=== PATIENT | female | born 1990 | race American Indian/Alaskan Native ===

== ENCOUNTER 2017-09-30 20:03 | Inpatient (IN) | payer MEDICAID ==
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
[2017-09-30] MEDS ORDERED: Vancomycin 1.5 GM in Sodium Chloride 0.9% 500 ML IV ONE (20:29)
[2017-09-30] MEDS ORDERED: metroNIDAZOLE/Normal Saline 500 MG in Premix Bag 100 BAG IV ONE (20:29)
[2017-09-30] MEDS ORDERED: Sodium Chloride 0.9% 1,000 ML IV SCH (20:30)
[2017-09-30] MEDS ORDERED: HYDROmorphone 1 MG/ML Syringe IVPUSH ONE ×2 (20:33→21:52)
[2017-09-30 21:11] LABS: CHLORIDE,CL 91 mmol/L (101-111); SODIUM,NA 127 mmol/L (135-145)
[2017-09-30] MEDS ORDERED: Insulin Regular, Human 100 Units/ML 3 ML Vial IV ONE (21:12)
[2017-09-30] MEDS: Sodium Chloride 0.9% 1,000 ML IV SCH ×3 (22:45→22:47)
[2017-10-01] MEDS: fentaNYL 100 MCG/2 ML SDV IVPUSH PRN ×3 (01:02→08:40)
[2017-10-01] MEDS: Acetaminophen/HYDROcodone 325-10 MG Tab PO PRN ×3 (01:20→11:14)
[2017-10-01] MEDS ORDERED: Zolpidem 5 MG Tab PO PRN (01:20)
[2017-10-01] MEDS ORDERED: Magnesium Hydroxide 400 MG/5 ML Susp 30 ML Cup PO PRN (01:20)
[2017-10-01] MEDS ORDERED: Ondansetron 4 MG/2 ML SDV IVPUSH PRN (01:20)
[2017-10-01] MEDS ORDERED: Acetaminophen 500 MG Tab PO PRN (01:24)
[2017-10-01] MEDS ORDERED: INSULIN GLARGINE HUM REC ANLOG 30 UNIT SQ SCH (01:25)
[2017-10-01] MEDS ORDERED: Insulin Aspart 100 Units/ML 3 ML Pen SUBCUT PRN ×2 (01:26)
[2017-10-01] MEDS ORDERED: Levofloxacin/Dextrose 5%-Water 500 MG in Premix Bag 1 BAG IV SCH (01:30)
[2017-10-01] MEDS ORDERED: Insulin Detemir 100 Units/ML 3 ML Pen SUBCUT SCH (01:33)
[2017-10-01] MEDS: Sodium Chloride 0.9% 1,000 ML IV SCH (04:09)
[2017-10-01 07:10] LABS: CHLORIDE,CL 103 mmol/L (101-111); SODIUM,NA 135 mmol/L (135-145)
[2017-10-01] MEDS: Insulin Aspart 100 Units/ML 3 ML Pen SUBCUT SCH ×2 (08:44→12:06)
[2017-10-01] MEDS ORDERED: Gabapentin 300 MG Cap PO SCH (09:00)
[2017-10-01] MEDS ORDERED: Enoxaparin 40 MG/0.4 ML Syringe SUBCUT SCH (09:00)
[2017-10-01] MEDS ORDERED: Ferrous Sulfate 325 MG Tab PO SCH (09:00)
[2017-10-01 11:09] VITALS: BP 110/67
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
--- NOTE | 2017-10-02 08:18 | DISCH ---
ADMITTING DIAGNOSES: 1. Cellulitis and abscess involving the left hand. 2. Systemic inflammatory response syndrome with possible sepsis with underlying cellulitis and abscess with normal lactic acid. DISCHARGE DIAGNOSES: 1. Cellulitis and abscess involving the left hand with possible underlying osteomyelitis, needing higher level of care for possible Orthopedic evaluation for possible bone biopsy, and ID consultation for recommendation on IV antibiotics for a long-term course. 2. Systemic inflammatory response syndrome with possible sepsis with underlying cellulitis and abscess with normal lactic acid. HISTORY OF PRESENTING ILLNESS: Mrs. Osman Crowley is a 26-year-old female with medical history significant for diabetes mellitus, insulin dependent; chronic hepatitis C; history of substance abuse in the past; and pyelonephritis in the past, admitted to the hospital with complaints of increased swelling and tender to the left hand. The patient was noted to have cellulitis and abscesses. The patient also noted to have possible bone exposure suggesting possible acute osteomyelitis. 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 The patient wound is not healing well and continues to have pain and swelling and requests possible wound debridement by Orthopedic surgery. The patient is transferred to higher level of care for possibly obtaining a bone biopsy along with the wound debridement and ID consultation for long-term IV antibiotic course. The patient remained hemodynamically stable on this admission. She was noted to have uncontrolled diabetes at the time of admission, requiring insulin dose adjustment. The patient is continued on subcutaneous insulin on this admission. She is discharged to [facility] for further evaluation and treatment by Orthopedic team, and ID team consultation. She is discharged to [facility] in stable condition. DISCHARGE MEDICATIONS: Include; 1. Tylenol Extra Strength as needed for pain. 2. Lovenox 40 mg subcutaneous daily. 3. Ferrous sulfate 325 mg daily. 4. Neurontin 600 mg 3 times a day. 5. Insulin Lantus 30 units at bedtime. 6. NovoLog insulin 5 units three times a day with each meals. 7. Levaquin 500 mg IV daily. 8. Metoprolol 50 mg twice a day. 9. Vancomycin, pharmacy to dose. PHYSICAL EXAMINATION: Vital Signs: On the day of discharge vitals; temperature of 99.6, pulse of 105, respiratory rate of 20, blood pressure of 110/67, saturating 92% on room air. General Appearance: The patient is well oriented to time, place, and person. Follows commands spontaneously. Cardiovascular System: S1, S2 heard with normal intensity. No gallops. Respiratory System: Clear to auscultation bilaterally. No wheeze. No crepitations. Abdomen: Soft. Bowel sounds positive. Nontender. No rigidity. Extremities: No edema bilateral lower extremities. Nonhealing wound noted on the left hand. She has 3 puncture wounds, circular wounds with necrotic tissue at the base, and possible bone exposure at the base, and active secretions with possible abscess noted deep to the wounds. LABORATORY DATA: Labs done on this admission. CT scan of the hand shows skin ulceration and cellulitis seen on the dorsal radial aspect of the left hand surrounding the remnant of the first digit. There is bony remodeling seen within the proximal phalangeal remnant of the first digit, although sclerotic margins are seen on the distal extent suggesting this may represent a sequela of prior osteomyelitis, further evaluation with postcontrast MRI may be helpful in excluding active osteomyelitis. CONDITION ON ADMISSION: Poor. CONDITION ON DISCHARGE: Stable. DISPOSITION: Discharged to [facility] for getting Orthopedic and ID consultation. DIET: Consistent carbohydrate diet. ACTIVITY: As tolerated. Spent over 35 minutes of time in evaluating and treating this patient and coordination of cares in the discharge process. [facility] /[id number]
== END 2017-10-01 12:35 | DRG 602 ==
LOC: DL.ED 20:03 → DL.MS 22:31 → UNDOADMIN 22:31 → EEVIPCON 10-01 01:20 → DL.MS 10-01 01:20
PROVIDERS: ADMIT Internal Medicine; ATTEND Internal Medicine
DX: L03.114 Cellulitis of left upper limb (principal); D64.9 Anemia, unspecified; E10.9 Type 1 diabetes mellitus without complications; A41.9 Sepsis, unspecified organism; E78.00 Pure hypercholesterolemia, unspecified; Q90.9 Down syndrome, unspecified; Z79.899 Other long term (current) drug therapy; Z88.0 Allergy status to penicillin; Z88.1 Allergy status to other antibiotic agents; Z88.8 Allergy status to other drugs, medicaments and biological substances; E10.65 Type 1 diabetes mellitus with hyperglycemia; Z79.4 Long term (current) use of insulin; B19.20 Unspecified viral hepatitis C without hepatic coma; Z89.012 Acquired absence of left thumb; F17.210 Nicotine dependence, cigarettes, uncomplicated; E78.5 Hyperlipidemia, unspecified; G89.4 Chronic pain syndrome
CPT/HCPCS: 36415; 73200; 80053; 80305; 81001; 81025; 82962; 83605; 83935; 85025; 85651; 87040 ×2; 87070; 87086; 87205; 96365; 96366; 96375; 96376; 99285; A9270; J1170 ×2; J1815; J1956; J3010; J3370; J7030; J7040; 83036; 85027; 87077; 87088; 87186; J1650; J7050

== ENCOUNTER 2018-03-21 22:48 | Emergency (ER) | payer MEDICAID, SELFPAY ==
[2018-03-21] MEDS ORDERED: Ibuprofen 600 MG Tab PO ONE (22:49)
[2018-03-21] MEDS: Morphine 4 MG/ML Syringe IVPUSH ONE (23:20)
[2018-03-21] MEDS: Ondansetron 4 MG/2 ML SDV IV ONE (23:20)
[2018-03-21 23:38] LABS: CHLORIDE,CL 97 mmol/L (101-111); SODIUM,NA 131 mmol/L (135-145)
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
[2018-03-22] MEDS: Morphine 2 MG/ML Syringe IVPUSH ONE (00:42)
[2018-03-22] MEDS: Iopamidol 612 MG/ML 100 ML Bottle IVPUSH ONE (00:43)
[2018-03-22] MEDS ORDERED: Ibuprofen 600 MG Tab ONE (02:14)
== END 2018-03-22 02:50 | disposition home or self-care (01) ==
LOC: DL.ED 22:48
DX: S40.011A Contusion of right shoulder, initial encounter (principal); M54.9 Dorsalgia, unspecified; F15.10 Other stimulant abuse, uncomplicated; F17.210 Nicotine dependence, cigarettes, uncomplicated; E10.9 Type 1 diabetes mellitus without complications; V88.2XXA Person injured in collision between car and pick-up truck or van, nontraffic, initial encounter; Z88.0 Allergy status to penicillin; Z88.8 Allergy status to other drugs, medicaments and biological substances; Z88.1 Allergy status to other antibiotic agents
CPT/HCPCS: 36415; 70450; 70486; 71260; 72125; 72128; 72131; 73060; 73090; 74177; 80053; 80305; 81001; 82150; 84703; 85025; 85610; 96374; 96375; 99285; A9270; G0480; J2270; J2405; Q9967

== ENCOUNTER 2018-03-24 11:07 | Emergency (ER) | payer MEDICAID ==
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
[2018-03-24] MEDS ORDERED: traMADol 50 MG Tab PO ONE (12:47)
[2018-03-24 12:55] VITALS: BP 129/90
== END 2018-03-24 13:11 | disposition home or self-care (01) ==
LOC: DL.ED 11:07
DX: S40.021A Contusion of right upper arm, initial encounter (principal); E78.00 Pure hypercholesterolemia, unspecified; E10.9 Type 1 diabetes mellitus without complications; F17.210 Nicotine dependence, cigarettes, uncomplicated; Z88.8 Allergy status to other drugs, medicaments and biological substances; Z88.1 Allergy status to other antibiotic agents; Z88.0 Allergy status to penicillin; Z79.899 Other long term (current) drug therapy; V09.9XXA Pedestrian injured in unspecified transport accident, initial encounter
CPT/HCPCS: 80305; 81001; 99283; A9270

== ENCOUNTER 2019-03-16 19:20 | Emergency (ER) | payer MEDICAID ==
[2019-03-16] MEDS ORDERED: Acetaminophen/HYDROcodone 325-10 MG Tab PO ONE ×2 (19:21→19:40)
[2019-03-16] MEDS ORDERED: Cephalexin 500 MG Cap PO ONE (19:21)
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
[2019-03-16] MEDS ORDERED: Ondansetron 4 MG/2 ML SDV IV ONE (19:48)
[2019-03-16] MEDS ORDERED: Morphine 2 MG/ML Syringe IVPUSH ONE (19:48)
[2019-03-16 20:25] LABS: CHLORIDE,CL 99 mmol/L (101-111); SODIUM,NA 129 mmol/L (135-145)
[2019-03-16] MEDS ORDERED: Sodium Chloride 0.9% 1,000 ML IV ONE (21:06)
[2019-03-16] MEDS ORDERED: cefTRIAXone 1 GM in Sodium Chloride 0.9% 50 ML IV ONE (21:07)
[2019-03-16 21:47] VITALS: BP 118/75
[2019-03-16] MEDS ORDERED: Cephalexin 500 MG Cap ONE (21:52)
[2019-03-16] MEDS ORDERED: Acetaminophen/HYDROcodone 325-10 MG Tab ONE (21:52)
== END 2019-03-16 22:30 | disposition home or self-care (01) ==
LOC: DL.ED 19:20
DX: T87.43 Infection of amputation stump, right lower extremity (principal); T87.89 Other complications of amputation stump; E78.00 Pure hypercholesterolemia, unspecified; E10.9 Type 1 diabetes mellitus without complications; F17.210 Nicotine dependence, cigarettes, uncomplicated; Z88.8 Allergy status to other drugs, medicaments and biological substances; Z88.1 Allergy status to other antibiotic agents; Z79.4 Long term (current) use of insulin; Z79.899 Other long term (current) drug therapy; Z89.511 Acquired absence of right leg below knee; Z89.019 Acquired absence of unspecified thumb; W18.30XA Fall on same level, unspecified, initial encounter
CPT/HCPCS: 36415; 73560; 80053; 83605; 85025; 87040; 96365; 96375; 99284; A9270; J0696; J2270; J2405; J7030; J7050

== ENCOUNTER 2019-04-16 13:11 | Emergency (ER) | payer MEDICAID ==
[2019-04-16 13:23] VITALS: BP 136/95
[2019-04-16] MEDS ORDERED: Sodium Chloride 0.9% 10 ML Syringe FLUSH PRN (13:27)
[2019-04-16] MEDS ORDERED: Insulin Regular, Human 100 Units/ML 3 ML Vial IV ONE (13:53)
[2019-04-16] MEDS ORDERED: HYDROmorphone 1 MG/ML Syringe IVPUSH ONE (13:53)
[2019-04-16] MEDS ORDERED: Sodium Chloride 0.9% 1,000 ML IV ONE (13:53)
[2019-04-16 13:55] LABS: ANION GAP 13.7; CHLORIDE,CL 94 mmol/L (101-111); SODIUM,NA 126 mmol/L (135-145)
[2019-04-16] MEDS ORDERED: Ondansetron 4 MG/2 ML SDV IV ONE (14:08)
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
== END 2019-04-16 15:08 ==
LOC: DL.ED 13:11
DX: M86.8X4 Other osteomyelitis, hand (principal); E10.9 Type 1 diabetes mellitus without complications; F17.210 Nicotine dependence, cigarettes, uncomplicated; E78.00 Pure hypercholesterolemia, unspecified; Z79.899 Other long term (current) drug therapy; Z88.1 Allergy status to other antibiotic agents; Z88.8 Allergy status to other drugs, medicaments and biological substances
CPT/HCPCS: 36415; 80053; 81001; 81025; 82962; 83605; 85025; 87040; 96361; 96374; 96375; 99283; J1170; J1815; J2405; J7030

== ENCOUNTER 2019-04-20 12:55 | Emergency (ER) | payer MEDICAID ==
[2019-04-20 13:33] VITALS: BP 157/96; PULSE 106
[2019-04-20] MEDS ORDERED: traMADol 50 MG Tab PO ONE (15:19)
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
== END 2019-04-20 15:42 | disposition home or self-care (01) ==
LOC: DL.ED 12:55
DX: T87.89 Other complications of amputation stump (principal); I10 Essential (primary) hypertension; E13.8 Other specified diabetes mellitus with unspecified complications; F17.210 Nicotine dependence, cigarettes, uncomplicated; Z88.1 Allergy status to other antibiotic agents; Z88.8 Allergy status to other drugs, medicaments and biological substances; Z79.899 Other long term (current) drug therapy; Z91.19 Patient's noncompliance with other medical treatment and regimen; Z89.112 Acquired absence of left hand; Z89.511 Acquired absence of right leg below knee; Z79.4 Long term (current) use of insulin
CPT/HCPCS: 99283; A9270

== ENCOUNTER 2019-04-21 06:31 | Emergency (ER) | payer MEDICAID ==
[2019-04-21] MEDS ORDERED: fentaNYL 100 MCG/2 ML SDV IVPUSH ONE ×2 (06:37→07:25)
[2019-04-21] MEDS ORDERED: Ondansetron 4 MG/2 ML SDV IV ONE (06:37)
[2019-04-21] MEDS ORDERED: DAPTOmycin 500 MG in Sodium Chloride 0.9% 50 ML IV ONE (06:39)
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
[2019-04-21 06:42] VITALS: BP 158/96
[2019-04-21 07:08] LABS: ANION GAP 12.6; CHLORIDE,CL 101 mmol/L (101-111); SODIUM,NA 132 mmol/L (135-145)
[2019-04-21] MEDS ORDERED: Sodium Chloride 0.9% 500 ML IV SCH (08:00)
== END 2019-04-21 08:17 | disposition other institution (70) ==
LOC: DL.ED 06:31
DX: A41.9 Sepsis, unspecified organism (principal); I10 Essential (primary) hypertension; E10.9 Type 1 diabetes mellitus without complications; Z98.51 Tubal ligation status; Z89.511 Acquired absence of right leg below knee; Z79.4 Long term (current) use of insulin; Z79.899 Other long term (current) drug therapy; Z88.1 Allergy status to other antibiotic agents; Z88.8 Allergy status to other drugs, medicaments and biological substances
CPT/HCPCS: 36415; 80053; 83605; 85025; 87040; 96365; 96375; 96376; 99284; J0878; J2405; J3010; J7040; J7050

== ENCOUNTER 2019-05-18 09:21 | Emergency (ER) | payer MEDICAID ==
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
[2019-05-18 09:47] VITALS: BP 129/100
[2019-05-18] MEDS ORDERED: Sodium Chloride 0.9% 10 ML Syringe FLUSH PRN (09:47)
[2019-05-18] MEDS ORDERED: HYDROmorphone 1 MG/ML Syringe IVPUSH ONE ×2 (09:49→12:05)
[2019-05-18 10:44] LABS: ANION GAP 12.4; CHLORIDE,CL 100 mmol/L (101-111); SODIUM,NA 128 mmol/L (135-145)
[2019-05-18] MEDS ORDERED: Insulin Regular, Human 100 Units/ML 3 ML Vial IV ONE (10:48)
[2019-05-18] MEDS ORDERED: Sodium Chloride 0.9% 1,000 ML IV ONE (10:51)
== END 2019-05-18 12:55 | disposition home or self-care (01) ==
LOC: DL.ED 09:21
DX: T87.89 Other complications of amputation stump (principal); E10.65 Type 1 diabetes mellitus with hyperglycemia; I10 Essential (primary) hypertension; Z88.8 Allergy status to other drugs, medicaments and biological substances; Z89.511 Acquired absence of right leg below knee; Z79.4 Long term (current) use of insulin; Z79.899 Other long term (current) drug therapy
CPT/HCPCS: 36415; 80053; 82009; 82962; 83605; 85025; 87040; 96361; 96374; 96375; 96376; 99284; J1170; J1815; J7030

== ENCOUNTER 2019-09-16 13:02 | Emergency (ER) | payer MEDICAID ==
[2019-09-16] MEDS ORDERED: Sodium Chloride 0.9% 1,000 ML IV ONE (13:12)
[2019-09-16 13:16] VITALS: BP 141/83; PULSE 108
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
[2019-09-16 13:48] LABS: CHLORIDE,CL 97 mmol/L (101-111); SODIUM,NA 129 mmol/L (135-145)
[2019-09-16] MEDS ORDERED: Ketorolac 30 MG/ML SDV IVPUSH ONE (13:57)
[2019-09-16] MEDS ORDERED: Cyclobenzaprine 10 MG Tab PO ONE (13:57)
== END 2019-09-16 14:58 | disposition home or self-care (01) ==
LOC: DL.ED 13:02
DX: S39.012A Strain of muscle, fascia and tendon of lower back, initial encounter (principal); S46.912A Strain of unspecified muscle, fascia and tendon at shoulder and upper arm level, left arm, initial encounter; S61.402A Unspecified open wound of left hand, initial encounter; L03.114 Cellulitis of left upper limb; E10.65 Type 1 diabetes mellitus with hyperglycemia; I10 Essential (primary) hypertension; Z89.511 Acquired absence of right leg below knee; Z89.019 Acquired absence of unspecified thumb; Z88.1 Allergy status to other antibiotic agents; Z88.8 Allergy status to other drugs, medicaments and biological substances; Z79.899 Other long term (current) drug therapy; X58.XXXA Exposure to other specified factors, initial encounter
CPT/HCPCS: 36415; 80053; 80305; 81001; 82009; 82962; 83605; 85025; 87040; 96365; 96375; 99284; A9270; J1885; J7030

== ENCOUNTER 2019-12-04 23:53 | Emergency (ER) | payer MEDICAID ==
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
[2019-12-05 00:32] LABS: ANION GAP 12.6; CHLORIDE,CL 98 mmol/L (101-111); SODIUM,NA 129 mmol/L (135-145)
[2019-12-05] MEDS ORDERED: Morphine 2 MG/ML Syringe IVPUSH ONE ×2 (00:55→02:23)
[2019-12-05] MEDS ORDERED: Sulfamethoxazole/Trimethoprim 800-160 MG Tab PO ONE (02:23)
[2019-12-05] MEDS ORDERED: Sulfamethoxazole/Trimethoprim 800-160 MG Tab ONE (02:34)
[2019-12-05] MEDS ORDERED: Morphine 2 MG/ML Syringe ONE (02:34)
[2019-12-05 02:57] VITALS: BP 131/97; PULSE 111
== END 2019-12-05 02:45 | disposition home or self-care (01) ==
LOC: DL.ED 23:53
DX: L03.114 Cellulitis of left upper limb (principal); F17.210 Nicotine dependence, cigarettes, uncomplicated; E10.9 Type 1 diabetes mellitus without complications; I10 Essential (primary) hypertension; Z79.899 Other long term (current) drug therapy; Z88.1 Allergy status to other antibiotic agents; Z88.8 Allergy status to other drugs, medicaments and biological substances
CPT/HCPCS: 36415; 80053; 80305; 80320; 81001; 82009; 82962; 83605; 85025; 85379; 87040; 87086; 87088; 87186; 93971; 99284; A9270; J2270; G0480

== ENCOUNTER 2019-12-09 08:40 | Emergency (ER) | payer MEDICAID ==
[2019-12-09 08:59] VITALS: BP 130/83; PULSE 100
[2019-12-09] MEDS ORDERED: Acetaminophen/HYDROcodone 325-10 MG Tab PO ONE (09:24)
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
== END 2019-12-09 09:45 | disposition home or self-care (01) ==
LOC: DL.ED 08:40
DX: L03.116 Cellulitis of left lower limb (principal); F17.210 Nicotine dependence, cigarettes, uncomplicated; E10.9 Type 1 diabetes mellitus without complications; I10 Essential (primary) hypertension; Z79.899 Other long term (current) drug therapy; Z88.8 Allergy status to other drugs, medicaments and biological substances
CPT/HCPCS: 99283; A9270

== ENCOUNTER 2019-12-22 23:37 | Emergency (ER) | payer MEDICAID ==
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
[2019-12-23] MEDS ORDERED: Acetaminophen/HYDROcodone 325-5 MG Tab PO ONE (00:07)
[2019-12-23] MEDS ORDERED: Sodium Chloride 0.9% 10 ML Syringe FLUSH PRN (00:20)
[2019-12-23] MEDS ORDERED: Bacitracin Oint 1 GM U/D Packet TOP ONE (00:24)
[2019-12-23 01:04] LABS: ANION GAP 10.8; CHLORIDE,CL 107 mmol/L (101-111); SODIUM,NA 133 mmol/L (135-145)
[2019-12-23 01:33] VITALS: BP 138/90; PULSE 91
[2019-12-23] MEDS ORDERED: HYDROmorphone 0.5 MG/0.5 ML Syringe IM ONE (01:39)
== END 2019-12-23 02:06 | disposition home or self-care (01) ==
LOC: DL.ED 23:37
DX: T87.89 Other complications of amputation stump (principal); J45.909 Unspecified asthma, uncomplicated; F17.210 Nicotine dependence, cigarettes, uncomplicated; E10.65 Type 1 diabetes mellitus with hyperglycemia; Z79.4 Long term (current) use of insulin; Z88.1 Allergy status to other antibiotic agents; Z88.8 Allergy status to other drugs, medicaments and biological substances; Z89.511 Acquired absence of right leg below knee; Z91.19 Patient's noncompliance with other medical treatment and regimen; W01.0XXA Fall on same level from slipping, tripping and stumbling without subsequent striking against object, initial encounter; Y92.810 Car as the place of occurrence of the external cause
CPT/HCPCS: 36415; 73552; 80053; 80305; 81001; 81025; 83605; 85025; 87040; 96372; 99284; A9270; J1170

== ENCOUNTER 2020-01-04 09:29 | Inpatient (IN) | payer MEDICAID ==
[2020-01-04] MEDS ORDERED: Lidocaine 5% Oint 35.44 GM Tube TOP ONE (10:08)
[2020-01-04] MEDS ORDERED: Sodium Chloride 0.9% 1,000 ML IV ONE (10:08)
[2020-01-04] MEDS ORDERED: diphenhydrAMINE 50 MG/ML SDV IVPUSH ONE (10:09)
[2020-01-04] MEDS ORDERED: HYDROmorphone 1 MG/ML Syringe IVPUSH ONE ×2 (10:10→12:48)
[2020-01-04] MEDS: Sodium Chloride 0.9% 10 ML Syringe FLUSH PRN (10:35)
[2020-01-04 10:49] LABS: CHLORIDE,CL 102 mmol/L (101-111); SODIUM,NA 131 mmol/L (135-145)
[2020-01-04] MEDS ORDERED: Lidocaine 1% 30 ML SDV INJECT ONE (11:00)
[2020-01-04] MEDS ORDERED: Insulin Regular, Human 100 Units/ML 3 ML Vial SUBCUT ONE (11:00)
[2020-01-04] MEDS ORDERED: Lidocaine 1% 30 ML SDV ONE (11:02)
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
[2020-01-04] MEDS: oxyCODONE 5 MG Tab PO PRN ×3 (15:04→23:22)
[2020-01-04] MEDS: Piperacillin/Tazobactam 3.375 GM in Sodium Chloride 0.9% 100 ML IV SCH ×2 (15:05→19:59)
[2020-01-04] MEDS: Heparin Sodium 5,000 Units/ML Vial SUBCUT SCH ×2 (15:05→21:36)
[2020-01-04] MEDS: Lisinopril 5 MG Tab PO SCH (15:37)
[2020-01-04] MEDS: Sertraline 50 MG Tab PO SCH (15:37)
[2020-01-04] MEDS: Pregabalin 50 MG Cap PO SCH ×2 (15:37→21:38)
[2020-01-04] MEDS: Insulin Lispro 100 Units/ML 3 ML Vial SUBCUT SCH ×2 (17:11→21:34)
[2020-01-04] MEDS: Acetaminophen 325 MG Tab PO PRN (19:58)
[2020-01-04] MEDS ORDERED: Insulin Glarg,Human.Rec.Analog 100 Unit/ML SUBCUT SCH (21:00)
[2020-01-05] MEDS: Piperacillin/Tazobactam 3.375 GM in Sodium Chloride 0.9% 100 ML IV SCH ×2 (02:07→08:22)
[2020-01-05] MEDS: Sodium Chloride 0.9% 10 ML Syringe FLUSH PRN ×4 (02:08→09:55)
[2020-01-05] MEDS: oxyCODONE 5 MG Tab PO PRN ×2 (03:50→08:50)
[2020-01-05] MEDS: Heparin Sodium 5,000 Units/ML Vial SUBCUT SCH (05:01)
[2020-01-05 06:58] LABS: ANION GAP 10.3
[2020-01-05] MEDS: Insulin Lispro 100 Units/ML 3 ML Vial SUBCUT SCH ×2 (08:46→13:24)
[2020-01-05] MEDS: Lisinopril 5 MG Tab PO SCH (08:49)
[2020-01-05] MEDS: Pregabalin 50 MG Cap PO SCH (08:49)
[2020-01-05] MEDS: Sertraline 50 MG Tab PO SCH (08:50)
[2020-01-05] MEDS: Acetaminophen 325 MG Tab PO PRN (08:52)
[2020-01-05 08:54] VITALS: BP 120/92
[2020-01-05 08:58] VITALS: PULSE 96
--- NOTE | 2020-01-05 09:52 | PCM.DCSUM1 ---
Discharge Summary - Hospital Course Free Text/Narrative:: Ms. Brewer is a 29 year old female with past medical history significant for type 1 diabetes mellitus, hypertension, hepatitis C infection, recent right above-knee amputation, recent hospital admission in June 2019 for right sided gluteal boil with associated cellulitis who presented to the hospital with left thigh boil with associated cellulitis. Patient said that her symptoms started approximately 3 to 4 days ago, and were associated with fevers and chills. Patient was status post I&D in the emergency room with packing of her thigh wound. Prelim cultures of wound showed findings concerning for staph aureus infection, patient had 2 out of 2 blood cultures positive for gram-positive cocci in chains also concerning for staph aureus bacteremia. Arrangement was made to transfer patient to [facility] for higher level of care, echo as well as ID evaluation. Patient was discharged in stable condition. She was graciously accepted by Dr. Hermosillo. - Discharge Data Discharge Date: 01/05/20 Discharge Disposition: DC/Tfer to Acute Hospital 02 Condition: Stable - Referral to Home Health Primary Care Physician: PCP Unobtainable - Patient Summary/Data Consults: Consultations 01/04/20 13:07 PT Evaluation and Treatment [CONS] Routine - Discharge Plan *PRESCRIPTION DRUG MONITORING PROGRAM REVIEWED*: No *COPY OF PRESCRIPTION DRUG MONITORING REPORT IN PATIENT JUSTIN: No Home Medications: Home Meds Insulin Glargine,Hum.Rec.Anlog [Lantus Solostar] 32 units SQ BEDTIME 03/17/15 [ History] Acetaminophen [Tylenol Extra Strength] 1,000 mg PO Q6H PRN 12/01/15 [History] Insulin Aspart [NovoLOG] See Protocol SUBCUT TIDAC 10/10/17 [History] Lisinopril 5 mg PO DAILY 02/26/19 [History] Sertraline [Zoloft] 50 mg PO DAILY 06/24/19 [History] Ibuprofen 800 mg PO Q6H PRN 01/04/20 [History] Pregabalin [Lyrica] 50 mg PO TID 01/04/20 [History] Referrals: PCP,Unobtain [Primary Care Provider] - - Discharge Summary/Plan Comment DC Time >30 min.: Yes - General Info Date of Service: 01/05/20 Admission Dx/Problem (Free Text: Admission Diagnosis/Problem Admission Diagnosis/Problem Abscess,sepsis, bacteremia Subjective Update: Patient feels better today. Discussed with patient transfer to [facility], and she is in agreement. - Patient Data Vitals - Most Recent: Last Vital Signs Temp 35.9 C 01/05/20 08:00 Pulse 96 01/05/20 08:00 Resp 18 01/05/20 08:00 BP 120/92 H 01/05/20 08:49 Pulse Ox 100 01/05/20 08:00 Weight - Most Recent: 70.307 kg I&O - Last 24 hours: Intake & Output 01/04/20 01/05/20 01/05/20 22:59 06:59 14:59 Intake Total 990 394 811 Balance 990 394 811 Lab Results - Last 24 hrs: Laboratory Results - last 24 hr 01/04/20 01/04/20 01/04/20 Range/Units 10:18 10:18 10:18 WBC 13.4 H (5.0-10.0) 10^3/uL RBC 3.61 L (4.2-5.4) 10^6/uL Hgb 9.4 L (12.0-16.0) g/dL Hct 28.7 L (37.0-47.0) % MCV 79.5 L (80-100) fL MCH 26.0 L (27.0-34.0) pg MCHC 32.8 L (33.0-35.0) g/dL Plt Count 419 (150-450) 10^3/uL Neut % (Auto) 75.8 H (42.2-75.2) % Lymph % (Auto) 17.7 L (20.5-50.1) % [place] % (Auto) 5.4 (2-8) % Eos % (Auto) 0.8 L (1.0-3.0) % Baso % (Auto) 0.3 (0.0-1.0) % Sodium 131 L (135-145) mmol/L Potassium 4.0 (3.6-5.0) mmol/L Chloride 102 (101-111) mmol/L Carbon Dioxide 21.0 (21.0-31.0) mmol/L Anion Gap 12.0 BUN 12 (7-18) mg/dL Creatinine 0.9 (0.6-1.3) mg/dL Est Cr Clr Drug Dosing 88.07 mL/min Estimated GFR (MDRD) > 60 BUN/Creatinine Ratio 13.33 Glucose 451 H* (74-105) mg/dL POC Glucose (70-105) mg/dl Lactic Acid 1.2 (0.5-2.0) mmol/L Calcium 8.1 L (8.4-10.2) mg/dl Phosphorus (2.5-4.6) mg/dL Magnesium (1.8-2.5) mg/dL Total Bilirubin 0.4 (0.2-1.0) mg/dL AST 17 (10-42) IU/L ALT 25 (10-60) IU/L Alkaline Phosphatase 112 (42-121) IU/L C-Reactive Protein (0.0-1.3) mg/dL Total Protein 7.1 (6.7-8.2) g/dl Albumin 2.2 L (3.2-5.5) g/dl Globulin 4.9 Albumin/Globulin Ratio 0.45 Urine Color (YELLOW) Urine Appearance (CLEAR) Urine pH (5.0-9.0) Ur Specific [place] (1.005-1.030) Urine Protein (NEGATIVE) Urine Glucose (UA) (NEGATIVE) Urine Ketones (NEGATIVE) Urine Occult Blood (NEGATIVE) Urine Nitrite (NEGATIVE) Urine Bilirubin (NEGATIVE) Urine Urobilinogen (0.2-1.0) mg/dL Ur Leukocyte Esterase (NEGATIVE) Urine RBC /HPF Urine WBC (0-5/HPF) /HPF Ur Epithelial Cells (NOT SEEN) /HPF Urine Bacteria (0-FEW/HPF) /HPF Urine Mucus (NOT SEEN) /LPF Ketones 01/04/20 01/04/20 01/04/20 Range/Units 10:18 10:18 12:28 WBC (5.0-10.0) 10^3/uL RBC (4.2-5.4) 10^6/uL Hgb (12.0-16.0) g/dL Hct (37.0-47.0) % MCV (80-100) fL MCH (27.0-34.0) pg MCHC (33.0-35.0) g/dL Plt Count (150-450) 10^3/uL Neut % (Auto) (42.2-75.2) % Lymph % (Auto) (20.5-50.1) % [place] % (Auto) (2-8) % Eos % (Auto) (1.0-3.0) % Baso % (Auto) (0.0-1.0) % Sodium (135-145) mmol/L Potassium (3.6-5.0) mmol/L Chloride (101-111) mmol/L Carbon Dioxide (21.0-31.0) mmol/L Anion Gap BUN (7-18) mg/dL Creatinine (0.6-1.3) mg/dL Est Cr Clr Drug Dosing mL/min Estimated GFR (MDRD) BUN/Creatinine Ratio Glucose (74-105) mg/dL POC Glucose (70-105) mg/dl Lactic Acid (0.5-2.0) mmol/L Calcium (8.4-10.2) mg/dl Phosphorus (2.5-4.6) mg/dL Magnesium (1.8-2.5) mg/dL Total Bilirubin (0.2-1.0) mg/dL AST (10-42) IU/L ALT (10-60) IU/L Alkaline Phosphatase (42-121) IU/L C-Reactive Protein 3.9 H (0.0-1.3) mg/dL Total Protein (6.7-8.2) g/dl Albumin (3.2-5.5) g/dl Globulin Albumin/Globulin Ratio Urine Color Yellow (YELLOW) Urine Appearance Slightly cloudy (CLEAR) Urine pH 6.5 (5.0-9.0) Ur Specific [place] 1.015 (1.005-1.030) Urine Protein >=300 H (NEGATIVE) Urine Glucose (UA) 500 H (NEGATIVE) Urine Ketones Negative (NEGATIVE) Urine Occult Blood Trace-intact H (NEGATIVE) Urine Nitrite Negative (NEGATIVE) Urine Bilirubin Negative (NEGATIVE) Urine Urobilinogen 0.2 (0.2-1.0) mg/dL Ur Leukocyte Esterase Negative (NEGATIVE) Urine RBC 0-5 /HPF Urine WBC Not seen (0-5/HPF) /HPF Ur Epithelial Cells Moderate H (NOT SEEN) /HPF Urine Bacteria Rare (0-FEW/HPF) /HPF Urine Mucus Not seen (NOT SEEN) /LPF Ketones Negative 01/04/20 01/04/20 01/04/20 Range/Units 12:35 16:38 20:41 WBC (5.0-10.0) 10^3/uL RBC (4.2-5.4) 10^6/uL Hgb (12.0-16.0) g/dL Hct (37.0-47.0) % MCV (80-100) fL MCH (27.0-34.0) pg MCHC (33.0-35.0) g/dL Plt Count (150-450) 10^3/uL Neut % (Auto) (42.2-75.2) % Lymph % (Auto) (20.5-50.1) % [place] % (Auto) (2-8) % Eos % (Auto) (1.0-3.0) % Baso % (Auto) (0.0-1.0) % Sodium (135-145) mmol/L Potassium (3.6-5.0) mmol/L Chloride (101-111) mmol/L Carbon Dioxide (21.0-31.0) mmol/L Anion Gap BUN (7-18) mg/dL Creatinine (0.6-1.3) mg/dL Est Cr Clr Drug Dosing mL/min Estimated GFR (MDRD) BUN/Creatinine Ratio Glucose (74-105) mg/dL POC Glucose 322 H 311 H 180 H (70-105) mg/dl Lactic Acid (0.5-2.0) mmol/L Calcium (8.4-10.2) mg/dl Phosphorus (2.5-4.6) mg/dL Magnesium (1.8-2.5) mg/dL Total Bilirubin (0.2-1.0) mg/dL AST (10-42) IU/L ALT (10-60) IU/L Alkaline Phosphatase (42-121) IU/L C-Reactive Protein (0.0-1.3) mg/dL Total Protein (6.7-8.2) g/dl Albumin (3.2-5.5) g/dl Globulin Albumin/Globulin Ratio Urine Color (YELLOW) Urine Appearance (CLEAR) Urine pH (5.0-9.0) Ur Specific [place] (1.005-1.030) Urine Protein (NEGATIVE) Urine Glucose (UA) (NEGATIVE) Urine Ketones (NEGATIVE) Urine Occult Blood (NEGATIVE) Urine Nitrite (NEGATIVE) Urine Bilirubin (NEGATIVE) Urine Urobilinogen (0.2-1.0) mg/dL Ur Leukocyte Esterase (NEGATIVE) Urine RBC /HPF Urine WBC (0-5/HPF) /HPF Ur Epithelial Cells (NOT SEEN) /HPF Urine Bacteria (0-FEW/HPF) /HPF Urine Mucus (NOT SEEN) /LPF Ketones 01/05/20 01/05/20 01/05/20 Range/Units 06:00 06:00 07:20 WBC 12.4 H (5.0-10.0) 10^3/uL RBC 3.30 L (4.2-5.4) 10^6/uL Hgb 8.5 L (12.0-16.0) g/dL Hct 27.1 L (37.0-47.0) % MCV 82.1 (80-100) fL MCH 25.8 L (27.0-34.0) pg MCHC 31.4 L (33.0-35.0) g/dL Plt Count 377 (150-450) 10^3/uL Neut % (Auto) 72.2 (42.2-75.2) % Lymph % (Auto) 16.6 L (20.5-50.1) % [place] % (Auto) 8.8 H (2-8) % Eos % (Auto) 2.1 (1.0-3.0) % Baso % (Auto) 0.3 (0.0-1.0) % Sodium 131 L (135-145) mmol/L Potassium 4.3 (3.6-5.0) mmol/L Chloride 104 (101-111) mmol/L Carbon Dioxide 21.0 (21.0-31.0) mmol/L Anion Gap 10.3 BUN 20 H (7-18) mg/dL Creatinine 1.2 (0.6-1.3) mg/dL Est Cr Clr Drug Dosing 63.59 mL/min Estimated GFR (MDRD) 52 BUN/Creatinine Ratio Glucose 334 H (74-105) mg/dL POC Glucose 299 H (70-105) mg/dl Lactic Acid (0.5-2.0) mmol/L Calcium 7.8 L (8.4-10.2) mg/dl Phosphorus 3.2 (2.5-4.6) mg/dL Magnesium 1.8 (1.8-2.5) mg/dL Total Bilirubin (0.2-1.0) mg/dL AST (10-42) IU/L ALT (10-60) IU/L Alkaline Phosphatase (42-121) IU/L C-Reactive Protein (0.0-1.3) mg/dL Total Protein (6.7-8.2) g/dl Albumin (3.2-5.5) g/dl Globulin Albumin/Globulin Ratio Urine Color (YELLOW) Urine Appearance (CLEAR) Urine pH (5.0-9.0) Ur Specific [place] (1.005-1.030) Urine Protein (NEGATIVE) Urine Glucose (UA) (NEGATIVE) Urine Ketones (NEGATIVE) Urine Occult Blood (NEGATIVE) Urine Nitrite (NEGATIVE) Urine Bilirubin (NEGATIVE) Urine Urobilinogen (0.2-1.0) mg/dL Ur Leukocyte Esterase (NEGATIVE) Urine RBC /HPF Urine WBC (0-5/HPF) /HPF Ur Epithelial Cells (NOT SEEN) /HPF Urine Bacteria (0-FEW/HPF) /HPF Urine Mucus (NOT SEEN) /LPF Ketones MAYUR Results - Last 24 hrs: Microbiology 01/04/20 11:19 Wound Culture - Preliminary Thigh, Left 01/04/20 10:18 Anaerobic Blood Culture - Preliminary Blood - Venous 01/04/20 10:24 Aerobic Blood Culture - Preliminary Blood - Venous - Lab Draw Med Orders - Current: Current Medications Acetaminophen (Tylenol) 650 mg PO Q4H PRN PRN Reason: Pain (Mild 1-3)/fever Last Admin: 01/05/20 08:52 Dose: 650 mg Heparin Sodium (Porcine) (Heparin Sodium) 5,000 units SUBCUT Q8HR [facility] Last Admin: 01/05/20 05:01 Dose: Not Given Piperacillin Sod/Tazobactam (Sod 3.375 gm/ Sodium Chloride) 100 mls @ 200 mls/ hr IV Q6H [facility] Last Infusion: 01/05/20 09:02 Dose: Infused Vancomycin HCl 1 gm/ Premix 200 mls @ 133.333 mls/hr IV Q12H [facility] Last Admin: 01/04/20 21:42 Dose: 133.333 mls/hr Insulin Glargine (Lantus) 32 unit SUBCUT BEDTIME [facility] Last Admin: 01/04/20 21:33 Dose: 32 units Insulin Human Lispro (Humalog) 0 unit SUBCUT WITHMEALSANDBED [facility]; Protocol Last Admin: 01/05/20 08:46 Dose: 6 units Lisinopril (Prinivil) 5 mg PO DAILY [facility] Last Admin: 01/05/20 08:49 Dose: 5 mg Oxycodone HCl (Oxycodone) 5 mg PO Q4H PRN PRN Reason: Pain (moderate 4-6) Last Admin: 01/05/20 08:50 Dose: 5 mg Pregabalin (Lyrica) 50 mg PO TID [facility] Last Admin: 01/05/20 08:49 Dose: 50 mg Sertraline HCl (Zoloft) 50 mg PO DAILY [facility] Last Admin: 01/05/20 08:50 Dose: 50 mg Sodium Chloride (Saline Flush) 10 ml FLUSH ASDIRECTED PRN PRN Reason: Keep Vein Open Last Admin: 01/05/20 09:02 Dose: 10 ml Vancomycin HCl (Pharmacy To Dose - Vancomycin) 1 dose .XX ASDIRECTED [facility] Discontinued Medications Diphenhydramine HCl (Benadryl) 25 mg IVPUSH ONETIME ONE Stop: 01/04/20 10:10 Last Admin: 01/04/20 10:42 Dose: 25 mg Hydromorphone HCl (Dilaudid) 1 mg IVPUSH ONETIME ONE Stop: 01/04/20 10:11 Last Admin: 01/04/20 10:45 Dose: 1 mg Hydromorphone HCl (Dilaudid) 1 mg IVPUSH ONETIME ONE Stop: 01/04/20 12:49 Last Admin: 01/04/20 12:56 Dose: 1 mg Sodium Chloride (Normal Saline) 1,000 mls @ 999 mls/hr IV .BOLUS ONE Stop: 01/04/20 11:08 Last Admin: 01/04/20 10:40 Dose: 999 mls/hr Vancomycin HCl 1 gm/ Sodium (Chloride) 250 mls @ 167 mls/hr IV ONETIME ONE Stop: 01/04/20 11:38 Last Admin: 01/04/20 11:12 Dose: 167 mls/hr Insulin Human Regular (Humulin R) 12 unit SUBCUT ONETIME ONE Stop: 01/04/20 11:01 Last Admin: 01/04/20 11:25 Dose: 12 unit Lidocaine HCl (Lidocaine 5%) 15 gm TOP ONETIME ONE Stop: 01/04/20 10:09 Last Admin: 01/04/20 10:15 Dose: 15 gram Lidocaine HCl (Xylocaine-Mpf 1%) 30 ml INJECT ONETIME ONE Stop: 01/04/20 11:01 Last Admin: 01/04/20 11:07 Dose: 30 ml Lidocaine HCl (Xylocaine-Mpf 1%) Confirm Administered Dose 30 ml .ROUTE .STK- MED ONE Stop: 01/04/20 11:03 Last Admin: 01/04/20 11:04 Dose: Not Given - Exam General: Reports: Alert, Oriented Lungs: Reports: Clear to Auscultation, Normal Respiratory Effort Cardiovascular: Reports: Regular Rhythm, Tachycardia GI/Abdominal Exam: Normal Bowel Sounds, Soft, Non-Tender Extremities: Other (Right AKA, 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
== END 2020-01-05 10:45 | DRG 872 ==
LOC: DL.ED 09:29 → DL.MS 12:40 → UNDOADMIN 12:40
PROVIDERS: ADMIT Internal Medicine; ATTEND Internal Medicine
DX: L03.116 Cellulitis of left lower limb (principal); A41.01 Sepsis due to Methicillin susceptible Staphylococcus aureus; E10.65 Type 1 diabetes mellitus with hyperglycemia; F84.0 Autistic disorder; L02.416 Cutaneous abscess of left lower limb; E10.9 Type 1 diabetes mellitus without complications; F32.9 Major depressive disorder, single episode, unspecified; J45.909 Unspecified asthma, uncomplicated; D64.9 Anemia, unspecified; F17.210 Nicotine dependence, cigarettes, uncomplicated; H54.7 Unspecified visual loss; I10 Essential (primary) hypertension; Z96.0 Presence of urogenital implants; Q90.9 Down syndrome, unspecified; Z87.442 Personal history of urinary calculi; Z79.899 Other long term (current) drug therapy; Z89.019 Acquired absence of unspecified thumb; Z89.511 Acquired absence of right leg below knee; Z91.14 Patient's other noncompliance with medication regimen; Z79.4 Long term (current) use of insulin; Z88.8 Allergy status to other drugs, medicaments and biological substances
CPT/HCPCS: 36415; 80053; 81001; 82009; 82962; 83605; 85025; 86140; 87040 ×2; 87070; A9270; J1170; J1200; J1815; J2001; J3370; J7030; J7050; 10060; 80048; 83735; 84100; 87077; 87186; 96361; 96365; 96375; 99284-25; J1644; J2543

== ENCOUNTER 2020-01-13 14:03 | Emergency (ER) | payer MEDICAID ==
[2020-01-13 14:23] VITALS: BP 143/90; PULSE 94
[2020-01-13] MEDS ORDERED: Acetaminophen 500 MG Tab PO ONE (14:45)
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
== END 2020-01-13 14:53 | disposition home or self-care (01) ==
LOC: DL.ED 14:03
DX: L02.416 Cutaneous abscess of left lower limb (principal); L03.116 Cellulitis of left lower limb; I10 Essential (primary) hypertension; E10.9 Type 1 diabetes mellitus without complications; F17.210 Nicotine dependence, cigarettes, uncomplicated; Z88.8 Allergy status to other drugs, medicaments and biological substances; Z79.899 Other long term (current) drug therapy
CPT/HCPCS: 99283; A9270

== ENCOUNTER 2020-02-14 01:30 | Observation (INO) | payer MEDICAID ==
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
[2020-02-14 01:56] LABS: ANION GAP 12.3 mEq/L (7-13); CHLORIDE,CL 95 mmol/L (98-107); SODIUM,NA 130 mmol/L (136-145)
[2020-02-14] MEDS ORDERED: Clindamycin Phosphate 900 MG in Sodium Chloride 0.9% 100 ML IV ONE (02:09)
[2020-02-14] MEDS ORDERED: HYDROmorphone 0.5 MG/0.5 ML Syringe IVPUSH ONE (02:09)
[2020-02-14] MEDS ORDERED: Sodium Chloride 0.9% 1,000 ML IV SCH (02:15)
[2020-02-14] MEDS: Insulin Regular, Human 100 Units/ML 3 ML Vial IV ONE ×2 (02:20→08:05)
[2020-02-14] MEDS ORDERED: Acetaminophen 500 MG Tab PO PRN (03:24)
[2020-02-14] MEDS ORDERED: Ondansetron 4 MG Tab.DIS PO PRN (03:31)
[2020-02-14] MEDS ORDERED: Docusate Sodium 100 MG Cap PO PRN (03:31)
[2020-02-14] MEDS ORDERED: Zolpidem 5 MG Tab PO PRN (03:31)
[2020-02-14] MEDS ORDERED: Morphine 2 MG/ML SYRINGE IVPUSH PRN (03:31)
[2020-02-14] MEDS ORDERED: Potassium Chloride 10 MEQ Tab.ER PO ONE (04:24)
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
[2020-02-14] MEDS: oxyCODONE 5 MG Tab PO PRN ×3 (04:56→12:19)
[2020-02-14] MEDS: Heparin Sodium 5,000 Units/ML Vial SUBCUT SCH ×2 (04:57→05:06)
[2020-02-14 07:23] LABS: ANION GAP 9.8 mEq/L (7-13); CHLORIDE,CL 102 mmol/L (98-107); SODIUM,NA 134 mmol/L (136-145)
[2020-02-14] MEDS: Insulin Lispro 100 Units/ML 3 ML Vial SUBCUT SCH ×4 (08:18→12:18)
[2020-02-14] MEDS ORDERED: Pregabalin 50 MG Cap PO SCH (09:00)
[2020-02-14] MEDS ORDERED: Lisinopril 5 MG Tab PO SCH (09:00)
[2020-02-14] MEDS ORDERED: Sertraline 50 MG Tab PO SCH (09:00)
--- NOTE | 2020-02-14 10:19 | PCM.DCSUM1 ---
Discharge Summary - Hospital Course Free Text/Narrative:: 29-year-old with a history of diabetes, hepatitis C, dyslipidemia, hypertension , ongoing smoking. Has had multiple amputations including right lower extremity above-knee left upper extremity multiple fingers. Has been recently treated for MRSA bacteremia likely related to left hip and knee abscess. She elected not to continue with IV antibiotics just after a few doses of treatment in the middle of November The patient says her blood sugars usually run in the 3-400 range. She has been soaking the left upper extremity wound but has no other wound care. She has been noncompliant with antibiotic suggestions, health living coach were not able to reach her She says it's very difficult for her to control her diet. She cannot stop smoking. She ran out of oxycodone and came to the emergency room complaining of pain in the left upper extremity wound area. There is no drainage, redness around the wound. No fever or chills. Left upper extremity finger amputation, chronic wound Doesn't appear to have cellulitis in the area continue Wound care with Xeroform and Kerlix dressing History of MRSA bacteremia, left hip abscess Blood culture obtained Will need follow-up if she has continued bacteremia Diabetes with peripheral neuropathy Poorly controlled Discussed importance of control Will continue Levemir We'll give mealtime Humalog and supplemental insulin Discussed diet Will need outpatient follow-up to adjust regimen depending on home blood sugar measurements Pseudohyponatremia Secondary to elevated blood sugars improved with Controlling blood sugars, hydration Hypertension Continue RADHA inhibitor Diagnosis: Stroke: No - Discharge Data Discharge Date: 02/14/20 Discharge Disposition: Home, Self-Care 01 Condition: Stable - Referral to Home Health Date of Face to Face Encounter: 02/14/20 Primary Care Physician: PCP None - Discharge Diagnosis/Problem(s) (1) Chronic pain SNOMED Code(s): 07840898 ICD Code: G89.29 - OTHER CHRONIC PAIN Status: Acute Current Visit: Yes Qualifiers: Chronic pain type: chronic pain syndrome Qualified Code(s): G89.4 - Chronic pain syndrome (2) Hypokalemia SNOMED Code(s): 24739602 ICD Code: E87.6 - HYPOKALEMIA Status: Acute Current Visit: Yes (3) Hyponatremia SNOMED Code(s): 49312957 ICD Code: E87.1 - HYPO-OSMOLALITY AND HYPONATREMIA Status: Acute Current Visit: Yes (4) DM (diabetes mellitus), type 1, uncontrolled SNOMED Code(s): 96087028, 024656409 ICD Code: E10.65 - TYPE 1 DIABETES MELLITUS WITH HYPERGLYCEMIA Status: Acute Current Visit: No Qualifiers: Glycemic state: with hyperglycemia Qualified Code(s): E10.65 - Type 1 diabetes mellitus with hyperglycemia - Patient Instructions Diet: Diabetic Diet Activity: As Tolerated - Discharge Plan *PRESCRIPTION DRUG MONITORING PROGRAM REVIEWED*: Not Applicable *COPY OF PRESCRIPTION DRUG MONITORING REPORT IN PATIENT JUSTIN: Not Applicable Home Medications: Home Meds Acetaminophen [Tylenol Extra Strength] 1,000 mg PO Q6H PRN 12/01/15 [History] Insulin Aspart [NovoLOG] See Protocol SUBCUT TIDAC 10/10/17 [History] Lisinopril 5 mg PO DAILY 02/26/19 [History] Sertraline [Zoloft] 50 mg PO DAILY 06/24/19 [History] Ibuprofen 800 mg PO Q6H PRN 01/04/20 [History] Pregabalin [Lyrica] 50 mg PO TID 01/04/20 [History] Insulin Glarg,Human.Rec.Analog [Lantus] 37 unit SUBCUT BEDTIME ml 02/14/20 [Rx] Oxygen Therapy Mode: Room Air Referrals: PCP,None [Primary Care Provider] - (in 3-4 days) - Discharge Summary/Plan Comment DC Time >30 min.: No - General Info Date of Service: 02/14/20 - Review of Systems General: Denies: Fever, Weakness Pulmonary: Denies: Shortness of Breath Cardiovascular: Denies: Chest Pain Gastrointestinal: Denies: Abdominal Pain Musculoskeletal: Denies: Neck Pain Neurological: Denies: Confusion - Patient Data Vitals - Most Recent: Last Vital Signs Temp 98.2 F 02/14/20 08:00 Pulse 95 02/14/20 08:00 Resp 20 02/14/20 08:00 BP 126/74 02/14/20 08:22 Pulse Ox 98 02/14/20 08:00 Weight - Most Recent: 137 lb 4 oz I&O - Last 24 hours: Intake & Output 02/13/20 02/14/20 02/14/20 22:59 06:59 14:59 Intake Total 100 Balance 100 Lab Results - Last 24 hrs: Laboratory Results - last 24 hr 02/14/20 02/14/20 02/14/20 Range/Units 01:30 01:30 01:30 WBC 10.2 H (5.0-10.0) 10^3/uL RBC 4.16 L (4.2-5.4) 10^6/uL Hgb 10.5 L D (12.0-16.0) g/dL Hct 31.3 L (37.0-47.0) % MCV 75.2 L D (80-100) fL MCH 25.2 L (27.0-34.0) pg MCHC 33.5 (33.0-35.0) g/dL Plt Count 537 H D (150-450) 10^3/uL Neut % (Auto) 65.5 (42.2-75.2) % Lymph % (Auto) 27.5 (20.5-50.1) % [place] % (Auto) 5.9 (2-8) % Eos % (Auto) 0.8 L (1.0-3.0) % Baso % (Auto) 0.3 (0.0-1.0) % Sodium 130 L (136-145) mmol/L Potassium 3.3 L (3.5-5.1) mmol/L Chloride 95 L (98-107) mmol/L Carbon Dioxide 26 (21-32) mmol/L Anion Gap 12.3 (7-13) mEq/L BUN 14 (7-18) mg/dL Creatinine 1.02 (0.55-1.02) mg/dL Est Cr Clr Drug Dosing 74.81 mL/min Estimated GFR (MDRD) > 60 BUN/Creatinine Ratio 13.7 (No establ ref range) Glucose 385 H (74-99) mg/dL POC Glucose (70-105) mg/dl Lactic Acid 0.8 (0.4-2.0) mmol/L Calcium 8.7 (8.5-10.1) mg/dL Total Bilirubin 0.2 (0.2-1.0) mg/dL AST 19 (15-37) U/L ALT 32 (14-59) U/L Alkaline Phosphatase 178 H (46-116) U/L Total Protein 8.9 H (6.4-8.2) g/dL Albumin 2.3 L (3.4-5.0) g/dL Globulin 6.6 Albumin/Globulin Ratio 0.35 02/14/20 02/14/20 Range/Units 06:10 07:52 WBC (5.0-10.0) 10^3/uL RBC (4.2-5.4) 10^6/uL Hgb (12.0-16.0) g/dL Hct (37.0-47.0) % MCV (80-100) fL MCH (27.0-34.0) pg MCHC (33.0-35.0) g/dL Plt Count (150-450) 10^3/uL Neut % (Auto) (42.2-75.2) % Lymph % (Auto) (20.5-50.1) % [place] % (Auto) (2-8) % Eos % (Auto) (1.0-3.0) % Baso % (Auto) (0.0-1.0) % Sodium 134 L (136-145) mmol/L Potassium 3.8 (3.5-5.1) mmol/L Chloride 102 (98-107) mmol/L Carbon Dioxide 26 (21-32) mmol/L Anion Gap 9.8 (7-13) mEq/L BUN 13 (7-18) mg/dL Creatinine 0.87 (0.55-1.02) mg/dL Est Cr Clr Drug Dosing 84.31 mL/min Estimated GFR (MDRD) > 60 BUN/Creatinine Ratio (No establ ref range) Glucose 239 H (74-99) mg/dL POC Glucose 229 H (70-105) mg/dl Lactic Acid (0.4-2.0) mmol/L Calcium 8.0 L (8.5-10.1) mg/dL Total Bilirubin (0.2-1.0) mg/dL AST (15-37) U/L ALT (14-59) U/L Alkaline Phosphatase (46-116) U/L Total Protein (6.4-8.2) g/dL Albumin (3.4-5.0) g/dL Globulin Albumin/Globulin Ratio Med Orders - Current: Current Medications Acetaminophen (Tylenol Extra Strength) 1,000 mg PO Q6H PRN PRN Reason: Pain (mild 1-3) Docusate Sodium (Colace) 100 mg PO BID PRN PRN Reason: Constipation Last Admin: 02/14/20 08:21 Dose: 100 mg Heparin Sodium (Porcine) (Heparin Sodium) 5,000 units SUBCUT Q8HR [facility] Last Admin: 02/14/20 05:06 Dose: Not Given Sodium Chloride (Normal Saline) 1,000 mls @ 75 mls/hr IV ASDIRECTED [facility] Last Admin: 02/14/20 02:23 Dose: 500 mls/hr Insulin Glargine (Lantus) 37 unit SUBCUT BEDTIME [facility] Insulin Human Lispro (Humalog) 5 unit SUBCUT TID@0800,1200,1700 [facility] Last Admin: 02/14/20 08:18 Dose: 5 units Insulin Human Lispro (Humalog) 0 unit SUBCUT ACBED [facility]; Protocol Last Admin: 02/14/20 08:19 Dose: 2 units Lisinopril (Prinivil) 5 mg PO DAILY [facility] Last Admin: 02/14/20 08:22 Dose: 5 mg Morphine Sulfate (Morphine) 1 mg IVPUSH Q2H PRN PRN Reason: Pain (severe 7-10) Ondansetron HCl (Zofran Odt) 4 mg PO Q6H PRN PRN Reason: nausea, able to take PO Oxycodone HCl (Oxycodone) 5 mg PO Q4H PRN PRN Reason: Pain (moderate 4-6) Last Admin: 02/14/20 08:21 Dose: 5 mg Pregabalin (Lyrica) 50 mg PO TID [facility] Last Admin: 02/14/20 08:20 Dose: 50 mg Sertraline HCl (Zoloft) 50 mg PO DAILY [facility] Last Admin: 02/14/20 08:20 Dose: 50 mg Zolpidem Tartrate (Ambien) 5 mg PO BEDTIME PRN PRN Reason: Sleep Discontinued Medications Hydromorphone HCl (Dilaudid) 0.5 mg IVPUSH ONETIME ONE Stop: 02/14/20 02:10 Last Admin: 02/14/20 02:19 Dose: 0.5 mg Clindamycin Phosphate 900 mg/ (Sodium Chloride) 106 mls @ 200 mls/hr IV ONETIME ONE Stop: 02/14/20 02:40 Last Admin: 02/14/20 02:21 Dose: 200 mls/hr Insulin Human Regular (Humulin R) 5 unit IV ONETIME ONE Stop: 02/14/20 02:10 Last Admin: 02/14/20 08:05 Dose: 5 units Potassium Chloride (Klor-Con 10) 40 meq PO ONETIME ONE Stop: 02/14/20 04:25 Last Admin: 02/14/20 04:53 Dose: 40 meq - Exam General: Reports: Alert, Oriented Neck: Reports: Supple Lungs: Reports: Clear to Auscultation, Normal Respiratory Effort Cardiovascular: Reports: Regular Rate, Regular Rhythm Extremities: No Pedal Edema Skin: Reports: Other (left hand wound without erythema, no drainage) Neurological: Reports: No New Focal Deficit
[2020-02-14 12:54] VITALS: BP 148/98; PULSE 103
[2020-02-14] MEDS ORDERED: Insulin Glarg,Human.Rec.Analog 100 Unit/ML SUBCUT SCH (21:00)
== END 2020-02-14 12:30 | disposition home or self-care (01) ==
LOC: DL.ED 01:30 → DL.MS 02:15
PROVIDERS: ADMIT Internal Medicine; ATTEND Internal Medicine
DX: G89.29 Other chronic pain (principal); E87.6 Hypokalemia; E87.1 Hypo-osmolality and hyponatremia; E78.5 Hyperlipidemia, unspecified; I10 Essential (primary) hypertension; E10.65 Type 1 diabetes mellitus with hyperglycemia; E10.42 Type 1 diabetes mellitus with diabetic polyneuropathy; F17.210 Nicotine dependence, cigarettes, uncomplicated; Z88.8 Allergy status to other drugs, medicaments and biological substances; Z79.4 Long term (current) use of insulin; Z79.899 Other long term (current) drug therapy; Z89.511 Acquired absence of right leg below knee; Z89.012 Acquired absence of left thumb
CPT/HCPCS: 36415; 80048; 80053; 82962; 83605; 85025; 87040; 96361; 96372; 96374; 96375; 99284; A9270; G0378; J1170; J1644; J1815; J3490; J7030; J7050

== ENCOUNTER 2020-03-08 22:22 | Observation (INO) | payer MEDICAID ==
[2020-03-08 22:25] VITALS: BP 154/79; PULSE 116
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
[2020-03-08] MEDS ORDERED: HYDROmorphone 0.5 MG/0.5 ML Syringe IVPUSH ONE (22:36)
[2020-03-08] MEDS ORDERED: Clindamycin Phosphate 900 MG in Sodium Chloride 0.9% 100 ML IV ONE (23:18)
[2020-03-08 23:23] LABS: ANION GAP 11.6 mEq/L (7-13); CHLORIDE,CL 97 mmol/L (98-107); SODIUM,NA 129 mmol/L (136-145)
[2020-03-08] MEDS ORDERED: Sodium Chloride 0.9% 1,000 ML IV ONE (23:37)
[2020-03-08] MEDS ORDERED: Insulin Regular, Human 100 Units/ML 3 ML Vial IV ONE (23:37)
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
[2020-03-09] MEDS ORDERED: oxyCODONE 5 MG Tab PO PRN (00:24)
[2020-03-09] MEDS ORDERED: Ondansetron 4 MG/2 ML SDV IVPUSH PRN (00:24)
[2020-03-09] MEDS ORDERED: Insulin Glarg,Human.Rec.Analog 100 Unit/ML SUBCUT SCH (00:28)
[2020-03-09] MEDS ORDERED: Acetaminophen 500 MG Tab PO PRN (00:28)
[2020-03-09] MEDS ORDERED: Piperacillin/Tazobactam 3.375 GM in Sodium Chloride 0.9% 100 ML IV SCH (00:30)
[2020-03-09] MEDS ORDERED: Sodium Chloride 0.9% 1,000 ML IV SCH ×2 (00:30→01:00)
[2020-03-09] MEDS ORDERED: Insulin Glarg,Human.Rec.Analog 100 Unit/ML SUBCUT ONE ×2 (00:39→00:45)
[2020-03-09] MEDS ORDERED: Piperacillin/Tazobactam 3.375 GM in Sodium Chloride 0.9% 100 ML IV ONE (00:45)
[2020-03-09] MEDS ORDERED: Heparin Sodium 5,000 Units/ML Vial SUBCUT SCH (06:00)
[2020-03-09] MEDS ORDERED: Sertraline 50 MG Tab PO SCH (09:00)
[2020-03-09] MEDS ORDERED: Pregabalin 50 MG Cap PO SCH (09:00)
== END 2020-03-09 01:40 ==
LOC: DL.ED 22:22 → UNDOADMOB 23:56 → DL.MS 23:56
PROVIDERS: ADMIT Internal Medicine; ATTEND Internal Medicine
DX: L03.116 Cellulitis of left lower limb (principal); E11.65 Type 2 diabetes mellitus with hyperglycemia; I10 Essential (primary) hypertension; F17.210 Nicotine dependence, cigarettes, uncomplicated; Z88.8 Allergy status to other drugs, medicaments and biological substances; Z79.899 Other long term (current) drug therapy
CPT/HCPCS: 36415; 71045; 73700; 80053; 82009; 82962; 83605; 85025; 87040; 96361; 96365; 96367; 96375; 99285; J1170; J1815; J2543; J3490; J7030; J7050

== ENCOUNTER 2020-03-29 03:36 | Emergency (ER) | payer MEDICAID ==
[2020-03-29 03:41] VITALS: BP 126/68; PULSE 121
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
[2020-03-29 04:29] LABS: ANION GAP 8.7 mEq/L (7-13)
[2020-03-29] MEDS ORDERED: Piperacillin/Tazobactam 3.375 GM in Sodium Chloride 0.9% 100 ML IV ONE (04:36)
[2020-03-29] MEDS ORDERED: Sodium Chloride 0.9% 1,000 ML IV ONE (04:36)
[2020-03-29] MEDS ORDERED: Insulin Regular, Human 100 Units/ML 3 ML Vial IV ONE (04:37)
== END 2020-03-29 06:26 ==
LOC: DL.ED 03:36
DX: S91.302A Unspecified open wound, left foot, initial encounter (principal); E10.628 Type 1 diabetes mellitus with other skin complications; E10.65 Type 1 diabetes mellitus with hyperglycemia; E87.1 Hypo-osmolality and hyponatremia; E87.8 Other disorders of electrolyte and fluid balance, not elsewhere classified; D72.829 Elevated white blood cell count, unspecified; I10 Essential (primary) hypertension; F17.210 Nicotine dependence, cigarettes, uncomplicated; Z88.8 Allergy status to other drugs, medicaments and biological substances; Z79.899 Other long term (current) drug therapy; Z91.14 Patient's other noncompliance with medication regimen; Z89.611 Acquired absence of right leg above knee; X58.XXXA Exposure to other specified factors, initial encounter
CPT/HCPCS: 36415; 80053; 82962; 83605; 85025; 87040; 96365; 96367; 99284; J1815; J2543; J3370; J7030; J7050

== ENCOUNTER 2020-05-11 20:31 | Emergency (ER) | payer MEDICAID ==
[2020-05-11 20:33] VITALS: BP 128/84; PULSE 100
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
[2020-05-11 21:24] LABS: ANION GAP 12.3 mEq/L (7-13); CHLORIDE,CL 95 mmol/L (98-107); SODIUM,NA 127 mmol/L (136-145)
== END 2020-05-11 22:01 | disposition home or self-care (01) ==
LOC: DL.ED 20:31
DX: M25.562 Pain in left knee (principal); G89.29 Other chronic pain; I10 Essential (primary) hypertension; E10.9 Type 1 diabetes mellitus without complications; Z88.8 Allergy status to other drugs, medicaments and biological substances; Z89.511 Acquired absence of right leg below knee
CPT/HCPCS: 36415; 80053; 80305-QW; 81001; 83605; 85025; 87040; 87070; 87077; 87186; 99283

== ENCOUNTER 2020-05-13 22:20 | Emergency (ER) | payer MEDICAID ==
[2020-05-14 01:01] LABS: ANION GAP 11.2 mEq/L (7-13); CHLORIDE,CL 99 mmol/L (98-107); SODIUM,NA 132 mmol/L (136-145)
[2020-05-14] MEDS ORDERED: Acetaminophen 500 MG Tab PO ONE (01:06)
[2020-05-14] MEDS ORDERED: Iopamidol 612 MG/ML 100 ML Bottle IVPUSH ONE (01:09)
[2020-05-14] MEDS ORDERED: fentaNYL 100 MCG/2 ML SDV IVPUSH ONE (02:38)
--- NOTE | 2020-05-14 02:42 | CT ---
PROCEDURE INFORMATION: Exam: CT Left Lower Extremity With Contrast; Thigh Exam date and time: 05/14/2020 2:01 AM Age: 29 years old Clinical indication: Thigh; Prior surgery; Surgery date: 1-6 months; Surgery type: Amputation of left leg distal femur down; Patient HX: Patient fell and landed on end of left lower extremity MondayMay 11. Swelling and pain to the left lower extemity; Additional info: Ascess at end of stump, creptius to lower leg approximately 4cm from end of stump TECHNIQUE: Imaging protocol: CT of the Left lower extremity with intravenous contrast was performed. Exam focused on the thigh. Radiation optimization: All CT scans at this facility use at least one of these dose optimization techniques: automated exposure control; mA and/or kV adjustment per patient size (includes targeted exams where dose is matched to clinical indication); or iterative reconstruction. Contrast material: ISOVUE 300; Contrast volume: 100 ml; Contrast route: INTRAVENOUS (IV); COMPARISON: No relevant prior studies available. FINDINGS: Bones/joints: Status post above the knee amputation with extensive callus formation surrounding the distal aspect of the stomach. No acute fracture or dislocation. Soft tissues: Diffuse soft tissue edema surrounding the distal stump on the left. In addition there is a small subcutaneous fluid collection involving the posterior aspect of the stump measuring approximately a 12 mm which may represent a small abscess or hematoma. Lymph nodes: Reactive lymphadenopathy noted in the left groin IMPRESSION: 1. Status post above the knee amputation with extensive callus formation surrounding the distal aspect of the stomach. 2. No acute fracture or dislocation. 3. Diffuse soft tissue edema surrounding the distal stump on the left. In addition there is a small subcutaneous fluid collection involving the posterior aspect of the stump within the subcutaneous soft tissues measuring approximately 12 mm which may represent a small abscess or hematoma. 4. Reactive lymphadenopathy noted in the left groin
[2020-05-14 02:51] VITALS: BP 133/91; PULSE 85
[2020-05-14] MEDS ORDERED: Piperacillin/Tazobactam 3.375 GM in Sodium Chloride 0.9% 100 ML IV ONE (02:55)
[2020-05-14] MEDS ORDERED: Sodium Chloride 0.9% 1,000 ML IV ONE (02:56)
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
== END 2020-05-14 03:39 ==
LOC: DL.ED 22:20
DX: L02.416 Cutaneous abscess of left lower limb (principal); E10.65 Type 1 diabetes mellitus with hyperglycemia; D64.9 Anemia, unspecified; F84.0 Autistic disorder; Q90.9 Down syndrome, unspecified; F17.210 Nicotine dependence, cigarettes, uncomplicated; Z79.4 Long term (current) use of insulin; Z79.899 Other long term (current) drug therapy; Z88.8 Allergy status to other drugs, medicaments and biological substances
CPT/HCPCS: 10060; 36415; 73701; 80053; 80305-QW; 81001; 82962; 83605; 85025; 87040; 87070; 87077; 87186; 96365; 96375; 99285-25; A9270-GY; J2543; J3010; J7030; J7050; Q9967

== ENCOUNTER 2020-06-08 13:48 | Emergency (ER) | payer MEDICAID ==
[2020-06-08 14:09] VITALS: BP 163/93; PULSE 100
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
--- NOTE | 2020-06-08 14:32 | CR ---
EXAMINATION: Hand Comp Min 3V Lt SEX: Female AGE: 29 years CLINICAL HISTORY: 29-year-old female with history of multiple infections and amputation who presents now with erythema (inflammation) of the first digit. 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 Interpretation: 1. Focal soft tissue swelling over the head of the second and deformed first metacarpal left hand. 2. No subcutaneous air, foreign body or inflammatory periostitis. 3. No acute fracture or dislocation left hand or wrist this patient who is had amputation of the thumb, second and third finger. 4. Generally good bone mineralization for age and gender. CONCLUSION: STS. No current evidence of osteomyelitis.
[2020-06-08 14:58] LABS: ANION GAP 13.6 mEq/L (7-13)
[2020-06-08] MEDS ORDERED: Ketorolac 30 MG/ML SDV IVPUSH ONE (15:48)
== END 2020-06-08 16:34 | disposition home or self-care (01) ==
LOC: DL.ED 13:48
DX: E10.65 Type 1 diabetes mellitus with hyperglycemia (principal); L03.114 Cellulitis of left upper limb; I10 Essential (primary) hypertension; F17.210 Nicotine dependence, cigarettes, uncomplicated; Z88.8 Allergy status to other drugs, medicaments and biological substances; Z79.899 Other long term (current) drug therapy
CPT/HCPCS: 36415; 73130-LT; 80053; 83605; 85025; 87040; 96365; 96375; 99283-25; 99284; J1885; J3370; J7050

== ENCOUNTER 2020-07-13 09:35 | Emergency (ER) | payer MEDICAID ==
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
[2020-07-13 09:39] VITALS: BP 148/78; PULSE 98
== END 2020-07-13 10:00 | disposition home or self-care (01) ==
LOC: DL.ED 09:35
DX: H65.91 Unspecified nonsuppurative otitis media, right ear (principal); I10 Essential (primary) hypertension; Q90.9 Down syndrome, unspecified; E10.9 Type 1 diabetes mellitus without complications; F84.0 Autistic disorder; Z88.8 Allergy status to other drugs, medicaments and biological substances; Z79.899 Other long term (current) drug therapy
CPT/HCPCS: 99283

== ENCOUNTER 2020-08-21 16:30 | Emergency (ER) | payer MEDICAID ==
[2020-08-21 17:05] VITALS: PULSE 121
[2020-08-21 17:06] LABS: ANION GAP 12.2 mEq/L (7-13); CHLORIDE,CL 93 mmol/L (98-107); SODIUM,NA 124 mmol/L (136-145)
[2020-08-21] MEDS ORDERED: fentaNYL 100 MCG/2 ML SDV IVPUSH ONE (17:15)
[2020-08-21] MEDS ORDERED: Ondansetron 4 MG in Sodium Chloride 0.9% 50 ML IV ONE (17:15)
[2020-08-21] MEDS ORDERED: Sodium Chloride 0.9% 1,000 ML IV ONE (17:21)
[2020-08-21] MEDS ORDERED: HYDROmorphone 1 MG/ML Syringe IVPUSH ONE (18:50)
[2020-08-21] MEDS ORDERED: Clindamycin Phosphate 900 MG in Sodium Chloride 0.9% 100 ML IV ONE (18:55)
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
[2020-08-21 19:51] VITALS: BP 102/65
== END 2020-08-21 19:40 | disposition home or self-care (01) ==
LOC: DL.ED 16:30
DX: M79.2 Neuralgia and neuritis, unspecified (principal); T87.43 Infection of amputation stump, right lower extremity
CPT/HCPCS: 36415; 80053; 82009; 83605; 85025; 85610; 86140; 87040; 96361; 96365; 96367; 96375; 99283; J1170; J2405; J3010; J3490; J7030; J7050

== ENCOUNTER 2020-08-23 19:58 | Emergency (ER) | payer MEDICAID ==
[2020-08-23] MEDS ORDERED: HYDROmorphone 1 MG/ML Syringe IVPUSH ONE ×2 (20:17→21:59)
[2020-08-23] MEDS ORDERED: Clindamycin Phosphate 900 MG in Sodium Chloride 0.9% 100 ML IV ONE (20:17)
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
[2020-08-23 20:24] VITALS: BP 117/58; PULSE 116
[2020-08-23 20:43] LABS: ANION GAP 12.4 mEq/L (7-13)
--- NOTE | 2020-08-23 21:16 | CT ---
PROCEDURE INFORMATION: Exam: CT Left Lower Extremity Without Contrast; Thigh Exam date and time: 08/23/2020 8:31 PM Age: 29 years old Clinical indication: Other: Pain/swelling--fell 4 days ago; Prior surgery; Additional info: Stump infection. R/O osteomyelitis TECHNIQUE: Imaging protocol: CT of the Left lower extremity without contrast was performed. Exam focused on the thigh. Radiation optimization: All CT scans at this facility use at least one of these dose optimization techniques: automated exposure control; mA and/or kV adjustment per patient size (includes targeted exams where dose is matched to clinical indication); or iterative reconstruction. COMPARISON: CT Lower Extremity w Cont Lt 05/14/2020 2:01 AM FINDINGS: Bones/joints: Bilateral above the knee amputations are demonstrated. There is mild narrowing of the hip joint spaces. Soft tissues: There is a large left thigh fluid collection within the quadriceps musculature measuring about 9.6 x 4.6 x 18.4 cm. This fluid collection extends down over the end of the femoral stump. There is a small amount of gas within the fluid collection. Myositis ossificans is noted around the end of the stump. There is mild subcutaneous edema about the left stump. Reproductive: The visualized portions of the bladder and uterus are unremarkable. IMPRESSION: Large fluid collection around the distal end of the left femoral stump extending anterolaterally up towards the left hip. Gas within the fluid collections suggest possible infection.
[2020-08-23] MEDS ORDERED: Piperacillin/Tazobactam 3.375 GM in Sodium Chloride 0.9% 100 ML IV ONE (21:44)
[2020-08-23] MEDS ORDERED: Sodium Chloride 0.9% 1,000 ML IV ONE (21:45)
== END 2020-08-23 22:35 ==
LOC: DL.ED 19:58
DX: T87.42 Infection of amputation stump, left upper extremity (principal); I10 Essential (primary) hypertension; E10.9 Type 1 diabetes mellitus without complications; Z79.899 Other long term (current) drug therapy
CPT/HCPCS: 36415; 73700; 80053; 80305; 82009; 83605; 85025; 87040; 96365; 96367; 96375; 96376; 99285; J1170; J2543; J3490; J7030; J7050; 99284

== ENCOUNTER 2020-09-25 08:11 | Inpatient (IN) | payer MEDICAID ==
[2020-09-25] MEDS ORDERED: 50% Dextrose in Water 50 ML Syringe IV PRN (13:02)
[2020-09-25] MEDS ORDERED: Glucagon,Human Recombinant 1 MG Vial IM PRN (13:02)
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
[2020-09-25] MEDS ORDERED: Ibuprofen 400 MG Tab PO PRN (14:13)
[2020-09-25] MEDS: oxyCODONE 5 MG Tab PO PRN ×2 (14:37→19:20)
[2020-09-25] MEDS: Gabapentin 300 MG Cap PO SCH ×2 (14:43→21:02)
[2020-09-25] MEDS: Insulin Lispro 100 Units/ML 3 ML Vial SUBCUT SCH (17:41)
[2020-09-25] MEDS: Rosuvastatin 10 MG Tab PO SCH (21:02)
[2020-09-25] MEDS: Insulin Glarg,Human.Rec.Analog 100 Unit/ML SUBCUT SCH (21:03)
[2020-09-26] MEDS: oxyCODONE 5 MG Tab PO PRN ×5 (03:30→20:32)
[2020-09-26 07:07] LABS: ANION GAP 11.5 mEq/L (7-13)
[2020-09-26] MEDS: Insulin Lispro 100 Units/ML 3 ML Vial SUBCUT SCH ×3 (09:35→18:36)
[2020-09-26] MEDS: Sertraline 50 MG Tab PO SCH (09:37)
[2020-09-26] MEDS: Gabapentin 300 MG Cap PO SCH ×3 (09:38→20:32)
[2020-09-26] MEDS: Prenatal Multivitamin with Calcium/Folic Acid/Iron Tab PO SCH (09:38)
[2020-09-26] MEDS: amLODIPine 5 MG Tab PO SCH (09:39)
[2020-09-26] MEDS: Rosuvastatin 10 MG Tab PO SCH (20:32)
[2020-09-26] MEDS: Insulin Glarg,Human.Rec.Analog 100 Unit/ML SUBCUT SCH (20:57)
[2020-09-26] MEDS: Acetaminophen 500 MG Tab PO PRN (23:25)
[2020-09-27] MEDS: oxyCODONE 5 MG Tab PO PRN ×6 (00:35→20:32)
[2020-09-27] MEDS: Sertraline 50 MG Tab PO SCH (08:04)
[2020-09-27] MEDS: Gabapentin 300 MG Cap PO SCH ×3 (08:05→21:21)
[2020-09-27] MEDS: Prenatal Multivitamin with Calcium/Folic Acid/Iron Tab PO SCH (08:05)
[2020-09-27] MEDS: amLODIPine 5 MG Tab PO SCH (08:05)
[2020-09-27] MEDS: Insulin Lispro 100 Units/ML 3 ML Vial SUBCUT SCH ×3 (08:10→17:41)
[2020-09-27] MEDS: Rosuvastatin 10 MG Tab PO SCH (21:21)
[2020-09-27] MEDS: Sodium Chloride 0.9% 10 ML Syringe FLUSH PRN (21:22)
[2020-09-27] MEDS: Insulin Glarg,Human.Rec.Analog 100 Unit/ML SUBCUT SCH (21:29)
[2020-09-28] MEDS: oxyCODONE 5 MG Tab PO PRN ×8 (00:46→23:58)
[2020-09-28 08:04] LABS: ANION GAP 11.6 mEq/L (7-13)
[2020-09-28] MEDS: Insulin Lispro 100 Units/ML 3 ML Vial SUBCUT SCH ×3 (08:31→17:17)
[2020-09-28] MEDS: amLODIPine 5 MG Tab PO SCH (08:34)
[2020-09-28] MEDS: Sertraline 50 MG Tab PO SCH (08:39)
[2020-09-28] MEDS: Prenatal Multivitamin with Calcium/Folic Acid/Iron Tab PO SCH (08:40)
[2020-09-28] MEDS: Gabapentin 300 MG Cap PO SCH ×3 (08:40→21:24)
--- NOTE | 2020-09-28 11:41 | PCM.PN ---
- General Info Date of Service: 09/28/20 Admission Dx/Problem (Free Text): Admission Diagnosis/Problem Admission Diagnosis/Problem Osteomyelitis Subjective Update: Patient seen and examined today. Complains of pain at her wound. Getting pain meds. Afebrile overnight. Functional Status: Reports: Pain Controlled - Review of Systems General: Reports: No Symptoms HEENT: Reports: No Symptoms Pulmonary: Reports: No Symptoms Cardiovascular: Reports: No Symptoms Gastrointestinal: Reports: No Symptoms Genitourinary: Reports: No Symptoms Musculoskeletal: Reports: No Symptoms, Joint Pain Skin: Reports: No Symptoms - Patient Data Vitals - Most Recent: Last Vital Signs Temp 98.5 F 09/28/20 08:34 Pulse 88 09/28/20 08:34 Resp 18 09/28/20 08:34 BP 120/78 09/28/20 08:34 Pulse Ox 99 09/28/20 08:34 Weight - Most Recent: 142 lb 3.2 oz I&O - Last 24 Hours: Intake & Output 09/27/20 09/28/20 09/28/20 22:59 06:59 14:59 Intake Total 740 500 Balance 740 500 Lab Results Last 24 Hours: Laboratory Results - last 24 hr 09/27/20 09/27/20 09/27/20 Range/Units 11:37 15:35 20:48 WBC (5.0-10.0) 10^3/uL RBC (4.2-5.4) 10^6/uL Hgb (12.0-16.0) g/dL Hct (37.0-47.0) % MCV (80-100) fL MCH (27.0-34.0) pg MCHC (33.0-35.0) g/dL Plt Count (150-450) 10^3/uL Sodium (136-145) mmol/L Potassium (3.5-5.1) mmol/L Chloride (98-107) mmol/L Carbon Dioxide (21-32) mmol/L Anion Gap (7-13) mEq/L BUN (7-18) mg/dL Creatinine (0.55-1.02) mg/dL Est Cr Clr Drug Dosing mL/min Estimated GFR (MDRD) Glucose (74-99) mg/dL POC Glucose 89 169 H 85 (70-105) mg/dl Calcium (8.5-10.1) mg/dL 11/02/20 11/02/20 11/02/20 Range/Units 07:40 07:40 07:47 WBC 9.3 (5.0-10.0) 10^3/uL RBC 3.53 L (4.2-5.4) 10^6/uL Hgb 9.5 L (12.0-16.0) g/dL Hct 30.9 L (37.0-47.0) % MCV 87.5 (80-100) fL MCH 26.9 L (27.0-34.0) pg MCHC 30.7 L (33.0-35.0) g/dL Plt Count 594 H (150-450) 10^3/uL Sodium 136 (136-145) mmol/L Potassium 5.6 H (3.5-5.1) mmol/L Chloride 105 (98-107) mmol/L Carbon Dioxide 25 (21-32) mmol/L Anion Gap 11.6 (7-13) mEq/L BUN 18 (7-18) mg/dL Creatinine 1.32 H (0.55-1.02) mg/dL Est Cr Clr Drug Dosing 57.81 mL/min Estimated GFR (MDRD) 47 Glucose 116 H (74-99) mg/dL POC Glucose 116 H (70-105) mg/dl Calcium 8.6 (8.5-10.1) mg/dL 09/28/20 09/28/20 Range/Units 10:13 10:41 WBC (5.0-10.0) 10^3/uL RBC (4.2-5.4) 10^6/uL Hgb (12.0-16.0) g/dL Hct (37.0-47.0) % MCV (80-100) fL MCH (27.0-34.0) pg MCHC (33.0-35.0) g/dL Plt Count (150-450) 10^3/uL Sodium (136-145) mmol/L Potassium (3.5-5.1) mmol/L Chloride (98-107) mmol/L Carbon Dioxide (21-32) mmol/L Anion Gap (7-13) mEq/L BUN (7-18) mg/dL Creatinine (0.55-1.02) mg/dL Est Cr Clr Drug Dosing mL/min Estimated GFR (MDRD) Glucose (74-99) mg/dL POC Glucose 59 L 94 (70-105) mg/dl Calcium (8.5-10.1) mg/dL Med Orders - Current: Current Medications Acetaminophen (Tylenol Extra Strength) 1,000 mg PO Q8HR PRN PRN Reason: Pain (mild 1-3) Last Admin: 09/26/20 23:25 Dose: 1,000 mg Documented by: Amlodipine Besylate (Norvasc) 10 mg PO DAILY [facility] Last Admin: 09/28/20 08:34 Dose: 10 mg Documented by: Dextrose/Water (Dextrose 50% In Water) 50 ml IV ASDIRECTED PRN PRN Reason: Hypoglycemia Diphenhydramine HCl (Benadryl) 25 mg PO Q6H PRN PRN Reason: Itching Gabapentin (Neurontin) 600 mg PO TID [facility] Last Admin: 09/28/20 08:40 Dose: 600 mg Documented by: Glucagon (Glucagen) 1 mg IM ASDIRECTED PRN PRN Reason: Hypoglycemia Ceftaroline Fosamil 400 mg/ (Sodium Chloride) 250 mls @ 250 mls/hr IV Q12HR [facility] Last Admin: 09/28/20 08:42 Dose: 250 mls/hr Documented by: Ibuprofen (Motrin) 400 mg PO Q6HR PRN PRN Reason: Pain (mild 1-3) Insulin Glargine (Lantus) 37 unit SUBCUT BEDTIME [facility] Last Admin: 09/27/20 21:29 Dose: Not Given Documented by: Insulin Human Lispro (Humalog) 10 unit SUBCUT TIDMEALS [facility] Last Admin: 09/28/20 10:41 Dose: Not Given Documented by: Oxycodone HCl (Oxycodone) 5 mg PO Q4HR PRN PRN Reason: Pain (moderate 4-6) Oxycodone HCl (Oxycodone) 10 mg PO Q4HR PRN PRN Reason: Pain (severe 7-10) Last Admin: 09/28/20 10:32 Dose: 10 mg Documented by: Prenat Multivit/[place]/Iron/Folic Ac ( Plus Iron) 1 each PO DAILY [facility] Last Admin: 09/28/20 08:40 Dose: 1 each Documented by: Rosuvastatin Calcium (Crestor) 10 mg PO BEDTIME [facility] Last Admin: 09/27/20 21:21 Dose: 10 mg Documented by: Sertraline HCl (Zoloft) 25 mg PO DAILY [facility] Last Admin: 09/28/20 08:39 Dose: 25 mg Documented by: Sodium Chloride (Saline Flush) 10 ml FLUSH ASDIRECTED PRN PRN Reason: IV Use Last Admin: 09/27/20 21:22 Dose: 10 ml Documented by: - Exam General: Alert, Oriented HEENT: Pupils Equal, Pupils Reactive, EOMI, Mucous Membr. Moist/[place] Neck: Supple Lungs: Clear to Auscultation, Normal Respiratory Effort Cardiovascular: Regular Rate, Regular Rhythm GI/Abdominal Exam: Normal Bowel Sounds, Soft, Non-Tender, No Organomegaly, No Distention, No Abnormal Bruit, No Mass, Pelvis Stable Back Exam: Normal Inspection, Full Range of Motion Extremities: Other (Bilateral AKA. Wound vac on left AKA. Dressing clean and dry. Missing digits on left hand.) Skin: Warm, Dry, Intact Wound/Incisions: Healing Well Neurological: No New Focal Deficit Psy/Mental Status: Alert, Normal Affect, Normal Mood Sepsis Event Note - Evaluation Sepsis Screening Result: No Definite Risk - Focused Exam Vital Signs: Vital Signs Temp Pulse Resp BP BP Pulse Ox 09/28/20 08:34 98.5 F 88 18 120/78 120/78 99 - Problem List Review Problem List Initiated/Reviewed/Updated: Yes - My Orders Last 24 Hours: My Active Orders 09/27/20 16:10 diphenhydrAMINE [Benadryl] 25 mg PO Q6H PRN 09/28/20 Lunch Regular Diet [DIET] - Plan Plan:: Abscess and osteomyelitis of left AKA stump - Continue routine wound cares - Continue Ceftaroline for 6 weeks course of antibiotics Type I DM - Resume home insulin regimen Hypertension - Resume home antihypertensives Chronic anemia - Stable - Monitor Hyperkalemia Potassium of 5.6. - Patient to get insulin already - Recheck tomorrow CKD Creatinine stable
[2020-09-28] MEDS: Sodium Chloride 0.9% 10 ML Syringe FLUSH PRN (21:18)
[2020-09-28] MEDS: Insulin Glarg,Human.Rec.Analog 100 Unit/ML SUBCUT SCH (21:24)
[2020-09-28] MEDS: Rosuvastatin 10 MG Tab PO SCH (21:24)
[2020-09-29] MEDS: oxyCODONE 5 MG Tab PO PRN ×4 (04:22→17:04)
[2020-09-29] MEDS: Insulin Lispro 100 Units/ML 3 ML Vial SUBCUT SCH ×3 (08:37→17:10)
[2020-09-29] MEDS: Sertraline 50 MG Tab PO SCH (08:40)
[2020-09-29] MEDS: Prenatal Multivitamin with Calcium/Folic Acid/Iron Tab PO SCH (08:40)
[2020-09-29] MEDS: Gabapentin 300 MG Cap PO SCH ×3 (08:40→22:00)
[2020-09-29] MEDS: amLODIPine 5 MG Tab PO SCH (08:41)
[2020-09-29] MEDS: Sodium Chloride 0.9% 10 ML Syringe FLUSH PRN ×2 (08:49→21:56)
[2020-09-29] MEDS: Rosuvastatin 10 MG Tab PO SCH (22:00)
[2020-09-29] MEDS: Insulin Glarg,Human.Rec.Analog 100 Unit/ML SUBCUT SCH (22:02)
[2020-09-30] MEDS: oxyCODONE 5 MG Tab PO PRN ×5 (06:32→22:42)
[2020-09-30 06:53] LABS: ANION GAP 15.7 mEq/L (7-13)
[2020-09-30] MEDS: Gabapentin 300 MG Cap PO SCH ×3 (08:57→21:12)
[2020-09-30] MEDS: Prenatal Multivitamin with Calcium/Folic Acid/Iron Tab PO SCH (08:57)
[2020-09-30] MEDS: amLODIPine 5 MG Tab PO SCH (08:58)
[2020-09-30] MEDS: Insulin Lispro 100 Units/ML 3 ML Vial SUBCUT SCH ×3 (08:58→17:17)
[2020-09-30] MEDS: Sertraline 50 MG Tab PO SCH (08:58)
[2020-09-30] MEDS: Nicotine 21 MG/24 Hr Patch TRDERM SCH (10:38)
[2020-09-30] MEDS: Rosuvastatin 10 MG Tab PO SCH (21:12)
[2020-09-30] MEDS: Insulin Glarg,Human.Rec.Analog 100 Unit/ML SUBCUT SCH (21:14)
[2020-09-30] MEDS: diphenhydrAMINE 25 MG Tab PO PRN (21:20)
[2020-09-30] MEDS: Acetaminophen 500 MG Tab PO PRN (22:42)
[2020-10-01] MEDS: oxyCODONE 5 MG Tab PO PRN ×5 (02:40→21:09)
[2020-10-01] MEDS: Insulin Lispro 100 Units/ML 3 ML Vial SUBCUT SCH ×3 (09:49→17:34)
[2020-10-01] MEDS: Sertraline 50 MG Tab PO SCH (09:52)
[2020-10-01] MEDS: amLODIPine 5 MG Tab PO SCH (09:53)
[2020-10-01] MEDS: Prenatal Multivitamin with Calcium/Folic Acid/Iron Tab PO SCH (09:56)
[2020-10-01] MEDS: Gabapentin 300 MG Cap PO SCH ×3 (09:56→21:07)
[2020-10-01] MEDS: Nicotine 21 MG/24 Hr Patch TRDERM SCH (09:57)
[2020-10-01] MEDS: Sodium Chloride 0.9% 10 ML Syringe FLUSH PRN (12:15)
[2020-10-01] MEDS: LORazepam 1 MG Tab PO PRN ×2 (12:42→21:07)
[2020-10-01] MEDS ORDERED: Nystatin Topical Powder 30 GM Bottle TOP PRN (14:29)
[2020-10-01] MEDS: diphenhydrAMINE 25 MG Tab PO PRN (21:07)
[2020-10-01] MEDS: Rosuvastatin 10 MG Tab PO SCH (21:07)
[2020-10-01] MEDS: Acetaminophen 500 MG Tab PO PRN (21:08)
[2020-10-01] MEDS: Insulin Glarg,Human.Rec.Analog 100 Unit/ML SUBCUT SCH (21:29)
[2020-10-02] MEDS: Acetaminophen 500 MG Tab PO PRN ×2 (05:31→13:49)
[2020-10-02] MEDS: oxyCODONE 5 MG Tab PO PRN ×4 (05:32→21:49)
[2020-10-02] MEDS: Insulin Lispro 100 Units/ML 3 ML Vial SUBCUT SCH ×3 (08:58→17:39)
[2020-10-02] MEDS: Nicotine 21 MG/24 Hr Patch TRDERM SCH (08:58)
[2020-10-02] MEDS: Sertraline 50 MG Tab PO SCH (09:02)
[2020-10-02] MEDS: Gabapentin 300 MG Cap PO SCH ×3 (09:02→20:31)
[2020-10-02] MEDS: Prenatal Multivitamin with Calcium/Folic Acid/Iron Tab PO SCH (09:02)
[2020-10-02] MEDS: amLODIPine 5 MG Tab PO SCH (09:02)
--- NOTE | 2020-10-02 10:21 | PCM.DCSUM1 ---
Discharge Summary - Hospital Course Free Text/Narrative:: admitted to swing bed for weakness, did well with pt and ot continued use of wheelchair was suggested for weakness, unsteadyness Abscess and osteomyelitis of left AKA stump - Continue routine wound cares - Continue Ceftaroline for 6 weeks course of antibiotics Type I DM - Resume home insulin regimen Hypertension - Resume home antihypertensives Chronic anemia - Stable - Monitor Hyperkalemia Potassium of 5.6. - Patient to get insulin already - Recheck tomorrow CKD Creatinine stable Diagnosis: Stroke: No - Discharge Data Discharge Date: 10/02/20 Discharge Disposition: Home, Self-Care 01 Condition: Good - Referral to Home Health Primary Care Physician: Miguel Earl MD - Patient Instructions Diet: Heart Healthy Diet Activity: As Tolerated - Discharge Plan *PRESCRIPTION DRUG MONITORING PROGRAM REVIEWED*: Not Applicable *COPY OF PRESCRIPTION DRUG MONITORING REPORT IN PATIENT JUSTIN: Not Applicable Home Medications: Home Meds Acetaminophen 1,000 mg PO Q8HR PRN 09/25/20 [History] Gabapentin [Neurontin] 600 mg PO TID 09/25/20 [History] Ibuprofen 400 mg PO Q6HR PRN 09/25/20 [History] Insulin Aspart [NovoLOG] 10 units SUBCUT TIDMEALS 09/25/20 [History] Insulin Glarg,Human.Rec.Analog [Lantus] 37 units SUBCUT BEDTIME 09/25/20 [History] Vit with Ca/FA/Iron [ Plus Iron] 1 tab PO DAILY 09/25/20 [History] Rosuvastatin [Crestor] 10 mg PO BEDTIME 09/25/20 [History] Sertraline [Zoloft] 25 mg PO DAILY 09/25/20 [History] amLODIPine Besylate [Norvasc] 10 mg PO DAILY 09/25/20 [History] oxyCODONE 5 mg PO Q4HR PRN 09/25/20 [History] Ceftaroline Fosamil [Teflaro] 400 mg IV Q12HR vial 10/02/20 [Rx] Oxygen Therapy Mode: Room Air Referrals: Miguel Earl MD [Primary Care Provider] - - Discharge Summary/Plan Comment DC Time >30 min.: No - General Info Date of Service: 10/02/20 - Review of Systems General: Reports: Weakness. Denies: Fever Pulmonary: Denies: Shortness of Breath Cardiovascular: Reports: Edema. Denies: Chest Pain Gastrointestinal: Denies: Abdominal Pain - Patient Data Vitals - Most Recent: Last Vital Signs Temp 97.9 F 10/01/20 20:00 Pulse 90 10/01/20 20:00 Resp 18 10/01/20 20:00 BP 89/53 L 10/02/20 09:02 Pulse Ox 100 10/01/20 20:00 Weight - Most Recent: 140 lb 6.4 oz I&O - Last 24 hours: Intake & Output 10/01/20 10/02/20 10/02/20 22:59 06:59 14:59 Intake Total 530 Balance 530 Lab Results - Last 24 hrs: Laboratory Results - last 24 hr 10/01/20 10/01/20 10/01/20 Range/Units 11:47 16:53 21:03 POC Glucose 62 L 174 H 108 H (70-105) mg/dl 10/02/20 Range/Units 07:31 POC Glucose 91 (70-105) mg/dl Med Orders - Current: Current Medications Acetaminophen (Tylenol Extra Strength) 1,000 mg PO Q8HR PRN PRN Reason: Pain (mild 1-3) Last Admin: 10/02/20 05:31 Dose: 1,000 mg Documented by: Amlodipine Besylate (Norvasc) 10 mg PO DAILY [facility] Last Admin: 10/02/20 09:02 Dose: 10 mg Documented by: Dextrose/Water (Dextrose 50% In Water) 50 ml IV ASDIRECTED PRN PRN Reason: Hypoglycemia Diphenhydramine HCl (Benadryl) 25 mg PO Q6H PRN PRN Reason: Itching Last Admin: 10/01/20 21:07 Dose: 25 mg Documented by: Gabapentin (Neurontin) 600 mg PO TID [facility] Last Admin: 10/02/20 09:02 Dose: 600 mg Documented by: Glucagon (Glucagen) 1 mg IM ASDIRECTED PRN PRN Reason: Hypoglycemia Ceftaroline Fosamil 400 mg/ (Sodium Chloride) 250 mls @ 250 mls/hr IV Q12HR [facility] Last Admin: 10/02/20 09:56 Dose: 250 mls/hr Documented by: Insulin Glargine (Lantus) 37 unit SUBCUT BEDTIME [facility] Last Admin: 10/01/20 21:29 Dose: 37 units Documented by: Insulin Human Lispro (Humalog) 10 unit SUBCUT TIDMEALS [facility] Last Admin: 10/02/20 08:58 Dose: Not Given Documented by: Lorazepam (Ativan) 1 mg PO Q4H PRN PRN Reason: Anxiety Last Admin: 10/01/20 21:07 Dose: 1 mg Documented by: Miscellaneous Information (Check Patch) 1 ea TRDERM BEDTIME [facility] Last Admin: 10/01/20 21:25 Dose: 1 ea Documented by: Nicotine (Habitrol) 21 mg TRDERM DAILY [facility] Last Admin: 10/02/20 08:58 Dose: 21 mg Documented by: Nystatin (Nystop) 1 gm TOP DAILY PRN PRN Reason: with dressing changes Oxycodone HCl (Oxycodone) 5 mg PO Q4HR PRN PRN Reason: Pain (moderate 4-6) Oxycodone HCl (Oxycodone) 10 mg PO Q4HR PRN PRN Reason: Pain (severe 7-10) Last Admin: 10/02/20 05:32 Dose: 10 mg Documented by: Prenat Multivit/[place]/Iron/Folic Ac ( Plus Iron) 1 each PO DAILY [facility] Last Admin: 10/02/20 09:02 Dose: 1 each Documented by: Rosuvastatin Calcium (Crestor) 10 mg PO BEDTIME [facility] Last Admin: 10/01/20 21:07 Dose: 10 mg Documented by: Sertraline HCl (Zoloft) 25 mg PO DAILY [facility] Last Admin: 10/02/20 09:02 Dose: 25 mg Documented by: Sodium Chloride (Saline Flush) 10 ml FLUSH ASDIRECTED PRN PRN Reason: IV Use Last Admin: 10/01/20 12:15 Dose: 10 ml Documented by: Discontinued Medications Ibuprofen (Motrin) 400 mg PO Q6HR PRN PRN Reason: Pain (mild 1-3) - Exam General: Reports: Alert Neck: Reports: Supple Lungs: Reports: Clear to Auscultation, Normal Respiratory Effort Cardiovascular: Reports: Regular Rate, Murmurs (systolic) GI/Abdominal Exam: Normal Bowel Sounds, Soft, Non-Tender Extremities: Pedal Edema (1+ b/l)
[2020-10-02] MEDS: Sodium Chloride 0.9% 10 ML Syringe FLUSH PRN (20:26)
[2020-10-02] MEDS: Rosuvastatin 10 MG Tab PO SCH (20:31)
[2020-10-02] MEDS: Insulin Glarg,Human.Rec.Analog 100 Unit/ML SUBCUT SCH (20:57)
[2020-10-02] MEDS: LORazepam 1 MG Tab PO PRN (21:50)
[2020-10-03] MEDS: oxyCODONE 5 MG Tab PO PRN ×5 (03:28→21:06)
[2020-10-03] MEDS: Prenatal Multivitamin with Calcium/Folic Acid/Iron Tab PO SCH (09:20)
[2020-10-03] MEDS: Sertraline 50 MG Tab PO SCH (09:21)
[2020-10-03] MEDS: amLODIPine 5 MG Tab PO SCH (09:21)
[2020-10-03] MEDS: Gabapentin 300 MG Cap PO SCH ×3 (09:21→20:53)
[2020-10-03] MEDS: Nicotine 21 MG/24 Hr Patch TRDERM SCH (09:23)
[2020-10-03] MEDS: Insulin Lispro 100 Units/ML 3 ML Vial SUBCUT SCH ×3 (09:28→16:59)
[2020-10-03] MEDS: Rosuvastatin 10 MG Tab PO SCH (20:54)
[2020-10-03] MEDS: Insulin Glarg,Human.Rec.Analog 100 Unit/ML SUBCUT SCH (20:55)
[2020-10-03] MEDS: Sodium Chloride 0.9% 10 ML Syringe FLUSH PRN (20:58)
[2020-10-04] MEDS: oxyCODONE 5 MG Tab PO PRN ×5 (01:55→22:39)
[2020-10-04] MEDS: Sertraline 50 MG Tab PO SCH (09:09)
[2020-10-04] MEDS: Prenatal Multivitamin with Calcium/Folic Acid/Iron Tab PO SCH (09:09)
[2020-10-04] MEDS: amLODIPine 5 MG Tab PO SCH (09:09)
[2020-10-04] MEDS: Nicotine 21 MG/24 Hr Patch TRDERM SCH (09:09)
[2020-10-04] MEDS: Gabapentin 300 MG Cap PO SCH ×3 (09:09→22:39)
[2020-10-04] MEDS: Insulin Lispro 100 Units/ML 3 ML Vial SUBCUT SCH ×3 (09:15→17:28)
[2020-10-04] MEDS: Sodium Chloride 0.9% 10 ML Syringe FLUSH PRN (22:31)
[2020-10-04] MEDS: Insulin Glarg,Human.Rec.Analog 100 Unit/ML SUBCUT SCH (22:39)
[2020-10-04] MEDS: Rosuvastatin 10 MG Tab PO SCH (22:39)
[2020-10-05] MEDS: oxyCODONE 5 MG Tab PO PRN ×5 (05:02→21:33)
[2020-10-05 07:23] LABS: ANION GAP 12.2 mEq/L (7-13)
[2020-10-05] MEDS: Insulin Lispro 100 Units/ML 3 ML Vial SUBCUT SCH ×3 (09:01→17:38)
[2020-10-05] MEDS: Sertraline 50 MG Tab PO SCH (09:02)
[2020-10-05] MEDS: Nicotine 21 MG/24 Hr Patch TRDERM SCH (09:02)
[2020-10-05] MEDS: Gabapentin 300 MG Cap PO SCH ×3 (09:02→21:33)
[2020-10-05] MEDS: amLODIPine 5 MG Tab PO SCH (09:03)
[2020-10-05] MEDS: Prenatal Multivitamin with Calcium/Folic Acid/Iron Tab PO SCH (09:04)
--- NOTE | 2020-10-05 17:44 | PCM.PN ---
- General Info Date of Service: 10/05/20 Admission Dx/Problem (Free Text): Admission Diagnosis/Problem Admission Diagnosis/Problem Osteomyelitis Subjective Update: continues to have moderate to severe pain at the left lower extremity wound. Worse with dressing changes. Better with oxycodone. Less anxiety. More cooperative with nurses. - Review of Systems General: Denies: Fever Pulmonary: Denies: Shortness of Breath Cardiovascular: Denies: Chest Pain Gastrointestinal: Denies: Abdominal Pain Genitourinary: Denies: Dysuria - Patient Data Vitals - Most Recent: Last Vital Signs Temp 97.1 F 10/05/20 08:37 Pulse 83 10/05/20 08:37 Resp 20 10/05/20 08:37 BP 100/76 10/05/20 09:03 Pulse Ox 99 10/05/20 12:00 Weight - Most Recent: 133 lb 6.4 oz I&O - Last 24 Hours: Intake & Output 10/05/20 10/05/20 10/05/20 06:59 14:59 22:59 Intake Total 550 992 Balance 550 992 Lab Results Last 24 Hours: Laboratory Results - last 24 hr 10/04/20 10/05/20 10/05/20 Range/Units 21:16 06:29 06:29 WBC 6.9 (5.0-10.0) 10^3/uL RBC 3.60 L (4.2-5.4) 10^6/uL Hgb 9.7 L (12.0-16.0) g/dL Hct 31.0 L (37.0-47.0) % MCV 86.1 (80-100) fL MCH 26.9 L (27.0-34.0) pg MCHC 31.3 L (33.0-35.0) g/dL Plt Count 563 H (150-450) 10^3/uL Neut % (Auto) 61.0 (42.2-75.2) % Lymph % (Auto) 25.8 (20.5-50.1) % [place] % (Auto) 8.0 (2-8) % Eos % (Auto) 4.5 H (1.0-3.0) % Baso % (Auto) 0.7 (0.0-1.0) % ESR 93 H (0-20) mm/hr Sodium 137 (136-145) mmol/L Potassium 4.2 D (3.5-5.1) mmol/L Chloride 105 (98-107) mmol/L Carbon Dioxide 24 (21-32) mmol/L Anion Gap 12.2 (7-13) mEq/L BUN 12 (7-18) mg/dL Creatinine 1.36 H (0.55-1.02) mg/dL Est Cr Clr Drug Dosing 56.11 mL/min Estimated GFR (MDRD) 45 BUN/Creatinine Ratio 8.8 (No establ ref range) Glucose 113 H (74-99) mg/dL POC Glucose 151 H (70-105) mg/dl Calcium 8.7 (8.5-10.1) mg/dL Total Bilirubin 0.1 L (0.2-1.0) mg/dL AST 37 (15-37) U/L ALT 29 (14-59) U/L Alkaline Phosphatase 181 H (46-116) U/L C-Reactive Protein 0.2 (0.0-0.9) mg/dL Total Protein 8.2 (6.4-8.2) g/dL Albumin 1.5 L (3.4-5.0) g/dL Globulin 6.7 Albumin/Globulin Ratio 0.22 10/05/20 10/05/20 10/05/20 Range/Units 07:57 11:22 17:03 WBC (5.0-10.0) 10^3/uL RBC (4.2-5.4) 10^6/uL Hgb (12.0-16.0) g/dL Hct (37.0-47.0) % MCV (80-100) fL MCH (27.0-34.0) pg MCHC (33.0-35.0) g/dL Plt Count (150-450) 10^3/uL Neut % (Auto) (42.2-75.2) % Lymph % (Auto) (20.5-50.1) % [place] % (Auto) (2-8) % Eos % (Auto) (1.0-3.0) % Baso % (Auto) (0.0-1.0) % ESR (0-20) mm/hr Sodium (136-145) mmol/L Potassium (3.5-5.1) mmol/L Chloride (98-107) mmol/L Carbon Dioxide (21-32) mmol/L Anion Gap (7-13) mEq/L BUN (7-18) mg/dL Creatinine (0.55-1.02) mg/dL Est Cr Clr Drug Dosing mL/min Estimated GFR (MDRD) BUN/Creatinine Ratio (No establ ref range) Glucose (74-99) mg/dL POC Glucose 153 H 149 H 218 H (70-105) mg/dl Calcium (8.5-10.1) mg/dL Total Bilirubin (0.2-1.0) mg/dL AST (15-37) U/L ALT (14-59) U/L Alkaline Phosphatase (46-116) U/L C-Reactive Protein (0.0-0.9) mg/dL Total Protein (6.4-8.2) g/dL Albumin (3.4-5.0) g/dL Globulin Albumin/Globulin Ratio Med Orders - Current: Current Medications Acetaminophen (Tylenol Extra Strength) 1,000 mg PO Q8HR PRN PRN Reason: Pain (mild 1-3) Last Admin: 10/02/20 13:49 Dose: 1,000 mg Documented by: Amlodipine Besylate (Norvasc) 10 mg PO DAILY [facility] Last Admin: 10/05/20 09:03 Dose: 10 mg Documented by: Dextrose/Water (Dextrose 50% In Water) 50 ml IV ASDIRECTED PRN PRN Reason: Hypoglycemia Diphenhydramine HCl (Benadryl) 25 mg PO Q6H PRN PRN Reason: Itching Last Admin: 10/01/20 21:07 Dose: 25 mg Documented by: Gabapentin (Neurontin) 600 mg PO TID [facility] Last Admin: 10/05/20 13:42 Dose: 600 mg Documented by: Glucagon (Glucagen) 1 mg IM ASDIRECTED PRN PRN Reason: Hypoglycemia Ceftaroline Fosamil 400 mg/ (Sodium Chloride) 250 mls @ 250 mls/hr IV Q12HR [facility] Last Admin: 10/05/20 09:25 Dose: 250 mls/hr Documented by: Insulin Glargine (Lantus) 37 unit SUBCUT BEDTIME [facility] Last Admin: 10/04/20 22:39 Dose: Not Given Documented by: Insulin Human Lispro (Humalog) 10 unit SUBCUT TIDMEALS [facility] Last Admin: 10/05/20 17:38 Dose: 4 units Documented by: Lorazepam (Ativan) 1 mg PO Q4H PRN PRN Reason: Anxiety Last Admin: 10/02/20 21:50 Dose: 0.5 mg Documented by: Miscellaneous Information (Check Patch) 1 ea TRDERM BEDTIME [facility] Last Admin: 10/04/20 22:38 Dose: Not Given Documented by: Nicotine (Habitrol) 21 mg TRDERM DAILY [facility] Last Admin: 10/05/20 09:02 Dose: 21 mg Documented by: Nystatin (Nystop) 1 gm TOP DAILY PRN PRN Reason: with dressing changes Oxycodone HCl (Oxycodone) 5 mg PO Q4HR PRN PRN Reason: Pain (Moderate or severe) Last Admin: 10/05/20 17:38 Dose: 5 mg Documented by: Prenat Multivit/[place]/Iron/Folic Ac ( Plus Iron) 1 each PO DAILY [facility] Last Admin: 10/05/20 09:04 Dose: 1 each Documented by: Rosuvastatin Calcium (Crestor) 10 mg PO BEDTIME [facility] Last Admin: 10/04/20 22:39 Dose: 10 mg Documented by: Sertraline HCl (Zoloft) 25 mg PO DAILY [facility] Last Admin: 10/05/20 09:02 Dose: 25 mg Documented by: Sodium Chloride (Saline Flush) 10 ml FLUSH ASDIRECTED PRN PRN Reason: IV Use Last Admin: 10/04/20 22:31 Dose: 10 ml Documented by: Discontinued Medications Ibuprofen (Motrin) 400 mg PO Q6HR PRN PRN Reason: Pain (mild 1-3) Oxycodone HCl (Oxycodone) 10 mg PO Q4HR PRN PRN Reason: Pain (severe 7-10) Last Admin: 10/02/20 05:32 Dose: 10 mg Documented by: - Exam General: Alert, Oriented Neck: Supple Lungs: Clear to Auscultation, Normal Respiratory Effort GI/Abdominal Exam: Normal Bowel Sounds, Soft, Non-Tender (Female) Exam: Normal External Exam Extremities: No Pedal Edema Sepsis Event Note - Evaluation Sepsis Screening Result: No Definite Risk - Focused Exam Vital Signs: Vital Signs Temp Pulse Resp BP BP Pulse Ox Pulse Ox 10/05/20 12:00 99 10/05/20 09:03 100/76 10/05/20 08:37 97.1 F 83 20 100/76 99 - Problem List & Annotations (1) Abscess of leg without foot, left SNOMED Code(s): 257638693 Code(s): L02.416 - CUTANEOUS ABSCESS OF LEFT LOWER LIMB Status: Acute Current Visit: No (2) Amputation stump infection SNOMED Code(s): 615352670 Code(s): T87.40 - INFECTION OF AMPUTATION STUMP, UNSPECIFIED EXTREMITY Status: Acute Current Visit: No - Problem List Review Problem List Initiated/Reviewed/Updated: Yes - Plan Plan:: Abscess and osteomyelitis of left AKA stump - Continue routine wound cares - Continue Ceftaroline for 6 weeks course of antibiotics Type I DM - continue insulin long-acting and short-acting regimen Hypertension - treat with Norvasc Chronic anemia - Stable - Monitor Hyperkalemia resolved Renal function is better CKD Creatinine stable we'll monitor periodically
[2020-10-05] MEDS: Insulin Glarg,Human.Rec.Analog 100 Unit/ML SUBCUT SCH (21:33)
[2020-10-05] MEDS: Rosuvastatin 10 MG Tab PO SCH (21:33)
[2020-10-06] MEDS: oxyCODONE 5 MG Tab PO PRN ×5 (02:18→20:45)
[2020-10-06] MEDS: Acetaminophen 500 MG Tab PO PRN (02:18)
[2020-10-06] MEDS: Gabapentin 300 MG Cap PO SCH ×3 (09:06→20:46)
[2020-10-06] MEDS: Prenatal Multivitamin with Calcium/Folic Acid/Iron Tab PO SCH (09:07)
[2020-10-06] MEDS: Sertraline 50 MG Tab PO SCH (09:07)
[2020-10-06] MEDS: amLODIPine 5 MG Tab PO SCH (09:08)
[2020-10-06] MEDS: Nicotine 21 MG/24 Hr Patch TRDERM SCH (09:09)
[2020-10-06] MEDS: Insulin Lispro 100 Units/ML 3 ML Vial SUBCUT SCH ×3 (09:14→17:51)
[2020-10-06] MEDS: Rosuvastatin 10 MG Tab PO SCH (20:45)
[2020-10-06] MEDS: Insulin Glarg,Human.Rec.Analog 100 Unit/ML SUBCUT SCH (21:58)
[2020-10-07] MEDS: oxyCODONE 5 MG Tab PO PRN ×5 (03:40→20:48)
[2020-10-07] MEDS: Insulin Lispro 100 Units/ML 3 ML Vial SUBCUT SCH ×3 (08:11→16:39)
[2020-10-07] MEDS: Sertraline 50 MG Tab PO SCH (10:35)
[2020-10-07] MEDS: amLODIPine 5 MG Tab PO SCH (10:36)
[2020-10-07] MEDS: Gabapentin 300 MG Cap PO SCH ×3 (10:37→20:48)
[2020-10-07] MEDS: Prenatal Multivitamin with Calcium/Folic Acid/Iron Tab PO SCH (10:38)
[2020-10-07] MEDS: Nicotine 21 MG/24 Hr Patch TRDERM SCH (10:38)
[2020-10-07] MEDS: Rosuvastatin 10 MG Tab PO SCH (20:48)
[2020-10-07] MEDS: Sodium Chloride 0.9% 10 ML Syringe FLUSH PRN (21:22)
[2020-10-07] MEDS: Check Patch **NICOTINE TRDERM SCH (21:55)
[2020-10-07] MEDS: Insulin Glarg,Human.Rec.Analog 100 Unit/ML SUBCUT SCH (21:56)
[2020-10-08] MEDS: oxyCODONE 5 MG Tab PO PRN ×6 (01:38→22:59)
[2020-10-08] MEDS: Insulin Lispro 100 Units/ML 3 ML Vial SUBCUT SCH ×3 (08:08→17:29)
[2020-10-08] MEDS: Gabapentin 300 MG Cap PO SCH ×3 (09:27→21:54)
[2020-10-08] MEDS: Sertraline 50 MG Tab PO SCH (09:27)
[2020-10-08] MEDS: amLODIPine 5 MG Tab PO SCH (09:27)
[2020-10-08] MEDS: Prenatal Multivitamin with Calcium/Folic Acid/Iron Tab PO SCH (09:27)
[2020-10-08] MEDS: Nicotine 14 MG/24 Hr Patch TRDERM SCH (09:28)
[2020-10-08] MEDS: Acetaminophen 500 MG Tab PO PRN (14:41)
[2020-10-08] MEDS: Check Patch **NICOTINE TRDERM SCH (21:54)
[2020-10-08] MEDS: Insulin Glarg,Human.Rec.Analog 100 Unit/ML SUBCUT SCH (21:55)
[2020-10-08] MEDS: Melatonin 3 MG Tab PO PRN (21:55)
[2020-10-08] MEDS: Rosuvastatin 10 MG Tab PO SCH (21:57)
[2020-10-09] MEDS: oxyCODONE 5 MG Tab PO PRN ×5 (03:02→20:00)
[2020-10-09] MEDS: Acetaminophen 500 MG Tab PO PRN ×2 (07:33→15:45)
[2020-10-09] MEDS: Nicotine 14 MG/24 Hr Patch TRDERM SCH (09:55)
[2020-10-09] MEDS: Gabapentin 300 MG Cap PO SCH ×3 (09:55→21:22)
[2020-10-09] MEDS: amLODIPine 5 MG Tab PO SCH (09:56)
[2020-10-09] MEDS: Sertraline 50 MG Tab PO SCH (09:56)
[2020-10-09] MEDS: Prenatal Multivitamin with Calcium/Folic Acid/Iron Tab PO SCH (09:57)
[2020-10-09] MEDS: Insulin Lispro 100 Units/ML 3 ML Vial SUBCUT SCH ×3 (09:57→17:05)
[2020-10-09] MEDS: Melatonin 3 MG Tab PO PRN (21:22)
[2020-10-09] MEDS: Rosuvastatin 10 MG Tab PO SCH (21:22)
[2020-10-09] MEDS: Sodium Chloride 0.9% 10 ML Syringe FLUSH PRN ×2 (21:23→22:34)
[2020-10-09] MEDS: Check Patch **NICOTINE TRDERM SCH (21:26)
[2020-10-09] MEDS: LORazepam 1 MG Tab PO PRN (21:29)
[2020-10-09] MEDS: Insulin Glarg,Human.Rec.Analog 100 Unit/ML SUBCUT SCH (23:16)
[2020-10-10] MEDS: oxyCODONE 5 MG Tab PO PRN ×5 (03:18→21:24)
[2020-10-10] MEDS: Sertraline 50 MG Tab PO SCH (08:51)
[2020-10-10] MEDS: Nicotine 14 MG/24 Hr Patch TRDERM SCH (08:52)
[2020-10-10] MEDS: amLODIPine 5 MG Tab PO SCH (08:52)
[2020-10-10] MEDS: Gabapentin 300 MG Cap PO SCH ×3 (08:52→21:24)
[2020-10-10] MEDS: Prenatal Multivitamin with Calcium/Folic Acid/Iron Tab PO SCH (08:52)
[2020-10-10] MEDS: Insulin Lispro 100 Units/ML 3 ML Vial SUBCUT SCH ×3 (08:53→17:33)
[2020-10-10] MEDS: Acetaminophen 500 MG Tab PO PRN (08:54)
[2020-10-10] MEDS: Insulin Glarg,Human.Rec.Analog 100 Unit/ML SUBCUT SCH (21:19)
[2020-10-10] MEDS: Melatonin 3 MG Tab PO PRN (21:24)
[2020-10-10] MEDS: LORazepam 1 MG Tab PO PRN (21:24)
[2020-10-10] MEDS: Rosuvastatin 10 MG Tab PO SCH (21:24)
[2020-10-10] MEDS: Sodium Chloride 0.9% 10 ML Syringe FLUSH PRN (21:26)
[2020-10-10] MEDS: Check Patch **NICOTINE TRDERM SCH (22:16)
[2020-10-11] MEDS: oxyCODONE 5 MG Tab PO PRN ×5 (06:25→22:57)
[2020-10-11] MEDS: Acetaminophen 500 MG Tab PO PRN (06:28)
[2020-10-11] MEDS: Insulin Lispro 100 Units/ML 3 ML Vial SUBCUT SCH ×3 (08:37→17:20)
[2020-10-11] MEDS: amLODIPine 5 MG Tab PO SCH (09:35)
[2020-10-11] MEDS: Gabapentin 300 MG Cap PO SCH ×3 (09:35→21:53)
[2020-10-11] MEDS: Prenatal Multivitamin with Calcium/Folic Acid/Iron Tab PO SCH (09:36)
[2020-10-11] MEDS: Sertraline 50 MG Tab PO SCH (09:37)
[2020-10-11] MEDS: Nicotine 14 MG/24 Hr Patch TRDERM SCH (09:37)
[2020-10-11] MEDS: Rosuvastatin 10 MG Tab PO SCH (21:54)
[2020-10-11] MEDS: Check Patch **NICOTINE TRDERM SCH (21:56)
[2020-10-11] MEDS: Insulin Glarg,Human.Rec.Analog 100 Unit/ML SUBCUT SCH (22:09)
[2020-10-11] MEDS: Melatonin 3 MG Tab PO PRN (22:57)
[2020-10-11] MEDS: LORazepam 1 MG Tab PO PRN (22:57)
[2020-10-12] MEDS: Acetaminophen 500 MG Tab PO PRN (05:23)
[2020-10-12] MEDS: oxyCODONE 5 MG Tab PO PRN ×5 (05:23→21:36)
[2020-10-12] MEDS: Insulin Lispro 100 Units/ML 3 ML Vial SUBCUT SCH ×3 (07:39→16:41)
[2020-10-12] MEDS: Gabapentin 300 MG Cap PO SCH ×3 (09:46→21:37)
[2020-10-12] MEDS: amLODIPine 5 MG Tab PO SCH (09:47)
[2020-10-12] MEDS: Sertraline 50 MG Tab PO SCH (09:50)
[2020-10-12] MEDS: Prenatal Multivitamin with Calcium/Folic Acid/Iron Tab PO SCH (09:50)
[2020-10-12] MEDS: Nicotine 14 MG/24 Hr Patch TRDERM SCH (09:51)
--- NOTE | 2020-10-12 11:34 | PCM.PN ---
- General Info Date of Service: 10/12/20 Admission Dx/Problem (Free Text): Admission Diagnosis/Problem Admission Diagnosis/Problem Osteomyelitis Subjective Update: Patient seen and examined today. No new complaints. Doing well.. Functional Status: Reports: Pain Controlled - Review of Systems General: Reports: No Symptoms HEENT: Reports: No Symptoms Pulmonary: Reports: No Symptoms Cardiovascular: Reports: No Symptoms Gastrointestinal: Reports: No Symptoms Genitourinary: Reports: No Symptoms Musculoskeletal: Reports: No Symptoms Skin: Reports: No Symptoms Neurological: Reports: No Symptoms Psychiatric: Reports: No Symptoms - Patient Data Vitals - Most Recent: Last Vital Signs Temp 97.7 F 10/12/20 09:49 Pulse 73 10/12/20 09:49 Resp 18 10/12/20 09:49 BP 115/71 10/12/20 09:49 Pulse Ox 100 10/12/20 09:49 Weight - Most Recent: 131 lb 3.2 oz I&O - Last 24 Hours: Intake & Output 10/11/20 10/12/20 10/12/20 22:59 06:59 14:59 Intake Total 240 245 Balance 240 245 Lab Results Last 24 Hours: Laboratory Results - last 24 hr 10/11/20 10/11/20 10/11/20 Range/Units 11:55 17:02 21:39 POC Glucose 97 121 H 207 H (70-105) mg/dl 10/12/20 Range/Units 07:39 POC Glucose 103 (70-105) mg/dl Med Orders - Current: Current Medications Acetaminophen (Tylenol Extra Strength) 1,000 mg PO Q8HR PRN PRN Reason: Pain (mild 1-3) Last Admin: 10/12/20 05:23 Dose: 1,000 mg Documented by: Amlodipine Besylate (Norvasc) 10 mg PO DAILY [facility] Last Admin: 10/12/20 09:47 Dose: 10 mg Documented by: Dextrose/Water (Dextrose 50% In Water) 50 ml IV ASDIRECTED PRN PRN Reason: Hypoglycemia Diphenhydramine HCl (Benadryl) 25 mg PO Q6H PRN PRN Reason: Itching Last Admin: 10/01/20 21:07 Dose: 25 mg Documented by: Gabapentin (Neurontin) 600 mg PO TID [facility] Last Admin: 10/12/20 09:46 Dose: 600 mg Documented by: Glucagon (Glucagen) 1 mg IM ASDIRECTED PRN PRN Reason: Hypoglycemia Ceftaroline Fosamil 400 mg/ (Sodium Chloride) 250 mls @ 250 mls/hr IV Q12HR [facility] Last Admin: 10/12/20 09:51 Dose: 250 mls/hr Documented by: Insulin Glargine (Lantus) 37 unit SUBCUT BEDTIME [facility] Last Admin: 10/11/20 22:09 Dose: 37 units Documented by: Insulin Human Lispro (Humalog) 10 unit SUBCUT TIDMEALS [facility] Last Admin: 10/12/20 07:39 Dose: Not Given Documented by: Lorazepam (Ativan) 1 mg PO Q4H PRN PRN Reason: Anxiety Last Admin: 10/11/20 22:57 Dose: 1 mg Documented by: Melatonin (Melatonin) 3 mg PO BEDTIME PRN PRN Reason: Insomnia Last Admin: 10/11/20 22:57 Dose: 3 mg Documented by: Miscellaneous Information (Check Patch) 1 ea TRDERM BEDTIME [facility] Last Admin: 10/11/20 21:56 Dose: Not Given Documented by: Nicotine (Habitrol) 14 mg TRDERM DAILY [facility] Last Admin: 10/12/20 09:51 Dose: 14 mg Documented by: Nystatin (Nystop) 1 gm TOP DAILY PRN PRN Reason: with dressing changes Oxycodone HCl (Oxycodone) 5 mg PO Q4HR PRN PRN Reason: Pain (Moderate or severe) Last Admin: 10/12/20 09:49 Dose: 5 mg Documented by: Prenat Multivit/[place]/Iron/Folic Ac ( Plus Iron) 1 each PO DAILY [facility] Last Admin: 10/12/20 09:50 Dose: 1 each Documented by: Rosuvastatin Calcium (Crestor) 10 mg PO BEDTIME [facility] Last Admin: 10/11/20 21:54 Dose: 10 mg Documented by: Sertraline HCl (Zoloft) 25 mg PO DAILY [facility] Last Admin: 10/12/20 09:50 Dose: 25 mg Documented by: Sodium Chloride (Saline Flush) 10 ml FLUSH ASDIRECTED PRN PRN Reason: IV Use Last Admin: 10/10/20 21:26 Dose: 10 ml Documented by: Discontinued Medications Ceftaroline Fosamil 400 mg/ (Sodium Chloride) 250 mls @ 250 mls/hr IV Q12HR [facility] Last Admin: 10/07/20 09:51 Dose: 250 mls/hr Documented by: Ceftaroline Fosamil 400 mg/ (Sodium Chloride) 250 mls @ 250 mls/hr IV Q12HR [facility] Last Admin: 10/09/20 09:55 Dose: 250 mls/hr Documented by: Ceftaroline Fosamil 400 mg/ (Sodium Chloride) 250 mls @ 250 mls/hr IV Q12HR [facility] Ibuprofen (Motrin) 400 mg PO Q6HR PRN PRN Reason: Pain (mild 1-3) Miscellaneous Information (Check Patch) 1 ea TRDERM BEDTIME [facility] Last Admin: 10/06/20 20:44 Dose: Not Given Documented by: Nicotine (Habitrol) 21 mg TRDERM DAILY [facility] Last Admin: 10/07/20 10:38 Dose: Not Given Documented by: Oxycodone HCl (Oxycodone) 10 mg PO Q4HR PRN PRN Reason: Pain (severe 7-10) Last Admin: 10/02/20 05:32 Dose: 10 mg Documented by: - Exam General: Alert, Oriented HEENT: Pupils Equal, Pupils Reactive, EOMI, Mucous Membr. Moist/[place]vin Neck: Supple Lungs: Clear to Auscultation, Normal Respiratory Effort Cardiovascular: Regular Rate, Regular Rhythm GI/Abdominal Exam: Normal Bowel Sounds, Soft, Non-Tender, No Organomegaly, No Distention, No Abnormal Bruit, No Mass, Pelvis Stable Back Exam: Normal Inspection, Full Range of Motion Extremities: Other (Bilateral AKA. Wound vac on left AKA. Dressing clean and dry. Missing digits on left hand) Skin: Warm, Dry, Intact Wound/Incisions: Healing Well Neurological: No New Focal Deficit Psy/Mental Status: Alert, Normal Affect, Normal Mood Sepsis Event Note - Evaluation Sepsis Screening Result: No Definite Risk - Focused Exam Vital Signs: Vital Signs Temp Pulse Resp BP BP Pulse Ox 10/12/20 09:49 97.7 F 73 18 115/71 100 10/12/20 09:47 115/71 - Problem List Review Problem List Initiated/Reviewed/Updated: Yes - Plan Plan:: Abscess and osteomyelitis of left AKA stump - Continue routine wound cares - Continue Ceftaroline for 6 weeks course of antibiotics Follow-up with infectious disease as scheduled Type I DM - continue insulin long-acting and short-acting regimen Hypertension -Continue Norvasc Chronic anemia - Stable - Monitor Hyperkalemia resolved Renal function is better CKD Creatinine stable we'll monitor periodically
[2020-10-12] MEDS: Check Patch **NICOTINE TRDERM SCH (21:32)
[2020-10-12] MEDS: Sodium Chloride 0.9% 10 ML Syringe FLUSH PRN (21:33)
[2020-10-12] MEDS: Rosuvastatin 10 MG Tab PO SCH (21:36)
[2020-10-12] MEDS: Melatonin 3 MG Tab PO PRN (21:36)
[2020-10-12] MEDS: Insulin Glarg,Human.Rec.Analog 100 Unit/ML SUBCUT SCH (21:40)
[2020-10-12] MEDS: LORazepam 1 MG Tab PO PRN (21:42)
[2020-10-13] MEDS: oxyCODONE 5 MG Tab PO PRN ×5 (05:10→21:46)
[2020-10-13] MEDS: Sertraline 50 MG Tab PO SCH (09:16)
[2020-10-13] MEDS: Nicotine 14 MG/24 Hr Patch TRDERM SCH (09:17)
[2020-10-13] MEDS: Gabapentin 300 MG Cap PO SCH ×3 (09:17→21:07)
[2020-10-13] MEDS: Prenatal Multivitamin with Calcium/Folic Acid/Iron Tab PO SCH (09:17)
[2020-10-13] MEDS: amLODIPine 5 MG Tab PO SCH (09:18)
[2020-10-13] MEDS: Insulin Lispro 100 Units/ML 3 ML Vial SUBCUT SCH ×3 (09:18→17:46)
[2020-10-13] MEDS: Insulin Glarg,Human.Rec.Analog 100 Unit/ML SUBCUT SCH (21:05)
[2020-10-13] MEDS: Rosuvastatin 10 MG Tab PO SCH (21:08)
[2020-10-13] MEDS: Check Patch **NICOTINE TRDERM SCH (21:09)
[2020-10-13] MEDS: LORazepam 1 MG Tab PO PRN (21:47)
[2020-10-13] MEDS: Melatonin 3 MG Tab PO PRN (21:47)
[2020-10-14] MEDS: oxyCODONE 5 MG Tab PO PRN ×5 (02:55→20:32)
[2020-10-14 07:33] LABS: ANION GAP 13.5 mEq/L (7-13); CHLORIDE,CL 109 mmol/L (98-107); SODIUM,NA 139 mmol/L (136-145)
[2020-10-14] MEDS: Insulin Lispro 100 Units/ML 3 ML Vial SUBCUT SCH ×3 (07:42→16:26)
[2020-10-14] MEDS: Nicotine 14 MG/24 Hr Patch TRDERM SCH ×2 (07:48→08:45)
[2020-10-14] MEDS: amLODIPine 5 MG Tab PO SCH ×2 (07:48→08:45)
[2020-10-14] MEDS: Gabapentin 300 MG Cap PO SCH ×4 (07:48→20:30)
[2020-10-14] MEDS: Sertraline 50 MG Tab PO SCH ×2 (07:48→08:46)
[2020-10-14] MEDS: Prenatal Multivitamin with Calcium/Folic Acid/Iron Tab PO SCH ×2 (07:48→08:46)
[2020-10-14] MEDS: Rosuvastatin 10 MG Tab PO SCH (20:31)
[2020-10-14] MEDS: Check Patch **NICOTINE TRDERM SCH (20:31)
[2020-10-14] MEDS: Sodium Chloride 0.9% 10 ML Syringe FLUSH PRN (21:56)
[2020-10-14] MEDS: Insulin Glarg,Human.Rec.Analog 100 Unit/ML SUBCUT SCH (22:55)
[2020-10-14] MEDS: LORazepam 1 MG Tab PO PRN (22:56)
[2020-10-14] MEDS: Melatonin 3 MG Tab PO PRN (22:56)
[2020-10-15] MEDS: oxyCODONE 5 MG Tab PO PRN ×5 (03:55→21:26)
[2020-10-15] MEDS: Nicotine 14 MG/24 Hr Patch TRDERM SCH (08:27)
[2020-10-15] MEDS: Insulin Lispro 100 Units/ML 3 ML Vial SUBCUT SCH ×3 (08:29→17:24)
[2020-10-15] MEDS: Gabapentin 300 MG Cap PO SCH ×3 (08:29→21:16)
[2020-10-15] MEDS: amLODIPine 5 MG Tab PO SCH (08:30)
[2020-10-15] MEDS: Sertraline 50 MG Tab PO SCH (08:30)
[2020-10-15] MEDS: Prenatal Multivitamin with Calcium/Folic Acid/Iron Tab PO SCH (08:31)
[2020-10-15] MEDS: Rosuvastatin 10 MG Tab PO SCH (21:16)
[2020-10-15] MEDS: LORazepam 1 MG Tab PO PRN (21:16)
[2020-10-15] MEDS: Melatonin 3 MG Tab PO PRN (21:17)
[2020-10-15] MEDS: Insulin Glarg,Human.Rec.Analog 100 Unit/ML SUBCUT SCH (21:25)
[2020-10-15] MEDS: Check Patch **NICOTINE TRDERM SCH (21:27)
[2020-10-16] MEDS: oxyCODONE 5 MG Tab PO PRN ×5 (04:46→21:28)
[2020-10-16] MEDS: Insulin Lispro 100 Units/ML 3 ML Vial SUBCUT SCH ×3 (07:25→16:34)
[2020-10-16] MEDS: Sodium Chloride 0.9% 10 ML Syringe FLUSH PRN (08:53)
[2020-10-16] MEDS: amLODIPine 5 MG Tab PO SCH (09:00)
[2020-10-16] MEDS: Gabapentin 300 MG Cap PO SCH ×3 (09:01→21:28)
[2020-10-16] MEDS: Prenatal Multivitamin with Calcium/Folic Acid/Iron Tab PO SCH (09:02)
[2020-10-16] MEDS: Nicotine 14 MG/24 Hr Patch TRDERM SCH (09:03)
[2020-10-16] MEDS: Sertraline 50 MG Tab PO SCH (09:04)
[2020-10-16] MEDS: Insulin Glarg,Human.Rec.Analog 100 Unit/ML SUBCUT SCH (21:26)
[2020-10-16] MEDS: Check Patch **NICOTINE TRDERM SCH (21:27)
[2020-10-16] MEDS: LORazepam 1 MG Tab PO PRN (21:28)
[2020-10-16] MEDS: Melatonin 3 MG Tab PO PRN (21:28)
[2020-10-16] MEDS: Rosuvastatin 10 MG Tab PO SCH (21:28)
[2020-10-17] MEDS: oxyCODONE 5 MG Tab PO PRN ×5 (03:20→20:17)
[2020-10-17] MEDS: Gabapentin 300 MG Cap PO SCH ×3 (09:50→20:13)
[2020-10-17] MEDS: Sertraline 50 MG Tab PO SCH (09:50)
[2020-10-17] MEDS: Insulin Lispro 100 Units/ML 3 ML Vial SUBCUT SCH ×3 (10:20→17:19)
[2020-10-17] MEDS: Nicotine 14 MG/24 Hr Patch TRDERM SCH (10:21)
[2020-10-17] MEDS: Prenatal Multivitamin with Calcium/Folic Acid/Iron Tab PO SCH (10:39)
[2020-10-17] MEDS: amLODIPine 5 MG Tab PO SCH (10:40)
[2020-10-17] MEDS: Nicotine 7 MG/24 Hr Patch TRDERM SCH (11:56)
[2020-10-17] MEDS: LORazepam 1 MG Tab PO PRN (20:13)
[2020-10-17] MEDS: Rosuvastatin 10 MG Tab PO SCH (20:13)
[2020-10-17] MEDS: Melatonin 3 MG Tab PO PRN (20:13)
[2020-10-17] MEDS: Check Patch **NICOTINE TRDERM SCH (21:36)
[2020-10-17] MEDS: Insulin Glarg,Human.Rec.Analog 100 Unit/ML SUBCUT SCH (21:36)
[2020-10-18] MEDS: oxyCODONE 5 MG Tab PO PRN ×5 (05:04→21:27)
[2020-10-18] MEDS: Insulin Lispro 100 Units/ML 3 ML Vial SUBCUT SCH ×3 (07:12→17:33)
[2020-10-18] MEDS: Gabapentin 300 MG Cap PO SCH ×3 (09:26→21:27)
[2020-10-18] MEDS: amLODIPine 5 MG Tab PO SCH (09:28)
[2020-10-18] MEDS: Sertraline 50 MG Tab PO SCH (09:29)
[2020-10-18] MEDS: Prenatal Multivitamin with Calcium/Folic Acid/Iron Tab PO SCH (09:29)
[2020-10-18] MEDS: Nicotine 7 MG/24 Hr Patch TRDERM SCH (09:30)
[2020-10-18] MEDS: Sodium Chloride 0.9% 10 ML Syringe FLUSH PRN (21:26)
[2020-10-18] MEDS: Rosuvastatin 10 MG Tab PO SCH (21:26)
[2020-10-18] MEDS: LORazepam 1 MG Tab PO PRN (21:26)
[2020-10-18] MEDS: diphenhydrAMINE 25 MG Tab PO PRN (21:27)
[2020-10-18] MEDS: Melatonin 3 MG Tab PO PRN (21:27)
[2020-10-18] MEDS: Insulin Glarg,Human.Rec.Analog 100 Unit/ML SUBCUT SCH (21:28)
[2020-10-18] MEDS: Check Patch **NICOTINE TRDERM SCH (21:30)
[2020-10-19] MEDS: oxyCODONE 5 MG Tab PO PRN ×5 (05:53→22:12)
[2020-10-19 07:05] LABS: ANION GAP 14.5 mEq/L (7-13)
[2020-10-19] MEDS: amLODIPine 5 MG Tab PO SCH (09:07)
[2020-10-19] MEDS: Nicotine 7 MG/24 Hr Patch TRDERM SCH (09:07)
[2020-10-19] MEDS: Insulin Lispro 100 Units/ML 3 ML Vial SUBCUT SCH ×3 (09:07→16:10)
[2020-10-19] MEDS: Gabapentin 300 MG Cap PO SCH ×3 (09:07→21:00)
[2020-10-19] MEDS: Sertraline 50 MG Tab PO SCH (09:09)
[2020-10-19] MEDS: Prenatal Multivitamin with Calcium/Folic Acid/Iron Tab PO SCH (09:10)
--- NOTE | 2020-10-19 11:15 | PCM.PN ---
- General Info Date of Service: 10/19/20 Admission Dx/Problem (Free Text): Admission Diagnosis/Problem Admission Diagnosis/Problem Osteomyelitis Subjective Update: Patient seen and examined today. Patient doing okay. No new complaints. Functional Status: Reports: Pain Controlled - Review of Systems General: Reports: No Symptoms HEENT: Reports: No Symptoms Pulmonary: Reports: No Symptoms Cardiovascular: Reports: No Symptoms Gastrointestinal: Reports: No Symptoms Genitourinary: Reports: No Symptoms Musculoskeletal: Reports: No Symptoms Skin: Reports: No Symptoms Neurological: Reports: No Symptoms Psychiatric: Reports: No Symptoms - Patient Data Vitals - Most Recent: Last Vital Signs Temp 97.6 F 10/19/20 09:09 Pulse 80 10/19/20 09:09 Resp 16 10/19/20 09:09 BP 124/81 10/19/20 09:09 Pulse Ox 99 10/19/20 09:09 Weight - Most Recent: 124 lb 12.8 oz I&O - Last 24 Hours: Intake & Output 10/18/20 10/19/20 10/19/20 22:59 06:59 14:59 Intake Total 440 Balance 440 Lab Results Last 24 Hours: Laboratory Results - last 24 hr 10/17/20 10/18/20 10/18/20 Range/Units 20:34 05:10 07:12 Sodium (136-145) mmol/L Potassium (3.5-5.1) mmol/L Chloride (98-107) mmol/L Carbon Dioxide (21-32) mmol/L Anion Gap (7-13) mEq/L BUN (7-18) mg/dL Creatinine (0.55-1.02) mg/dL Est Cr Clr Drug Dosing mL/min Estimated GFR (MDRD) BUN/Creatinine Ratio (No establ ref range) Glucose (74-99) mg/dL POC Glucose 176 H 92 98 (70-105) mg/dl Calcium (8.5-10.1) mg/dL Total Bilirubin (0.2-1.0) mg/dL AST (15-37) U/L ALT (14-59) U/L Alkaline Phosphatase (46-116) U/L Total Protein (6.4-8.2) g/dL Albumin (3.4-5.0) g/dL Globulin Albumin/Globulin Ratio 10/18/20 10/18/20 10/18/20 Range/Units 11:34 16:48 21:09 Sodium (136-145) mmol/L Potassium (3.5-5.1) mmol/L Chloride (98-107) mmol/L Carbon Dioxide (21-32) mmol/L Anion Gap (7-13) mEq/L BUN (7-18) mg/dL Creatinine (0.55-1.02) mg/dL Est Cr Clr Drug Dosing mL/min Estimated GFR (MDRD) BUN/Creatinine Ratio (No establ ref range) Glucose (74-99) mg/dL POC Glucose 118 H 179 H 229 H (70-105) mg/dl Calcium (8.5-10.1) mg/dL Total Bilirubin (0.2-1.0) mg/dL AST (15-37) U/L ALT (14-59) U/L Alkaline Phosphatase (46-116) U/L Total Protein (6.4-8.2) g/dL Albumin (3.4-5.0) g/dL Globulin Albumin/Globulin Ratio 10/19/20 10/19/20 10/19/20 Range/Units 06:07 06:30 07:56 Sodium 138 (136-145) mmol/L Potassium 4.5 (3.5-5.1) mmol/L Chloride 107 (98-107) mmol/L Carbon Dioxide 21 (21-32) mmol/L Anion Gap 14.5 H (7-13) mEq/L BUN 21 H (7-18) mg/dL Creatinine 1.59 H (0.55-1.02) mg/dL Est Cr Clr Drug Dosing 45.81 mL/min Estimated GFR (MDRD) 38 BUN/Creatinine Ratio 13.2 (No establ ref range) Glucose 128 H (74-99) mg/dL POC Glucose 128 H 116 H (70-105) mg/dl Calcium 8.7 (8.5-10.1) mg/dL Total Bilirubin 0.1 L (0.2-1.0) mg/dL AST 122 H (15-37) U/L ALT 136 H (14-59) U/L Alkaline Phosphatase 396 H (46-116) U/L Total Protein 7.9 (6.4-8.2) g/dL Albumin 2.0 L (3.4-5.0) g/dL Globulin 5.9 Albumin/Globulin Ratio 0.34 Med Orders - Current: Current Medications Amlodipine Besylate (Norvasc) 10 mg PO DAILY FOR[facility]LY [facility], [facility] Last Admin: 10/19/20 09:07 Dose: 10 mg Documented by: Dextrose/Water (Dextrose 50% In Water) 50 ml IV ASDIRECTED PRN PRN Reason: Hypoglycemia Diphenhydramine HCl (Benadryl) 25 mg PO Q6H PRN PRN Reason: Itching Last Admin: 10/18/20 21:27 Dose: 25 mg Documented by: Gabapentin (Neurontin) 600 mg PO TID [facility], [facility]1983 Last Admin: 10/19/20 09:07 Dose: 600 mg Documented by: Glucagon (Glucagen) 1 mg IM ASDIRECTED PRN PRN Reason: Hypoglycemia Ceftaroline Fosamil 400 mg/ (Sodium Chloride) 250 mls @ 250 mls/hr IV Q12HR [facility], [facility] Last Admin: 10/19/20 09:06 Dose: 250 mls/hr Documented by: Insulin Glargine (Lantus) 37 unit SUBCUT BEDTIME [facility], [facility] Last Admin: 10/18/20 21:28 Dose: 97 units Documented by: Insulin Human Lispro (Humalog) 10 unit SUBCUT TIDMEALS [facility], [facility] Last Admin: 10/19/20 09:07 Dose: Not Given Documented by: Lorazepam (Ativan) 1 mg PO Q4H PRN PRN Reason: Anxiety Last Admin: 10/18/20 21:26 Dose: 1 mg Documented by: Melatonin (Melatonin) 3 mg PO BEDTIME PRN PRN Reason: Insomnia Last Admin: 10/18/20 21:27 Dose: 3 mg Documented by: Miscellaneous Information (Check Patch) 1 ea TRDERM BEDTIME [facility], [facility] Last Admin: 10/18/20 21:30 Dose: Not Given Documented by: Nicotine (Habitrol) 7 mg TRDERM DAILY [facility] Last Admin: 10/19/20 09:07 Dose: 7 mg Documented by: Nystatin (Nystop) 1 gm TOP DAILY PRN PRN Reason: with dressing changes Oxycodone HCl (Oxycodone) 5 mg PO Q4HR PRN PRN Reason: Pain (Moderate or severe) Last Admin: 10/19/20 10:03 Dose: 5 mg Documented by: Prenat Multivit/[place]/Iron/Folic Ac ( Plus Iron) 1 each PO DAILY [facility], [facility] Last Admin: 10/19/20 09:10 Dose: 1 each Documented by: Rosuvastatin Calcium (Crestor) 10 mg PO BEDTIME [facility] Last Admin: 10/18/20 21:26 Dose: 10 mg Documented by: Sertraline HCl (Zoloft) 25 mg PO DAILY [facility] Last Admin: 10/19/20 09:09 Dose: 25 mg Documented by: Sodium Chloride (Saline Flush) 10 ml FLUSH ASDIRECTED PRN PRN Reason: IV Use Last Admin: 10/18/20 21:26 Dose: 10 ml Documented by: Discontinued Medications Acetaminophen (Tylenol Extra Strength) 1,000 mg PO Q8HR PRN PRN Reason: Pain (mild 1-3) Last Admin: 10/12/20 05:23 Dose: 1,000 mg Documented by: Ceftaroline Fosamil 400 mg/ (Sodium Chloride) 250 mls @ 250 mls/hr IV Q12HR [facility] Last Admin: 10/07/20 09:51 Dose: 250 mls/hr Documented by: Ceftaroline Fosamil 400 mg/ (Sodium Chloride) 250 mls @ 250 mls/hr IV Q12HR [facility] Last Admin: 10/09/20 09:55 Dose: 250 mls/hr Documented by: Ceftaroline Fosamil 400 mg/ (Sodium Chloride) 250 mls @ 250 mls/hr IV Q12HR DYLON Ceftaroline Fosamil 400 mg/ (Sodium Chloride) 250 mls @ 250 mls/hr IV Q12HR [facility] Last Infusion: 10/12/20 11:03 Dose: Infused Documented by: Ibuprofen (Motrin) 400 mg PO Q6HR PRN PRN Reason: Pain (mild 1-3) Miscellaneous Information (Check Patch) 1 ea TRDERM BEDTIME [facility] Last Admin: 10/06/20 20:44 Dose: Not Given Documented by: Nicotine (Habitrol) 21 mg TRDERM DAILY [facility] Last Admin: 10/07/20 10:38 Dose: Not Given Documented by: Nicotine (Habitrol) 14 mg TRDERM DAILY [facility] Last Admin: 10/17/20 10:21 Dose: Not Given Documented by: Oxycodone HCl (Oxycodone) 10 mg PO Q4HR PRN PRN Reason: Pain (severe 7-10) Last Admin: 10/02/20 05:32 Dose: 10 mg Documented by: - Exam Quality Assessment: DVT Prophylaxis General: Alert, Oriented HEENT: Pupils Equal, Pupils Reactive, EOMI, Mucous Membr. Moist/Trent Neck: Supple Lungs: Clear to Auscultation, Normal Respiratory Effort Cardiovascular: Regular Rate, Regular Rhythm GI/Abdominal Exam: Normal Bowel Sounds, Soft, Non-Tender, No Organomegaly, No Distention, No Abnormal Bruit, No Mass, Pelvis Stable (Female) Exam: Normal External Exam, Normal Speculum Exam, Normal Bimanual Ex am Back Exam: Normal Inspection, Full Range of Motion Extremities: Normal Inspection, Normal Range of Motion, Non-Tender, No Pedal Edema, Normal Capillary Refill Skin: Warm, Dry, Intact Wound/Incisions: Healing Well Neurological: No New Focal Deficit Psy/Mental Status: Alert, Normal Affect, Normal Mood Sepsis Event Note - Evaluation Sepsis Screening Result: No Definite Risk - Focused Exam Vital Signs: Vital Signs Temp Pulse Resp BP BP Pulse Ox 10/19/20 09:09 97.6 F 80 16 124/81 99 10/19/20 09:07 124/81 - Problem List & Annotations (1) Abnormal liver function SNOMED Code(s): 57479383 Code(s): R94.5 - ABNORMAL RESULTS OF LIVER FUNCTION STUDIES Status: Acute Current Visit: Yes - Problem List Review Problem List Initiated/Reviewed/Updated: Yes - Plan Plan:: Abscess and osteomyelitis of left AKA stump - Continue routine wound cares - Continue Ceftaroline for 6 weeks course of antibiotics Follow-up with infectious disease as scheduled Abnormal liver function -Continue to monitor LFTs Type I DM - continue insulin long-acting and short-acting regimen Hypertension -Continue Norvasc Chronic anemia - Stable - Monitor Hyperkalemia Resolved CKD Creatinine stable we'll monitor periodically
[2020-10-19] MEDS: Check Patch **NICOTINE TRDERM SCH (21:00)
[2020-10-19] MEDS: Rosuvastatin 10 MG Tab PO SCH (21:00)
[2020-10-19] MEDS: Insulin Glarg,Human.Rec.Analog 100 Unit/ML SUBCUT SCH (21:08)
[2020-10-19] MEDS: Melatonin 3 MG Tab PO PRN (22:12)
[2020-10-19] MEDS: LORazepam 1 MG Tab PO PRN (22:12)
[2020-10-20] MEDS: diphenhydrAMINE 25 MG Tab PO PRN ×2 (01:00→16:47)
[2020-10-20] MEDS: oxyCODONE 5 MG Tab PO PRN ×5 (03:36→22:38)
[2020-10-20] MEDS ORDERED: diphenhydrAMINE 25 MG Tab PO ONE (04:18)
[2020-10-20] MEDS: Sodium Chloride 0.9% 10 ML Syringe FLUSH PRN ×2 (06:50→18:40)
[2020-10-20] MEDS ORDERED: Isopropyl Myristate/Mineral Oil/Water Lotion 240 ML Bottle TOP PRN (09:18)
[2020-10-20] MEDS: Gabapentin 300 MG Cap PO SCH ×3 (09:47→21:08)
[2020-10-20] MEDS: Sertraline 50 MG Tab PO SCH (09:47)
[2020-10-20] MEDS: Prenatal Multivitamin with Calcium/Folic Acid/Iron Tab PO SCH (09:47)
[2020-10-20] MEDS: amLODIPine 5 MG Tab PO SCH (09:48)
[2020-10-20] MEDS: Insulin Lispro 100 Units/ML 3 ML Vial SUBCUT SCH ×3 (11:12→17:17)
[2020-10-20] MEDS: Nicotine 7 MG/24 Hr Patch TRDERM SCH (11:23)
[2020-10-20] MEDS ORDERED: Loperamide 2 MG Cap PO PRN (15:22)
[2020-10-20] MEDS: Rosuvastatin 10 MG Tab PO SCH (21:07)
[2020-10-20] MEDS: Insulin Glarg,Human.Rec.Analog 100 Unit/ML SUBCUT SCH (21:07)
[2020-10-20] MEDS: Melatonin 3 MG Tab PO PRN (22:39)
[2020-10-20] MEDS: LORazepam 1 MG Tab PO PRN (22:40)
[2020-10-21] MEDS: Check Patch **NICOTINE TRDERM SCH ×2 (01:32→20:54)
[2020-10-21] MEDS: oxyCODONE 5 MG Tab PO PRN ×5 (04:11→21:02)
[2020-10-21] MEDS: diphenhydrAMINE 25 MG Tab PO PRN (05:24)
[2020-10-21] MEDS: Sertraline 50 MG Tab PO SCH (08:36)
[2020-10-21] MEDS: Gabapentin 300 MG Cap PO SCH ×3 (08:36→21:01)
[2020-10-21] MEDS: Prenatal Multivitamin with Calcium/Folic Acid/Iron Tab PO SCH (08:37)
[2020-10-21] MEDS: Nicotine 7 MG/24 Hr Patch TRDERM SCH (08:37)
[2020-10-21] MEDS: amLODIPine 5 MG Tab PO SCH (08:37)
[2020-10-21] MEDS: Insulin Lispro 100 Units/ML 3 ML Vial SUBCUT SCH ×3 (08:38→16:46)
[2020-10-21] MEDS: Rosuvastatin 10 MG Tab PO SCH (21:02)
[2020-10-21] MEDS: Sodium Chloride 0.9% 10 ML Syringe FLUSH PRN (21:18)
[2020-10-21] MEDS: Insulin Glarg,Human.Rec.Analog 100 Unit/ML SUBCUT SCH (21:19)
[2020-10-21] MEDS: LORazepam 1 MG Tab PO PRN (21:21)
[2020-10-21] MEDS: Melatonin 3 MG Tab PO PRN (21:22)
[2020-10-22] MEDS: oxyCODONE 5 MG Tab PO PRN ×5 (02:58→19:33)
[2020-10-22 04:52] LABS: ANION GAP 15.4 mEq/L (7-13); CHLORIDE,CL 107 mmol/L (98-107); SODIUM,NA 138 mmol/L (136-145)
[2020-10-22] MEDS: Gabapentin 300 MG Cap PO SCH ×3 (08:35→21:29)
[2020-10-22] MEDS: amLODIPine 5 MG Tab PO SCH (08:35)
[2020-10-22] MEDS: Prenatal Multivitamin with Calcium/Folic Acid/Iron Tab PO SCH (08:35)
[2020-10-22] MEDS: Nicotine 7 MG/24 Hr Patch TRDERM SCH (08:35)
[2020-10-22] MEDS: Sertraline 50 MG Tab PO SCH (08:35)
[2020-10-22] MEDS: Insulin Lispro 100 Units/ML 3 ML Vial SUBCUT SCH ×3 (08:36→17:08)
[2020-10-22] MEDS: Rosuvastatin 10 MG Tab PO SCH (21:29)
[2020-10-22] MEDS: Insulin Glarg,Human.Rec.Analog 100 Unit/ML SUBCUT SCH (21:29)
[2020-10-22] MEDS: Check Patch **NICOTINE TRDERM SCH (21:30)
[2020-10-22] MEDS: Melatonin 3 MG Tab PO PRN (21:40)
[2020-10-22] MEDS: LORazepam 1 MG Tab PO PRN (21:40)
[2020-10-23] MEDS: oxyCODONE 5 MG Tab PO PRN ×3 (01:31→10:11)
[2020-10-23 08:23] VITALS: BP 131/89; PULSE 84
[2020-10-23] MEDS: Sertraline 50 MG Tab PO SCH (09:00)
[2020-10-23] MEDS: Gabapentin 300 MG Cap PO SCH ×2 (09:00→13:40)
[2020-10-23] MEDS: Prenatal Multivitamin with Calcium/Folic Acid/Iron Tab PO SCH (09:01)
[2020-10-23] MEDS: Insulin Lispro 100 Units/ML 3 ML Vial SUBCUT SCH ×2 (09:01→12:30)
[2020-10-23] MEDS: amLODIPine 5 MG Tab PO SCH (09:02)
[2020-10-23] MEDS: Nicotine 7 MG/24 Hr Patch TRDERM SCH ×2 (09:02→09:03)
--- NOTE | 2020-10-23 10:59 | DISCH ---
FINAL DIAGNOSES: 1. Abscess and osteomyelitis of the left AKA stump. 2. Type 1 diabetes mellitus. 3. Hypertension. 4. Chronic anemia. BRIEF HISTORY OF PRESENT ILLNESS AND HOSPITAL COURSE: The patient is a 29-year- old female with medical history of type 1 diabetes mellitus with poor compliance, hypertension, hepatitis C, chronic kidney disease, and recurrent osteomyelitis, is status post bilateral AKA who was hospitalized for abscess and osteomyelitis of the left stump and she had an I and D and wound VAC placement on the left stump. She was in swing bed for continued IV antibiotics for 6 weeks. The patient was also being followed by Infectious Disease. The patient did well in swing bed. Hospital course was uncomplicated except for some slight elevation of liver function tests prior to discharge and this is going to be followed up as an outpatient. The rest of the hospital course was uncomplicated and she was subsequently discharged and she is going to be followed by Home Health Care. Follow up with Neo Reaves in 7 to 10 days. We will continue with her amlodipine 10 mg daily, gabapentin 600 mg t.i.d. She will be on Lantus 37 units at bedtime and Humalog 10 units t.i.d., oxycodone p.r.n., Crestor 10 mg daily, and Zoloft 25 mg daily. [facility] /[id number]
--- NOTE | 2020-10-26 06:53 | PN ---
DATE: 10/23/2020 SUBJECTIVE: The patient a 29-year-old female with medical history of type 2 diabetes mellitus with poor compliance, hypertension, hepatitis C, chronic kidney disease, recurrent osteomyelitis, status post bilateral above knee amputation, who was hospitalized for abscess and osteomyelitis of the left stump and she had an I and D and wound VAC placement and was in Swing bed to complete 6-week course of antibiotics and patient is done with IV antibiotics, and the patient has been doing well, and patient denies any fever, chills, chest pain, shortness of breath, nor any other complaints. LABORATORY DATA: Lab workup on 10/22/2020, WBC 7, hemoglobin is 9.9, hematocrit is 30.7, platelet is 277. Comp panel, carbon dioxide is 20, anion gap of 15.4, BUN is 24, creatinine is 1.59. AST is 289, ALT is 280, alkaline phosphatase is 574. The rest of the panel unremarkable. OBJECTIVE: Vital Signs: Blood pressure is 131/89, pulse of 84, respiration of 18, temperature of 98, and saturation is 100% on room air. Heart: Regular rate and rhythm. Normal S1 and S2. No gallops. No rubs. Lungs: Equal bilaterally. No crackles. No wheezing. Abdomen: Soft. Nontender. Bowel sounds are positive. Extremities: Remarkable for bilateral knee amputation and wound VAC on the left leg stump. MEDICATIONS: Reviewed. PLAN: We will discharge the patient home today. We will have home healthcare follow the patient, and she will also be seen by Neo Reaves to follow her up with home healthcare. We will also repeat the liver function test in 3 to 4 days as an outpatient. [facility] /[id number]
--- NOTE | 2020-10-26 08:05 | DISCH ---
ADDENDUM: The patient is going to be followed by Home Health Care for wound VAC dressing changes. [facility] /[id number]
== END 2020-10-23 14:00 | disposition home or self-care (01) | DRG 565 ==
LOC: DL.MS 12:35 → UNDOADMIN 12:35 → DL.MS 12:59
PROVIDERS: ADMIT Internal Medicine; ATTEND Internal Medicine
DX: T87.44 Infection of amputation stump, left lower extremity (principal); M86.9 Osteomyelitis, unspecified; E10.69 Type 1 diabetes mellitus with other specified complication; H54.7 Unspecified visual loss; I12.9 Hypertensive chronic kidney disease with stage 1 through stage 4 chronic kidney disease, or unspecified chronic kidney disease; N18.9 Chronic kidney disease, unspecified; E10.22 Type 1 diabetes mellitus with diabetic chronic kidney disease; D63.1 Anemia in chronic kidney disease; E87.5 Hyperkalemia; R79.89 Other specified abnormal findings of blood chemistry
CPT/HCPCS: 36415; 80048; 80053; 80202; 82565; 82962; 85025; 85027; 85651; 86140; 87493; 97165-GO; A9270-GY; J0712; J1815-GY; J3370; J7050

== ENCOUNTER 2020-12-15 19:51 | Emergency (ER) | payer MEDICAID ==
[2020-12-15 19:20] VITALS: BP 160/104; PULSE 94
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
[~2020-12-15 19:51] MED LIST: Acetaminophen 325 MG Tab PO ONE; Hydrocortisone/Neomycin/Polymyxin B Otic Susp 10 ML Bottle ONE; cefTRIAXone 1 GM, Lidocaine 1% 2.1 ML IM ONE
[2020-12-15] MEDS ORDERED: Ibuprofen 600 MG Tab PO ONE (19:55)
== END 2020-12-15 20:25 | disposition home or self-care (01) ==
LOC: DL.ED 19:51
DX: H60.501 Unspecified acute noninfective otitis externa, right ear (principal); H66.001 Acute suppurative otitis media without spontaneous rupture of ear drum, right ear; I10 Essential (primary) hypertension; E10.9 Type 1 diabetes mellitus without complications; Q90.9 Down syndrome, unspecified; Z88.8 Allergy status to other drugs, medicaments and biological substances; Z79.899 Other long term (current) drug therapy; F84.0 Autistic disorder
CPT/HCPCS: 87081; 87430; 96372; 99284; A9270; J0696; J2001; 99283

== ENCOUNTER 2021-03-28 21:23 | Emergency (ER) | payer MEDICAID ==
[2021-03-28 21:52] VITALS: BP 130/94; PULSE 105
[2021-03-28] MEDS ORDERED: Bacitracin Oint 1 GM U/D Packet TOP ONE (22:23)
--- NOTE | 2021-03-28 22:25 | CR ---
PROCEDURE INFORMATION: Exam: XR Left Hand Exam date and time: 03/28/2021 9:53 PM Age: 30 years old Clinical indication: Other: S/s for 6 months, recently had blood cultures; Prior surgery; Additional info: Pain, swelling, bleeding. TECHNIQUE: Imaging protocol: XR Left hand. Views: 1 or 2 views. COMPARISON: CR Hand 2V Lt 01/07/2021 11:42 AM FINDINGS: Bones/joints: There is a stable loss of the 1st through 3rd digits the left hand. There has been amputation of the 3rd digital ray near the midshaft of the 3rd metacarpal. There is amputation of the 2nd digit at the metacarpophalangeal joint. There is amputation of the 1st digit at the metacarpophalangeal joint. There is some irregular bone spurring seen along the ulnar border of the 1st metacarpal distally, findings that may represent some bony remodeling. As previously noted, osteomyelitis cannot be excluded. Outpatient follow-up evaluation with MRI the left hand before and after the administration of gadolinium intravenous contrast is suggested. Soft tissues: Normal. IMPRESSION: 1. Essentially stable appearance of the left hand compared with 01/07/2021. 2. Mild osseous deformity at the distal extent of the 1st metacarpal may represent the sequela of osteomyelitis although active osteomyelitis cannot be entirely excluded. Palpation follow-up with pre and post-contrast MRI imaging of the left hand is suggested.
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
[2021-03-28 23:02] LABS: ANION GAP 15.5 mEq/L (7-13); CHLORIDE,CL 102 mmol/L (98-107); SODIUM,NA 134 mmol/L (136-145)
[2021-03-28] MEDS ORDERED: Clindamycin HCl 150 MG Cap PO ONE (23:25)
== END 2021-03-29 00:18 | disposition home or self-care (01) ==
LOC: DL.ED 21:23
DX: L03.012 Cellulitis of left finger (principal); E10.9 Type 1 diabetes mellitus without complications; I10 Essential (primary) hypertension; Z72.0 Tobacco use; Z88.8 Allergy status to other drugs, medicaments and biological substances; Z79.4 Long term (current) use of insulin; Z79.899 Other long term (current) drug therapy
CPT/HCPCS: 36415; 73120-LT; 80053; 83605; 85025; 87040; 87081; 87430; 99283; A9270-GY

== ENCOUNTER 2021-04-05 15:28 | Emergency (ER) | payer MEDICAID ==
[2021-04-05] MEDS ORDERED: Sodium Chloride 0.9% 10 ML Syringe FLUSH PRN (16:19)
[2021-04-05 17:12] LABS: ANION GAP 13.6 mEq/L (7-13); CHLORIDE,CL 101 mmol/L (98-107); SODIUM,NA 129 mmol/L (136-145)
[2021-04-05] MEDS ORDERED: Insulin Regular, Human 100 Units/ML 3 ML Vial IV ONE (17:35)
[2021-04-05] MEDS ORDERED: Sodium Chloride 0.9% 1,000 ML IV ONE (17:35)
[2021-04-05] MEDS ORDERED: diphenhydrAMINE 50 MG/ML SDV IVPUSH ONE (17:36)
[2021-04-05] MEDS ORDERED: Acetaminophen/HYDROcodone 325-10 MG Tab PO ONE (18:31)
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
[2021-04-05 19:21] VITALS: BP 143/55; PULSE 88
== END 2021-04-05 19:54 | disposition home or self-care (01) ==
LOC: DL.ED 15:28
DX: M00.9 Pyogenic arthritis, unspecified (principal); E11.628 Type 2 diabetes mellitus with other skin complications; L03.012 Cellulitis of left finger; E11.65 Type 2 diabetes mellitus with hyperglycemia; I10 Essential (primary) hypertension; E87.1 Hypo-osmolality and hyponatremia; Z91.19 Patient's noncompliance with other medical treatment and regimen; Z88.8 Allergy status to other drugs, medicaments and biological substances; Z79.899 Other long term (current) drug therapy; Z79.4 Long term (current) use of insulin
CPT/HCPCS: 36415; 80053; 80305-QW; 80307; 81001; 81025; 82009; 82947; 83605; 83690; 85025; 86140; 87040; 96365; 96366; 96375; 99283-25; 99284; A9270-GY; J1200; J1815-GY; J3370; J7030; J7050

== ENCOUNTER 2021-04-16 01:57 | Emergency (ER) | payer MEDICAID ==
[2021-04-16] MEDS ORDERED: Lactated Ringers 1,000 ML IV ONE (02:09)
[2021-04-16] MEDS ORDERED: Ketorolac 30 MG/ML SDV IVPUSH ONE (02:09)
[2021-04-16] MEDS ORDERED: Sodium Chloride 0.9% 10 ML Syringe FLUSH PRN (02:09)
[2021-04-16] MEDS ORDERED: diphenhydrAMINE 50 MG/ML SDV IVPUSH ONE (02:09)
[2021-04-16 02:44] LABS: ANION GAP 18.7 mEq/L (7-13); CHLORIDE,CL 103 mmol/L (98-107); SODIUM,NA 134 mmol/L (136-145)
[2021-04-16] MEDS ORDERED: cefTRIAXone 2 GM in Sodium Chloride 0.9% 100 ML IV ONE (03:34)
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
[2021-04-16] MEDS ORDERED: Glucagon,Human Recombinant 1 MG Vial IM PRN (03:52)
[2021-04-16] MEDS ORDERED: Insulin Regular, Human 100 Units/ML 3 ML Vial SUBCUT ONE (03:52)
[2021-04-16] MEDS ORDERED: 50% Dextrose in Water 50 ML Syringe IV PRN (03:52)
[2021-04-16] MEDS ORDERED: Morphine 4 MG/ML Syringe IVPUSH ONE (04:35)
--- NOTE | 2021-04-16 05:23 | CT ---
PROCEDURE INFORMATION: Exam: CT Left Upper Extremity Without Contrast, Hand Exam date and time: 04/16/2021 4:28 AM Age: 30 years old Clinical indication: Other: Pyogenic arthritis 3rd finger ? osteo. TECHNIQUE: Imaging protocol: CT of the Left upper extremity without contrast was performed. Exam focused on the hand. Radiation optimization: All CT scans at this facility use at least one of these dose optimization techniques: automated exposure control; mA and/or kV adjustment per patient size (includes targeted exams where dose is matched to clinical indication); or iterative reconstruction. COMPARISON: CT Hand wo Cont Lt 09/30/2017 8:59 PM FINDINGS: Bones/joints: No acute fracture or dislocation. No bone destruction or periosteal elevation. Soft tissues: Normal. Other findings: Partial amputations at the 1st 2nd and 3rd digits. IMPRESSION: 1. No acute fracture or dislocation. 2. Partial amputations at the 1st 2nd and 3rd digits. 3. No evidence of osteomyelitis.
[2021-04-16 07:58] VITALS: BP 130/84; PULSE 105
== END 2021-04-16 08:29 ==
LOC: DL.ED 01:57
DX: L03.012 Cellulitis of left finger (principal); E11.9 Type 2 diabetes mellitus without complications; I10 Essential (primary) hypertension; D72.829 Elevated white blood cell count, unspecified; Z91.19 Patient's noncompliance with other medical treatment and regimen; Z79.4 Long term (current) use of insulin; Z79.899 Other long term (current) drug therapy; Z88.8 Allergy status to other drugs, medicaments and biological substances
CPT/HCPCS: 36415; 73200; 80053; 80307; 82947; 83605; 85025; 85651; 86140; 87040; 96365; 96366; 96368; 96375; 99284; 99285-25; J0696; J1200; J1815-GY; J1885; J2270; J3370; J7050; J7120

== ENCOUNTER 2021-08-02 11:33 | Inpatient (IN) | payer MEDICAID ==
[2021-08-02] MEDS ORDERED: Sodium Chloride 0.9% 10 ML Syringe FLUSH PRN ×2 (13:09→15:36)
[2021-08-02] MEDS ORDERED: Acetaminophen/HYDROcodone 325-10 MG Tab PO ONE (13:11)
[2021-08-02] MEDS ORDERED: diphenhydrAMINE 50 MG/ML SDV IVPUSH ONE (13:12)
[2021-08-02] MEDS ORDERED: Insulin Regular, Human 100 Units/ML 3 ML Vial SUBCUT ONE (13:14)
[2021-08-02] MEDS ORDERED: Glucagon,Human Recombinant 1 MG Vial IM PRN (13:14)
[2021-08-02] MEDS ORDERED: 50% Dextrose in Water 50 ML Syringe IVPUSH PRN ×2 (13:14→16:58)
[2021-08-02] MEDS ORDERED: Ciprofloxacin 0.3% Ophth Soln 5 ML Bottle EARRT ONE (13:22)
[2021-08-02 14:01] LABS: ANION GAP 16.9 mEq/L (7-13); CHLORIDE,CL 102 mmol/L (98-107); SODIUM,NA 131 mmol/L (136-145)
[2021-08-02] MEDS ORDERED: Potassium Chloride 10 MEQ Tab.ER PO ONE ×2 (14:06→19:31)
[2021-08-02 14:28] LABS: O2 DELIVERY DEVICE ROOM AIR
[2021-08-02 14:29] LABS: ALLEN TEST POSITIVE; BASE EXCESS ARTERIAL -13 mmol/L ((-2)-(+3)); BICARBONATE,ARTERIAL 11.9 mmol/L (22-26); O2 SATURATION ARTERIAL 97 % (95-100); PCO2 ARTERIAL 25 mmHg (35-45); PO2 ARTERIAL 73 mmHg (70-100)
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
[2021-08-02] MEDS ORDERED: Sodium Chloride 0.9% 1,000 ML IV SCH (15:45)
[2021-08-02] MEDS ORDERED: Potassium Chloride 20 MEQ in Premix Bag 1 BAG IV ONE ×2 (15:47→18:30)
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
[2021-08-02] MEDS: fentaNYL 100 MCG/2 ML SDV IVPUSH PRN ×4 (16:47→22:18)
[2021-08-02] MEDS: Ciprofloxacin 0.3% Ophth Soln 5 ML Bottle EARRT SCH ×2 (16:50→20:59)
[2021-08-02] MEDS ORDERED: Dextrose 5%-0.45% NaCl 1,000 ML IV SCH (17:00)
[2021-08-02] MEDS ORDERED: Dextrose 5%-0.9% NaCl with KCl 1,000 ML IV SCH (17:15)
[2021-08-02 17:24] LABS: ANION GAP 16.9 mEq/L (7-13)
--- NOTE | 2021-08-02 18:30 | CT ---
PROCEDURE INFORMATION: Exam: CT Temporal Bones Without Contrast. Exam date and time: 08/02/2021 5:29 PM Age: 30 years old Clinical indication: Other: Dka patient purulent discharge from right ear TECHNIQUE: Imaging protocol: Computed tomography images of the temporal bones without contrast. Radiation optimization: All CT scans at this facility use at least one of these dose optimization techniques: automated exposure control; mA and/or kV adjustment per patient size (includes targeted exams where dose is matched to clinical indication); or iterative reconstruction. COMPARISON: CT Max Facial Sinus wo Cont 03/21/2018 11:13 PM FINDINGS: Motion limits exam through the middle and inner ears. Right inner ear: Normal. Right ossicles and middle ear: Normal. The middle ear ossicles are intact. Right external auditory canal: Extensive soft tissue swelling is seen in the external auditory canal as well as in the soft tissues of the external ear. No definite drainable fluid collection, the lack of contrast limits exam. There are some scattered mildly enlarged lymph nodes in this area. The stranding abuts the right parotid gland. Right facial nerve canal: Normal. Right jugular foramen: Capacious. No jugular dehiscence. Right carotid canal: No aberrant carotid canal. Right mastoid air cells: An air-fluid level is seen in the right mastoid air cells. See image 17 of series 2. Left inner ear: Normal. Left ossicles and middle ear: Normal. The middle ear ossicles are intact. Left external auditory canal: Normal. Left facial nerve canal: Normal. Left jugular foramen: No jugular dehiscence. Left carotid canal: No aberrant carotid canal. Left mastoid air cells: Normal. No mastoid effusions. Soft tissues: See "Right external auditory canal" finding. IMPRESSION: Motion limits exam. Findings compatible with moderate to severe right otitis externa. Contrast would be required to exclude a drainable fluid collection. Small amount of fluid in the right mastoid air cells as well.
--- NOTE | 2021-08-02 19:56 | PCM.SN.2 ---
- Free Text/Narrative Note: Patient CT scan returned with severe otitis externa with soft tissue extension. No drainable abscess noted however exam is limited due to the inability to give contrast dye. No evidence of osteolisted on the CT read. Given these findings we will add pseudomonal coverage with cefepime. Again cultures from purulent right ear are in process.
[2021-08-02] MEDS: Dextrose 5%-0.9% NaCl 1,000 ML IV SCH ×2 (20:04→23:47)
[2021-08-02] MEDS: Acetaminophen/HYDROcodone 325-5 MG Tab PO PRN (20:21)
[2021-08-02] MEDS ORDERED: Cefepime 2 GM in Sodium Chloride 0.9% 50 ML IV ONE (21:00)
[2021-08-02] MEDS ORDERED: Cefepime 2 GM in Sodium Chloride 0.9% 50 ML IV SCH (21:00)
[2021-08-02 21:14] LABS: ANION GAP 16.8 mEq/L (7-13)
[2021-08-02] MEDS: Heparin Sodium 5,000 Units/ML Vial SUBCUT SCH (21:52)
[2021-08-03] MEDS: fentaNYL 100 MCG/2 ML SDV IVPUSH PRN ×5 (00:14→10:53)
[2021-08-03 00:51] LABS: ANION GAP 18.6 mEq/L (7-13)
[2021-08-03] MEDS: Acetaminophen/HYDROcodone 325-5 MG Tab PO PRN ×3 (02:45→16:58)
[2021-08-03 04:27] LABS: ANION GAP 15.3 mEq/L (7-13)
[2021-08-03] MEDS ORDERED: Potassium Chloride 20 MEQ in Premix Bag 1 BAG IV ONE (05:24)
[2021-08-03] MEDS: Heparin Sodium 5,000 Units/ML Vial SUBCUT SCH ×3 (05:52→21:31)
--- NOTE | 2021-08-03 05:59 | PCM.PN ---
- General Info Date of Service: 08/03/21 Admission Dx/Problem (Free Text): Admission Diagnosis/Problem Admission Diagnosis/Problem Otitis media Subjective Update: Patient states that her ear pain is still significant but is slightly improved from the previous day. She also states that her right neck pain is slightly improved. She states that she had some nausea last night but denies any nausea this a.m. She denies any fevers or chills. Patient denies any shortness of breath, abdominal pain. Patient several questions about her infection which were answered. Functional Status: Reports: Pain Controlled - Review of Systems General: Reports: No Symptoms HEENT: Reports: Sinus Congestion, Other (right ear pain) Pulmonary: Reports: No Symptoms Cardiovascular: Reports: No Symptoms Gastrointestinal: Reports: No Symptoms Skin: Reports: No Symptoms Neurological: Reports: No Symptoms Psychiatric: Reports: No Symptoms - Patient Data Vitals - Most Recent: Last Vital Signs Temp 98.1 F 08/03/21 04:00 Pulse 100 08/03/21 04:00 Resp 20 08/03/21 04:00 BP 90/52 L 08/03/21 04:00 Pulse Ox 98 08/03/21 00:00 Weight - Most Recent: 129 lb I&O - Last 24 Hours: Intake & Output 08/02/21 08/02/21 08/03/21 14:59 22:59 06:59 Intake Total 50 Balance 50 Lab Results Last 24 Hours: Laboratory Results - last 24 hr 08/02/21 08/02/21 08/02/21 Range/Units 12:45 13:21 13:21 WBC 14.7 H (5.0-10.0) 10^3/uL RBC 3.60 L (4.2-5.4) 10^6/uL Hgb 9.3 L (12.0-16.0) g/dL Hct 28.2 L (37.0-47.0) % MCV 78.3 L D (80-100) fL MCH 25.8 L (27.0-34.0) pg MCHC 33.0 (33.0-35.0) g/dL Plt Count 509 H D (150-450) 10^3/uL Neut % (Auto) 77.2 H (42.2-75.2) % Lymph % (Auto) 14.6 L (20.5-50.1) % Estill % (Auto) 5.6 (2-8) % Eos % (Auto) 2.3 (1.0-3.0) % Baso % (Auto) 0.3 (0.0-1.0) % ABG pH (7.35-7.45) ABG pCO2 (35-45) mmHg ABG pO2 (70-100) mmHg ABG HCO3 (22-26) mmol/L ABG O2 Saturation (95-100) % ABG Base Excess ((-2)-(+3)) mmol/L Michael Test O2 Delivery Device Sodium 131 L (136-145) mmol/L Potassium 2.9 L (3.5-5.1) mmol/L Chloride 102 (98-107) mmol/L Carbon Dioxide 15 L (21-32) mmol/L Anion Gap 16.9 H (7-13) mEq/L BUN 20 H (7-18) mg/dL Creatinine 2.05 H (0.55-1.02) mg/dL Est Cr Clr Drug Dosing TNP Estimated GFR (MDRD) 28 BUN/Creatinine Ratio 9.8 (No establ ref range) Glucose 439 H* (70-99) mg/dL POC Glucose 422 H* (70-99) mg/dL Lactic Acid (0.4-2.0) mmol/L Calcium 7.8 L (8.5-10.1) mg/dL Total Bilirubin 0.1 L (0.2-1.0) mg/dL AST 12 L (15-37) U/L ALT 19 (14-59) U/L Alkaline Phosphatase 170 H (46-116) U/L C-Reactive Protein 6.0 H (0.0-0.9) mg/dL Total Protein 6.9 (6.4-8.2) g/dL Albumin 1.4 L (3.4-5.0) g/dL Globulin 5.5 Albumin/Globulin Ratio 0.25 Ketones Small-20 mg/dl SARS CoV-2 RNA Rapid JOSE M (NEGATIVE) 08/02/21 08/02/21 08/02/21 Range/Units 13:21 14:12 14:27 WBC (5.0-10.0) 10^3/uL RBC (4.2-5.4) 10^6/uL Hgb (12.0-16.0) g/dL Hct (37.0-47.0) % MCV (80-100) fL MCH (27.0-34.0) pg MCHC (33.0-35.0) g/dL Plt Count (150-450) 10^3/uL Neut % (Auto) (42.2-75.2) % Lymph % (Auto) (20.5-50.1) % Estill % (Auto) (2-8) % Eos % (Auto) (1.0-3.0) % Baso % (Auto) (0.0-1.0) % ABG pH 7.30 L (7.35-7.45) ABG pCO2 25 L (35-45) mmHg ABG pO2 73 (70-100) mmHg ABG HCO3 11.9 L (22-26) mmol/L ABG O2 Saturation 97 (95-100) % ABG Base Excess -13 L ((-2)-(+3)) mmol/L Michael Test Positive O2 Delivery Device Room air Sodium (136-145) mmol/L Potassium (3.5-5.1) mmol/L Chloride (98-107) mmol/L Carbon Dioxide (21-32) mmol/L Anion Gap (7-13) mEq/L BUN (7-18) mg/dL Creatinine (0.55-1.02) mg/dL Est Cr Clr Drug Dosing Estimated GFR (MDRD) BUN/Creatinine Ratio (No establ ref range) Glucose (70-99) mg/dL POC Glucose 390 H (70-99) mg/dL Lactic Acid 1.0 (0.4-2.0) mmol/L Calcium (8.5-10.1) mg/dL Total Bilirubin (0.2-1.0) mg/dL AST (15-37) U/L ALT (14-59) U/L Alkaline Phosphatase (46-116) U/L C-Reactive Protein (0.0-0.9) mg/dL Total Protein (6.4-8.2) g/dL Albumin (3.4-5.0) g/dL Globulin Albumin/Globulin Ratio Ketones SARS CoV-2 RNA Rapid JOSE M (NEGATIVE) 08/02/21 08/02/21 08/02/21 Range/Units 14:55 15:52 16:55 WBC (5.0-10.0) 10^3/uL RBC (4.2-5.4) 10^6/uL Hgb (12.0-16.0) g/dL Hct (37.0-47.0) % MCV (80-100) fL MCH (27.0-34.0) pg MCHC (33.0-35.0) g/dL Plt Count (150-450) 10^3/uL Neut % (Auto) (42.2-75.2) % Lymph % (Auto) (20.5-50.1) % Estill % (Auto) (2-8) % Eos % (Auto) (1.0-3.0) % Baso % (Auto) (0.0-1.0) % ABG pH (7.35-7.45) ABG pCO2 (35-45) mmHg ABG pO2 (70-100) mmHg ABG HCO3 (22-26) mmol/L ABG O2 Saturation (95-100) % ABG Base Excess ((-2)-(+3)) mmol/L Michael Test O2 Delivery Device Sodium (136-145) mmol/L Potassium (3.5-5.1) mmol/L Chloride (98-107) mmol/L Carbon Dioxide (21-32) mmol/L Anion Gap (7-13) mEq/L BUN (7-18) mg/dL Creatinine (0.55-1.02) mg/dL Est Cr Clr Drug Dosing Estimated GFR (MDRD) BUN/Creatinine Ratio (No establ ref range) Glucose (70-99) mg/dL POC Glucose 303 H 124 H (70-99) mg/dL Lactic Acid (0.4-2.0) mmol/L Calcium (8.5-10.1) mg/dL Total Bilirubin (0.2-1.0) mg/dL AST (15-37) U/L ALT (14-59) U/L Alkaline Phosphatase (46-116) U/L C-Reactive Protein (0.0-0.9) mg/dL Total Protein (6.4-8.2) g/dL Albumin (3.4-5.0) g/dL Globulin Albumin/Globulin Ratio Ketones SARS CoV-2 RNA Rapid JOSE M Negative (NEGATIVE) 08/02/21 08/02/21 08/02/21 Range/Units 16:59 17:08 17:22 WBC (5.0-10.0) 10^3/uL RBC (4.2-5.4) 10^6/uL Hgb (12.0-16.0) g/dL Hct (37.0-47.0) % MCV (80-100) fL MCH (27.0-34.0) pg MCHC (33.0-35.0) g/dL Plt Count (150-450) 10^3/uL Neut % (Auto) (42.2-75.2) % Lymph % (Auto) (20.5-50.1) % Estill % (Auto) (2-8) % Eos % (Auto) (1.0-3.0) % Baso % (Auto) (0.0-1.0) % ABG pH (7.35-7.45) ABG pCO2 (35-45) mmHg ABG pO2 (70-100) mmHg ABG HCO3 (22-26) mmol/L ABG O2 Saturation (95-100) % ABG Base Excess ((-2)-(+3)) mmol/L Michael Test O2 Delivery Device Sodium 138 (136-145) mmol/L Potassium 2.9 L (3.5-5.1) mmol/L Chloride 108 H (98-107) mmol/L Carbon Dioxide 16 L (21-32) mmol/L Anion Gap 16.9 H (7-13) mEq/L BUN (7-18) mg/dL Creatinine (0.55-1.02) mg/dL Est Cr Clr Drug Dosing Estimated GFR (MDRD) BUN/Creatinine Ratio (No establ ref range) Glucose (70-99) mg/dL POC Glucose 107 H 242 H (70-99) mg/dL Lactic Acid (0.4-2.0) mmol/L Calcium (8.5-10.1) mg/dL Total Bilirubin (0.2-1.0) mg/dL AST (15-37) U/L ALT (14-59) U/L Alkaline Phosphatase (46-116) U/L C-Reactive Protein (0.0-0.9) mg/dL Total Protein (6.4-8.2) g/dL Albumin (3.4-5.0) g/dL Globulin Albumin/Globulin Ratio Ketones SARS CoV-2 RNA Rapid JOSE M (NEGATIVE) 08/02/21 08/02/21 08/02/21 Range/Units 17:51 19:36 20:33 WBC (5.0-10.0) 10^3/uL RBC (4.2-5.4) 10^6/uL Hgb (12.0-16.0) g/dL Hct (37.0-47.0) % MCV (80-100) fL MCH (27.0-34.0) pg MCHC (33.0-35.0) g/dL Plt Count (150-450) 10^3/uL Neut % (Auto) (42.2-75.2) % Lymph % (Auto) (20.5-50.1) % Estill % (Auto) (2-8) % Eos % (Auto) (1.0-3.0) % Baso % (Auto) (0.0-1.0) % ABG pH (7.35-7.45) ABG pCO2 (35-45) mmHg ABG pO2 (70-100) mmHg ABG HCO3 (22-26) mmol/L ABG O2 Saturation (95-100) % ABG Base Excess ((-2)-(+3)) mmol/L Michael Test O2 Delivery Device Sodium (136-145) mmol/L Potassium (3.5-5.1) mmol/L Chloride (98-107) mmol/L Carbon Dioxide (21-32) mmol/L Anion Gap (7-13) mEq/L BUN (7-18) mg/dL Creatinine (0.55-1.02) mg/dL Est Cr Clr Drug Dosing Estimated GFR (MDRD) BUN/Creatinine Ratio (No establ ref range) Glucose (70-99) mg/dL POC Glucose 187 H 167 H 169 H (70-99) mg/dL Lactic Acid (0.4-2.0) mmol/L Calcium (8.5-10.1) mg/dL Total Bilirubin (0.2-1.0) mg/dL AST (15-37) U/L ALT (14-59) U/L Alkaline Phosphatase (46-116) U/L C-Reactive Protein (0.0-0.9) mg/dL Total Protein (6.4-8.2) g/dL Albumin (3.4-5.0) g/dL Globulin Albumin/Globulin Ratio Ketones SARS CoV-2 RNA Rapid JOSE M (NEGATIVE) 08/02/21 08/02/21 08/02/21 Range/Units 20:45 21:43 22:42 WBC (5.0-10.0) 10^3/uL RBC (4.2-5.4) 10^6/uL Hgb (12.0-16.0) g/dL Hct (37.0-47.0) % MCV (80-100) fL MCH (27.0-34.0) pg MCHC (33.0-35.0) g/dL Plt Count (150-450) 10^3/uL Neut % (Auto) (42.2-75.2) % Lymph % (Auto) (20.5-50.1) % Estill % (Auto) (2-8) % Eos % (Auto) (1.0-3.0) % Baso % (Auto) (0.0-1.0) % ABG pH (7.35-7.45) ABG pCO2 (35-45) mmHg ABG pO2 (70-100) mmHg ABG HCO3 (22-26) mmol/L ABG O2 Saturation (95-100) % ABG Base Excess ((-2)-(+3)) mmol/L Michael Test O2 Delivery Device Sodium 139 (136-145) mmol/L Potassium 4.8 D (3.5-5.1) mmol/L Chloride 113 H (98-107) mmol/L Carbon Dioxide 14 L (21-32) mmol/L Anion Gap 16.8 H (7-13) mEq/L BUN (7-18) mg/dL Creatinine (0.55-1.02) mg/dL Est Cr Clr Drug Dosing Estimated GFR (MDRD) BUN/Creatinine Ratio (No establ ref range) Glucose (70-99) mg/dL POC Glucose 204 H 204 H (70-99) mg/dL Lactic Acid (0.4-2.0) mmol/L Calcium (8.5-10.1) mg/dL Total Bilirubin (0.2-1.0) mg/dL AST (15-37) U/L ALT (14-59) U/L Alkaline Phosphatase (46-116) U/L C-Reactive Protein (0.0-0.9) mg/dL Total Protein (6.4-8.2) g/dL Albumin (3.4-5.0) g/dL Globulin Albumin/Globulin Ratio Ketones SARS CoV-2 RNA Rapid JOSE M (NEGATIVE) 08/02/21 08/03/21 08/03/21 Range/Units 23:53 00:30 01:00 WBC (5.0-10.0) 10^3/uL RBC (4.2-5.4) 10^6/uL Hgb (12.0-16.0) g/dL Hct (37.0-47.0) % MCV (80-100) fL MCH (27.0-34.0) pg MCHC (33.0-35.0) g/dL Plt Count (150-450) 10^3/uL Neut % (Auto) (42.2-75.2) % Lymph % (Auto) (20.5-50.1) % Estill % (Auto) (2-8) % Eos % (Auto) (1.0-3.0) % Baso % (Auto) (0.0-1.0) % ABG pH (7.35-7.45) ABG pCO2 (35-45) mmHg ABG pO2 (70-100) mmHg ABG HCO3 (22-26) mmol/L ABG O2 Saturation (95-100) % ABG Base Excess ((-2)-(+3)) mmol/L Michael Test O2 Delivery Device Sodium 139 (136-145) mmol/L Potassium 4.6 (3.5-5.1) mmol/L Chloride 113 H (98-107) mmol/L Carbon Dioxide 12 L (21-32) mmol/L Anion Gap 18.6 H (7-13) mEq/L BUN (7-18) mg/dL Creatinine (0.55-1.02) mg/dL Est Cr Clr Drug Dosing Estimated GFR (MDRD) BUN/Creatinine Ratio (No establ ref range) Glucose (70-99) mg/dL POC Glucose 182 H 166 H (70-99) mg/dL Lactic Acid (0.4-2.0) mmol/L Calcium (8.5-10.1) mg/dL Total Bilirubin (0.2-1.0) mg/dL AST (15-37) U/L ALT (14-59) U/L Alkaline Phosphatase (46-116) U/L C-Reactive Protein (0.0-0.9) mg/dL Total Protein (6.4-8.2) g/dL Albumin (3.4-5.0) g/dL Globulin Albumin/Globulin Ratio Ketones SARS CoV-2 RNA Rapid JOSE M (NEGATIVE) 08/03/21 08/03/21 08/03/21 Range/Units 02:05 03:03 03:31 WBC (5.0-10.0) 10^3/uL RBC (4.2-5.4) 10^6/uL Hgb (12.0-16.0) g/dL Hct (37.0-47.0) % MCV (80-100) fL MCH (27.0-34.0) pg MCHC (33.0-35.0) g/dL Plt Count (150-450) 10^3/uL Neut % (Auto) (42.2-75.2) % Lymph % (Auto) (20.5-50.1) % Estill % (Auto) (2-8) % Eos % (Auto) (1.0-3.0) % Baso % (Auto) (0.0-1.0) % ABG pH (7.35-7.45) ABG pCO2 (35-45) mmHg ABG pO2 (70-100) mmHg ABG HCO3 (22-26) mmol/L ABG O2 Saturation (95-100) % ABG Base Excess ((-2)-(+3)) mmol/L Michael Test O2 Delivery Device Sodium (136-145) mmol/L Potassium (3.5-5.1) mmol/L Chloride (98-107) mmol/L Carbon Dioxide (21-32) mmol/L Anion Gap (7-13) mEq/L BUN (7-18) mg/dL Creatinine (0.55-1.02) mg/dL Est Cr Clr Drug Dosing Estimated GFR (MDRD) BUN/Creatinine Ratio (No establ ref range) Glucose (70-99) mg/dL POC Glucose 152 H 117 H 111 H (70-99) mg/dL Lactic Acid (0.4-2.0) mmol/L Calcium (8.5-10.1) mg/dL Total Bilirubin (0.2-1.0) mg/dL AST (15-37) U/L ALT (14-59) U/L Alkaline Phosphatase (46-116) U/L C-Reactive Protein (0.0-0.9) mg/dL Total Protein (6.4-8.2) g/dL Albumin (3.4-5.0) g/dL Globulin Albumin/Globulin Ratio Ketones SARS CoV-2 RNA Rapid JOSE M (NEGATIVE) 08/03/21 08/03/21 08/03/21 Range/Units 04:03 04:10 05:12 WBC (5.0-10.0) 10^3/uL RBC (4.2-5.4) 10^6/uL Hgb (12.0-16.0) g/dL Hct (37.0-47.0) % MCV (80-100) fL MCH (27.0-34.0) pg MCHC (33.0-35.0) g/dL Plt Count (150-450) 10^3/uL Neut % (Auto) (42.2-75.2) % Lymph % (Auto) (20.5-50.1) % Estill % (Auto) (2-8) % Eos % (Auto) (1.0-3.0) % Baso % (Auto) (0.0-1.0) % ABG pH (7.35-7.45) ABG pCO2 (35-45) mmHg ABG pO2 (70-100) mmHg ABG HCO3 (22-26) mmol/L ABG O2 Saturation (95-100) % ABG Base Excess ((-2)-(+3)) mmol/L Michael Test O2 Delivery Device Sodium 139 (136-145) mmol/L Potassium 4.3 (3.5-5.1) mmol/L Chloride 115 H (98-107) mmol/L Carbon Dioxide 13 L (21-32) mmol/L Anion Gap 15.3 H (7-13) mEq/L BUN (7-18) mg/dL Creatinine (0.55-1.02) mg/dL Est Cr Clr Drug Dosing Estimated GFR (MDRD) BUN/Creatinine Ratio (No establ ref range) Glucose (70-99) mg/dL POC Glucose 111 H 139 H (70-99) mg/dL Lactic Acid (0.4-2.0) mmol/L Calcium (8.5-10.1) mg/dL Total Bilirubin (0.2-1.0) mg/dL AST (15-37) U/L ALT (14-59) U/L Alkaline Phosphatase (46-116) U/L C-Reactive Protein (0.0-0.9) mg/dL Total Protein (6.4-8.2) g/dL Albumin (3.4-5.0) g/dL Globulin Albumin/Globulin Ratio Ketones SARS CoV-2 RNA Rapid JOSE M (NEGATIVE) Med Orders - Current: Current Medications Hydrocodone Bitart/Acetaminophen (Acetaminophen/Hydrocodone 325-5 Mg Tab) 1 tab PO Q6H PRN PRN Reason: Pain Last Admin: 08/03/21 02:45 Dose: 1 tab Documented by: Ciprofloxacin (Ciprofloxacin 0.3% Ophth Soln 5 Ml Bottle) 0.25 ml EARRT BID [facility] Last Admin: 08/02/21 20:59 Dose: 0.25 ml Documented by: Dextrose/Water (50% Dextrose In Water 50 Ml Syringe) 50 ml IVPUSH ONETIME PRN PRN Reason: Hypoglycemia Last Admin: 08/02/21 17:12 Dose: 50 ml Documented by: Fentanyl (Fentanyl 100 Mcg/2 Ml Sdv) 25 mcg IVPUSH Q2HR PRN PRN Reason: Pain Last Admin: 08/03/21 05:47 Dose: 25 mcg Documented by: Heparin Sodium (Porcine) (Heparin Sodium 5,000 Units/Ml Vial) 5,000 units SUBCUT Q8HR [facility] Last Admin: 08/03/21 05:52 Dose: 5,000 units Documented by: Vancomycin HCl 1 gm/ Sodium (Chloride) 250 mls @ 167 mls/hr IV Q24H [facility] Dextrose/Sodium Chloride (Dextrose 5%-Normal Saline) 1,000 mls @ 150 mls/hr IV .Q6H40M [facility] Last Admin: 08/02/21 23:47 Dose: 150 mls/hr Documented by: Cefepime HCl 1 gm/ Sodium (Chloride) 50 mls @ 100 mls/hr IV DAILY@2100 [facility] Insulin Regular in 0.9 % NACL (Myxredlin In Ns 100 Unit/100 Ml) 100 unit in 100 mls @ 2.926 mls/hr IV TITRATE [facility]; Protocol Last Titration: 08/03/21 03:12 Dose: 0 units/kg/hr, 0 mls/hr Documented by: Potassium Chloride 20 meq/ (Premix) 100 mls @ 50 mls/hr IV ONETIME ONE Stop: 08/03/21 07:23 Last Admin: 08/03/21 05:50 Dose: 50 mls/hr Documented by: Sodium Chloride (Sodium Chloride 0.9% 10 Ml Syringe) 10 ml FLUSH ASDIRECTED PRN PRN Reason: Keep Vein Open Last Admin: 08/02/21 13:48 Dose: 10 ml Documented by: Sodium Chloride (Sodium Chloride 0.9% 10 Ml Syringe) 10 ml FLUSH ASDIRECTED PRN PRN Reason: Keep Vein Open Vancomycin HCl (Pharmacy To Dose - Vancomycin) 1 dose .XX ASDIRECTED [facility] Discontinued Medications Hydrocodone Bitart/Acetaminophen (Acetaminophen/Hydrocodone 325-10 Mg Tab) 1 tab PO ONETIME ONE Stop: 08/02/21 13:12 Last Admin: 08/02/21 13:48 Dose: 1 tab Documented by: Ciprofloxacin (Ciprofloxacin 0.3% Ophth Soln 5 Ml Bottle) 5 ml EARRT ONETIME ONE Stop: 08/02/21 13:23 Last Admin: 08/02/21 13:47 Dose: 1 drop Documented by: Dextrose/Water (50% Dextrose In Water 50 Ml Syringe) 50 ml IVPUSH Q15M PRN PRN Reason: Hypoglycemia Diphenhydramine HCl (Diphenhydramine 50 Mg/Ml Sdv) 25 mg IVPUSH ONETIME ONE Stop: 08/02/21 13:13 Last Admin: 08/02/21 13:47 Dose: 25 mg Documented by: Glucagon (Glucagon,Human Recombinant 1 Mg Vial) 1 mg IM Q15M PRN PRN Reason: Hypoglycemia Vancomycin HCl 1 gm/ Sodium (Chloride) 250 mls @ 167 mls/hr IV ONETIME ONE Stop: 08/02/21 14:40 Last Admin: 08/02/21 13:46 Dose: 167 mls/hr Documented by: Insulin Regular in 0.9 % NACL (Myxredlin In Ns 100 Unit/100 Ml) 100 unit in 100 mls @ 7.974 mls/hr IV TITRATE [facility]; Protocol Last Admin: 08/02/21 15:13 Dose: 0.1 units/kg/hr, 7.974 mls/hr Documented by: Sodium Chloride (Normal Saline) 1,000 mls @ 150 mls/hr IV ASDIRECTED [facility] Last Admin: 08/02/21 16:11 Dose: 150 mls/hr Documented by: Insulin Regular in 0.9 % NACL (Myxredlin In Ns 100 Unit/100 Ml) 100 unit in 100 mls @ 7.974 mls/hr IV TITRATE [facility]ON; Protocol Potassium Chloride 20 meq/ (Premix) 100 mls @ 50 mls/hr IV ONETIME ONE Stop: 08/02/21 17:46 Last Admin: 08/02/21 16:32 Dose: 50 mls/hr Documented by: Insulin Regular in 0.9 % NACL (Myxredlin In Ns 100 Unit/100 Ml) 100 unit in 100 mls @ 5.851 mls/hr IV TITRATE [facility]ON; Protocol Dextrose/Sodium Chloride (Dextrose 5%-1/2 Ns) 1,000 mls @ 150 mls/hr IV ASDIRECTED [facility] Potassium Chloride/Dextrose/Sod Cl (D5 Ns With 20 Meq Kcl) 1,000 mls @ 150 mls/hr IV .Q6H40M [facility] Last Admin: 08/02/21 21:53 Dose: Not Given Documented by: Potassium Chloride 20 meq/ (Premix) 100 mls @ 50 mls/hr IV ONETIME ONE Stop: 08/02/21 20:29 Last Admin: 08/02/21 18:46 Dose: 50 mls/hr Documented by: Cefepime HCl 2 gm/ Sodium (Chloride) 50 mls @ 100 mls/hr IV Q12HR [facility] Cefepime HCl 2 gm/ Sodium (Chloride) 50 mls @ 100 mls/hr IV ONETIME ONE Stop: 08/02/21 21:29 Last Admin: 08/02/21 20:26 Dose: 100 mls/hr Documented by: Insulin Human Regular (Insulin Regular, Human 100 Units/Ml 3 Ml Vial) 10 unit SUBCUT ONETIME ONE Stop: 08/02/21 13:15 Last Admin: 08/02/21 13:46 Dose: 10 units Documented by: Potassium Chloride (Potassium Chloride 10 Meq Tab.Er) 60 meq PO ONETIME ONE Stop: 08/02/21 14:07 Last Admin: 08/02/21 14:45 Dose: 60 meq Documented by: Potassium Chloride (Potassium Chloride 10 Meq Tab.Er) 40 meq PO ONETIME ONE Stop: 08/02/21 19:32 Last Admin: 08/02/21 18:46 Dose: 40 meq Documented by: - Exam General: Alert, Oriented HEENT: Other (Purulent discharge from right ear is improvement prior day, still significant tenderness upon palpation of the mastoid process) Neck: Supple Lungs: Clear to Auscultation, Normal Respiratory Effort Cardiovascular: Regular Rate, Regular Rhythm GI/Abdominal Exam: Normal Bowel Sounds, Soft Extremities: Other (Bilateral below the knee amputations, 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0) % ABG pH (7.35-7.45) ABG pCO2 (35-45) mmHg ABG pO2 (70-100) mmHg ABG HCO3 (22-26) mmol/L ABG O2 Saturation (95-100) % ABG Base Excess ((-2)-(+3)) mmol/L Michael Test O2 Delivery Device Sodium 131 L (136-145) mmol/L Potassium 2.9 L (3.5-5.1) mmol/L Chloride 102 (98-107) mmol/L Carbon Dioxide 15 L (21-32) mmol/L Anion Gap 16.9 H (7-13) mEq/L BUN 20 H (7-18) mg/dL Creatinine 2.05 H (0.55-1.02) mg/dL Est Cr Clr Drug Dosing TNP Estimated GFR (MDRD) 28 BUN/Creatinine Ratio 9.8 (No establ ref range) Glucose 439 H* (70-99) mg/dL POC Glucose 422 H* (70-99) mg/dL Lactic Acid (0.4-2.0) mmol/L Calcium 7.8 L (8.5-10.1) mg/dL Total Bilirubin 0.1 L (0.2-1.0) mg/dL AST 12 L (15-37) U/L ALT 19 (14-59) U/L Alkaline Phosphatase 170 H (46-116) U/L C-Reactive Protein 6.0 H (0.0-0.9) mg/dL Total Protein 6.9 (6.4-8.2) g/dL Albumin 1.4 L (3.4-5.0) g/dL Globulin 5.5 Albumin/Globulin Ratio 0.25 Ketones Small-20 mg/dl SARS CoV-2 RNA Rapid JOSE M (NEGATIVE) 08/02/21 08/02/21 08/02/21 Range/Units 13:21 14:12 14:27 WBC (5.0-10.0) 10^3/uL RBC (4.2-5.4) 10^6/uL Hgb (12.0-16.0) g/dL Hct (37.0-47.0) % MCV (80-100) fL MCH (27.0-34.0) pg MCHC (33.0-35.0) g/dL Plt Count (150-450) 10^3/uL Neut % (Auto) (42.2-75.2) % Lymph % (Auto) (20.5-50.1) % Estill % (Auto) (2-8) % Eos % (Auto) (1.0-3.0) % Baso % (Auto) (0.0-1.0) % ABG pH 7.30 L (7.35-7.45) ABG pCO2 25 L (35-45) mmHg ABG pO2 73 (70-100) mmHg ABG HCO3 11.9 L (22-26) mmol/L ABG O2 Saturation 97 (95-100) % ABG Base Excess -13 L ((-2)-(+3)) mmol/L Michael Test Positive O2 Delivery Device Room air Sodium (136-145) mmol/L Potassium (3.5-5.1) mmol/L Chloride (98-107) mmol/L Carbon Dioxide (21-32) mmol/L Anion Gap (7-13) mEq/L BUN (7-18) mg/dL Creatinine (0.55-1.02) mg/dL Est Cr Clr Drug Dosing Estimated GFR (MDRD) BUN/Creatinine Ratio (No establ ref range) Glucose (70-99) mg/dL POC Glucose 390 H (70-99) mg/dL Lactic Acid 1.0 (0.4-2.0) mmol/L Calcium (8.5-10.1) mg/dL Total Bilirubin (0.2-1.0) mg/dL AST (15-37) U/L ALT (14-59) U/L Alkaline Phosphatase (46-116) U/L C-Reactive Protein (0.0-0.9) mg/dL Total Protein (6.4-8.2) g/dL Albumin (3.4-5.0) g/dL Globulin Albumin/Globulin Ratio Ketones SARS CoV-2 RNA Rapid JOSE M (NEGATIVE) 08/02/21 08/02/21 08/02/21 Range/Units 14:55 15:52 16:55 WBC (5.0-10.0) 10^3/uL RBC (4.2-5.4) 10^6/uL Hgb (12.0-16.0) g/dL Hct (37.0-47.0) % MCV (80-100) fL MCH (27.0-34.0) pg MCHC (33.0-35.0) g/dL Plt Count (150-450) 10^3/uL Neut % (Auto) (42.2-75.2) % Lymph % (Auto) (20.5-50.1) % [place]ill % (Auto) (2-8) % Eos % (Auto) (1.0-3.0) % Baso % (Auto) (0.0-1.0) % ABG pH (7.35-7.45) ABG pCO2 (35-45) mmHg ABG pO2 (70-100) mmHg ABG HCO3 (22-26) mmol/L ABG O2 Saturation (95-100) % ABG Base Excess ((-2)-(+3)) mmol/L Michael Test O2 Delivery Device Sodium (136-145) mmol/L Potassium (3.5-5.1) mmol/L Chloride (98-107) mmol/L Carbon Dioxide (21-32) mmol/L Anion Gap (7-13) mEq/L BUN (7-18) mg/dL Creatinine (0.55-1.02) mg/dL Est Cr Clr Drug Dosing Estimated GFR (MDRD) BUN/Creatinine Ratio (No establ ref range) Glucose (70-99) mg/dL POC Glucose 303 H 124 H (70-99) mg/dL Lactic Acid (0.4-2.0) mmol/L Calcium (8.5-10.1) mg/dL Total Bilirubin (0.2-1.0) mg/dL AST (15-37) U/L ALT (14-59) U/L Alkaline Phosphatase (46-116) U/L C-Reactive Protein (0.0-0.9) mg/dL Total Protein (6.4-8.2) g/dL Albumin (3.4-5.0) g/dL Globulin Albumin/Globulin Ratio Ketones SARS CoV-2 RNA Rapid JOSE M Negative (NEGATIVE) 08/02/21 08/02/21 08/02/21 Range/Units 16:59 17:08 17:22 WBC (5.0-10.0) 10^3/uL RBC (4.2-5.4) 10^6/uL Hgb (12.0-16.0) g/dL Hct (37.0-47.0) % MCV (80-100) fL MCH (27.0-34.0) pg MCHC (33.0-35.0) g/dL Plt Count (150-450) 10^3/uL Neut % (Auto) (42.2-75.2) % Lymph % (Auto) (20.5-50.1) % [place]ill % (Auto) (2-8) % Eos % (Auto) (1.0-3.0) % Baso % (Auto) (0.0-1.0) % ABG pH (7.35-7.45) ABG pCO2 (35-45) mmHg ABG pO2 (70-100) mmHg ABG HCO3 (22-26) mmol/L ABG O2 Saturation (95-100) % ABG Base Excess ((-2)-(+3)) mmol/L Michael Test O2 Delivery Device Sodium 138 (136-145) mmol/L Potassium 2.9 L (3.5-5.1) mmol/L Chloride 108 H (98-107) mmol/L Carbon Dioxide 16 L (21-32) mmol/L Anion Gap 16.9 H (7-13) mEq/L BUN (7-18) mg/dL Creatinine (0.55-1.02) mg/dL Est Cr Clr Drug Dosing Estimated GFR (MDRD) BUN/Creatinine Ratio (No establ ref range) Glucose (70-99) mg/dL POC Glucose 107 H 242 H (70-99) mg/dL Lactic Acid (0.4-2.0) mmol/L Calcium (8.5-10.1) mg/dL Total Bilirubin (0.2-1.0) mg/dL AST (15-37) U/L ALT (14-59) U/L Alkaline Phosphatase (46-116) U/L C-Reactive Protein (0.0-0.9) mg/dL Total Protein (6.4-8.2) g/dL Albumin (3.4-5.0) g/dL Globulin Albumin/Globulin Ratio Ketones SARS CoV-2 RNA Rapid JOSE M (NEGATIVE) 08/02/21 08/02/21 08/02/21 Range/Units 17:51 19:36 20:33 WBC (5.0-10.0) 10^3/uL RBC (4.2-5.4) 10^6/uL Hgb (12.0-16.0) g/dL Hct (37.0-47.0) % MCV (80-100) fL MCH (27.0-34.0) pg MCHC (33.0-35.0) g/dL Plt Count (150-450) 10^3/uL Neut % (Auto) (42.2-75.2) % Lymph % (Auto) (20.5-50.1) % [place]ill % (Auto) (2-8) % Eos % (Auto) (1.0-3.0) % Baso % (Auto) (0.0-1.0) % ABG pH (7.35-7.45) ABG pCO2 (35-45) mmHg ABG pO2 (70-100) mmHg ABG HCO3 (22-26) mmol/L ABG O2 Saturation (95-100) % ABG Base Excess ((-2)-(+3)) mmol/L Michael Test O2 Delivery Device Sodium (136-145) mmol/L Potassium (3.5-5.1) mmol/L Chloride (98-107) mmol/L Carbon Dioxide (21-32) mmol/L Anion Gap (7-13) mEq/L BUN (7-18) mg/dL Creatinine (0.55-1.02) mg/dL Est Cr Clr Drug Dosing Estimated GFR (MDRD) BUN/Creatinine Ratio (No establ ref range) Glucose (70-99) mg/dL POC Glucose 187 H 167 H 169 H (70-99) mg/dL Lactic Acid (0.4-2.0) mmol/L Calcium (8.5-10.1) mg/dL Total Bilirubin (0.2-1.0) mg/dL AST (15-37) U/L ALT (14-59) U/L Alkaline Phosphatase (46-116) U/L C-Reactive Protein (0.0-0.9) mg/dL Total Protein (6.4-8.2) g/dL Albumin (3.4-5.0) g/dL Globulin Albumin/Globulin Ratio Ketones SARS CoV-2 RNA Rapid JOSE M (NEGATIVE) 08/02/21 08/02/21 08/02/21 Range/Units 20:45 21:43 22:42 WBC (5.0-10.0) 10^3/uL RBC (4.2-5.4) 10^6/uL Hgb (12.0-16.0) g/dL Hct (37.0-47.0) % MCV (80-100) fL MCH (27.0-34.0) pg MCHC (33.0-35.0) g/dL Plt Count (150-450) 10^3/uL Neut % (Auto) (42.2-75.2) % Lymph % (Auto) (20.5-50.1) % [place]ill % (Auto) (2-8) % Eos % (Auto) (1.0-3.0) % Baso % (Auto) (0.0-1.0) % ABG pH (7.35-7.45) ABG pCO2 (35-45) mmHg ABG pO2 (70-100) mmHg ABG HCO3 (22-26) mmol/L ABG O2 Saturation (95-100) % ABG Base Excess ((-2)-(+3)) mmol/L Michael Test O2 Delivery Device Sodium 139 (136-145) mmol/L Potassium 4.8 D (3.5-5.1) mmol/L Chloride 113 H (98-107) mmol/L Carbon Dioxide 14 L (21-32) mmol/L Anion Gap 16.8 H (7-13) mEq/L BUN (7-18) mg/dL Creatinine (0.55-1.02) mg/dL Est Cr Clr Drug Dosing Estimated GFR (MDRD) BUN/Creatinine Ratio (No establ ref range) Glucose (70-99) mg/dL POC Glucose 204 H 204 H (70-99) mg/dL Lactic Acid (0.4-2.0) mmol/L Calcium (8.5-10.1) mg/dL Total Bilirubin (0.2-1.0) mg/dL AST (15-37) U/L ALT (14-59) U/L Alkaline Phosphatase (46-116) U/L C-Reactive Protein (0.0-0.9) mg/dL Total Protein (6.4-8.2) g/dL Albumin (3.4-5.0) g/dL Globulin Albumin/Globulin Ratio Ketones SARS CoV-2 RNA Rapid JOSE M (NEGATIVE) 08/02/21 08/03/21 08/03/21 Range/Units 23:53 00:30 01:00 WBC (5.0-10.0) 10^3/uL RBC (4.2-5.4) 10^6/uL Hgb (12.0-16.0) g/dL Hct (37.0-47.0) % MCV (80-100) fL MCH (27.0-34.0) pg MCHC (33.0-35.0) g/dL Plt Count (150-450) 10^3/uL Neut % (Auto) (42.2-75.2) % Lymph % (Auto) (20.5-50.1) % [place] % (Auto) (2-8) % Eos % (Auto) (1.0-3.0) % Baso % (Auto) (0.0-1.0) % ABG pH (7.35-7.45) ABG pCO2 (35-45) mmHg ABG pO2 (70-100) mmHg ABG HCO3 (22-26) mmol/L ABG O2 Saturation (95-100) % ABG Base Excess ((-2)-(+3)) mmol/L Michael Test O2 Delivery Device Sodium 139 (136-145) mmol/L Potassium 4.6 (3.5-5.1) mmol/L Chloride 113 H (98-107) mmol/L Carbon Dioxide 12 L (21-32) mmol/L Anion Gap 18.6 H (7-13) mEq/L BUN (7-18) mg/dL Creatinine (0.55-1.02) mg/dL Est Cr Clr Drug Dosing Estimated GFR (MDRD) BUN/Creatinine Ratio (No establ ref range) Glucose (70-99) mg/dL POC Glucose 182 H 166 H (70-99) mg/dL Lactic Acid (0.4-2.0) mmol/L Calcium (8.5-10.1) mg/dL Total Bilirubin (0.2-1.0) mg/dL AST (15-37) U/L ALT (14-59) U/L Alkaline Phosphatase (46-116) U/L C-Reactive Protein (0.0-0.9) mg/dL Total Protein (6.4-8.2) g/dL Albumin (3.4-5.0) g/dL Globulin Albumin/Globulin Ratio Ketones SARS CoV-2 RNA Rapid JOSE M (NEGATIVE) 08/03/21 08/03/21 08/03/21 Range/Units 02:05 03:03 03:31 WBC (5.0-10.0) 10^3/uL RBC (4.2-5.4) 10^6/uL Hgb (12.0-16.0) g/dL Hct (37.0-47.0) % MCV (80-100) fL MCH (27.0-34.0) pg MCHC (33.0-35.0) g/dL Plt Count (150-450) 10^3/uL Neut % (Auto) (42.2-75.2) % Lymph % (Auto) (20.5-50.1) % [place] % (Auto) (2-8) % Eos % (Auto) (1.0-3.0) % Baso % (Auto) (0.0-1.0) % ABG pH (7.35-7.45) ABG pCO2 (35-45) mmHg ABG pO2 (70-100) mmHg ABG HCO3 (22-26) mmol/L ABG O2 Saturation (95-100) % ABG Base Excess ((-2)-(+3)) mmol/L Michael Test O2 Delivery Device Sodium (136-145) mmol/L Potassium (3.5-5.1) mmol/L Chloride (98-107) mmol/L Carbon Dioxide (21-32) mmol/L Anion Gap (7-13) mEq/L BUN (7-18) mg/dL Creatinine (0.55-1.02) mg/dL Est Cr Clr Drug Dosing Estimated GFR (MDRD) BUN/Creatinine Ratio (No establ ref range) Glucose (70-99) mg/dL POC Glucose 152 H 117 H 111 H (70-99) mg/dL Lactic Acid (0.4-2.0) mmol/L Calcium (8.5-10.1) mg/dL Total Bilirubin (0.2-1.0) mg/dL AST (15-37) U/L ALT (14-59) U/L Alkaline Phosphatase (46-116) U/L C-Reactive Protein (0.0-0.9) mg/dL Total Protein (6.4-8.2) g/dL Albumin (3.4-5.0) g/dL Globulin Albumin/Globulin Ratio Ketones SARS CoV-2 RNA Rapid JOSE M (NEGATIVE) 08/03/21 08/03/21 08/03/21 Range/Units 04:03 04:10 05:12 WBC (5.0-10.0) 10^3/uL RBC (4.2-5.4) 10^6/uL Hgb (12.0-16.0) g/dL Hct (37.0-47.0) % MCV (80-100) fL MCH (27.0-34.0) pg MCHC (33.0-35.0) g/dL Plt Count (150-450) 10^3/uL Neut % (Auto) (42.2-75.2) % Lymph % (Auto) (20.5-50.1) % [place] % (Auto) (2-8) % Eos % (Auto) (1.0-3.0) % Baso % (Auto) (0.0-1.0) % ABG pH (7.35-7.45) ABG pCO2 (35-45) mmHg ABG pO2 (70-100) mmHg ABG HCO3 (22-26) mmol/L ABG O2 Saturation (95-100) % ABG Base Excess ((-2)-(+3)) mmol/L Michael Test O2 Delivery Device Sodium 139 (136-145) mmol/L Potassium 4.3 (3.5-5.1) mmol/L Chloride 115 H (98-107) mmol/L Carbon Dioxide 13 L (21-32) mmol/L Anion Gap 15.3 H (7-13) mEq/L BUN (7-18) mg/dL Creatinine (0.55-1.02) mg/dL Est Cr Clr Drug Dosing Estimated GFR (MDRD) BUN/Creatinine Ratio (No establ ref range) Glucose (70-99) mg/dL POC Glucose 111 H 139 H (70-99) mg/dL Lactic Acid (0.4-2.0) mmol/L Calcium (8.5-10.1) mg/dL Total Bilirubin (0.2-1.0) mg/dL AST (15-37) U/L ALT (14-59) U/L Alkaline Phosphatase (46-116) U/L C-Reactive Protein (0.0-0.9) mg/dL Total Protein (6.4-8.2) g/dL Albumin (3.4-5.0) g/dL Globulin Albumin/Globulin Ratio Ketones SARS CoV-2 RNA Rapid JOSE M (NEGATIVE) Result Diagrams: 08/02/21 13:21 08/03/21 08:56 Sepsis Event Note - Evaluation Sepsis Screening Result: Possible Sepsis Risk - Focused Exam Vital Signs: Vital Signs Temp Pulse Resp BP Pulse Ox 08/03/21 04:00 98.1 F 100 20 90/52 L 08/03/21 00:00 99 F 101 H 16 101/51 L 98 08/02/21 19:35 99 F 98 16 100/67 99 - Problem List & Annotations (1) DM (diabetes mellitus), type 1, uncontrolled SNOMED Code(s): 37065302, 125081376 Code(s): E10.65 - TYPE 1 DIABETES MELLITUS WITH HYPERGLYCEMIA Status: Acute Current Visit: No Qualifiers: Glycemic state: with hyperglycemia Qualified Code(s): E10.65 - Type 1 diabetes mellitus with hyperglycemia (2) Diabetic ketoacidosis associated with type 1 diabetes mellitus SNOMED Code(s): 823819605, 661356804 Code(s): E10.10 - TYPE 1 DIABETES MELLITUS WITH KETOACIDOSIS WITHOUT COMA Status: Acute Current Visit: No Qualifiers: Diabetes mellitus complication detail: without coma Qualified Code(s): E10.10 - Type 1 diabetes mellitus with ketoacidosis without coma (3) Noncompliance with medication regimen SNOMED Code(s): 896877894 Code(s): Z91.14 - PATIENT'S OTHER NONCOMPLIANCE WITH MEDICATION REGIMEN Status: Acute Current Visit: No (4) Otitis externa of right ear SNOMED Code(s): 4491818 Code(s): H60.91 - UNSPECIFIED OTITIS EXTERNA, RIGHT EAR Status: Acute Current Visit: No Qualifiers: Otitis externa type: other infective Chronicity: acute Qualified Code(s): H60.391 - Other infective otitis externa, right ear - Problem List Review Problem List Initiated/Reviewed/Updated: Yes - My Orders Last 24 Hours: My Active Orders 08/02/21 15:35 Oxygen Therapy [RC] PRN Up With Assistance [RC] ASDIRECTED VTE/DVT Education [RC] Vital Signs [RC] 00,04,08,12,16,20 Resuscitation Status Routine 08/02/21 15:36 Cardiac Monitoring [RC] 08,20 Communication Order [RC] STAT Sodium Chloride 0.9% [Saline Flush] 10 ml FLUSH ASDIRECTED PRN Peripheral IV Insertion Adult [OM.PC] Stat 08/02/21 15:37 Peripheral IV Care [RC] . DIRECTED 08/02/21 15:39 Admission Diagnosis [ADT] Urgent Patient Status [ADT] Routine 08/02/21 15:45 Pharmacy to Dose - Vancomycin 1 dose .XX ASDIRECTED 08/02/21 16:21 fentaNYL [Sublimaze] 25 mcg IVPUSH Q2HR PRN 08/02/21 16:36 Blood Glucose Check, Bedside [RC] Q1HR 08/02/21 16:45 Ciprofloxacin [Ciloxan 0.3% Ophth Soln] 0.25 ml EARRT BID 08/02/21 16:58 Dextrose 50% in Water 50 ml IVPUSH ONETIME PRN 08/02/21 16:59 Communication Order [RC] STAT Communication Order [RC] STAT Communication Order [RC] STAT Communication Order [RC] STAT 08/02/21 Dinner Nothing per Oral Now Diet [DIET] 08/02/21 19:58 Acetaminophen/HYDROcodone [[place] 325-5 MG] 1 tab PO Q6H PRN 08/02/21 20:00 Dextrose 5%-0.9% NaCl [Dextrose 5%-Normal Saline] 1,000 ml IV 150 mls/hr 08/02/21 21:30 Insulin Regular in 0.9 % NACL [Myxredlin in NS 100 UNIT/100 ML] 100 unit in 100 ml IV TITRATE 08/02/21 22:00 Heparin Sodium 5,000 units SUBCUT Q8HR 08/03/21 05:24 Potassium Chloride [KCL in Water 20 MEQ/100 ML] 20 meq Premix Bag 1 bag IV ONETIME 08/03/21 09:00 ELECTROLYTES,LYTES [CHEM] Routine 08/03/21 21:00 Cefepime [Maxipime] 1 gm Sodium Chloride 0.9% [Normal Saline] 50 ml IV DAILY@2100 - Plan Plan:: Patient is a 30-year-old female with a history of uncontrolled type 1 diabetes mellitus with noncompliance of insulin therapy, multiple complications including multiple amputations, osteomyelitis secondary to poor diabetic control who presented with 1 week history of right ear pain was found to have purulent discharge in her right ear along with DKA based on laboratory results. Otitis externa/otitis media/question mastoiditis -Patient clearly has purulent drainage from her right ear, has pain upon palpation of the mastoid process. Given her poor diabetic control on exam I am concerned that patient has a significant expanding infection -CT scanning of temporal bone showed significant soft tissue swelling, no significant abscess formation, no evidence of osteomyelitis on CT scan, overall concerning for severe otitis externa -Continue treatment with IV vancomycin given patient's MRSA history, ciprofloxacin already drops, added cefepime for pseudomonal coverage given patient's uncontrolled type 1 diabetes -Blood cultures pending, cultures from right ear positive for Staph aureus -Pending patient's progress may require consultation with ENT physician and/or repeat CT imaging, duration of antibiotic therapy yet to be determined DKA -Phase 2 protocol now continue with frequent electrolyte monitoring until anion gap closes -Significant fluid resuscitation, close monitoring of potassium supplementation Acute on chronic CKD -Overall kidney function appears stable with a creatinine of 2.05 similar to several months ago, likely secondary to patient's uncontrolled diabetes -Avoid nephrotoxic medications, significant fluid resuscitation Hypertensioncontinue amlodipine Anemiachronic likely secondary anemia chronic disease, no evidence of blood loss acutely, continue to monitor [id number] mL an hour D5NS Electrolytesevery 4 hours, hypokalemia resolved Dietn.p.o. until anion gap closes DVT prophylaxis- Heparin
[2021-08-03] MEDS: Dextrose 5%-0.9% NaCl 1,000 ML IV SCH ×3 (06:18→09:46)
[2021-08-03 09:17] LABS: ANION GAP 16.2 mEq/L (7-13)
[2021-08-03] MEDS: Ciprofloxacin 0.3% Ophth Soln 5 ML Bottle EARRT SCH ×2 (09:42→21:33)
[2021-08-03 13:21] LABS: ANION GAP 16.7 mEq/L (7-13)
[2021-08-03] MEDS: Morphine 2 MG/ML SYRINGE IVPUSH PRN ×3 (13:49→22:55)
[2021-08-03] MEDS: Dextrose 5%-0.45% NaCl 1,000 ML IV SCH ×2 (14:25→23:32)
[2021-08-03] MEDS: Gabapentin 300 MG Cap PO SCH ×2 (17:00→21:31)
[2021-08-03 17:47] LABS: ANION GAP 16.4 mEq/L (7-13)
[2021-08-03] MEDS: Cefepime 1 GM in Sodium Chloride 0.9% 50 ML IV SCH (21:55)
[2021-08-03 23:37] LABS: ANION GAP 17.2 mEq/L (7-13)
[2021-08-04] MEDS: Heparin Sodium 5,000 Units/ML Vial SUBCUT SCH ×3 (05:48→21:31)
[2021-08-04] MEDS: Morphine 2 MG/ML SYRINGE IVPUSH PRN ×4 (05:48→19:05)
[2021-08-04] MEDS: Dextrose 5%-0.45% NaCl 1,000 ML IV SCH ×2 (06:27→21:36)
[2021-08-04 06:48] LABS: ANION GAP 16.8 mEq/L (7-13)
[2021-08-04 07:59] LABS: BASE EXCESS ARTERIAL -16 mmol/L ((-2)-(+3)); O2 DELIVERY DEVICE NASAL CANNULA; O2 SATURATION ARTERIAL 95 % (95-100); PCO2 ARTERIAL 32 mmHg (35-45); PO2 ARTERIAL 67 mmHg (70-100)
[2021-08-04 08:00] LABS: ALLEN TEST PERFORMED
[2021-08-04] MEDS: Ciprofloxacin 0.3% Ophth Soln 5 ML Bottle EARRT SCH ×2 (08:53→21:35)
[2021-08-04] MEDS: Gabapentin 300 MG Cap PO SCH ×3 (08:54→21:31)
[2021-08-04] MEDS: Acetaminophen/HYDROcodone 325-5 MG Tab PO PRN ×2 (09:13→16:21)
[2021-08-04] MEDS ORDERED: Glucagon,Human Recombinant 1 MG Vial IM PRN ×2 (09:29→09:31)
[2021-08-04] MEDS ORDERED: 50% Dextrose in Water 50 ML Syringe IVPUSH PRN ×2 (09:29→09:31)
[2021-08-04] MEDS: Insulin Glarg,Human.Rec.Analog 100 Unit/ML SUBCUT SCH (10:24)
[2021-08-04] MEDS: Insulin Lispro 100 Units/ML 3 ML Vial SUBCUT SCH ×3 (11:34→21:34)
[2021-08-04] MEDS: Acetaminophen 500 MG Tab PO PRN (19:05)
[2021-08-04] MEDS ORDERED: Topiramate 25 MG Tab PO SCH (21:00)
[2021-08-04] MEDS: Cefepime 1 GM in Sodium Chloride 0.9% 50 ML IV SCH (21:30)
[2021-08-05] MEDS: Morphine 2 MG/ML SYRINGE IVPUSH PRN ×5 (00:44→19:42)
[2021-08-05] MEDS ORDERED: Sodium Chloride 0.9% 500 ML IV ONE (00:58)
[2021-08-05] MEDS ORDERED: Metoprolol Tartrate 25 MG Tab PO ONE (02:33)
[2021-08-05] MEDS: Heparin Sodium 5,000 Units/ML Vial SUBCUT SCH ×3 (05:39→22:29)
[2021-08-05] MEDS: Ciprofloxacin 0.3% Ophth Soln 5 ML Bottle EARRT SCH ×2 (08:47→20:58)
[2021-08-05] MEDS: Insulin Lispro 100 Units/ML 3 ML Vial SUBCUT SCH ×4 (08:47→20:57)
[2021-08-05] MEDS: Insulin Glarg,Human.Rec.Analog 100 Unit/ML SUBCUT SCH (09:14)
[2021-08-05] MEDS: Gabapentin 300 MG Cap PO SCH ×3 (09:15→20:56)
[2021-08-05] MEDS: Sertraline 50 MG Tab PO SCH (10:27)
[2021-08-05] MEDS ORDERED: Ondansetron 4 MG Tab.DIS PO PRN (10:55)
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
--- NOTE | 2021-08-05 11:45 | PCM.PN ---
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 hypokalemia resolved Dietn.p.o. until anion gap closes DVT prophylaxis- Heparin 08/04/21 see progress note/assessment boh 08/05/21 doing better but still anxious . tachicardia last night 100-130, related to cardiac and or renal impairment .no sign pain and patient slept well . no edema and no c/o roberts . i.v. at 50 cc hour and hep locked. i/os 2800/ 1200 but appears euvolemic / no def. response to fluid challange / n.t bnp sent off and tsh and routine labs. incomplete hx but no hx of chf and suspect chronic related to multiple issues cardiac ,renal, pulm and liver. anemia will need iron studies but appears related to chronic disease . b.s 150-250 on sliding scale insulin with meals . lantus increased to 28 units. eating and drinking well .' anxiety unchanged . still asking for morphine despite good pain control and improvement in rt otitis externa//cellulitis i.s staph mark anthony . resistant to pcn. picc line consult concerns about ama as patient still using etoh a nd drug use a big concern with picc line in . discussed and need for i.v vs oral antibiotics . could switch to cipro orally but resistance issues . p.e. improved ear dranage still present and t.m not visable swelling nad tenderness improved but still present . no other skin lesions noted. lungs clear and decreased. cor rrr 100 no murmur.s3/s4. mild puffiness noted hands no fascial edema noted. affect unchanged. cultures neg. ear culture no mrsa and no staph aureus . switch to po cipro///// tmp sfx/tetracyclin all possibel treatments( no pseudomonas could cont ear drops // not doing picc line a consideration sec to multiple issues. assess unchanged overall improved cellulitis and otitis externa. dka resolved. restarted insulin but not sure if any hope of compliance once home . pain control good decreasing dose i.v morphine. patient drug s eeking and impaired on mult. levels / ss involved but patient not wanting assistance. dc planning underway . renal issues appear chronic and recheck labs today dc planning underway / patient not likely to accept swing bed dc home on p.o antibiotics with b.s monitoring and follow up of compliance and adequacy of dosage. b
[2021-08-05 12:19] LABS: ANION GAP 17.3 mEq/L (7-13)
--- NOTE | 2021-08-05 13:21 | CT ---
PROCEDURE INFORMATION: Exam: CT Chest Without Contrast; Diagnostic Exam date and time: 08/05/2021 12:56 PM Age: 30 years old Clinical indication: Fever; Additional info: Unexplained tachicardia and fever, elevated ddimer TECHNIQUE: Imaging protocol: Diagnostic computed tomography of the chest without contrast. Radiation optimization: All CT scans at this facility use at least one of these dose optimization techniques: automated exposure control; mA and/or kV adjustment per patient size (includes targeted exams where dose is matched to clinical indication); or iterative reconstruction. COMPARISON: No relevant prior studies available. FINDINGS: Lungs: Unremarkable. No consolidation. No masses. Pleural spaces: Unremarkable. No pneumothorax. No pleural effusion. Heart: Unremarkable. No cardiomegaly. No pericardial effusion. Aorta: Unremarkable. No aortic aneurysm. Lymph nodes: Unremarkable. No enlarged lymph nodes. Bones/joints: Unremarkable. No acute fracture. Soft tissues: Unremarkable. IMPRESSION: No acute findings.
[2021-08-05] MEDS ORDERED: Metoclopramide 10 MG Tab PO ONE (13:45)
--- NOTE | 2021-08-05 14:03 | CT ---
PROCEDURE INFORMATION: Exam: CT Neck Without Contrast Exam date and time: 08/05/2021 12:56 PM Age: 30 years old Clinical indication: Mass, lump, or swelling in neck; Bilateral; Additional info: Tachycardia and fever, elevated ddimer, neck swelling, ear infection TECHNIQUE: Imaging protocol: Computed tomography images of the neck without contrast. Radiation optimization: All CT scans at this facility use at least one of these dose optimization techniques: automated exposure control; mA and/or kV adjustment per patient size (includes targeted exams where dose is matched to clinical indication); or iterative reconstruction. COMPARISON: CT Orbit Sella PF IAC wo Cont 08/02/2021 5:29 PM FINDINGS: Mastoid air cells: Right mastoid partial effusion. Paranasal sinuses: Dependent mucus, mild mucosal thickening posterior left maxillary sinus. Nasopharynx: Unremarkable. Dental: Edentulous maxilla and mandible. Oropharynx: Unremarkable. No significant tonsillar enlargement. Hypopharynx: Unremarkable. Larynx: Unremarkable. Normal epiglottis. Retropharyngeal space: Unremarkable. Submandibular/Parotid glands: Normal. Glands are normal in size. Thyroid: Normal. No enlarged or calcified nodules. Lymph nodes: Unremarkable. No lymphadenopathy. Trachea: Visualized trachea is unremarkable. Lungs: Unremarkable as visualized. Bones/joints: No destructive bony process identified. Soft tissues: Right auricular pinna soft tissue edema, also involving adjacent postauricular superficial soft tissues, also involving the cartilaginous part of the external auditory canal. No ectopic gas or fluid collection identified. IMPRESSION: 1. Right external otitis. 2. Right mastoid partial effusion. 3. Incidental paranasal sinus disease as above.
--- NOTE | 2021-08-05 14:06 | CT ---
PROCEDURE INFORMATION: Exam: CT Temporal Bones Without Contrast. Exam date and time: 08/05/2021 12:56 PM Age: 30 years old Clinical indication: Condition or disease; Other: Ear infection; Additional info: Unexplained tachicardia and fever, elevated ddimer, neck swelling ear infec TECHNIQUE: Imaging protocol: Computed tomography images of the temporal bones without contrast. Radiation optimization: All CT scans at this facility use at least one of these dose optimization techniques: automated exposure control; mA and/or kV adjustment per patient size (includes targeted exams where dose is matched to clinical indication); or iterative reconstruction. COMPARISON: CT Orbit Sella PF IAC wo Cont 08/02/2021 5:29 PM FINDINGS: Right inner ear: Normal. Right ossicles and middle ear: Normal. The middle ear ossicles are intact. Right external auditory canal: Soft tissue edema of the right auricular pinna, adjacent postauricular superficial soft tissues, and cartilaginous external auditory canal. No ectopic soft tissue gas. Right facial nerve canal: Normal. Right jugular foramen: No jugular dehiscence. Right carotid canal: No aberrant carotid canal. Right mastoid air cells: Right mastoid partial effusion. Left inner ear: Normal. Left ossicles and middle ear: Normal. The middle ear ossicles are intact. Left external auditory canal: Normal. Left facial nerve canal: Normal. Left jugular foramen: No jugular dehiscence. Left carotid canal: No aberrant carotid canal. Left mastoid air cells: Normal. No mastoid effusions. Paranasal sinuses: Dependent mucus, mild mucosal thickening posterior left maxillary sinus. Mild mucosal thickening superior margin of the bilateral maxillary sinus ostiomeatal complexes. Bones/joints: No destructive bony process identified. Soft tissues: No soft tissue fluid collection identified. IMPRESSION: 1. Right external otitis. 2. No destructive bony process identified. 3. Right mastoid partial effusion. 4. Incidental paranasal sinus disease as above.
--- NOTE | 2021-08-05 14:18 | PCM.SN.2 ---
- Free Text/Narrative Note: 08/05/21 princess lost i.v. / ptt normal. wbc to 17K no left shift hgn 7.4 iron levels low but alb levels lower . d dimer >2100. (again denies any chest pain or roberts /sob pleurasy ) wretching and bradycardia x 2 20 second episodes andno signs of qt prolongation or changes but ekg and trop. ordered. creat 1.56 now and lytes normal other than low hco3. assess lost i.v/ need for i.v cannot be done a nd picc . line to be antempted// indicated sec. to poor access. 2// staph lubna prob requires i.v antibiotics as vomiting sec to gastroparesis. 3// echo and ekg of heart sec to bradycardia trop normal/ no symptoms of chest pain or roberts. 4// ct scan repeated along with non contrast lung scan to rule out p.e but switch to full treatment dose for possible occult p.e. cont i.v antibiotics for now since good clinical response. 5// malnutrition severe: 6//anemia iron def and anemia of chronic disease. iron infusion recommended sec to nausea pending picc placment. 7.renal insuff moderate clinically . boh
[2021-08-05] MEDS: Cefepime 1 GM in Sodium Chloride 0.9% 50 ML IV SCH (20:55)
[2021-08-05] MEDS: Topiramate 25 MG Tab PO SCH (20:56)
[2021-08-06] MEDS: Morphine 2 MG/ML SYRINGE IVPUSH PRN (02:11)
[2021-08-06] MEDS: Acetaminophen/HYDROcodone 325-5 MG Tab PO PRN ×3 (06:04→20:59)
[2021-08-06] MEDS: Heparin Sodium 5,000 Units/ML Vial SUBCUT SCH ×2 (06:08→13:30)
[2021-08-06] MEDS: Insulin Lispro 100 Units/ML 3 ML Vial SUBCUT SCH ×4 (07:48→21:20)
[2021-08-06] MEDS: Acetaminophen 500 MG Tab PO PRN (07:49)
[2021-08-06] MEDS ORDERED: Sulfamethoxazole/Trimethoprim 200-40 MG/5 ML Susp 20 ML Cup PO SCH (09:00)
[2021-08-06] MEDS: Insulin Glarg,Human.Rec.Analog 100 Unit/ML SUBCUT SCH (09:20)
[2021-08-06] MEDS: Gabapentin 300 MG Cap PO SCH ×2 (09:20→13:31)
[2021-08-06] MEDS: Ciprofloxacin 0.3% Ophth Soln 5 ML Bottle EARRT SCH ×2 (09:21→20:58)
[2021-08-06] MEDS: Sertraline 50 MG Tab PO SCH (09:22)
[2021-08-06] MEDS: Topiramate 25 MG Tab PO SCH ×2 (09:22→20:59)
--- NOTE | 2021-08-06 12:03 | PCM.PN ---
- General Info Date of Service: 08/06/21 Admission Dx/Problem (Free Text): Admission Diagnosis/Problem Admission Diagnosis/Problem cellulitis rt ear/aom/dka Subjective Update: 08/06/21 afebrile / vss / no further episodes of bradicardia. p.e. 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 ear canal mild blood and mucous. t.m. not visible sec to swelling ear canal with discharge//debris rest of exam unchanged. assess/plan 1/ nausea much less and eating supper and breakfast this am . b.s.- 124 this am 150-240 yesterday ate zero for lunch and good supper after zofran x one. lost i.v. access and unable to get picc line . 2// feel she is not a candidate for temp central line as has option of switching to p.o antibiotics for staph scheliferi which was only growth. on cipro drops and draining changing form purulant to muco/serousy. mild bleeding noted rt ear canal .cellulitis less . 3//pain contol good, but drug seeking behavior continues. 4//diabetic ed. continuing but blindness and hand amputations // noncompliance and drug use complicating issues. staff feel she wont be able to do any monitoring for any length of time , despite assistance based on previous multiple multiple non compliance issues. 5//agrees to swing bed for 2-4 weeks of antibiotics by mouth to clear up infection and pain control, with option of ent consult if needed while on swing bed. clinically improving cellulitis and ct scan no abscess formation and no evidence of osteomyelitis, but thought still possible and will need 2- 4 weeks treatment and follow up . 6//depression being treated with zoloft. topramax started for appetite supression and control of blood glucose. 7//insulin increased to lantus 28 units plus tid low dose sliding scale . she is blind in left eye and possible visual she has limited /no ability to handle insulin injections on her own sec to amputations. training on b.s monitoring again but not sure she can even do that on her own but attempting. 8//has elevated d dimer and c/o mild roberts but very sedentary and at risk for p.e., so discussed and start xaralto as cannot rule out p.e.. cont. x 3 months and follow up d dimer sec to renal compromise and need to avoid contrast. boh Functional Status: Reports: Pain Controlled, Tolerating Diet - Review of Systems General: Reports: No Symptoms HEENT: Reports: No Symptoms Pulmonary: Reports: No Symptoms Cardiovascular: Reports: No Symptoms Gastrointestinal: Reports: No Symptoms Genitourinary: Reports: No Symptoms Musculoskeletal: Reports: No Symptoms Skin: Reports: No Symptoms Neurological: Reports: No Symptoms Psychiatric: Reports: No Symptoms - Patient Data Vitals - Most Recent: Last Vital Signs Temp 35.9 C L 08/06/21 07:59 Pulse 86 08/06/21 07:59 Resp 14 08/06/21 07:59 BP 102/70 08/06/21 07:59 Pulse Ox 100 08/06/21 07:59 Weight - Most Recent: 58.513 kg I&O - Last 24 Hours: Intake & Output 08/05/21 08/06/21 08/06/21 22:59 06:59 14:59 Intake Total 920 350 Output Total 500 400 Balance 420 -50 Lab Results Last 24 Hours: Laboratory Results - last 24 hr 08/05/21 08/05/21 08/05/21 Range/Units 11:28 11:30 11:30 WBC 17.2 H (5.0-10.0) 10^3/uL RBC 2.94 L (4.2-5.4) 10^6/uL Hgb 7.6 L (12.0-16.0) g/dL Hct 23.8 L (37.0-47.0) % MCV 81.0 (80-100) fL MCH 25.9 L (27.0-34.0) pg MCHC 31.9 L (33.0-35.0) g/dL Plt Count 424 D (150-450) 10^3/uL Neut % (Auto) 80.4 H (42.2-75.2) % Lymph % (Auto) 11.1 L (20.5-50.1) % [place] % (Auto) 6.9 (2-8) % Eos % (Auto) 1.4 (1.0-3.0) % Baso % (Auto) 0.2 (0.0-1.0) % APTT (22.0-34.0) SEC D-Dimer, Quantitative 2140 H (0-400) ng/mL Sodium (136-145) mmol/L Potassium (3.5-5.1) mmol/L Chloride (98-107) mmol/L Carbon Dioxide (21-32) mmol/L Anion Gap (7-13) mEq/L BUN (7-18) mg/dL Creatinine (0.55-1.02) mg/dL Est Cr Clr Drug Dosing mL/min Estimated GFR (MDRD) BUN/Creatinine Ratio (No establ ref range) Glucose (70-99) mg/dL POC Glucose 189 H (70-99) mg/dL Calcium (8.5-10.1) mg/dL Iron (50-170) ug/dL TIBC (250-450) ug/dL % Saturation (20.0-50.0) % Ferritin (8-252) mg/mL Total Bilirubin (0.2-1.0) mg/dL AST (15-37) U/L ALT (14-59) U/L Alkaline Phosphatase (46-116) U/L Troponin I High Sens (<=51) pg/mL C-Reactive Protein (0.0-0.9) mg/dL B-Natriuretic Peptide (0-100) pg/ml Total Protein (6.4-8.2) g/dL Albumin (3.4-5.0) g/dL Globulin Albumin/Globulin Ratio Vitamin B12 (193-986) pg/mL Folate (8.6-58.9) ng/mL TSH, Ultra Sensitive (0.36-3.74) uIU/mL 08/05/21 08/05/21 08/05/21 Range/Units 11:30 11:30 11:30 WBC (5.0-10.0) 10^3/uL RBC (4.2-5.4) 10^6/uL Hgb (12.0-16.0) g/dL Hct (37.0-47.0) % MCV (80-100) fL MCH (27.0-34.0) pg MCHC (33.0-35.0) g/dL Plt Count (150-450) 10^3/uL Neut % (Auto) (42.2-75.2) % Lymph % (Auto) (20.5-50.1) % [place] % (Auto) (2-8) % Eos % (Auto) (1.0-3.0) % Baso % (Auto) (0.0-1.0) % APTT 21.9 L (22.0-34.0) SEC D-Dimer, Quantitative (0-400) ng/mL Sodium 139 (136-145) mmol/L Potassium 4.3 (3.5-5.1) mmol/L Chloride 112 H (98-107) mmol/L Carbon Dioxide 14 L (21-32) mmol/L Anion Gap 17.3 H (7-13) mEq/L BUN 12 (7-18) mg/dL Creatinine 1.58 H (0.55-1.02) mg/dL Est Cr Clr Drug Dosing 36.72 mL/min Estimated GFR (MDRD) 38 BUN/Creatinine Ratio 7.6 (No establ ref range) Glucose 218 H (70-99) mg/dL POC Glucose (70-99) mg/dL Calcium 7.4 L (8.5-10.1) mg/dL Iron (50-170) ug/dL TIBC (250-450) ug/dL % Saturation (20.0-50.0) % Ferritin (8-252) mg/mL Total Bilirubin 0.1 L (0.2-1.0) mg/dL AST 16 (15-37) U/L ALT 13 L (14-59) U/L Alkaline Phosphatase 155 H (46-116) U/L Troponin I High Sens (<=51) pg/mL C-Reactive Protein 6.9 H (0.0-0.9) mg/dL B-Natriuretic Peptide 91 (0-100) pg/ml Total Protein 5.3 L (6.4-8.2) g/dL Albumin 1.0 L (3.4-5.0) g/dL Globulin 4.3 Albumin/Globulin Ratio 0.23 Vitamin B12 (193-986) pg/mL Folate (8.6-58.9) ng/mL TSH, Ultra Sensitive 0.50 (0.36-3.74) uIU/mL 08/05/21 08/05/21 08/05/21 Range/Units 11:30 11:30 11:30 WBC (5.0-10.0) 10^3/uL RBC (4.2-5.4) 10^6/uL Hgb (12.0-16.0) g/dL Hct (37.0-47.0) % MCV (80-100) fL MCH (27.0-34.0) pg MCHC (33.0-35.0) g/dL Plt Count (150-450) 10^3/uL Neut % (Auto) (42.2-75.2) % Lymph % (Auto) (20.5-50.1) % [place] % (Auto) (2-8) % Eos % (Auto) (1.0-3.0) % Baso % (Auto) (0.0-1.0) % APTT (22.0-34.0) SEC D-Dimer, Quantitative (0-400) ng/mL Sodium (136-145) mmol/L Potassium (3.5-5.1) mmol/L Chloride (98-107) mmol/L Carbon Dioxide (21-32) mmol/L Anion Gap (7-13) mEq/L BUN (7-18) mg/dL Creatinine (0.55-1.02) mg/dL Est Cr Clr Drug Dosing mL/min Estimated GFR (MDRD) BUN/Creatinine Ratio (No establ ref range) Glucose (70-99) mg/dL POC Glucose (70-99) mg/dL Calcium (8.5-10.1) mg/dL Iron 14 L (50-170) ug/dL TIBC 171 L (250-450) ug/dL % Saturation 8.2 L (20.0-50.0) % Ferritin 55 (8-252) mg/mL Total Bilirubin (0.2-1.0) mg/dL AST (15-37) U/L ALT (14-59) U/L Alkaline Phosphatase (46-116) U/L Troponin I High Sens (<=51) pg/mL C-Reactive Protein (0.0-0.9) mg/dL B-Natriuretic Peptide (0-100) pg/ml Total Protein (6.4-8.2) g/dL Albumin (3.4-5.0) g/dL Globulin Albumin/Globulin Ratio Vitamin B12 312 (193-986) pg/mL Folate 12.3 (8.6-58.9) ng/mL TSH, Ultra Sensitive (0.36-3.74) uIU/mL 08/05/21 08/05/21 08/05/21 Range/Units 11:30 16:38 20:52 WBC (5.0-10.0) 10^3/uL RBC (4.2-5.4) 10^6/uL Hgb (12.0-16.0) g/dL Hct (37.0-47.0) % MCV (80-100) fL MCH (27.0-34.0) pg MCHC (33.0-35.0) g/dL Plt Count (150-450) 10^3/uL Neut % (Auto) (42.2-75.2) % Lymph % (Auto) (20.5-50.1) % [place] % (Auto) (2-8) % Eos % (Auto) (1.0-3.0) % Baso % (Auto) (0.0-1.0) % APTT (22.0-34.0) SEC D-Dimer, Quantitative (0-400) ng/mL Sodium (136-145) mmol/L Potassium (3.5-5.1) mmol/L Chloride (98-107) mmol/L Carbon Dioxide (21-32) mmol/L Anion Gap (7-13) mEq/L BUN (7-18) mg/dL Creatinine (0.55-1.02) mg/dL Est Cr Clr Drug Dosing mL/min Estimated GFR (MDRD) BUN/Creatinine Ratio (No establ ref range) Glucose (70-99) mg/dL POC Glucose 201 H 170 H (70-99) mg/dL Calcium (8.5-10.1) mg/dL Iron (50-170) ug/dL TIBC (250-450) ug/dL % Saturation (20.0-50.0) % Ferritin (8-252) mg/mL Total Bilirubin (0.2-1.0) mg/dL AST (15-37) U/L ALT (14-59) U/L Alkaline Phosphatase (46-116) U/L Troponin I High Sens < 4 (<=51) pg/mL C-Reactive Protein (0.0-0.9) mg/dL B-Natriuretic Peptide (0-100) pg/ml Total Protein (6.4-8.2) g/dL Albumin (3.4-5.0) g/dL Globulin Albumin/Globulin Ratio Vitamin B12 (193-986) pg/mL Folate (8.6-58.9) ng/mL TSH, Ultra Sensitive (0.36-3.74) uIU/mL 08/06/21 Range/Units 07:39 WBC (5.0-10.0) 10^3/uL RBC (4.2-5.4) 10^6/uL Hgb (12.0-16.0) g/dL Hct (37.0-47.0) % MCV (80-100) fL MCH (27.0-34.0) pg MCHC (33.0-35.0) g/dL Plt Count (150-450) 10^3/uL Neut % (Auto) (42.2-75.2) % Lymph % (Auto) (20.5-50.1) % [place] % (Auto) (2-8) % Eos % (Auto) (1.0-3.0) % Baso % (Auto) (0.0-1.0) % APTT (22.0-34.0) SEC D-Dimer, Quantitative (0-400) ng/mL Sodium (136-145) mmol/L Potassium (3.5-5.1) mmol/L Chloride (98-107) mmol/L Carbon Dioxide (21-32) mmol/L Anion Gap (7-13) mEq/L BUN (7-18) mg/dL Creatinine (0.55-1.02) mg/dL Est Cr Clr Drug Dosing mL/min Estimated GFR (MDRD) BUN/Creatinine Ratio (No establ ref range) Glucose (70-99) mg/dL POC Glucose 124 H (70-99) mg/dL Calcium (8.5-10.1) mg/dL Iron (50-170) ug/dL TIBC (250-450) ug/dL % Saturation (20.0-50.0) % Ferritin (8-252) mg/mL Total Bilirubin (0.2-1.0) mg/dL AST (15-37) U/L ALT (14-59) U/L Alkaline Phosphatase (46-116) U/L Troponin I High Sens (<=51) pg/mL C-Reactive Protein (0.0-0.9) mg/dL B-Natriuretic Peptide (0-100) pg/ml Total Protein (6.4-8.2) g/dL Albumin (3.4-5.0) g/dL Globulin Albumin/Globulin Ratio Vitamin B12 (193-986) pg/mL Folate (8.6-58.9) ng/mL TSH, Ultra Sensitive (0.36-3.74) uIU/mL Luz Marina Results Last 24 Hours: Microbiology 08/02/21 13:33 Aerobic Blood Culture - Preliminary Blood - Arm, Right NO GROWTH AFTER 3 DAYS Anaerobic Blood Culture - Preliminary NO GROWTH AFTER 3 DAYS 08/02/21 13:21 Aerobic Blood Culture - Preliminary Blood - Arm, Left NO GROWTH AFTER 3 DAYS Anaerobic Blood Culture - Preliminary NO GROWTH AFTER 3 DAYS 08/02/21 14:55 Ear Culture - Final Ear, Right Staph Scheleiferi Ss Coagulans Med Orders - Current: Current Medications Acetaminophen (Acetaminophen 500 Mg Tab) 1,000 mg PO Q8H PRN PRN Reason: Pain (mild 1-3)/FEVER Last Admin: 08/06/21 07:49 Dose: 1,000 mg Documented by: Hydrocodone Bitart/Acetaminophen (Acetaminophen/Hydrocodone 325-5 Mg Tab) 1 tab PO Q6H PRN PRN Reason: Pain (moderate 4-6) Last Admin: 08/06/21 06:04 Dose: 1 tab Documented by: Ciprofloxacin (Ciprofloxacin 0.3% Ophth Soln 5 Ml Bottle) 0.25 ml EARRT BID [facility] Last Admin: 08/06/21 09:21 Dose: 0.25 ml Documented by: Dextrose/Water (50% Dextrose In Water 50 Ml Syringe) 50 ml IVPUSH Q15M PRN PRN Reason: Hypoglycemia Gabapentin (Gabapentin 300 Mg Cap) 300 mg PO TID [facility] Last Admin: 08/06/21 09:20 Dose: 300 mg Documented by: Glucagon (Glucagon,Human Recombinant 1 Mg Vial) 1 mg IM Q15M PRN PRN Reason: Hypoglycemia Heparin Sodium (Porcine) (Heparin Sodium 5,000 Units/Ml Vial) 5,000 units SUBCUT Q8HR [facility] Last Admin: 08/06/21 06:08 Dose: 5,000 units Documented by: Insulin Glargine (Insulin Glarg,Human.Rec.Analog 100 Unit/Ml) 28 unit SUBCUT DAILY [facility] Last Admin: 08/06/21 09:20 Dose: 28 units Documented by: Insulin Human Lispro (Insulin Lispro 100 Units/Ml 3 Ml Vial) 0 unit SUBCUT WITHMEALSANDBED [facility]; Protocol Last Admin: 08/06/21 07:48 Dose: Not Given Documented by: Ondansetron HCl (Ondansetron 4 Mg Tab.Dis) 8 mg PO Q8H PRN PRN Reason: Nausea/Vomiting Last Admin: 08/05/21 11:53 Dose: 8 mg Documented by: Sertraline HCl (Sertraline 50 Mg Tab) 25 mg PO DAILY [facility] Last Admin: 08/06/21 09:22 Dose: 25 mg Documented by: Sodium Chloride (Sodium Chloride 0.9% 10 Ml Syringe) 10 ml FLUSH ASDIRECTED PRN PRN Reason: Keep Vein Open Topiramate (Topiramate 25 Mg Tab) 12.5 mg PO BID [facility] Last Admin: 08/06/21 09:22 Dose: 12.5 mg Documented by: Trimethoprim/Sulfamethoxazole (Sulfamethoxazole/Trimethoprim 800-160 Mg Tab) 1 tab PO BID [facility] Discontinued Medications Hydrocodone Bitart/Acetaminophen (Acetaminophen/Hydrocodone 325-10 Mg Tab) 1 tab PO ONETIME ONE Stop: 08/02/21 13:12 Last Admin: 08/02/21 13:48 Dose: 1 tab Documented by: Ciprofloxacin (Ciprofloxacin 0.3% Ophth Soln 5 Ml Bottle) 5 ml EARRT ONETIME ONE Stop: 08/02/21 13:23 Last Admin: 08/02/21 13:47 Dose: 1 drop Documented by: Dextrose/Water (50% Dextrose In Water 50 Ml Syringe) 50 ml IVPUSH Q15M PRN PRN Reason: Hypoglycemia Dextrose/Water (50% Dextrose In Water 50 Ml Syringe) 50 ml IVPUSH ONETIME PRN PRN Reason: Hypoglycemia Last Admin: 08/02/21 17:12 Dose: 50 ml Documented by: Diphenhydramine HCl (Diphenhydramine 50 Mg/Ml Sdv) 25 mg IVPUSH ONETIME ONE Stop: 08/02/21 13:13 Last Admin: 08/02/21 13:47 Dose: 25 mg Documented by: Fentanyl (Fentanyl 100 Mcg/2 Ml Sdv) 25 mcg IVPUSH Q2HR PRN PRN Reason: Pain Last Admin: 08/03/21 10:53 Dose: 25 mcg Documented by: Glucagon (Glucagon,Human Recombinant 1 Mg Vial) 1 mg IM Q15M PRN PRN Reason: Hypoglycemia Vancomycin HCl 1 gm/ Sodium (Chloride) 250 mls @ 167 mls/hr IV ONETIME ONE Stop: 08/02/21 14:40 Last Admin: 08/02/21 13:46 Dose: 167 mls/hr Documented by: Insulin Regular in 0.9 % NACL (Myxredlin In Ns 100 Unit/100 Ml) 100 unit in 100 mls @ 7.974 mls/hr IV TITRATE DYLON; Protocol Last Admin: 08/02/21 15:13 Dose: 0.1 units/kg/hr, 7.974 mls/hr Documented by: Sodium Chloride (Normal Saline) 1,000 mls @ 150 mls/hr IV ASDIRECTED DYLON Last Admin: 08/02/21 16:11 Dose: 150 mls/hr Documented by: Insulin Regular in 0.9 % NACL (Myxredlin In Ns 100 Unit/100 Ml) 100 unit in 100 mls @ 7.974 mls/hr IV TITRATE DYLON; Protocol Potassium Chloride 20 meq/ (Premix) 100 mls @ 50 mls/hr IV ONETIME ONE Stop: 08/02/21 17:46 Last Admin: 08/02/21 16:32 Dose: 50 mls/hr Documented by: Vancomycin HCl 1 gm/ Sodium (Chloride) 250 mls @ 167 mls/hr IV Q24H DYLON Last Admin: 08/05/21 13:32 Dose: 167 mls/hr Documented by: Insulin Regular in 0.9 % NACL (Myxredlin In Ns 100 Unit/100 Ml) 100 unit in 100 mls @ 5.851 mls/hr IV TITRATE DYLON; Protocol Dextrose/Sodium Chloride (Dextrose 5%-1/2 Ns) 1,000 mls @ 150 mls/hr IV ASDIRECTED DYLON Potassium Chloride/Dextrose/Sod Cl (D5 Ns With 20 Meq Kcl) 1,000 mls @ 150 mls/hr IV .Q6H40M DYLON Last Admin: 08/02/21 21:53 Dose: Not Given Documented by: Potassium Chloride 20 meq/ (Premix) 100 mls @ 50 mls/hr IV ONETIME ONE Stop: 08/02/21 20:29 Last Admin: 08/02/21 18:46 Dose: 50 mls/hr Documented by: Dextrose/Sodium Chloride (Dextrose 5%-Normal Saline) 1,000 mls @ 150 mls/hr IV .Q6H40M [facility] Last Admin: 08/03/21 09:46 Dose: Not Given Documented by: Cefepime HCl 2 gm/ Sodium (Chloride) 50 mls @ 100 mls/hr IV Q12HR DYLON Cefepime HCl 2 gm/ Sodium (Chloride) 50 mls @ 100 mls/hr IV ONETIME ONE Stop: 08/02/21 21:29 Last Admin: 08/02/21 20:26 Dose: 100 mls/hr Documented by: Cefepime HCl 1 gm/ Sodium (Chloride) 50 mls @ 100 mls/hr IV DAILY@2100 [facility] Last Admin: 08/05/21 20:55 Dose: 100 mls/hr Documented by: Insulin Regular in 0.9 % NACL (Myxredlin In Ns 100 Unit/100 Ml) 100 unit in 100 mls @ 0.585 mls/hr IV TITRATE [facility]; Protocol Last Titration: 08/04/21 07:38 Dose: 0.01 units/kg/hr, 0.585 mls/hr Documented by: Potassium Chloride 20 meq/ (Premix) 100 mls @ 50 mls/hr IV ONETIME ONE Stop: 08/03/21 07:23 Last Admin: 08/03/21 05:50 Dose: 50 mls/hr Documented by: Dextrose/Sodium Chloride (Dextrose 5%-1/2 Ns) 1,000 mls @ 50 mls/hr IV ASDIRECTED [facility] Last Admin: 08/04/21 21:36 Dose: 150 mls/hr Documented by: Sodium Chloride (Normal Saline) 500 mls @ 500 mls/hr IV ONETIME ONE Stop: 08/05/21 01:57 Last Admin: 08/05/21 01:10 Dose: 500 mls/hr Documented by: Insulin Glargine (Insulin Glarg,Human.Rec.Analog 100 Unit/Ml) 20 unit SUBCUT DAILY [facility] Last Admin: 08/05/21 09:14 Dose: 20 units Documented by: Insulin Human Regular (Insulin Regular, Human 100 Units/Ml 3 Ml Vial) 10 unit SUBCUT ONETIME ONE Stop: 08/02/21 13:15 Last Admin: 08/02/21 13:46 Dose: 10 units Documented by: Metoclopramide HCl (Metoclopramide 10 Mg Tab) 10 mg PO ONETIME ONE Stop: 08/05/21 13:46 Last Admin: 08/05/21 14:03 Dose: 10 mg Documented by: Metoprolol Tartrate (Metoprolol Tartrate 25 Mg Tab) 25 mg PO ONETIME ONE Stop: 08/05/21 02:34 Last Admin: 08/05/21 02:50 Dose: 25 mg Documented by: Morphine Sulfate (Morphine 2 Mg/Ml Syringe) 2 mg IVPUSH Q4H PRN PRN Reason: Pain (severe 7-10) Last Admin: 08/05/21 05:19 Dose: 2 mg Documented by: Morphine Sulfate (Morphine 2 Mg/Ml Syringe) 1 mg IVPUSH Q4H PRN PRN Reason: Pain (severe 7-10) Last Admin: 08/06/21 02:11 Dose: 1 mg Documented by: Potassium Chloride (Potassium Chloride 10 Meq Tab.Er) 60 meq PO ONETIME ONE Stop: 08/02/21 14:07 Last Admin: 08/02/21 14:45 Dose: 60 meq Documented by: Potassium Chloride (Potassium Chloride 10 Meq Tab.Er) 40 meq PO ONETIME ONE Stop: 08/02/21 19:32 Last Admin: 08/02/21 18:46 Dose: 40 meq Documented by: Sodium Chloride (Sodium Chloride 0.9% 10 Ml Syringe) 10 ml FLUSH ASDIRECTED PRN PRN Reason: Keep Vein Open Last Admin: 08/02/21 13:48 Dose: 10 ml Documented by: Topiramate (Topiramate 25 Mg Tab) 12.5 mg PO BEDTIME [facility] Last Admin: 08/04/21 21:32 Dose: 12.5 mg Documented by: Trimethoprim/Sulfamethoxazole (Sulfamethoxazole/Trimethoprim 200-40 Mg/5 Ml Susp 20 Ml Cup) 40 ml PO BID [facility] Last Admin: 08/06/21 09:21 Dose: 40 ml Documented by: Vancomycin HCl (Pharmacy To Dose - Vancomycin) 1 dose .XX ASDIRECTED [facility] - Exam General: Alert, Oriented, Mild Distress HEENT: Pupils Equal, Pupils Reactive, EOMI, Mucous Membr. Moist/[place] Neck: Supple Lungs: Clear to Auscultation, Normal Respiratory Effort Cardiovascular: Regular Rate, Regular Rhythm GI/Abdominal Exam: Normal Bowel Sounds, Soft, Non-Tender, No Organomegaly, No Distention, No Abnormal Bruit, No Mass, Pelvis Stable (Female) Exam: Deferred. No: Normal External Exam, Normal Speculum Exam, Normal Bimanual Exam Back Exam: Normal Inspection, Full Range of Motion Extremities: Normal Inspection, Normal Range of Motion, Non-Tender, No Pedal Edema, Normal Capillary Refill, Other (amputation) Skin: Warm, Dry, Intact Wound/Incisions: Healing Well Neurological: No New Focal Deficit Psy/Mental Status: Alert, Normal Affect, Normal Mood - Patient Data Lab Results Last 24 hrs: Laboratory Results - last 24 hr 08/05/21 08/05/21 08/05/21 Range/Units 11:28 11:30 11:30 WBC 17.2 H (5.0-10.0) 10^3/uL RBC 2.94 L (4.2-5.4) 10^6/uL Hgb 7.6 L (12.0-16.0) g/dL Hct 23.8 L (37.0-47.0) % MCV 81.0 (80-100) fL MCH 25.9 L (27.0-34.0) pg MCHC 31.9 L (33.0-35.0) g/dL Plt Count 424 D (150-450) 10^3/uL Neut % (Auto) 80.4 H (42.2-75.2) % Lymph % (Auto) 11.1 L (20.5-50.1) % [place] % (Auto) 6.9 (2-8) % Eos % (Auto) 1.4 (1.0-3.0) % Baso % (Auto) 0.2 (0.0-1.0) % APTT (22.0-34.0) SEC D-Dimer, Quantitative 2140 H (0-400) ng/mL Sodium (136-145) mmol/L Potassium (3.5-5.1) mmol/L Chloride (98-107) mmol/L Carbon Dioxide (21-32) mmol/L Anion Gap (7-13) mEq/L BUN (7-18) mg/dL Creatinine (0.55-1.02) mg/dL Est Cr Clr Drug Dosing mL/min Estimated GFR (MDRD) BUN/Creatinine Ratio (No establ ref range) Glucose (70-99) mg/dL POC Glucose 189 H (70-99) mg/dL Calcium (8.5-10.1) mg/dL Iron (50-170) ug/dL TIBC (250-450) ug/dL % Saturation (20.0-50.0) % Ferritin (8-252) mg/mL Total Bilirubin (0.2-1.0) mg/dL AST (15-37) U/L ALT (14-59) U/L Alkaline Phosphatase (46-116) U/L Troponin I High Sens (<=51) pg/mL C-Reactive Protein (0.0-0.9) mg/dL B-Natriuretic Peptide (0-100) pg/ml Total Protein (6.4-8.2) g/dL Albumin (3.4-5.0) g/dL Globulin Albumin/Globulin Ratio Vitamin B12 (193-986) pg/mL Folate (8.6-58.9) ng/mL TSH, Ultra Sensitive (0.36-3.74) uIU/mL 08/05/21 08/05/21 08/05/21 Range/Units 11:30 11:30 11:30 WBC (5.0-10.0) 10^3/uL RBC (4.2-5.4) 10^6/uL Hgb (12.0-16.0) g/dL Hct (37.0-47.0) % MCV (80-100) fL MCH (27.0-34.0) pg MCHC (33.0-35.0) g/dL Plt Count (150-450) 10^3/uL Neut % (Auto) (42.2-75.2) % Lymph % (Auto) (20.5-50.1) % [place] % (Auto) (2-8) % Eos % (Auto) (1.0-3.0) % Baso % (Auto) (0.0-1.0) % APTT 21.9 L (22.0-34.0) SEC D-Dimer, Quantitative (0-400) ng/mL Sodium 139 (136-145) mmol/L Potassium 4.3 (3.5-5.1) mmol/L Chloride 112 H (98-107) mmol/L Carbon Dioxide 14 L (21-32) mmol/L Anion Gap 17.3 H (7-13) mEq/L BUN 12 (7-18) mg/dL Creatinine 1.58 H (0.55-1.02) mg/dL Est Cr Clr Drug Dosing 36.72 mL/min Estimated GFR (MDRD) 38 BUN/Creatinine Ratio 7.6 (No establ ref range) Glucose 218 H (70-99) mg/dL POC Glucose (70-99) mg/dL Calcium 7.4 L (8.5-10.1) mg/dL Iron (50-170) ug/dL TIBC (250-450) ug/dL % Saturation (20.0-50.0) % Ferritin (8-252) mg/mL Total Bilirubin 0.1 L (0.2-1.0) mg/dL AST 16 (15-37) U/L ALT 13 L (14-59) U/L Alkaline Phosphatase 155 H (46-116) U/L Troponin I High Sens (<=51) pg/mL C-Reactive Protein 6.9 H (0.0-0.9) mg/dL B-Natriuretic Peptide 91 (0-100) pg/ml Total Protein 5.3 L (6.4-8.2) g/dL Albumin 1.0 L (3.4-5.0) g/dL Globulin 4.3 Albumin/Globulin Ratio 0.23 Vitamin B12 (193-986) pg/mL Folate (8.6-58.9) ng/mL TSH, Ultra Sensitive 0.50 (0.36-3.74) uIU/mL 08/05/21 08/05/21 08/05/21 Range/Units 11:30 11:30 11:30 WBC (5.0-10.0) 10^3/uL RBC (4.2-5.4) 10^6/uL Hgb (12.0-16.0) g/dL Hct (37.0-47.0) % MCV (80-100) fL MCH (27.0-34.0) pg MCHC (33.0-35.0) g/dL Plt Count (150-450) 10^3/uL Neut % (Auto) (42.2-75.2) % Lymph % (Auto) (20.5-50.1) % [place] % (Auto) (2-8) % Eos % (Auto) (1.0-3.0) % Baso % (Auto) (0.0-1.0) % APTT (22.0-34.0) SEC D-Dimer, Quantitative (0-400) ng/mL Sodium (136-145) mmol/L Potassium (3.5-5.1) mmol/L Chloride (98-107) mmol/L Carbon Dioxide (21-32) mmol/L Anion Gap (7-13) mEq/L BUN (7-18) mg/dL Creatinine (0.55-1.02) mg/dL Est Cr Clr Drug Dosing mL/min Estimated GFR (MDRD) BUN/Creatinine Ratio (No establ ref range) Glucose (70-99) mg/dL POC Glucose (70-99) mg/dL Calcium (8.5-10.1) mg/dL Iron 14 L (50-170) ug/dL TIBC 171 L (250-450) ug/dL % Saturation 8.2 L (20.0-50.0) % Ferritin 55 (8-252) mg/mL Total Bilirubin (0.2-1.0) mg/dL AST (15-37) U/L ALT (14-59) U/L Alkaline Phosphatase (46-116) U/L Troponin I High Sens (<=51) pg/mL C-Reactive Protein (0.0-0.9) mg/dL B-Natriuretic Peptide (0-100) pg/ml Total Protein (6.4-8.2) g/dL Albumin (3.4-5.0) g/dL Globulin Albumin/Globulin Ratio Vitamin B12 312 (193-986) pg/mL Folate 12.3 (8.6-58.9) ng/mL TSH, Ultra Sensitive (0.36-3.74) uIU/mL 08/05/21 08/05/21 08/05/21 Range/Units 11:30 16:38 20:52 WBC (5.0-10.0) 10^3/uL RBC (4.2-5.4) 10^6/uL Hgb (12.0-16.0) g/dL Hct (37.0-47.0) % MCV (80-100) fL MCH (27.0-34.0) pg MCHC (33.0-35.0) g/dL Plt Count (150-450) 10^3/uL Neut % (Auto) (42.2-75.2) % Lymph % (Auto) (20.5-50.1) % [place] % (Auto) (2-8) % Eos % (Auto) (1.0-3.0) % Baso % (Auto) (0.0-1.0) % APTT (22.0-34.0) SEC D-Dimer, Quantitative (0-400) ng/mL Sodium (136-145) mmol/L Potassium (3.5-5.1) mmol/L Chloride (98-107) mmol/L Carbon Dioxide (21-32) mmol/L Anion Gap (7-13) mEq/L BUN (7-18) mg/dL Creatinine (0.55-1.02) mg/dL Est Cr Clr Drug Dosing mL/min Estimated GFR (MDRD) BUN/Creatinine Ratio (No establ ref range) Glucose (70-99) mg/dL POC Glucose 201 H 170 H (70-99) mg/dL Calcium (8.5-10.1) mg/dL Iron (50-170) ug/dL TIBC (250-450) ug/dL % Saturation (20.0-50.0) % Ferritin (8-252) mg/mL Total Bilirubin (0.2-1.0) mg/dL AST (15-37) U/L ALT (14-59) U/L Alkaline Phosphatase (46-116) U/L Troponin I High Sens < 4 (<=51) pg/mL C-Reactive Protein (0.0-0.9) mg/dL B-Natriuretic Peptide (0-100) pg/ml Total Protein (6.4-8.2) g/dL Albumin (3.4-5.0) g/dL Globulin Albumin/Globulin Ratio Vitamin B12 (193-986) pg/mL Folate (8.6-58.9) ng/mL TSH, Ultra Sensitive (0.36-3.74) uIU/mL 08/06/21 Range/Units 07:39 WBC (5.0-10.0) 10^3/uL RBC (4.2-5.4) 10^6/uL Hgb (12.0-16.0) g/dL Hct (37.0-47.0) % MCV (80-100) fL MCH (27.0-34.0) pg MCHC (33.0-35.0) g/dL Plt Count (150-450) 10^3/uL Neut % (Auto) (42.2-75.2) % Lymph % (Auto) (20.5-50.1) % [place] % (Auto) (2-8) % Eos % (Auto) (1.0-3.0) % Baso % (Auto) (0.0-1.0) % APTT (22.0-34.0) SEC D-Dimer, Quantitative (0-400) ng/mL Sodium (136-145) mmol/L Potassium (3.5-5.1) mmol/L Chloride (98-107) mmol/L Carbon Dioxide (21-32) mmol/L Anion Gap (7-13) mEq/L BUN (7-18) mg/dL Creatinine (0.55-1.02) mg/dL Est Cr Clr Drug Dosing mL/min Estimated GFR (MDRD) BUN/Creatinine Ratio (No establ ref range) Glucose (70-99) mg/dL POC Glucose 124 H (70-99) mg/dL Calcium (8.5-10.1) mg/dL Iron (50-170) ug/dL TIBC (250-450) ug/dL % Saturation (20.0-50.0) % Ferritin (8-252) mg/mL Total Bilirubin (0.2-1.0) mg/dL AST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
[2021-08-06] MEDS: Rivaroxaban 10 MG Tab PO SCH (17:21)
[2021-08-06] MEDS: Gabapentin 400 MG Cap PO SCH (21:00)
[2021-08-06] MEDS: Sulfamethoxazole/Trimethoprim 800-160 MG Tab PO SCH (21:00)
[2021-08-07] MEDS: Sulfamethoxazole/Trimethoprim 800-160 MG Tab PO SCH ×2 (08:50→21:00)
[2021-08-07] MEDS: Topiramate 25 MG Tab PO SCH ×2 (08:51→21:00)
[2021-08-07] MEDS: Sertraline 50 MG Tab PO SCH (08:52)
[2021-08-07] MEDS: Ferrous Sulfate 325 MG Tab PO SCH (08:53)
[2021-08-07] MEDS: Insulin Lispro 100 Units/ML 3 ML Vial SUBCUT SCH ×4 (08:53→21:03)
[2021-08-07] MEDS ORDERED: Gabapentin 300 MG Cap PO SCH ×2 (09:00→13:30)
[2021-08-07] MEDS: Insulin Glarg,Human.Rec.Analog 100 Unit/ML SUBCUT SCH (09:00)
[2021-08-07] MEDS: Ciprofloxacin 0.3% Ophth Soln 5 ML Bottle EARRT SCH ×3 (09:13→21:11)
--- NOTE | 2021-08-07 09:52 | PCM.PN ---
- General Info Date of Service: 08/07/21 Admission Dx/Problem (Free Text): Admission Diagnosis/Problem Admission Diagnosis/Problem cellulitis rt ear/aom/dka Subjective Update: 08/07/21* afebrile //vss// good night slept better // c/o anxiety spells and tach feeling and noted previously .self terminate after .6-15 minutes . coffea all day 3-4 cups/ nicotine , .5 ppd has underlying anxiety a nd adhd. ear feels better day one oral bactrum ds bid /ciprodex drops. pain control drug seeking continues little less and admits pain not as bad. bs 124-190 and eating well more controlled and snacking with fruit. dr barry diet coke 2-3 day. restless legs/neuropathy (numbness and irritative phantom like tingling and little bites) better on increased gabapentin. social situation discussed and willing to stay today:did not discuss vulnerable adult as family trying to get her to check out. she admits she is hopeful for first time in long time and willing to pursue prasanth or Dexcom and follow up even if out of town. discussed drug use and opioid dependance briefly // admits she does not want to go back and encouraged treatment but she is not willing. p.e. rt tm not seen well. still swollen in ear canal and copious mucoid dc. tragal tenderness better scm not tender neck swelling same but less tender with movement. lungs clear and equal //decreased cor:rrr with ectopic beats no murmur. abd : benign. skin no signs infiltration neuro more alert and interactive. mood : happier/ no obvious pain. ekg : sinus 86 / normal axis voltages low. normal pr,qrs and qt intervals.// no st changes .// no changes. assess:plan otitis externa better on cipro drops and Bactrim day 2 . aom chronic infection suspected not visualized sec to swelling and edema. Bactrim day 2.will need ent.f/u b.s controlled/ insulin tid plus once daily Lantus. education doing better. drug use:opioid seeking but slightly more accepting of not increasing dosage. pain control good. elevated d dimer recheck but on xaralto and recommend reeval in 3 months time but no prev p.e per hx. depression // anxiety : better . tachycardia:decrease caffeine and try to keep from smoking but not committed to quitting.patch offered. vulnerable adult: intervention starting a nd likely will check out ama. boh Functional Status: Reports: Pain Controlled - Review of Systems General: Reports: No Symptoms HEENT: Reports: No Symptoms, Ear Pain (neck pain and swelling better/less flucuant), Other Pulmonary: Reports: No Symptoms Cardiovascular: Reports: No Symptoms, Palpitations, Dyspnea on Exertion Gastrointestinal: Reports: No Symptoms Genitourinary: Reports: No Symptoms Musculoskeletal: Reports: No Symptoms Skin: Reports: No Symptoms Neurological: Reports: No Symptoms Psychiatric: Reports: No Symptoms - Patient Data Vitals - Most Recent: Last Vital Signs Temp 36.4 C 08/07/21 08:00 Pulse 88 08/07/21 08:00 Resp 20 08/07/21 08:00 BP 106/72 08/07/21 08:00 Pulse Ox 100 08/07/21 08:00 Weight - Most Recent: 58.513 kg I&O - Last 24 Hours: Intake & Output 08/06/21 08/07/21 08/07/21 22:59 06:59 14:59 Intake Total 810 200 Balance 810 200 Lab Results Last 24 Hours: Laboratory Results - last 24 hr 08/06/21 08/06/21 08/06/21 Range/Units 11:58 12:41 16:48 POC Glucose 151 H 147 H (70-99) mg/dL C-Reactive Protein 4.4 H (0.0-0.9) mg/dL 08/06/21 08/07/21 Range/Units 21:17 08:08 POC Glucose 188 H 157 H (70-99) mg/dL C-Reactive Protein (0.0-0.9) mg/dL Walker Results Last 24 Hours: Microbiology 08/02/21 13:33 Aerobic Blood Culture - Preliminary Blood - Arm, Right NO GROWTH AFTER 4 DAYS Anaerobic Blood Culture - Preliminary NO GROWTH AFTER 4 DAYS 08/02/21 13:21 Aerobic Blood Culture - Preliminary Blood - Arm, Left NO GROWTH AFTER 4 DAYS Anaerobic Blood Culture - Preliminary NO GROWTH AFTER 4 DAYS Med Orders - Current: Current Medications Acetaminophen (Acetaminophen 500 Mg Tab) 1,000 mg PO Q8H PRN PRN Reason: Pain (mild 1-3)/FEVER Last Admin: 08/06/21 07:49 Dose: 1,000 mg Documented by: Hydrocodone Bitart/Acetaminophen (Acetaminophen/Hydrocodone 325-5 Mg Tab) 1 tab PO Q6H PRN PRN Reason: Pain (moderate 4-6) Last Admin: 08/06/21 20:59 Dose: 1 tab Documented by: Ciprofloxacin (Ciprofloxacin 0.3% Ophth Soln 5 Ml Bottle) 0.25 ml EARRT TID [facility] Dextrose/Water (50% Dextrose In Water 50 Ml Syringe) 50 ml IVPUSH Q15M PRN PRN Reason: Hypoglycemia Ferrous Sulfate (Ferrous Sulfate 325 Mg Tab) 325 mg PO DAILY [facility] Last Admin: 08/07/21 08:53 Dose: 325 mg Documented by: Gabapentin (Gabapentin 300 Mg Cap) 300 mg PO DAILY [facility] Last Admin: 08/07/21 08:52 Dose: 300 mg Documented by: Gabapentin (Gabapentin 400 Mg Cap) 1,200 mg PO BEDTIME [facility] Last Admin: 08/06/21 21:00 Dose: 1,200 mg Documented by: Glucagon (Glucagon,Human Recombinant 1 Mg Vial) 1 mg IM Q15M PRN PRN Reason: Hypoglycemia Insulin Glargine (Insulin Glarg,Human.Rec.Analog 100 Unit/Ml) 28 unit SUBCUT DAILY [facility] Last Admin: 08/07/21 09:00 Dose: 28 units Documented by: Insulin Human Lispro (Insulin Lispro 100 Units/Ml 3 Ml Vial) 0 unit SUBCUT WITHMEALSANDBED [facility]; Protocol Last Admin: 08/07/21 08:53 Dose: 1 unit Documented by: Ondansetron HCl (Ondansetron 4 Mg Tab.Dis) 8 mg PO Q8H PRN PRN Reason: Nausea/Vomiting Last Admin: 08/05/21 11:53 Dose: 8 mg Documented by: Rivaroxaban (Rivaroxaban 10 Mg Tab) 10 mg PO WITHDINNER [facility] Last Admin: 08/06/21 17:21 Dose: 10 mg Documented by: Sertraline HCl (Sertraline 50 Mg Tab) 25 mg PO DAILY [facility] Last Admin: 08/07/21 08:52 Dose: 25 mg Documented by: Sodium Chloride (Sodium Chloride 0.9% 10 Ml Syringe) 10 ml FLUSH ASDIRECTED PRN PRN Reason: Keep Vein Open Topiramate (Topiramate 25 Mg Tab) 12.5 mg PO BID [facility] Last Admin: 08/07/21 08:51 Dose: 12.5 mg Documented by: Trimethoprim/Sulfamethoxazole (Sulfamethoxazole/Trimethoprim 800-160 Mg Tab) 1 tab PO BID [facility] Last Admin: 08/07/21 08:50 Dose: 1 tab Documented by: Discontinued Medications Hydrocodone Bitart/Acetaminophen (Acetaminophen/Hydrocodone 325-10 Mg Tab) 1 tab PO ONETIME ONE Stop: 08/02/21 13:12 Last Admin: 08/02/21 13:48 Dose: 1 tab Documented by: Ciprofloxacin (Ciprofloxacin 0.3% Ophth Soln 5 Ml Bottle) 5 ml EARRT ONETIME ONE Stop: 08/02/21 13:23 Last Admin: 08/02/21 13:47 Dose: 1 drop Documented by: Ciprofloxacin (Ciprofloxacin 0.3% Ophth Soln 5 Ml Bottle) 0.25 ml EARRT BID [facility] Last Admin: 08/07/21 09:13 Dose: 1 drop Documented by: Dextrose/Water (50% Dextrose In Water 50 Ml Syringe) 50 ml IVPUSH Q15M PRN PRN Reason: Hypoglycemia Dextrose/Water (50% Dextrose In Water 50 Ml Syringe) 50 ml IVPUSH ONETIME PRN PRN Reason: Hypoglycemia Last Admin: 08/02/21 17:12 Dose: 50 ml Documented by: Diphenhydramine HCl (Diphenhydramine 50 Mg/Ml Sdv) 25 mg IVPUSH ONETIME ONE Stop: 08/02/21 13:13 Last Admin: 08/02/21 13:47 Dose: 25 mg Documented by: Fentanyl (Fentanyl 100 Mcg/2 Ml Sdv) 25 mcg IVPUSH Q2HR PRN PRN Reason: Pain Last Admin: 08/03/21 10:53 Dose: 25 mcg Documented by: Gabapentin (Gabapentin 300 Mg Cap) 300 mg PO TID [facility] Last Admin: 08/06/21 13:31 Dose: 300 mg Documented by: Glucagon (Glucagon,Human Recombinant 1 Mg Vial) 1 mg IM Q15M PRN PRN Reason: Hypoglycemia Heparin Sodium (Porcine) (Heparin Sodium 5,000 Units/Ml Vial) 5,000 units SUBCUT Q8HR [facility] Last Admin: 08/06/21 13:30 Dose: 5,000 units Documented by: Vancomycin HCl 1 gm/ Sodium (Chloride) 250 mls @ 167 mls/hr IV ONETIME ONE Stop: 08/02/21 14:40 Last Admin: 08/02/21 13:46 Dose: 167 mls/hr Documented by: Insulin Regular in 0.9 % NACL (Myxredlin In Ns 100 Unit/100 Ml) 100 unit in 100 mls @ 7.974 mls/hr IV TITRATE DYLON; Protocol Last Admin: 08/02/21 15:13 Dose: 0.1 units/kg/hr, 7.974 mls/hr Documented by: Sodium Chloride (Normal Saline) 1,000 mls @ 150 mls/hr IV ASDIRECTED DYLON Last Admin: 08/02/21 16:11 Dose: 150 mls/hr Documented by: Insulin Regular in 0.9 % NACL (Myxredlin In Ns 100 Unit/100 Ml) 100 unit in 100 mls @ 7.974 mls/hr IV TITRATE DYLON; Protocol Potassium Chloride 20 meq/ (Premix) 100 mls @ 50 mls/hr IV ONETIME ONE Stop: 08/02/21 17:46 Last Admin: 08/02/21 16:32 Dose: 50 mls/hr Documented by: Vancomycin HCl 1 gm/ Sodium (Chloride) 250 mls @ 167 mls/hr IV Q24H [facility] Last Admin: 08/05/21 13:32 Dose: 167 mls/hr Documented by: Insulin Regular in 0.9 % NACL (Myxredlin In Ns 100 Unit/100 Ml) 100 unit in 100 mls @ 5.851 mls/hr IV TITRATE DYLON; Protocol Dextrose/Sodium Chloride (Dextrose 5%-1/2 Ns) 1,000 mls @ 150 mls/hr IV ASDIRECTED [facility] Potassium Chloride/Dextrose/Sod Cl (D5 Ns With 20 Meq Kcl) 1,000 mls @ 150 mls/hr IV .Q6H40M [facility] Last Admin: 08/02/21 21:53 Dose: Not Given Documented by: Potassium Chloride 20 meq/ (Premix) 100 mls @ 50 mls/hr IV ONETIME ONE Stop: 08/02/21 20:29 Last Admin: 08/02/21 18:46 Dose: 50 mls/hr Documented by: Dextrose/Sodium Chloride (Dextrose 5%-Normal Saline) 1,000 mls @ 150 mls/hr IV .Q6H40M [facility]ON Last Admin: 08/03/21 09:46 Dose: Not Given Documented by: Cefepime HCl 2 gm/ Sodium (Chloride) 50 mls @ 100 mls/hr IV Q12HR [facility] Cefepime HCl 2 gm/ Sodium (Chloride) 50 mls @ 100 mls/hr IV ONETIME ONE Stop: 08/02/21 21:29 Last Admin: 08/02/21 20:26 Dose: 100 mls/hr Documented by: Cefepime HCl 1 gm/ Sodium (Chloride) 50 mls @ 100 mls/hr IV DAILY@2100 [facility] Last Admin: 08/05/21 20:55 Dose: 100 mls/hr Documented by: Insulin Regular in 0.9 % NACL (Myxredlin In Ns 100 Unit/100 Ml) 100 unit in 100 mls @ 0.585 mls/hr IV TITRATE [facility]; Protocol Last Titration: 08/04/21 07:38 Dose: 0.01 units/kg/hr, 0.585 mls/hr Documented by: Potassium Chloride 20 meq/ (Premix) 100 mls @ 50 mls/hr IV ONETIME ONE Stop: 08/03/21 07:23 Last Admin: 08/03/21 05:50 Dose: 50 mls/hr Documented by: Dextrose/Sodium Chloride (Dextrose 5%-1/2 Ns) 1,000 mls @ 50 mls/hr IV ASDIRECTED [facility] Last Admin: 08/04/21 21:36 Dose: 150 mls/hr Documented by: Sodium Chloride (Normal Saline) 500 mls @ 500 mls/hr IV ONETIME ONE Stop: 08/05/21 01:57 Last Admin: 08/05/21 01:10 Dose: 500 mls/hr Documented by: Insulin Glargine (Insulin Glarg,Human.Rec.Analog 100 Unit/Ml) 20 unit SUBCUT DAILY [facility] Last Admin: 08/05/21 09:14 Dose: 20 units Documented by: Insulin Human Regular (Insulin Regular, Human 100 Units/Ml 3 Ml Vial) 10 unit SUBCUT ONETIME ONE Stop: 08/02/21 13:15 Last Admin: 08/02/21 13:46 Dose: 10 units Documented by: Metoclopramide HCl (Metoclopramide 10 Mg Tab) 10 mg PO ONETIME ONE Stop: 08/05/21 13:46 Last Admin: 08/05/21 14:03 Dose: 10 mg Documented by: Metoprolol Tartrate (Metoprolol Tartrate 25 Mg Tab) 25 mg PO ONETIME ONE Stop: 08/05/21 02:34 Last Admin: 08/05/21 02:50 Dose: 25 mg Documented by: Morphine Sulfate (Morphine 2 Mg/Ml Syringe) 2 mg IVPUSH Q4H PRN PRN Reason: Pain (severe 7-10) Last Admin: 08/05/21 05:19 Dose: 2 mg Documented by: Morphine Sulfate (Morphine 2 Mg/Ml Syringe) 1 mg IVPUSH Q4H PRN PRN Reason: Pain (severe 7-10) Last Admin: 08/06/21 02:11 Dose: 1 mg Documented by: Potassium Chloride (Potassium Chloride 10 Meq Tab.Er) 60 meq PO ONETIME ONE Stop: 08/02/21 14:07 Last Admin: 08/02/21 14:45 Dose: 60 meq Documented by: Potassium Chloride (Potassium Chloride 10 Meq Tab.Er) 40 meq PO ONETIME ONE Stop: 08/02/21 19:32 Last Admin: 08/02/21 18:46 Dose: 40 meq Documented by: Sodium Chloride (Sodium Chloride 0.9% 10 Ml Syringe) 10 ml FLUSH ASDIRECTED PRN PRN Reason: Keep Vein Open Last Admin: 08/02/21 13:48 Dose: 10 ml Documented by: Topiramate (Topiramate 25 Mg Tab) 12.5 mg PO BEDTIME [facility] Last Admin: 08/04/21 21:32 Dose: 12.5 mg Documented by: Trimethoprim/Sulfamethoxazole (Sulfamethoxazole/Trimethoprim 200-40 Mg/5 Ml Susp 20 Ml Cup) 40 ml PO BID [facility] Last Admin: 08/06/21 09:21 Dose: 40 ml Documented by: Vancomycin HCl (Pharmacy To Dose - Vancomycin) 1 dose .XX ASDIRECTED DYLON - Exam Quality Assessment: DVT Prophylaxis General: Alert, Oriented HEENT: Pupils Equal, Pupils Reactive, EOMI, Mucous Membr. Moist/[place] Neck: Supple, No Thyromegaly. No: Thyromegaly Lungs: Clear to Auscultation, Normal Respiratory Effort, Decreased Breath Sounds Cardiovascular: Regular Rate, Regular Rhythm GI/Abdominal Exam: Normal Bowel Sounds, Soft, Non-Tender, No Organomegaly, No Distention, No Abnormal Bruit, No Mass, Pelvis Stable (Female) Exam: Normal External Exam, Normal Speculum Exam, Normal Bimanual Exam Back Exam: Normal Inspection, Full Range of Motion Extremities: Normal Inspection, Normal Range of Motion, Non-Tender, No Pedal Edema, Normal Capillary Refill Peripheral Pulses: 1+: Carotid (L), Carotid (R) Skin: Warm, Dry, Intact Wound/Incisions: Healing Well Neurological: No New Focal Deficit Psy/Mental Status: Alert, Normal Affect, Normal Mood #1 Interpretation EKG Date: 08/07/21 Rhythm: NSR [place]: Normal P-Wave: Present QRS: Normal ST-T: Normal QT: Normal Comparison: No Change EKG Interpretation Comments: no conduction or other changes. - Patient Data Lab Results Last 24 hrs: Laboratory Results - last 24 hr 08/06/21 08/06/21 08/06/21 Range/Units 11:58 12:41 16:48 POC Glucose 151 H 147 H (70-99) mg/dL C-Reactive Protein 4.4 H (0.0-0.9) mg/dL 08/06/21 08/07/21 Range/Units 21:17 08:08 POC Glucose 188 H 157 H (70-99) mg/dL C-Reactive Protein (0.0-0.9) mg/dL Result Diagrams: 08/05/21 11:30 08/05/21 11:30 Walker Results Last 24 hrs: Microbiology 08/02/21 13:33 Aerobic Blood Culture - Preliminary Blood - Arm, Right NO GROWTH AFTER 4 DAYS Anaerobic Blood Culture - Preliminary NO GROWTH AFTER 4 DAYS 08/02/21 13:21 Aerobic Blood Culture - Preliminary Blood - Arm, Left NO GROWTH AFTER 4 DAYS Anaerobic Blood Culture - Preliminary NO GROWTH AFTER 4 DAYS Sepsis Event Note - Evaluation Sepsis Screening Result: No Definite Risk - Focused Exam Vital Signs: Vital Signs Temp Pulse Resp BP Pulse Ox 08/07/21 08:00 36.4 C 88 20 106/72 100 - Problem List & Annotations (1) DKA, type 1 SNOMED Code(s): 71792666, 47390972 Code(s): E10.10 - TYPE 1 DIABETES MELLITUS WITH KETOACIDOSIS WITHOUT COMA Status: Acute Priority: Medium Current Visit: Yes Onset Date: ~08/03/21 Qualifiers: Diabetes mellitus complication detail: without coma Qualified Code(s): E10.10 - Type 1 diabetes mellitus with ketoacidosis without coma Annotation/Comment:: improved i/os with good urine output yest. euvolemic . ajusting isnulin to keep b.s 100-200. discussed monitor, not available at this point andnot sure feasable (2) Otitis externa in other diseases classified elsewhere, right ear SNOMED Code(s): 5145893 Code(s): H62.41 - OTITIS EXTERNA IN OTH DISEASES CLASSD ELSWHR, RIGHT EAR Status: Acute Priority: Medium Current Visit: Yes Onset Date: ~08/03/21 Annotation/Comment:: ear started draining 3-4 weeks ago// better today and sens staph shelefeiri ses. to all antibiotics but pcn . switched to po tmp/sfx and monitor off i.v. antibiotics vanco/cefapime good clinical response wbc / sed rate in am if able to draw. (3) Cellulitis SNOMED Code(s): 239758787 Code(s): L03.90 - CELLULITIS, UNSPECIFIED Status: Acute Priority: Medium Current Visit: Yes Onset Date: ~08/03/21 Qualifiers: Site of cellulitis: head Qualified Code(s): L03.811 - Cellulitis of head [any part, except face] Annotation/Comment:: no def. abscess andor osteomylitis findings. i.v ant. and control b.s./// better (4) Drug abuse and dependence SNOMED Code(s): 0020823 Code(s): F19.20 - OTHER PSYCHOACTIVE SUBSTANCE DEPENDENCE, UNCOMPLICATED Status: Acute Priority: Medium Current Visit: Yes Onset Date: ~08/03/21 Annotation/Comment:: on cefapime and vancomycin for hx of mrsa// discussed with ent and cont . antibiotics and no surgical intervention needed. /// lost i.v access and switched to p.o antibiotics tmp/sfx and cipro drops. day 2 doing well so far. 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 b12 /folate and iron levels ordered.hgn 7.6 but chronic anemia suspected related to renal insuff/nutritional depletion of iron . gfr 40 iron level 50 tibc very low a nd sat 15% cannot do iron infusion for lack of access. oral iron ordered. oral iron started for lack of i.v. access. (8) Opioid abuse SNOMED Code(s): 5767508 Code(s): F11.10 - OPIOID ABUSE, UNCOMPLICATED Status: Acute Priority: High Current Visit: Yes Onset Date: ~08/05/21 Annotation/Comment:: drug seeking and pain assessments innaccurate form patient . started anxiety and depression treatment. tolerating decreasing dose morphine and switching to p.o opiod today . drug seeking behavior continues. sleeping well . threatening to leave but feels better pain control good. (9) Cellulitis of auricle of right ear SNOMED Code(s): 767714401 Code(s): H60.11 - CELLULITIS OF RIGHT EXTERNAL EAR Status: Acute Priority: Medium Current Visit: No Onset Date: ~08/02/21 (10) Neuropathy SNOMED Code(s): 819219372 Code(s): G62.9 - POLYNEUROPATHY, UNSPECIFIED Status: Acute Current Visit: No (11) Tobacco dependence syndrome SNOMED Code(s): 77995072 Code(s): F17.200 - NICOTINE DEPENDENCE, UNSPECIFIED, UNCOMPLICATED Status: Chronic Priority: Medium Current Visit: No Onset Date: ~08/03/21 Annotation/Comment:: support and patch offerred. (12) Anxiety and depression SNOMED Code(s): 882232110 Code(s): F41.9 - ANXIETY DISORDER, UNSPECIFIED; F32.9 - MAJOR DEPRESSIVE DISORDER, SINGLE EPISODE, UNSPECIFIED Status: Acute Priority: Medium Cu rrent Visit: Yes Onset Date: ~08/02/21 Annotation/Comment:: started low dose sertraline and working through anxiety attacks .possible widthdrawal discussed and denies. - Problem List Review Problem List Initiated/Reviewed/Updated: Yes - My Orders Last 24 Hours: My Active Orders 08/06/21 09:00 Insulin Glarg,Human.Rec.Analog [LantUS] 28 unit SUBCUT DAILY 08/06/21 12:25 Anticoagulation Contraindications VTE [AST] Per Unit Routine 08/06/21 18:00 Rivaroxaban [Xarelto] 10 mg PO WITHDINNER 08/06/21 21:00 Gabapentin [Neurontin] 1,200 mg PO BEDTIME Sulfamethoxazole/Trimethoprim [Septra DS] 1 tab PO BID 08/07/21 09:00 Ferrous Sulfate 325 mg PO DAILY Gabapentin [Neurontin] 300 mg PO DAILY 08/07/21 09:25 EKG 12 Lead [EKG Documentation Completion] [RC] ROUTINE Telemetry Monitoring [Cardiac Monitoring] [RC] . DIRECTED 08/07/21 14:00 Ciprofloxacin [Ciloxan 0.3% Ophth Soln] 0.25 ml EARRT TID 08/08/21 12:27 CBC WITH AUTO DIFF [HEME] Routine CMP [COMPREHENSIVE METABOLIC PN,CMP] [CHEM] Routine D-DIMER QUANTITATIVE [COAG] Routine - Assessment Assessment:: 08/07/21* afebrile //vss// good night slept better // c/o anxiety spells and tach feeling and noted previously .self terminate after .6-15 minutes . coffea all day 3-4 cups/ nicotine , .5 ppd has underlying anxiety a nd adhd. ear feels better day one oral bactrum ds bid /ciprodex drops. pain control drug seeking continues little less and admits pain not as bad. bs 124-190 and eating well more controlled and snacking with fruit. drinking diet coke 2-3 day. restless legs/neuropathy (numbness and irritative phantom like tingling and little bites) better on increased gabapentin. social situation discussed and willing to stay today:did not discuss vulnerable adult as family trying to get her to check out. she admits she is hopeful for first time in long time and willing to pursue prasanth or Dexcom and follow up even if out of town. discussed drug use and opioid dependance briefly // admits she does not want to go back and encouraged treatment but she is not willing. p.e. rt tm not seen well. still swollen in ear canal and copious mucoid dc. tragal tenderness better scm not tender neck swelling same but less tender with movement. lungs clear and equal //decreased cor:rrr with ectopic beats no murmur. abd : benign. skin no signs infiltration neuro more alert and interactive. mood : happier/ no obvious pain. ekg : sinus 86 / normal axis voltages low. normal pr,qrs and qt intervals.// no st changes .// no changes. assess:plan otitis externa better on cipro drops and Bactrim day 2 . aom chronic infection suspected not visualized sec to swelling and edema. Bactrim day 2.will need ent.f/u b.s controlled/ insulin tid plus once daily Lantus. education doing better. drug use:opioid seeking but slightly more accepting of not increasing dosage. pain control good. elevated d dimer recheck but on xaralto and recommend reeval in 3 months time but no prev p.e per hx. depression // anxiety : better . tachycardia:decrease caffeine and try to keep from smoking but not committed to quitting.patch offered. vulnerable adult: intervention starting a nd likely will check out ama. boh - Plan Plan:: Patient is a 30-year-old female with a history of uncontrolled type 1 diabetes mellitus with noncompliance of insulin therapy, multiple complications including multiple amputations, osteomyelitis secondary to poor diabetic control who presented with 1 week history of right ear pain was found to have purulent discharge in her right ear along with DKA based on laboratory results. Otitis externa/otitis media/question mastoiditis -Patient clearly has purulent drainage from her right ear, has pain upon palpation of the mastoid process. Given her poor diabetic control on exam I am concerned that patient has a significant expanding infection -CT scanning of temporal bone showed significant soft tissue swelling, no significant abscess formation, no evidence of osteomyelitis on CT scan, overall concerning for severe otitis externa -Continue treatment with IV vancomycin given patient's MRSA history, ciprofloxacin already drops, added cefepime for pseudomonal coverage given patient's uncontrolled type 1 diabetes -Blood cultures pending, cultures from right ear positive for Staph aureus -Pending patient's progress may require consultation with ENT physician and/or repeat CT imaging, duration of antibiotic therapy yet to be determined DKA -Phase 2 protocol now continue with frequent electrolyte monitoring until anion gap closes -Significant fluid resuscitation, close monitoring of potassium supplementation Acute on chronic CKD -Overall kidney function appears stable with a creatinine of 2.05 similar to several months ago, likely secondary to patient's uncontrolled diabetes -Avoid nephrotoxic medications, significant fluid resuscitation Hypertensioncontinue amlodipine Anemiachronic likely secondary anemia chronic disease, no evidence of blood loss acutely, continue to monitor [id number] mL an hour D5NS Electrolytesevery 4 hours, hypokalemia resolved Dietn.p.o. until anion gap closes DVT prophylaxis- Heparin 08/04/21 see progress note/assessment labelled 08/05/21 first note(wrong header date). boh Subjective Update: Patient states that her ear pain is still significant but is slightly improved from the previous day. She also states that her right neck pain is slightly improved. She states that she had some nausea last night but denies any nausea this a.m. She denies any fevers or chills. Patient denies any shortness of breath, abdominal pain. Patient several questions about her infection which were answered. 08/04/21 patient still febrile resolved with tylenol. c/o neck pain and tender ear . slept well per staff but not per her report. pain control very adequate but patient emotional and distressed about ear /pain/ hurts to move jaw. discussed her stopping insulin and if she would monitor with prasanth or other glucose monitor / lost meter and depends on since she is legally blind now x 6 months. cause of vision loss apparent retinopathy and vitreus bleed . not seeing eye md and discussed complications of diabetes, staff feels she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
[2021-08-07] MEDS: Rivaroxaban 10 MG Tab PO SCH (17:28)
[2021-08-07] MEDS: Acetaminophen/HYDROcodone 325-5 MG Tab PO PRN (17:39)
[2021-08-07] MEDS: Gabapentin 400 MG Cap PO SCH (21:01)
[2021-08-08] MEDS: Acetaminophen/HYDROcodone 325-5 MG Tab PO PRN ×3 (05:38→19:56)
[2021-08-08 07:25] LABS: ANION GAP 15.1 mEq/L (7-13)
[2021-08-08] MEDS: Insulin Glarg,Human.Rec.Analog 100 Unit/ML SUBCUT SCH (09:12)
[2021-08-08] MEDS: Insulin Lispro 100 Units/ML 3 ML Vial SUBCUT SCH ×4 (09:12→21:49)
[2021-08-08] MEDS: Ciprofloxacin 0.3% Ophth Soln 5 ML Bottle EARRT SCH ×3 (09:13→21:44)
[2021-08-08] MEDS: Sertraline 50 MG Tab PO SCH (09:14)
[2021-08-08] MEDS: Sulfamethoxazole/Trimethoprim 800-160 MG Tab PO SCH ×2 (09:14→21:40)
[2021-08-08] MEDS: Gabapentin 300 MG Cap PO SCH ×2 (09:14→15:18)
[2021-08-08] MEDS: Topiramate 25 MG Tab PO SCH ×2 (09:14→21:41)
[2021-08-08] MEDS: Ferrous Sulfate 325 MG Tab PO SCH (09:14)
--- NOTE | 2021-08-08 10:43 | PCM.PN ---
- General Info Date of Service: 08/08/21 Admission Dx/Problem (Free Text): Admission Diagnosis/Problem Admission Diagnosis/Problem cellulitis rt ear/aom/dka Subjective Update: 08/08/21 afebrile// vss no tach or danika episodes. slept well , eating well , fbs this am 82 ! pain decreased form 6 to 4-5 most times. but still drug seeking but less so. anxiety and home life discussed and patient may be open to treatment /support group therapy. discussed husbands etoh addiction a concern,but she feels he willl help her stay away form drugs. she knows she still seeks and discussed her losses and frustration with everything she has lost. very spiritual and asking fo help from God and feels more settled day by day . nicotine addiction discussed and a very bad idea for her and she is already a week away form smoking she should acccept patch and chew gum if needed and she is more open to quitting. infection slowly getting beeter but some flaking and desquamation of postauricular area and still swollen and tender. rt scm less tender moves neck without pain now. p.e. ear less swollen and less redness but still red posterior with pain on touch. lungs clear cor rrr without murmur s3/s4 abd benign liver down but no ascites and no tenderness. neuro clear and cohesive.. mood tearful at times but stable . lab wbc normal9.2 hgn 8.4 plat 650 k lytes k low 3.1 alb 1.2 (critical)// t.p 6.1 lfts normal. assess: 1// rt ear auricular cellulitis and otitis externa/otits media improving and cont current cipro drops and tmp/sfx. posterior auricular area aof concern and expect to need 2-4 weeks of antibiotics will be needed. warm //cold pack therapy helping . pain control good. 2// dm//dka stable cont current lantis and ss novolog 3 x day add oral agents to decrease NovoLog requirements // simplify regimen until monitor issues resolved. 2A// renal function stable creat 1.59 and check micral/ 24 hour urine protein . add other elements to lower chol and proteinuria. 3// tachy danika stable dc monitors. 4// addiction drug seeking better. needs op support group and maybe o.p drug counselling . 5// depression/anxiety better with support drug seeking behavior lessening . 6//hypokalemia correcting and increase liz/arb. 7// dc planning for possible dc to swing bed// ent f/u as o.p /endocrine f/u as o.p . . boh Functional Status: Reports: Pain Controlled, Tolerating Diet - Review of Systems General: Reports: No Symptoms HEENT: Reports: No Symptoms Pulmonary: Reports: No Symptoms Cardiovascular: Reports: No Symptoms Gastrointestinal: Reports: No Symptoms Genitourinary: Reports: No Symptoms Musculoskeletal: Reports: No Symptoms Skin: Reports: No Symptoms Neurological: Reports: No Symptoms Psychiatric: Reports: No Symptoms - Patient Data Vitals - Most Recent: Last Vital Signs Temp 36.4 C 08/08/21 08:00 Pulse 92 08/08/21 08:00 Resp 18 08/08/21 08:00 BP 117/86 08/08/21 08:00 Pulse Ox 100 08/08/21 08:00 Weight - Most Recent: 58.513 kg I&O - Last 24 Hours: Intake & Output 08/07/21 08/08/21 08/08/21 22:59 06:59 14:59 Intake Total 355 240 120 Balance 355 240 120 Lab Results Last 24 Hours: Laboratory Results - last 24 hr 08/07/21 08/07/21 08/07/21 Range/Units 11:27 16:47 20:49 WBC (5.0-10.0) 10^3/uL RBC (4.2-5.4) 10^6/uL Hgb (12.0-16.0) g/dL Hct (37.0-47.0) % MCV (80-100) fL MCH (27.0-34.0) pg MCHC (33.0-35.0) g/dL Plt Count (150-450) 10^3/uL Neut % (Auto) (42.2-75.2) % Lymph % (Auto) (20.5-50.1) % [place] % (Auto) (2-8) % Eos % (Auto) (1.0-3.0) % Baso % (Auto) (0.0-1.0) % Add Manual Diff Neutrophils % (Manual) (42-75) % Lymphocytes % (Manual) (20-50) % Atypical Lymphs % % Monocytes % (Manual) (2-8) % Eosinophils % (Manual) (1-3) % Hypochromasia Target Cells D-Dimer, Quantitative (0-400) ng/mL Sodium (136-145) mmol/L Potassium (3.5-5.1) mmol/L Chloride (98-107) mmol/L Carbon Dioxide (21-32) mmol/L Anion Gap (7-13) mEq/L BUN (7-18) mg/dL Creatinine (0.55-1.02) mg/dL Est Cr Clr Drug Dosing mL/min Estimated GFR (MDRD) BUN/Creatinine Ratio (No establ ref range) Glucose (70-99) mg/dL POC Glucose 125 H 131 H 154 H (70-99) mg/dL Calcium (8.5-10.1) mg/dL Total Bilirubin (0.2-1.0) mg/dL AST (15-37) U/L ALT (14-59) U/L Alkaline Phosphatase (46-116) U/L Total Protein (6.4-8.2) g/dL Albumin (3.4-5.0) g/dL Globulin Albumin/Globulin Ratio 08/08/21 08/08/21 08/08/21 Range/Units 06:15 06:15 06:15 WBC 9.5 (5.0-10.0) 10^3/uL RBC 3.33 L (4.2-5.4) 10^6/uL Hgb 8.4 L (12.0-16.0) g/dL Hct 26.6 L (37.0-47.0) % MCV 79.9 L (80-100) fL MCH 25.2 L (27.0-34.0) pg MCHC 31.6 L (33.0-35.0) g/dL Plt Count 649 H D (150-450) 10^3/uL Neut % (Auto) 63.9 (42.2-75.2) % Lymph % (Auto) 25.4 (20.5-50.1) % [place] % (Auto) 6.5 (2-8) % Eos % (Auto) 4.0 H (1.0-3.0) % Baso % (Auto) 0.2 (0.0-1.0) % Add Manual Diff Yes Neutrophils % (Manual) 65 (42-75) % Lymphocytes % (Manual) 27 (20-50) % Atypical Lymphs % 1 % Monocytes % (Manual) 4 (2-8) % Eosinophils % (Manual) 3 (1-3) % Hypochromasia Few Target Cells Few D-Dimer, Quantitative 2140 H (0-400) ng/mL Sodium 139 (136-145) mmol/L Potassium 3.1 L (3.5-5.1) mmol/L Chloride 109 H (98-107) mmol/L Carbon Dioxide 18 L (21-32) mmol/L Anion Gap 15.1 H (7-13) mEq/L BUN 11 (7-18) mg/dL Creatinine 1.84 H (0.55-1.02) mg/dL Est Cr Clr Drug Dosing 31.53 mL/min Estimated GFR (MDRD) 32 BUN/Creatinine Ratio 6.0 (No establ ref range) Glucose 77 (70-99) mg/dL POC Glucose (70-99) mg/dL Calcium 7.7 L (8.5-10.1) mg/dL Total Bilirubin 0.1 L (0.2-1.0) mg/dL AST 13 L (15-37) U/L ALT 16 (14-59) U/L Alkaline Phosphatase 147 H (46-116) U/L Total Protein 6.9 (6.4-8.2) g/dL Albumin 1.4 L (3.4-5.0) g/dL Globulin 5.5 Albumin/Globulin Ratio 0.25 /12/ Range/Units 07:19 WBC (5.0-10.0) 10^3/uL RBC (4.2-5.4) 10^6/uL Hgb (12.0-16.0) g/dL Hct (37.0-47.0) % MCV (80-100) fL MCH (27.0-34.0) pg MCHC (33.0-35.0) g/dL Plt Count (150-450) 10^3/uL Neut % (Auto) (42.2-75.2) % Lymph % (Auto) (20.5-50.1) % [place] % (Auto) (2-8) % Eos % (Auto) (1.0-3.0) % Baso % (Auto) (0.0-1.0) % Add Manual Diff Neutrophils % (Manual) (42-75) % Lymphocytes % (Manual) (20-50) % Atypical Lymphs % % Monocytes % (Manual) (2-8) % Eosinophils % (Manual) (1-3) % Hypochromasia Target Cells D-Dimer, Quantitative (0-400) ng/mL Sodium (136-145) mmol/L Potassium (3.5-5.1) mmol/L Chloride (98-107) mmol/L Carbon Dioxide (21-32) mmol/L Anion Gap (7-13) mEq/L BUN (7-18) mg/dL Creatinine (0.55-1.02) mg/dL Est Cr Clr Drug Dosing mL/min Estimated GFR (MDRD) BUN/Creatinine Ratio (No establ ref range) Glucose (70-99) mg/dL POC Glucose 84 (70-99) mg/dL Calcium (8.5-10.1) mg/dL Total Bilirubin (0.2-1.0) mg/dL AST (15-37) U/L ALT (14-59) U/L Alkaline Phosphatase (46-116) U/L Total Protein (6.4-8.2) g/dL Albumin (3.4-5.0) g/dL Globulin Albumin/Globulin Ratio Walker Results Last 24 Hours: Microbiology 08/02/21 13:33 Aerobic Blood Culture - Final Blood - Arm, Right NO GROWTH AFTER 5 DAYS Anaerobic Blood Culture - Final NO GROWTH AFTER 5 DAYS 08/02/21 13:21 Aerobic Blood Culture - Final Blood - Arm, Left NO GROWTH AFTER 5 DAYS Anaerobic Blood Culture - Final NO GROWTH AFTER 5 DAYS Med Orders - Current: Current Medications Acetaminophen (Acetaminophen 500 Mg Tab) 1,000 mg PO Q8H PRN PRN Reason: Pain (mild 1-3)/FEVER Last Admin: 08/06/21 07:49 Dose: 1,000 mg Documented by: Hydrocodone Bitart/Acetaminophen (Acetaminophen/Hydrocodone 325-5 Mg Tab) 1 tab PO Q6H PRN PRN Reason: Pain (moderate 4-6) Last Admin: 08/08/21 05:38 Dose: 1 tab Documented by: Ciprofloxacin (Ciprofloxacin 0.3% Ophth Soln 5 Ml Bottle) 0.25 ml EARRT TID [facility] Last Admin: 08/08/21 09:13 Dose: 1 drop Documented by: Dextrose/Water (50% Dextrose In Water 50 Ml Syringe) 50 ml IVPUSH Q15M PRN PRN Reason: Hypoglycemia Ferrous Sulfate (Ferrous Sulfate 325 Mg Tab) 325 mg PO DAILY [facility] Last Admin: 08/08/21 09:14 Dose: 325 mg Documented by: Gabapentin (Gabapentin 400 Mg Cap) 1,200 mg PO BEDTIME [facility] Last Admin: 08/07/21 21:01 Dose: 1,200 mg Documented by: Gabapentin (Gabapentin 300 Mg Cap) 300 mg PO BID@0900,1500 [facility] Last Admin: 08/08/21 09:14 Dose: 300 mg Documented by: Glucagon (Glucagon,Human Recombinant 1 Mg Vial) 1 mg IM Q15M PRN PRN Reason: Hypoglycemia Insulin Glargine (Insulin Glarg,Human.Rec.Analog 100 Unit/Ml) 28 unit SUBCUT DAILY [facility] Last Admin: 08/08/21 09:12 Dose: 28 units Documented by: Insulin Human Lispro (Insulin Lispro 100 Units/Ml 3 Ml Vial) 0 unit SUBCUT WITHMEALSANDBED [facility]; Protocol Last Admin: 08/08/21 09:12 Dose: Not Given Documented by: Ondansetron HCl (Ondansetron 4 Mg Tab.Dis) 8 mg PO Q8H PRN PRN Reason: Nausea/Vomiting Last Admin: 08/05/21 11:53 Dose: 8 mg Documented by: Rivaroxaban (Rivaroxaban 10 Mg Tab) 10 mg PO WITHDINNER [facility] Last Admin: 08/07/21 17:28 Dose: 10 mg Documented by: Sertraline HCl (Sertraline 50 Mg Tab) 50 mg PO DAILY [facility] Last Admin: 08/08/21 09:14 Dose: 50 mg Documented by: Sodium Chloride (Sodium Chloride 0.9% 10 Ml Syringe) 10 ml FLUSH ASDIRECTED PRN PRN Reason: Keep Vein Open Topiramate (Topiramate 25 Mg Tab) 12.5 mg PO BID [facility] Last Admin: 08/08/21 09:14 Dose: 12.5 mg Documented by: Trimethoprim/Sulfamethoxazole (Sulfamethoxazole/Trimethoprim 800-160 Mg Tab) 1 tab PO BID [facility] Last Admin: 08/08/21 09:14 Dose: 1 tab Documented by: Discontinued Medications Hydrocodone Bitart/Acetaminophen (Acetaminophen/Hydrocodone 325-10 Mg Tab) 1 tab PO ONETIME ONE Stop: 08/02/21 13:12 Last Admin: 08/02/21 13:48 Dose: 1 tab Documented by: Ciprofloxacin (Ciprofloxacin 0.3% Ophth Soln 5 Ml Bottle) 5 ml EARRT ONETIME ONE Stop: 08/02/21 13:23 Last Admin: 08/02/21 13:47 Dose: 1 drop Documented by: Ciprofloxacin (Ciprofloxacin 0.3% Ophth Soln 5 Ml Bottle) 0.25 ml EARRT BID [facility] Last Admin: 08/07/21 09:13 Dose: 1 drop Documented by: Dextrose/Water (50% Dextrose In Water 50 Ml Syringe) 50 ml IVPUSH Q15M PRN PRN Reason: Hypoglycemia Dextrose/Water (50% Dextrose In Water 50 Ml Syringe) 50 ml IVPUSH ONETIME PRN PRN Reason: Hypoglycemia Last Admin: 08/02/21 17:12 Dose: 50 ml Documented by: Diphenhydramine HCl (Diphenhydramine 50 Mg/Ml Sdv) 25 mg IVPUSH ONETIME ONE Stop: 08/02/21 13:13 Last Admin: 08/02/21 13:47 Dose: 25 mg Documented by: Fentanyl (Fentanyl 100 Mcg/2 Ml Sdv) 25 mcg IVPUSH Q2HR PRN PRN Reason: Pain Last Admin: 08/03/21 10:53 Dose: 25 mcg Documented by: Gabapentin (Gabapentin 300 Mg Cap) 300 mg PO TID [facility] Last Admin: 08/06/21 13:31 Dose: 300 mg Documented by: Gabapentin (Gabapentin 300 Mg Cap) 300 mg PO DAILY [facility] Last Admin: 08/07/21 08:52 Dose: 300 mg Documented by: Gabapentin (Gabapentin 300 Mg Cap) 300 mg PO BID [facility] Last Admin: 08/07/21 13:29 Dose: 300 mg Documented by: Glucagon (Glucagon,Human Recombinant 1 Mg Vial) 1 mg IM Q15M PRN PRN Reason: Hypoglycemia Heparin Sodium (Porcine) (Heparin Sodium 5,000 Units/Ml Vial) 5,000 units SUBCUT Q8HR [facility] Last Admin: 08/06/21 13:30 Dose: 5,000 units Documented by: Vancomycin HCl 1 gm/ Sodium (Chloride) 250 mls @ 167 mls/hr IV ONETIME ONE Stop: 08/02/21 14:40 Last Admin: 08/02/21 13:46 Dose: 167 mls/hr Documented by: Insulin Regular in 0.9 % NACL (Myxredlin In Ns 100 Unit/100 Ml) 100 unit in 100 mls @ 7.974 mls/hr IV TITRATE [facility]; Protocol Last Admin: 08/02/21 15:13 Dose: 0.1 units/kg/hr, 7.974 mls/hr Documented by: Sodium Chloride (Normal Saline) 1,000 mls @ 150 mls/hr IV ASDIRECTED [facility] Last Admin: 08/02/21 16:11 Dose: 150 mls/hr Documented by: Insulin Regular in 0.9 % NACL (Myxredlin In Ns 100 Unit/100 Ml) 100 unit in 100 mls @ 7.974 mls/hr IV TITRATE [facility]; Protocol Potassium Chloride 20 meq/ (Premix) 100 mls @ 50 mls/hr IV ONETIME ONE Stop: 08/02/21 17:46 Last Admin: 08/02/21 16:32 Dose: 50 mls/hr Documented by: Vancomycin HCl 1 gm/ Sodium (Chloride) 250 mls @ 167 mls/hr IV Q24H [facility] Last Admin: 08/05/21 13:32 Dose: 167 mls/hr Documented by: Insulin Regular in 0.9 % NACL (Myxredlin In Ns 100 Unit/100 Ml) 100 unit in 100 mls @ 5.851 mls/hr IV TITRATE [facility]; Protocol Dextrose/Sodium Chloride (Dextrose 5%-1/2 Ns) 1,000 mls @ 150 mls/hr IV ASDIRECTED [facility] Potassium Chloride/Dextrose/Sod Cl (D5 Ns With 20 Meq Kcl) 1,000 mls @ 150 mls/hr IV .Q6H40M [facility] Last Admin: 08/02/21 21:53 Dose: Not Given Documented by: Potassium Chloride 20 meq/ (Premix) 100 mls @ 50 mls/hr IV ONETIME ONE Stop: 08/02/21 20:29 Last Admin: 08/02/21 18:46 Dose: 50 mls/hr Documented by: Dextrose/Sodium Chloride (Dextrose 5%-Normal Saline) 1,000 mls @ 150 mls/hr IV .Q6H40M [facility] Last Admin: 08/03/21 09:46 Dose: Not Given Documented by: Cefepime HCl 2 gm/ Sodium (Chloride) 50 mls @ 100 mls/hr IV Q12HR [facility] Cefepime HCl 2 gm/ Sodium (Chloride) 50 mls @ 100 mls/hr IV ONETIME ONE Stop: 08/02/21 21:29 Last Admin: 08/02/21 20:26 Dose: 100 mls/hr Documented by: Cefepime HCl 1 gm/ Sodium (Chloride) 50 mls @ 100 mls/hr IV DAILY@2100 [facility] Last Admin: 08/05/21 20:55 Dose: 100 mls/hr Documented by: Insulin Regular in 0.9 % NACL (Myxredlin In Ns 100 Unit/100 Ml) 100 unit in 100 mls @ 0.585 mls/hr IV TITRATE [facility]; Protocol Last Titration: 08/04/21 07:38 Dose: 0.01 units/kg/hr, 0.585 mls/hr Documented by: Potassium Chloride 20 meq/ (Premix) 100 mls @ 50 mls/hr IV ONETIME ONE Stop: 08/03/21 07:23 Last Admin: 08/03/21 05:50 Dose: 50 mls/hr Documented by: Dextrose/Sodium Chloride (Dextrose 5%-1/2 Ns) 1,000 mls @ 50 mls/hr IV ASDIRECTED [facility] Last Admin: 08/04/21 21:36 Dose: 150 mls/hr Documented by: Sodium Chloride (Normal Saline) 500 mls @ 500 mls/hr IV ONETIME ONE Stop: 08/05/21 01:57 Last Admin: 08/05/21 01:10 Dose: 500 mls/hr Documented by: Insulin Glargine (Insulin Glarg,Human.Rec.Analog 100 Unit/Ml) 20 unit SUBCUT DAILY [facility] Last Admin: 08/05/21 09:14 Dose: 20 units Documented by: Insulin Human Regular (Insulin Regular, Human 100 Units/Ml 3 Ml Vial) 10 unit SUBCUT ONETIME ONE Stop: 08/02/21 13:15 Last Admin: 08/02/21 13:46 Dose: 10 units Documented by: Metoclopramide HCl (Metoclopramide 10 Mg Tab) 10 mg PO ONETIME ONE Stop: 08/05/21 13:46 Last Admin: 08/05/21 14:03 Dose: 10 mg Documented by: Metoprolol Tartrate (Metoprolol Tartrate 25 Mg Tab) 25 mg PO ONETIME ONE Stop: 08/05/21 02:34 Last Admin: 08/05/21 02:50 Dose: 25 mg Documented by: Morphine Sulfate (Morphine 2 Mg/Ml Syringe) 2 mg IVPUSH Q4H PRN PRN Reason: Pain (severe 7-10) Last Admin: 08/05/21 05:19 Dose: 2 mg Documented by: Morphine Sulfate (Morphine 2 Mg/Ml Syringe) 1 mg IVPUSH Q4H PRN PRN Reason: Pain (severe 7-10) Last Admin: 08/06/21 02:11 Dose: 1 mg Documented by: Potassium Chloride (Potassium Chloride 10 Meq Tab.Er) 60 meq PO ONETIME ONE Stop: 08/02/21 14:07 Last Admin: 08/02/21 14:45 Dose: 60 meq Documented by: Potassium Chloride (Potassium Chloride 10 Meq Tab.Er) 40 meq PO ONETIME ONE Stop: 08/02/21 19:32 Last Admin: 08/02/21 18:46 Dose: 40 meq Documented by: Sertraline HCl (Sertraline 50 Mg Tab) 25 mg PO DAILY [facility] Last Admin: 08/07/21 08:52 Dose: 25 mg Documented by: Sodium Chloride (Sodium Chloride 0.9% 10 Ml Syringe) 10 ml FLUSH ASDIRECTED PRN PRN Reason: Keep Vein Open Last Admin: 08/02/21 13:48 Dose: 10 ml Documented by: Topiramate (Topiramate 25 Mg Tab) 12.5 mg PO BEDTIME [facility] Last Admin: 08/04/21 21:32 Dose: 12.5 mg Documented by: Trimethoprim/Sulfamethoxazole (Sulfamethoxazole/Trimethoprim 200-40 Mg/5 Ml Susp 20 Ml Cup) 40 ml PO BID [facility] Last Admin: 08/06/21 09:21 Dose: 40 ml Documented by: Vancomycin HCl (Pharmacy To Dose - Vancomycin) 1 dose .XX ASDIRECTED [facility] - Exam General: Alert, Oriented HEENT: Pupils Equal, Pupils Reactive, EOMI, Mucous Membr. Moist/[place] Neck: Supple, Lymphadenopathy, Other (post. auricular swelling and flucuance mild redness ? improved ) Lungs: Clear to Auscultation, Normal Respiratory Effort Cardiovascular: Regular Rate, Regular Rhythm GI/Abdominal Exam: Normal Bowel Sounds, Soft, Non-Tender, No Organomegaly, No Distention, No Abnormal Bruit, No Mass, Pelvis Stable (Female) Exam: Normal External Exam, Normal Speculum Exam, Normal Bimanual Exam Back Exam: Normal Inspection, Full Range of Motion Extremities: Normal Inspection, Normal Range of Motion, Non-Tender, No Pedal Edema, Normal Capillary Refill Skin: Warm, Dry, Intact Wound/Incisions: Healing Well Neurological: No New Focal Deficit Psy/Mental Status: Alert, Normal Affect, Normal Mood - Patient Data Lab Results Last 24 hrs: Laboratory Results - last 24 hr 08/07/21 08/07/21 08/07/21 Range/Units 11:27 16:47 20:49 WBC (5.0-10.0) 10^3/uL RBC (4.2-5.4) 10^6/uL Hgb (12.0-16.0) g/dL Hct (37.0-47.0) % MCV (80-100) fL MCH (27.0-34.0) pg MCHC (33.0-35.0) g/dL Plt Count (150-450) 10^3/uL Neut % (Auto) (42.2-75.2) % Lymph % (Auto) (20.5-50.1) % [place] % (Auto) (2-8) % Eos % (Auto) (1.0-3.0) % Baso % (Auto) (0.0-1.0) % Add Manual Diff Neutrophils % (Manual) (42-75) % Lymphocytes % (Manual) (20-50) % Atypical Lymphs % % Monocytes % (Manual) (2-8) % Eosinophils % (Manual) (1-3) % Hypochromasia Target Cells D-Dimer, Quantitative (0-400) ng/mL Sodium (136-145) mmol/L Potassium (3.5-5.1) mmol/L Chloride (98-107) mmol/L Carbon Dioxide (21-32) mmol/L Anion Gap (7-13) mEq/L BUN (7-18) mg/dL Creatinine (0.55-1.02) mg/dL Est Cr Clr Drug Dosing mL/min Estimated GFR (MDRD) BUN/Creatinine Ratio (No establ ref range) Glucose (70-99) mg/dL POC Glucose 125 H 131 H 154 H (70-99) mg/dL Calcium (8.5-10.1) mg/dL Total Bilirubin (0.2-1.0) mg/dL AST (15-37) U/L ALT (14-59) U/L Alkaline Phosphatase (46-116) U/L Total Protein (6.4-8.2) g/dL Albumin (3.4-5.0) g/dL Globulin Albumin/Globulin Ratio 08/08/21 08/08/21 08/08/21 Range/Units 06:15 06:15 06:15 WBC 9.5 (5.0-10.0) 10^3/uL RBC 3.33 L (4.2-5.4) 10^6/uL Hgb 8.4 L (12.0-16.0) g/dL Hct 26.6 L (37.0-47.0) % MCV 79.9 L (80-100) fL MCH 25.2 L (27.0-34.0) pg MCHC 31.6 L (33.0-35.0) g/dL Plt Count 649 H D (150-450) 10^3/uL Neut % (Auto) 63.9 (42.2-75.2) % Lymph % (Auto) 25.4 (20.5-50.1) % [place] % (Auto) 6.5 (2-8) % Eos % (Auto) 4.0 H (1.0-3.0) % Baso % (Auto) 0.2 (0.0-1.0) % Add Manual Diff Yes Neutrophils % (Manual) 65 (42-75) % Lymphocytes % (Manual) 27 (20-50) % Atypical Lymphs % 1 % Monocytes % (Manual) 4 (2-8) % Eosinophils % (Manual) 3 (1-3) % Hypochromasia Few Target Cells Few D-Dimer, Quantitative 2140 H (0-400) ng/mL Sodium 139 (136-145) mmol/L Potassium 3.1 L (3.5-5.1) mmol/L Chloride 109 H (98-107) mmol/L Carbon Dioxide 18 L (21-32) mmol/L Anion Gap 15.1 H (7-13) mEq/L BUN 11 (7-18) mg/dL Creatinine 1.84 H (0.55-1.02) mg/dL Est Cr Clr Drug Dosing 31.53 mL/min Estimated GFR (MDRD) 32 BUN/Creatinine Ratio 6.0 (No establ ref range) Glucose 77 (70-99) mg/dL POC Glucose (70-99) mg/dL Calcium 7.7 L (8.5-10.1) mg/dL Total Bilirubin 0.1 L (0.2-1.0) mg/dL AST 13 L (15-37) U/L ALT 16 (14-59) U/L Alkaline Phosphatase 147 H (46-116) U/L Total Protein 6.9 (6.4-8.2) g/dL Albumin 1.4 L (3.4-5.0) g/dL Globulin 5.5 Albumin/Globulin Ratio 0.25 09/12/21 Range/Units 07:19 WBC (5.0-10.0) 10^3/uL RBC (4.2-5.4) 10^6/uL Hgb (12.0-16.0) g/dL Hct (37.0-47.0) % MCV (80-100) fL MCH (27.0-34.0) pg MCHC (33.0-35.0) g/dL Plt Count (150-450) 10^3/uL Neut % (Auto) (42.2-75.2) % Lymph % (Auto) (20.5-50.1) % [place] % (Auto) (2-8) % Eos % (Auto) (1.0-3.0) % Baso % (Auto) (0.0-1.0) % Add Manual Diff Neutrophils % (Manual) (42-75) % Lymphocytes % (Manual) (20-50) % Atypical Lymphs % % Monocytes % (Manual) (2-8) % Eosinophils % (Manual) (1-3) % Hypochromasia Target Cells D-Dimer, Quantitative (0-400) ng/mL Sodium (136-145) mmol/L Potassium (3.5-5.1) mmol/L Chloride (98-107) mmol/L Carbon Dioxide (21-32) mmol/L Anion Gap (7-13) mEq/L BUN (7-18) mg/dL Creatinine (0.55-1.02) mg/dL Est Cr Clr Drug Dosing mL/min Estimated GFR (MDRD) BUN/Creatinine Ratio (No establ ref range) Glucose (70-99) mg/dL POC Glucose 84 (70-99) mg/dL Calcium (8.5-10.1) mg/dL Total Bilirubin (0.2-1.0) mg/dL AST (15-37) U/L ALT (14-59) U/L Alkaline Phosphatase (46-116) U/L Total Protein (6.4-8.2) g/dL Albumin (3.4-5.0) g/dL Globulin Albumin/Globulin Ratio Result Diagrams: 08/08/21 06:15 08/08/21 06:15 Walker Results Last 24 hrs: Microbiology 08/02/21 13:33 Aerobic Blood Culture - Final Blood - Arm, Right NO GROWTH AFTER 5 DAYS Anaerobic Blood Culture - Final NO GROWTH AFTER 5 DAYS 08/02/21 13:21 Aerobic Blood Culture - Final Blood - Arm, Left NO GROWTH AFTER 5 DAYS Anaerobic Blood Culture - Final NO GROWTH AFTER 5 DAYS Sepsis Event Note - Evaluation Sepsis Screening Result: No Definite Risk - Focused Exam Vital Signs: Vital Signs Temp Pulse Resp BP BP Pulse Ox 08/08/21 08:00 36.4 C 92 18 117/86 100 08/08/21 05:48 36.2 C 89 16 118/77 100 08/08/21 04:00 88 10 L 08/08/21 00:00 80 11 L - Problem List & Annotations (1) DKA, type 1 SNOMED Code(s): 77454710, 86562688 Code(s): E10.10 - TYPE 1 DIABETES MELLITUS WITH KETOACIDOSIS WITHOUT COMA Status: Acute Priority: Medium Current Visit: Yes Onset Date: ~08/03/21 Qualifiers: Diabetes mellitus complication detail: without coma Qualified Code(s): E10.10 - Type 1 diabetes mellitus with ketoacidosis without coma Annotation/Comment:: improved i/os with good urine output yest. euvolemic . ajusting isnulin to keep b.s 100-200. discussed monitor, not available at this point andnot sure feasable (2) Otitis externa in other diseases classified elsewhere, right ear SNOMED Code(s): 2484678 Code(s): H62.41 - OTITIS EXTERNA IN OTH DISEASES CLASSD ELSWHR, RIGHT EAR Status: Acute Priority: Medium Current Visit: Yes Onset Date: ~08/03/21 Annotation/Comment:: ear started draining 3-4 weeks ago// better today and sens staph shelefeiri ses. to all antibiotics but pcn . switched to po tmp/sfx and monitor off i.v. antibiotics vanco/cefapime good clinical response wbc / sed rate in am if able to draw. (3) Cellulitis SNOMED Code(s): 159761627 Code(s): L03.90 - CELLULITIS, UNSPECIFIED Status: Acute Priority: Medium Current Visit: Yes Onset Date: ~08/03/21 Qualifiers: Site of cellulitis: head Qualified Code(s): L03.811 - Cellulitis of head [any part, except face] Annotation/Comment:: no def. abscess andor osteomylitis findings. i.v ant. and control b.s./// better (4) Drug abuse and dependence SNOMED Code(s): 3739467 Code(s): F19.20 - OTHER PSYCHOACTIVE SUBSTANCE DEPENDENCE, UNCOMPLICATED Status: Acute Priority: Medium Current Visit: Yes Onset Date: ~08/03/21 Annotation/Comment:: on cefapime and vancomycin for hx of mrsa// discussed with ent and cont . antibiotics and no surgical intervention needed. /// lost i.v access and switched to p.o antibiotics tmp/sfx and cipro drops. day 2 doing well so far. 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 b12 /folate and iron levels ordered.hgn 7.6 but chronic anemia suspected related to renal insuff/nutritional depletion of iron . gfr 40 iron level 50 tibc very low a nd sat 15% cannot do iron infusion for lack of access. oral iron ordered. oral iron started for lack of i.v. access. (8) Opioid abuse SNOMED Code(s): 2961148 Code(s): F11.10 - OPIOID ABUSE, UNCOMPLICATED Status: Acute Priority: High Current Visit: Yes Onset Date: ~08/05/21 Annotation/Comment:: drug seeking and pain assessments innaccurate form patient . started anxiety and depression treatment. tolerating decreasing dose morphine and switching to p.o opiod today . drug seeking behavior continues. sleeping well . threatening to leave but feels better pain control good. (9) Neuropathy SNOMED Code(s): 387755532 Code(s): G62.9 - POLYNEUROPATHY, UNSPECIFIED Status: Acute Current Visit: No (10) Tobacco dependence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
[2021-08-08] MEDS: Losartan 25 MG Tab PO SCH ×2 (12:13→21:40)
[2021-08-08] MEDS: Potassium Chloride 10 MEQ Tab.ER PO SCH (17:18)
[2021-08-08] MEDS: Rivaroxaban 10 MG Tab PO SCH (17:18)
[2021-08-08] MEDS: atorvaSTATin 10 MG Tab PO SCH (21:39)
[2021-08-08] MEDS: Gabapentin 400 MG Cap PO SCH (21:39)
[2021-08-09] MEDS: Acetaminophen/HYDROcodone 325-5 MG Tab PO PRN ×3 (05:20→18:25)
[2021-08-09] MEDS: Gabapentin 300 MG Cap PO SCH ×2 (08:44→15:39)
[2021-08-09] MEDS: Losartan 25 MG Tab PO SCH ×2 (08:44→20:52)
[2021-08-09] MEDS: Sulfamethoxazole/Trimethoprim 800-160 MG Tab PO SCH ×2 (08:44→20:53)
[2021-08-09] MEDS: Sertraline 50 MG Tab PO SCH (08:44)
[2021-08-09] MEDS: Ferrous Sulfate 325 MG Tab PO SCH (08:44)
[2021-08-09] MEDS: Potassium Chloride 10 MEQ Tab.ER PO SCH ×2 (08:45→18:24)
[2021-08-09] MEDS: Insulin Lispro 100 Units/ML 3 ML Vial SUBCUT SCH ×4 (08:45→21:12)
[2021-08-09] MEDS: Topiramate 25 MG Tab PO SCH ×2 (08:45→20:53)
[2021-08-09] MEDS: Insulin Glarg,Human.Rec.Analog 100 Unit/ML SUBCUT SCH (08:48)
[2021-08-09] MEDS: Ciprofloxacin 0.3% Ophth Soln 5 ML Bottle EARRT SCH ×3 (08:49→21:13)
[2021-08-09] MEDS: metFORMIN 500 MG Tab PO SCH (11:58)
[2021-08-09] MEDS: JANUVIA 50 MG PO SCH (11:58)
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
[2021-08-09] MEDS: Rivaroxaban 10 MG Tab PO SCH (18:24)
[2021-08-09] MEDS: atorvaSTATin 10 MG Tab PO SCH (20:52)
[2021-08-09] MEDS: Gabapentin 400 MG Cap PO SCH (20:52)
[2021-08-10] MEDS: Acetaminophen/HYDROcodone 325-5 MG Tab PO PRN ×4 (03:32→21:15)
[2021-08-10] MEDS: Insulin Lispro 100 Units/ML 3 ML Vial SUBCUT SCH ×4 (09:16→21:13)
[2021-08-10] MEDS: metFORMIN 500 MG Tab PO SCH (09:17)
[2021-08-10] MEDS: Sertraline 50 MG Tab PO SCH (09:17)
[2021-08-10] MEDS: Gabapentin 300 MG Cap PO SCH ×2 (09:17→15:11)
[2021-08-10] MEDS: Topiramate 25 MG Tab PO SCH ×2 (09:18→20:56)
[2021-08-10] MEDS: Potassium Chloride 10 MEQ Tab.ER PO SCH (09:18)
[2021-08-10] MEDS: Losartan 25 MG Tab PO SCH (09:18)
[2021-08-10] MEDS: Ferrous Sulfate 325 MG Tab PO SCH (09:19)
[2021-08-10] MEDS: Sulfamethoxazole/Trimethoprim 800-160 MG Tab PO SCH ×2 (09:21→20:55)
[2021-08-10] MEDS: JANUVIA 50 MG PO SCH (09:23)
[2021-08-10] MEDS: Insulin Glarg,Human.Rec.Analog 100 Unit/ML SUBCUT SCH (09:24)
--- NOTE | 2021-08-10 11:23 | PCM.DCSUM1 ---
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 (No establ ref range) mg/dL Ur Random Microalbumin (<20.0 mg/L) mg/L Microalb/Creat Ratio Med Orders - Current: Current Medications Acetaminophen (Acetaminophen 500 Mg Tab) 1,000 mg PO Q8H PRN PRN Reason: Pain (mild 1-3)/FEVER Last Admin: 08/06/21 07:49 Dose: 1,000 mg Documented by: Hydrocodone Bitart/Acetaminophen (Acetaminophen/Hydrocodone 325-5 Mg Tab) 1 tab PO Q6H PRN PRN Reason: Pain (moderate 4-6) Last Admin: 08/10/21 09:21 Dose: 1 tab Documented by: Atorvastatin Calcium (Atorvastatin 10 Mg Tab) 10 mg PO BEDTIME [facility] Last Admin: 08/09/21 20:52 Dose: 10 mg Documented by: Ciprofloxacin (Ciprofloxacin 0.3% Ophth Soln 5 Ml Bottle) 0.25 ml EARRT TID [facility] Last Admin: 08/09/21 21:13 Dose: 1 drop Documented by: Dextrose/Water (50% Dextrose In Water 50 Ml Syringe) 50 ml IVPUSH Q15M PRN PRN Reason: Hypoglycemia Ferrous Sulfate (Ferrous Sulfate 325 Mg Tab) 325 mg PO DAILY [facility] Last Admin: 08/10/21 09:19 Dose: 325 mg Documented by: Gabapentin (Gabapentin 400 Mg Cap) 1,200 mg PO BEDTIME [facility] Last Admin: 08/09/21 20:52 Dose: 1,200 mg Documented by: Gabapentin (Gabapentin 300 Mg Cap) 300 mg PO BID@0900,1500 [facility] Last Admin: 08/10/21 09:17 Dose: 300 mg Documented by: Glucagon (Glucagon,Human Recombinant 1 Mg Vial) 1 mg IM Q15M PRN PRN Reason: Hypoglycemia Insulin Glargine (Insulin Glarg,Human.Rec.Analog 100 Unit/Ml) 28 unit SUBCUT DAILY [facility] Last Admin: 08/10/21 09:24 Dose: 28 units Documented by: Insulin Human Lispro (Insulin Lispro 100 Units/Ml 3 Ml Vial) 0 unit SUBCUT WITHMEALSANDBED [facility]; Protocol Last Admin: 08/10/21 09:16 Dose: Not Given Documented by: Losartan Potassium (Losartan 25 Mg Tab) 25 mg PO BID [facility] Last Admin: 08/10/21 09:18 Dose: 25 mg Documented by: Metformin HCl (Metformin 500 Mg Tab) 500 mg PO DAILY [facility] Last Admin: 08/10/21 09:17 Dose: 500 mg Documented by: Macie (Sitagliptin () 50 Mg Tab) 0 each PO DAILY [facility] Last Admin: 08/10/21 09:23 Dose: 1 each Documented by: Ondansetron HCl (Ondansetron 4 Mg Tab.Dis) 8 mg PO Q8H PRN PRN Reason: Nausea/Vomiting Last Admin: 08/05/21 11:53 Dose: 8 mg Documented by: Potassium Chloride (Potassium Chloride 10 Meq Tab.Er) 20 meq PO BIDMEALS [facility] Last Admin: 08/10/21 09:18 Dose: 20 meq Documented by: Rivaroxaban (Rivaroxaban 10 Mg Tab) 10 mg PO WITHDINNER [facility] Last Admin: 08/09/21 18:24 Dose: 10 mg Documented by: Sertraline HCl (Sertraline 50 Mg Tab) 50 mg PO DAILY [facility] Last Admin: 08/10/21 09:17 Dose: 50 mg Documented by: Sodium Chloride (Sodium Chloride 0.9% 10 Ml Syringe) 10 ml FLUSH ASDIRECTED PRN PRN Reason: Keep Vein Open Topiramate (Topiramate 25 Mg Tab) 12.5 mg PO BID [facility] Last Admin: 08/10/21 09:18 Dose: 12.5 mg Documented by: Trimethoprim/Sulfamethoxazole (Sulfamethoxazole/Trimethoprim 800-160 Mg Tab) 1 tab PO BID [facility] Last Admin: 08/10/21 09:21 Dose: 1 tab Documented by: Discontinued Medications Hydrocodone Bitart/Acetaminophen (Acetaminophen/Hydrocodone 325-10 Mg Tab) 1 tab PO ONETIME ONE Stop: 08/02/21 13:12 Last Admin: 08/02/21 13:48 Dose: 1 tab Documented by: Ciprofloxacin (Ciprofloxacin 0.3% Ophth Soln 5 Ml Bottle) 5 ml EARRT ONETIME ONE Stop: 08/02/21 13:23 Last Admin: 08/02/21 13:47 Dose: 1 drop Documented by: Ciprofloxacin (Ciprofloxacin 0.3% Ophth Soln 5 Ml Bottle) 0.25 ml EARRT BID [facility] Last Admin: 08/07/21 09:13 Dose: 1 drop Documented by: Dextrose/Water (50% Dextrose In Water 50 Ml Syringe) 50 ml IVPUSH Q15M PRN PRN Reason: Hypoglycemia Dextrose/Water (50% Dextrose In Water 50 Ml Syringe) 50 ml IVPUSH ONETIME PRN PRN Reason: Hypoglycemia Last Admin: 08/02/21 17:12 Dose: 50 ml Documented by: Diphenhydramine HCl (Diphenhydramine 50 Mg/Ml Sdv) 25 mg IVPUSH ONETIME ONE Stop: 08/02/21 13:13 Last Admin: 08/02/21 13:47 Dose: 25 mg Documented by: Fentanyl (Fentanyl 100 Mcg/2 Ml Sdv) 25 mcg IVPUSH Q2HR PRN PRN Reason: Pain Last Admin: 08/03/21 10:53 Dose: 25 mcg Documented by: Gabapentin (Gabapentin 300 Mg Cap) 300 mg PO TID [facility] Last Admin: 08/06/21 13:31 Dose: 300 mg Documented by: Gabapentin (Gabapentin 300 Mg Cap) 300 mg PO DAILY [facility] Last Admin: 08/07/21 08:52 Dose: 300 mg Documented by: Gabapentin (Gabapentin 300 Mg Cap) 300 mg PO BID [facility] Last Admin: 08/07/21 13:29 Dose: 300 mg Documented by: Glucagon (Glucagon,Human Recombinant 1 Mg Vial) 1 mg IM Q15M PRN PRN Reason: Hypoglycemia Heparin Sodium (Porcine) (Heparin Sodium 5,000 Units/Ml Vial) 5,000 units SUB CUT Q8HR [facility] Last Admin: 08/06/21 13:30 Dose: 5,000 units Documented by: Vancomycin HCl 1 gm/ Sodium (Chloride) 250 mls @ 167 mls/hr IV ONETIME ONE Stop: 08/02/21 14:40 Last Admin: 08/02/21 13:46 Dose: 167 mls/hr Documented by: Insulin Regular in 0.9 % NACL (Myxredlin In Ns 100 Unit/100 Ml) 100 unit in 100 mls @ 7.974 mls/hr IV TITRATE [facility]; Protocol Last Admin: 08/02/21 15:13 Dose: 0.1 units/kg/hr, 7.974 mls/hr Documented by: Sodium Chloride (Normal Saline) 1,000 mls @ 150 mls/hr IV ASDIRECTED [facility] Last Admin: 08/02/21 16:11 Dose: 150 mls/hr Documented by: Insulin Regular in 0.9 % NACL (Myxredlin In Ns 100 Unit/100 Ml) 100 unit in 100 mls @ 7.974 mls/hr IV TITRATE [facility]; Protocol Potassium Chloride 20 meq/ (Premix) 100 mls @ 50 mls/hr IV ONETIME ONE Stop: 08/02/21 17:46 Last Admin: 08/02/21 16:32 Dose: 50 mls/hr Documented by: Vancomycin HCl 1 gm/ Sodium (Chloride) 250 mls @ 167 mls/hr IV Q24H [facility] Last Admin: 08/05/21 13:32 Dose: 167 mls/hr Documented by: Insulin Regular in 0.9 % NACL (Myxredlin In Ns 100 Unit/100 Ml) 100 unit in 100 mls @ 5.851 mls/hr IV TITRATE [facility]; Protocol Dextrose/Sodium Chloride (Dextrose 5%-1/2 Ns) 1,000 mls @ 150 mls/hr IV ASD IRECTED [facility] Potassium Chloride/Dextrose/Sod Cl (D5 Ns With 20 Meq Kcl) 1,000 mls @ 150 mls/hr IV .Q6H40M [facility] Last Admin: 08/02/21 21:53 Dose: Not Given Documented by: Potassium Chloride 20 meq/ (Premix) 100 mls @ 50 mls/hr IV ONETIME ONE Stop: 08/02/21 20:29 Last Admin: 08/02/21 18:46 Dose: 50 mls/hr Documented by: Dextrose/Sodium Chloride (Dextrose 5%-Normal Saline) 1,000 mls @ 150 mls/hr IV .Q6H40M [facility] Last Admin: 08/03/21 09:46 Dose: Not Given Documented by: Cefepime HCl 2 gm/ Sodium (Chloride) 50 mls @ 100 mls/hr IV Q12HR [facility] Cefepime HCl 2 gm/ Sodium (Chloride) 50 mls @ 100 mls/hr IV ONETIME ONE Stop: 08/02/21 21:29 Last Admin: 08/02/21 20:26 Dose: 100 mls/hr Documented by: Cefepime HCl 1 gm/ Sodium (Chloride) 50 mls @ 100 mls/hr IV DAILY@2100 [facility] Last Admin: 08/05/21 20:55 Dose: 100 mls/hr Documented by: Insulin Regular in 0.9 % NACL (Myxredlin In Ns 100 Unit/100 Ml) 100 unit in 100 mls @ 0.585 mls/hr IV TITRATE [facility]; Protocol Last Titration: 08/04/21 07:38 Dose: 0.01 units/kg/hr, 0.585 mls/hr Documented by: Potassium Chloride 20 meq/ (Premix) 100 mls @ 50 mls/hr IV ONETIME ONE Stop: 08/03/21 07:23 Last Admin: 08/03/21 05:50 Dose: 50 mls/hr Documented by: Dextrose/Sodium Chloride (Dextrose 5%-1/2 Ns) 1,000 mls @ 50 mls/hr IV ASDIRECTED [facility] Last Admin: 08/04/21 21:36 Dose: 150 mls/hr Documented by: Sodium Chloride (Normal Saline) 500 mls @ 500 mls/hr IV ONETIME ONE Stop: 08/05/21 01:57 Last Admin: 08/05/21 01:10 Dose: 500 mls/hr Documented by: Insulin Glargine (Insulin Glarg,Human.Rec.Analog 100 Unit/Ml) 20 unit SUBCUT DAILY [facility] Last Admin: 08/05/21 09:14 Dose: 20 units Documented by: Insulin Human Regular (Insulin Regular, Human 100 Units/Ml 3 Ml Vial) 10 unit SUBCUT ONETIME ONE Stop: 08/02/21 13:15 Last Admin: 08/02/21 13:46 Dose: 10 units Documented by: Metoclopramide HCl (Metoclopramide 10 Mg Tab) 10 mg PO ONETIME ONE Stop: 08/05/21 13:46 Last Admin: 08/05/21 14:03 Dose: 10 mg Documented by: Metoprolol Tartrate (Metoprolol Tartrate 25 Mg Tab) 25 mg PO ONETIME ONE Stop: 08/05/21 02:34 Last Admin: 08/05/21 02:50 Dose: 25 mg Documented by: Morphine Sulfate (Morphine 2 Mg/Ml Syringe) 2 mg IVPUSH Q4H PRN PRN Reason: Pain (severe 7-10) Last Admin: 08/05/21 05:19 Dose: 2 mg Documented by: Morphine Sulfate (Morphine 2 Mg/Ml Syringe) 1 mg IVPUSH Q4H PRN PRN Reason: Pain (severe 7-10) Last Admin: 08/06/21 02:11 Dose: 1 mg Documented by: Potassium Chloride (Potassium Chloride 10 Meq Tab.Er) 60 meq PO ONETIME ONE Stop: 08/02/21 14:07 Last Admin: 08/02/21 14:45 Dose: 60 meq Documented by: Potassium Chloride (Potassium Chloride 10 Meq Tab.Er) 40 meq PO ONETIME ONE Stop: 08/02/21 19:32 Last Admin: 08/02/21 18:46 Dose: 40 meq Documented by: Sertraline HCl (Sertraline 50 Mg Tab) 25 mg PO DAILY [facility] Last Admin: 08/07/21 08:52 Dose: 25 mg Documented by: Sodium Chloride (Sodium Chloride 0.9% 10 Ml Syringe) 10 ml FLUSH ASDIRECTED PRN PRN Reason: Keep Vein Open Last Admin: 08/02/21 13:48 Dose: 10 ml Documented by: Topiramate (Topiramate 25 Mg Tab) 12.5 mg PO BEDTIME [facility] Last Admin: 08/04/21 21:32 Dose: 12.5 mg Documented by: Trimethoprim/Sulfamethoxazole (Sulfamethoxazole/Trimethoprim 200-40 Mg/5 Ml Susp 20 Ml Cup) 40 ml PO BID [facility] Last Admin: 08/06/21 09:21 Dose: 40 ml Documented by: Vancomycin HCl (Pharmacy To Dose - Vancomycin) 1 dose .XX ASDIRECTED [facility] - Exam Quality Assessment: Denies: Supplemental Oxygen General: Reports: Alert, Oriented, Cooperative, No Acute Distress HEENT: Reports: Pupils Equal, Pupils Reactive, EOMI, Mucous Membr. 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 Denies: Erythema Neurological: Reports: No New Focal Deficit, Normal Gait Psy/Mental Status: Reports: Alert, Normal Affect, Normal Mood *Q Meaningful Use (DIS) - VTE *Q VTE Anticoagulation Contraindications: Med Resist/No TX Response
[2021-08-10 11:55] LABS: ANION GAP 16.8 mEq/L (7-13)
[2021-08-10] MEDS: Ciprofloxacin 0.3% Ophth Soln 5 ML Bottle EARRT SCH ×3 (12:24→20:59)
[2021-08-10] MEDS ORDERED: Furosemide 20 MG/2 ML VIAL IVPUSH ONE (12:26)
--- NOTE | 2021-08-10 12:29 | PCM.SN.2 ---
- Free Text/Narrative Note: 1227: Patient potassium is considerably elevated at 6.8. I do not believe this is right as she has been normal to her low on previous levels. I believe she may have hemolyzed. Our plan is to recheck her potassium at 2:00 and we will give her a one-time dose of 40 mg po Lasix to get rid of possible excess potassium. 0458: Repeat potassium level is even higher at 7.4. We will obtain an EKG to make sure no rhythm changes and repeat level at 1500. I am hoping it will be down in the 3-4 range since she has gotten insulin as well as Lasix for initial treatment. We may consider Kayexalate x 1 dose at this point. If remains elevated we may have to keep her overnight. 1508: Patient is now requesting to stay overnight due to concerns of not being able to have a right and picker / packer her discharge home prescriptions. Time Documentation
[2021-08-10] MEDS ORDERED: Furosemide 40 MG Tab PO ONE (12:47)
[2021-08-10] MEDS ORDERED: Sodium Polystyrene Sulfonate 15 GM/60 ML Susp 60 ML Bot PO ONE (15:05)
--- NOTE | 2021-08-10 15:08 | PCM.PN ---
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 08/02/21 13:47 Dose: 1 drop Documented by: Ciprofloxacin (Ciprofloxacin 0.3% Ophth Soln 5 Ml Bottle) 0.25 ml EARRT BID [facility] Last Admin: 08/07/21 09:13 Dose: 1 drop Documented by: Dextrose/Water (50% Dextrose In Water 50 Ml Syringe) 50 ml IVPUSH Q15M PRN PRN Reason: Hypoglycemia Dextrose/Water (50% Dextrose In Water 50 Ml Syringe) 50 ml IVPUSH ONETIME PRN PRN Reason: Hypoglycemia Last Admin: 08/02/21 17:12 Dose: 50 ml Documented by: Diphenhydramine HCl (Diphenhydramine 50 Mg/Ml Sdv) 25 mg IVPUSH ONETIME ONE Stop: 08/02/21 13:13 Last Admin: 08/02/21 13:47 Dose: 25 mg Documented by: Fentanyl (Fentanyl 100 Mcg/2 Ml Sdv) 25 mcg IVPUSH Q2HR PRN PRN Reason: Pain Last Admin: 08/03/21 10:53 Dose: 25 mcg Documented by: Furosemide (Furosemide 20 Mg/2 Ml Vial) 10 mg IVPUSH ONETIME ONE Stop: 08/10/21 12:27 Last Admin: 08/10/21 13:05 Dose: Not Given Documented by: Furosemide (Furosemide 40 Mg Tab) 40 mg PO ONETIME ONE Stop: 08/10/21 12:48 Last Admin: 08/10/21 13:04 Dose: 40 mg Documented by: Gabapentin (Gabapentin 300 Mg Cap) 300 mg PO TID [facility] Last Admin: 08/06/21 13:31 Dose: 300 mg Documented by: Gabapentin (Gabapentin 300 Mg Cap) 300 mg PO DAILY [facility] Last Admin: 08/07/21 08:52 Dose: 300 mg Documented by: Gabapentin (Gabapentin 300 Mg Cap) 300 mg PO BID [facility] Last Admin: 08/07/21 13:29 Dose: 300 mg Documented by: Glucagon (Glucagon,Human Recombinant 1 Mg Vial) 1 mg IM Q15M PRN PRN Reason: Hypoglycemia Heparin Sodium (Porcine) (Heparin Sodium 5,000 Units/Ml Vial) 5,000 units SUBCUT Q8HR [facility] Last Admin: 08/06/21 13:30 Dose: 5,000 units Documented by: Vancomycin HCl 1 gm/ Sodium (Chloride) 250 mls @ 167 mls/hr IV ONETIME ONE Stop: 08/02/21 14:40 Last Admin: 08/02/21 13:46 Dose: 167 mls/hr Documented by: Insulin Regular in 0.9 % NACL (Myxredlin In Ns 100 Unit/100 Ml) 100 unit in 100 mls @ 7.974 mls/hr IV TITRATE [facility]; Protocol Last Admin: 08/02/21 15:13 Dose: 0.1 units/kg/hr, 7.974 mls/hr Documented by: Sodium Chloride (Normal Saline) 1,000 mls @ 150 mls/hr IV ASDIRECTED [facility] Last Admin: 08/02/21 16:11 Dose: 150 mls/hr Documented by: Insulin Regular in 0.9 % NACL (Myxredlin In Ns 100 Unit/100 Ml) 100 unit in 100 mls @ 7.974 mls/hr IV TITRATE [facility]; Protocol Potassium Chloride 20 meq/ (Premix) 100 mls @ 50 mls/hr IV ONETIME ONE Stop: 08/02/21 17:46 Last Admin: 08/02/21 16:32 Dose: 50 mls/hr Documented by: Vancomycin HCl 1 gm/ Sodium (Chloride) 250 mls @ 167 mls/hr IV Q24H [facility] Last Admin: 08/05/21 13:32 Dose: 167 mls/hr Documented by: Insulin Regular in 0.9 % NACL (Myxredlin In Ns 100 Unit/100 Ml) 100 unit in 100 mls @ 5.851 mls/hr IV TITRATE [facility]; Protocol Dextrose/Sodium Chloride (Dextrose 5%-1/2 Ns) 1,000 mls @ 150 mls/hr IV ASDIRECTED [facility] Potassium Chloride/Dextrose/Sod Cl (D5 Ns With 20 Meq Kcl) 1,000 mls @ 150 mls/hr IV .Q6H40M [facility] Last Admin: 08/02/21 21:53 Dose: Not Given Documented by: Potassium Chloride 20 meq/ (Premix) 100 mls @ 50 mls/hr IV ONETIME ONE Stop: 08/02/21 20:29 Last Admin: 08/02/21 18:46 Dose: 50 mls/hr Documented by: Dextrose/Sodium Chloride (Dextrose 5%-Normal Saline) 1,000 mls @ 150 mls/hr IV .Q6H40M [facility] Last Admin: 08/03/21 09:46 Dose: Not Given Documented by: Cefepime HCl 2 gm/ Sodium (Chloride) 50 mls @ 100 mls/hr IV Q12HR [facility] Cefepime HCl 2 gm/ Sodium (Chloride) 50 mls @ 100 mls/hr IV ONETIME ONE Stop: 08/02/21 21:29 Last Admin: 08/02/21 20:26 Dose: 100 mls/hr Documented by: Cefepime HCl 1 gm/ Sodium (Chloride) 50 mls @ 100 mls/hr IV DAILY@2100 [facility] Last Admin: 08/05/21 20:55 Dose: 100 mls/hr Documented by: Insulin Regular in 0.9 % NACL (Myxredlin In Ns 100 Unit/100 Ml) 100 unit in 100 mls @ 0.585 mls/hr IV TITRATE [facility]; Protocol Last Titration: 08/04/21 07:38 Dose: 0.01 units/kg/hr, 0.585 mls/hr Documented by: Potassium Chloride 20 meq/ (Premix) 100 mls @ 50 mls/hr IV ONETIME ONE Stop: 08/03/21 07:23 Last Admin: 08/03/21 05:50 Dose: 50 mls/hr Documented by: Dextrose/Sodium Chloride (Dextrose 5%-1/2 Ns) 1,000 mls @ 50 mls/hr IV ASDIRECTED [facility] Last Admin: 08/04/21 21:36 Dose: 150 mls/hr Documented by: Sodium Chloride (Normal Saline) 500 mls @ 500 mls/hr IV ONETIME ONE Stop: 08/05/21 01:57 Last Admin: 08/05/21 01:10 Dose: 500 mls/hr Documented by: Insulin Glargine (Insulin Glarg,Human.Rec.Analog 100 Unit/Ml) 20 unit SUBCUT DAILY [facility] Last Admin: 08/05/21 09:14 Dose: 20 units Documented by: Insulin Human Regular (Insulin Regular, Human 100 Units/Ml 3 Ml Vial) 10 unit SUBCUT ONETIME ONE Stop: 08/02/21 13:15 Last Admin: 08/02/21 13:46 Dose: 10 units Documented by: Metformin HCl (Metformin 500 Mg Tab) 500 mg PO DAILY [facility] Last Admin: 08/10/21 09:17 Dose: 500 mg Documented by: Metoclopramide HCl (Metoclopramide 10 Mg Tab) 10 mg PO ONETIME ONE Stop: 08/05/21 13:46 Last Admin: 08/05/21 14:03 Dose: 10 mg Documented by: Metoprolol Tartrate (Metoprolol Tartrate 25 Mg Tab) 25 mg PO ONETIME ONE Stop: 08/05/21 02:34 Last Admin: 08/05/21 02:50 Dose: 25 mg Documented by: Morphine Sulfate (Morphine 2 Mg/Ml Syringe) 2 mg IVPUSH Q4H PRN PRN Reason: Pain (severe 7-10) Last Admin: 08/05/21 05:19 Dose: 2 mg Documented by: Morphine Sulfate (Morphine 2 Mg/Ml Syringe) 1 mg IVPUSH Q4H PRN PRN Reason: Pain (severe 7-10) Last Admin: 08/06/21 02:11 Dose: 1 mg Documented by: Potassium Chloride (Potassium Chloride 10 Meq Tab.Er) 60 meq PO ONETIME ONE Stop: 08/02/21 14:07 Last Admin: 08/02/21 14:45 Dose: 60 meq Documented by: Potassium Chloride (Potassium Chloride 10 Meq Tab.Er) 40 meq PO ONETIME ONE Stop: 08/02/21 19:32 Last Admin: 08/02/21 18:46 Dose: 40 meq Documented by: Potassium Chloride (Potassium Chloride 10 Meq Tab.Er) 20 meq PO BIDMEALS [facility] Last Admin: 08/10/21 09:18 Dose: 20 meq Documented by: Sertraline HCl (Sertraline 50 Mg Tab) 25 mg PO DAILY [facility] Last Admin: 08/07/21 08:52 Dose: 25 mg Documented by: Sodium Chloride (Sodium Chloride 0.9% 10 Ml Syringe) 10 ml FLUSH ASDIRECTED PRN PRN Reason: Keep Vein Open Last Admin: 08/02/21 13:48 Dose: 10 ml Documented by: Sodium Polystyrene Sulfonate (Sodium Polystyrene Sulfonate 15 Gm/60 Ml Susp 60 Ml Bot) 45 gm PO NOW ONE Stop: 08/10/21 15:06 Topiramate (Topiramate 25 Mg Tab) 12.5 mg PO BEDTIME [facility] Last Admin: 08/04/21 21:32 Dose: 12.5 mg Documented by: Trimethoprim/Sulfamethoxazole (Sulfamethoxazole/Trimethoprim 200-40 Mg/5 Ml Susp 20 Ml Cup) 40 ml PO BID [facility] Last Admin: 08/06/21 09:21 Dose: 40 ml Documented by: Vancomycin HCl (Pharmacy To Dose - Vancomycin) 1 dose .XX ASDIRECTED [facility] - Exam Quality Assessment: No: Supplemental Oxygen General: Alert, Oriented, Cooperative, No Acute Distress HEENT: Pupils Equal, Pupils Reactive, EOMI, Mucous Membr. Moist/[place] Neck: Supple, Trachea Midline Lungs: Clear to Auscultation, Normal Respiratory Effort Cardiovascular: Regular Rate, Regular Rhythm GI/Abdominal Exam: Normal Bowel Sounds, Soft, Non-Tender, No Organomegaly, No Distention, No Abnormal Bruit, No Mass (Female) Exam: Deferred Back Exam: Normal Inspection, Full Range of Motion Extremities: Normal Inspection, Normal Range of Motion, Non-Tender, No Pedal Edema, Normal Capillary Refill, Other (bilateral below the knee amputation; left digits amputation) Skin: Warm, Dry, Intact Wound/Incisions: Erythema Improving. No: Dressing Dry and Intact, No Drainage, Drainage Neurological: No New Focal Deficit Psy/Mental Status: Alert, Normal Affect, Normal Mood - Patient Data Lab Results Last 24 hrs: Laboratory Results - last 24 hr 08/09/21 08/09/21 08/09/21 Range/Units 17:00 20:45 21:12 WBC (5.0-10.0) 10^3/uL RBC (4.2-5.4) 10^6/uL Hgb (12.0-16.0) g/dL Hct (37.0-47.0) % MCV (80-100) fL MCH (27.0-34.0) pg MCHC (33.0-35.0) g/dL Plt Count (150-450) 10^3/uL Neut % (Auto) (42.2-75.2) % Lymph % (Auto) (20.5-50.1) % Dare % (Auto) (2-8) % Eos % (Auto) (1.0-3.0) % Baso % (Auto) (0.0-1.0) % Add Manual Diff Neutrophils % (Manual) (42-75) % Band Neutrophils % % Lymphocytes % (Manual) (20-50) % Monocytes % (Manual) (2-8) % Eosinophils % (Manual) (1-3) % Hypochromasia Microcytosis Sodium (136-145) mmol/L Potassium (3.5-5.1) mmol/L Chloride (98-107) mmol/L Carbon Dioxide (21-32) mmol/L Anion Gap (7-13) mEq/L BUN (7-18) mg/dL Creatinine (0.55-1.02) mg/dL Est Cr Clr Drug Dosing mL/min Estimated GFR (MDRD) Glucose (70-99) mg/dL POC Glucose 67 L 98 (70-99) mg/dL Calcium (8.5-10.1) mg/dL Ur Random Creatinine 44.03 (No establ ref range) mg/dL Ur Random Microalbumin > 300.0 (<20.0 mg/L) mg/L Microalb/Creat Ratio TNP 08/10/21 08/10/21 08/10/21 Range/Units 05:06 07:59 11:26 WBC 9.4 (5.0-10.0) 10^3/uL RBC 3.32 L (4.2-5.4) 10^6/uL Hgb 8.5 L (12.0-16.0) g/dL Hct 27.0 L (37.0-47.0) % MCV 81.3 (80-100) fL MCH 25.6 L (27.0-34.0) pg MCHC 31.5 L (33.0-35.0) g/dL Plt Count 616 H (150-450) 10^3/uL Neut % (Auto) 60.6 (42.2-75.2) % Lymph % (Auto) 28.7 (20.5-50.1) % Dare % (Auto) 6.0 (2-8) % Eos % (Auto) 4.5 H (1.0-3.0) % Baso % (Auto) 0.2 (0.0-1.0) % Add Manual Diff Yes Neutrophils % (Manual) 62 (42-75) % Band Neutrophils % 6 % Lymphocytes % (Manual) 24 (20-50) % Monocytes % (Manual) 4 (2-8) % Eosinophils % (Manual) 4 H (1-3) % Hypochromasia 1+ slight Microcytosis 1+ slight Sodium (136-145) mmol/L Potassium (3.5-5.1) mmol/L Chloride (98-107) mmol/L Carbon Dioxide (21-32) mmol/L Anion Gap (7-13) mEq/L BUN (7-18) mg/dL Creatinine (0.55-1.02) mg/dL Est Cr Clr Drug Dosing mL/min Estimated GFR (MDRD) Glucose (70-99) mg/dL POC Glucose 80 90 (70-99) mg/dL Calcium (8.5-10.1) mg/dL Ur Random Creatinine (No establ ref range) mg/dL Ur Random Microalbumin (<20.0 mg/L) mg/L Microalb/Creat Ratio 08/10/21 08/10/21 08/10/21 Range/Units 11:26 11:50 14:25 WBC (5.0-10.0) 10^3/uL RBC (4.2-5.4) 10^6/uL Hgb (12.0-16.0) g/dL Hct (37.0-47.0) % MCV (80-100) fL MCH (27.0-34.0) pg MCHC (33.0-35.0) g/dL Plt Count (150-450) 10^3/uL Neut % (Auto) (42.2-75.2) % Lymph % (Auto) (20.5-50.1) % Dare % (Auto) (2-8) % Eos % (Auto) (1.0-3.0) % Baso % (Auto) (0.0-1.0) % Add Manual Diff Neutrophils % (Manual) (42-75) % Band Neutrophils % % Lymphocytes % (Manual) (20-50) % Monocytes % (Manual) (2-8) % Eosinophils % (Manual) (1-3) % Hypochromasia Microcytosis Sodium 137 (136-145) mmol/L Potassium 6.8 H* D 7.4 H* (3.5-5.1) mmol/L Chloride 107 (98-107) mmol/L Carbon Dioxide 20 L (21-32) mmol/L Anion Gap 16.8 H (7-13) mEq/L BUN 19 H (7-18) mg/dL Creatinine 2.08 H (0.55-1.02) mg/dL Est Cr Clr Drug Dosing 27.89 mL/min Estimated GFR (MDRD) 28 Glucose 94 (70-99) mg/dL POC Glucose 85 (70-99) mg/dL Calcium 8.3 L (8.5-10.1) mg/dL Ur Random Creatinine (No establ ref range) mg/dL Ur Random Microalbumin (<20.0 mg/L) mg/L Microalb/Creat Ratio Result Diagrams: 08/10/21 11:26 08/11/21 06:10 Sepsis Event Note - Evaluation Sepsis Screening Result: No Definite Risk - Focused Exam Vital Signs: Vital Signs Temp Pulse Resp BP BP BP Pulse Ox 08/10/21 12:00 36.6 C 81 20 126/81 99 08/10/21 09:18 129/83 08/10/21 08:46 36.4 C 82 20 129/83 99 08/10/21 03:48 36.6 C 96 20 119/87 96 - Problem List Review Problem List Initiated/Reviewed/Updated: Yes - My Orders Last 24 Hours: My Active Orders 08/10/21 11:44 Ready for Discharge [RC] PER UNIT ROUTINE 08/10/21 15:07 EKG 12 Lead [EKG Documentation Completion] [RC] URGENT 08/10/21 17:30 BMP [BASIC METABOLIC PANEL,BMP] [CHEM] Routine - Assessment Assessment:: This is a 30-year-old female with past medical history of hypertension, hyperlipidemia, poorly controlled type 1 diabetes, CKD stage II or III, history of osteomyelitis secondary to poorly controlled diabetes, 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 Assessment: Acute: Right external ear infection with mastoid partial effusion, continues to improve Normocytic hypochromic anemia with hemoglobin of 8.5 g Thrombocytosis with platelet of 616 Hyperkalemia with potassium of 6.8, currently on Metformin, Bactrim, potassium supplement, and losartan Mild DKA, resolved Elevated anion gap metabolic acidosis likely from chronic renal insufficiency Acute on chronic CKD, resolved Nicotine dependence Chronic: Hypertension Hyperlipidemia Poorly controlled type 1 diabetes CKD stage II-III History of osteomyelitis secondary to poorly controlled diabetes Left hand digits amputation Bilateral below-knee amputations MRSA history infection Chronic pain syndrome Substance abuse Chronic alcohol use Medical nonadherence to treatment - Plan Plan:: Plan: Continue current treatment Possible discharge if potassium improves Continue to monitor electrolytes abnormality Hold potassium supplement and ARB right now due to hyperkalemia Routine a.m. labs 40 mg of p.o. Lasix and 45 mg of oral Kayexalate for hyperkalemia Stat EKG and repeat potassium level this afternoon DVT/GI prophylaxis Continue bedside PT and OT Home health services on discharge If no improvement of potassium, we may keep her overnight
[2021-08-10 17:56] LABS: ANION GAP 13.9 mEq/L (7-13)
[2021-08-10] MEDS: Rivaroxaban 10 MG Tab PO SCH (18:49)
[2021-08-10] MEDS: atorvaSTATin 10 MG Tab PO SCH (20:55)
[2021-08-10] MEDS: Gabapentin 400 MG Cap PO SCH (20:55)
[2021-08-11] MEDS: Acetaminophen/HYDROcodone 325-5 MG Tab PO PRN ×2 (05:02→11:14)
[2021-08-11 06:51] LABS: ANION GAP 14.5 mEq/L (7-13)
[2021-08-11] MEDS ORDERED: Furosemide 40 MG Tab PO ONE (06:57)
--- NOTE | 2021-08-11 07:01 | PCM.SN.2 ---
- Free Text/Narrative Note: Patient seen and examined at bedside. No overnight acute issues. EKG taken yesterday showed no peaked T waves. She received Lasix and Kayexalate yesterday. Her morning potassium level is now down to 5.5 from as high as 7.4 yesterday. Oddly enough, her creatinine level is slightly better at 1.99. Her glucose remains stable at 122. Patient will not be discharged with Januvia and Metformin as she is a longstanding type 1 diabetes. She, at this point, likely has significant pancreatic insufficiency and definitely would not benefit with Januvia and Metformin. With her bactrim, ibuprofen, losartan and metformin would be very high risk for developing diabetic ketoacidosis. Therefore in her best interest, she would have to remain on her short acting and long-acting insulin regimen. On the day of discharge, we stressed the importance of dietary and medical adherence to treatment. Time Documentation
[2021-08-11] MEDS: Topiramate 25 MG Tab PO SCH (08:13)
[2021-08-11] MEDS: Gabapentin 300 MG Cap PO SCH (08:13)
[2021-08-11] MEDS: Ferrous Sulfate 325 MG Tab PO SCH (08:13)
[2021-08-11] MEDS: Sulfamethoxazole/Trimethoprim 800-160 MG Tab PO SCH (08:13)
[2021-08-11] MEDS: Insulin Lispro 100 Units/ML 3 ML Vial SUBCUT SCH ×2 (08:14→12:58)
[2021-08-11] MEDS: Ciprofloxacin 0.3% Ophth Soln 5 ML Bottle EARRT SCH (08:14)
[2021-08-11] MEDS: Insulin Glarg,Human.Rec.Analog 100 Unit/ML SUBCUT SCH (08:15)
[2021-08-11] MEDS: Sertraline 50 MG Tab PO SCH (08:16)
[2021-08-11 08:40] VITALS: BP 110/73; PULSE 95
[2021-08-11] MEDS: JANUVIA 50 MG PO SCH (10:07)
[2021-08-11] MEDS ORDERED: Pneumococcal Polyvalent-23 Vaccine 0.5 ML SDV IM ONE (11:04)
== END 2021-08-11 12:35 | disposition home or self-care (01) | DRG 154 ==
LOC: DL.ED 11:33 → EEVIPCON 15:33 → DL.MS 15:33
PROVIDERS: ADMIT Internal Medicine; ATTEND Internal Medicine
PROC: 3E0234Z Introduction of Serum, Toxoid and Vaccine into Muscle, Percutaneous Approach (ICD-10-PCS; principal; 2021-08-11)
DX: H60.11 Cellulitis of right external ear (principal); H60.391 Other infective otitis externa, right ear; E10.10 Type 1 diabetes mellitus with ketoacidosis without coma; E43 Unspecified severe protein-calorie malnutrition; N17.9 Acute kidney failure, unspecified; I10 Essential (primary) hypertension; L03.811 Cellulitis of head [any part, except face]; Z79.4 Long term (current) use of insulin; F19.20 Other psychoactive substance dependence, uncomplicated; E87.4 Mixed disorder of acid-base balance; I12.9 Hypertensive chronic kidney disease with stage 1 through stage 4 chronic kidney disease, or unspecified chronic kidney disease; Z89.012 Acquired absence of left thumb; D63.1 Anemia in chronic kidney disease; Z20.822 Contact with and (suspected) exposure to COVID-19; E87.6 Hypokalemia; E87.5 Hyperkalemia; F17.200 Nicotine dependence, unspecified, uncomplicated; E78.5 Hyperlipidemia, unspecified; N18.30 Chronic kidney disease, stage 3 unspecified; E10.22 Type 1 diabetes mellitus with diabetic chronic kidney disease; F15.90 Other stimulant use, unspecified, uncomplicated; F43.23 Adjustment disorder with mixed anxiety and depressed mood; J44.9 Chronic obstructive pulmonary disease, unspecified; F11.10 Opioid abuse, uncomplicated; D50.9 Iron deficiency anemia, unspecified; Z91.14 Patient's other noncompliance with medication regimen; Z88.8 Allergy status to other drugs, medicaments and biological substances; Z79.899 Other long term (current) drug therapy; Z89.511 Acquired absence of right leg below knee; Z89.512 Acquired absence of left leg below knee; Z86.14 Personal history of Methicillin resistant Staphylococcus aureus infection; Z23 Encounter for immunization; Z76.5 Malingerer [conscious simulation]; Z68.39 Body mass index [BMI] 39.0-39.9, adult
CPT/HCPCS: 36415; 36600; 80053; 82009; 82803; 82947 ×2; 83605; 85025; 86140; 87040 ×2; 87070; 87077; 87186; 87635; A9270 ×3; J1200; J1815 ×2; J3370; J7050; 70480; 70490; 71250; 80048; 80051; 82043; 82565; 82607; 82728; 82746; 83540; 83550; 83880; 84132; 84443; 84484; 85018; 85379; 85730; 90732; 93005; 93306; 99284; G0009; J0692; J1644; J2270; J3010; J3480; J7030; J7040; J7042; U0002

== ENCOUNTER 2021-12-12 09:34 | Emergency (ER) | payer MEDICAID ==
[2021-12-12 10:08] VITALS: BP 132/85; PULSE 96
[2021-12-12] MEDS ORDERED: Acetaminophen 500 MG Tab PO ONE (11:07)
== END 2021-12-12 13:14 | disposition home or self-care (01) ==
LOC: DL.ED 09:34
DX: T87.42 Infection of amputation stump, left upper extremity (principal); E78.00 Pure hypercholesterolemia, unspecified; I10 Essential (primary) hypertension; E10.9 Type 1 diabetes mellitus without complications; Z72.0 Tobacco use; Z89.612 Acquired absence of left leg above knee; Z89.611 Acquired absence of right leg above knee; Z89.112 Acquired absence of left hand; Z88.8 Allergy status to other drugs, medicaments and biological substances; Z79.899 Other long term (current) drug therapy
CPT/HCPCS: 36415; 82947; 85025; 86140; 99284; A9270

== ENCOUNTER 2022-01-31 13:30 | Emergency (ER) | payer MEDICAID ==
[2022-01-31] MEDS ORDERED: Sodium Chloride 0.9% 10 ML Syringe FLUSH PRN (14:00)
[2022-01-31] MEDS ORDERED: diphenhydrAMINE 50 MG/ML SDV IVPUSH ONE (14:33)
[2022-01-31 14:37] VITALS: PULSE 114
[2022-01-31 14:58] LABS: ANION GAP 17.8 mEq/L (7-13); CHLORIDE,CL 100 mmol/L (98-107); SODIUM,NA 129 mmol/L (136-145)
[2022-01-31 15:08] LABS: CORONAVIRUS COVID-19 NAA NEGATIVE (NEGATIVE); RESPIRATORY SYNCYTIAL VIR NAA NEGATIVE (NEGATIVE)
[2022-01-31 15:20] LABS: O2 DELIVERY DEVICE ROOM AIR
[2022-01-31 15:22] LABS: BASE EXCESS VENOUS -11.4 mmol/l ((-2)-(+3)); BICARBONATE,VENOUS 14 mmol/l (19-25); O2 SATURATION VENOUS 92.3 % (60-80); PCO2 VENOUS 28 mmHg (41-51); PH,VENOUS 7.31 (7.31-7.41); PO2 VENOUS 57 mmHg (35-42)
[2022-01-31] MEDS ORDERED: HYDROmorphone 0.5 MG/0.5 ML Syringe IVPUSH ONE (15:23)
[2022-01-31 15:25] LABS: O2 FLOW RATE 0
[2022-01-31] MEDS ORDERED: Sodium Chloride 0.9% 1,000 ML IV ONE (16:32)
[2022-01-31] MEDS ORDERED: Sodium Chloride 0.9% with KCl 1,000 ML IV SCH (16:45)
[2022-01-31] MEDS ORDERED: Piperacillin/Tazobactam 3.375 GM in Sodium Chloride 0.9% 100 ML IV ONE (17:15)
== END 2022-01-31 18:07 ==
LOC: DL.ED 13:30
DX: T87.42 Infection of amputation stump, left upper extremity (principal); E10.65 Type 1 diabetes mellitus with hyperglycemia; E78.00 Pure hypercholesterolemia, unspecified; I10 Essential (primary) hypertension; Z88.8 Allergy status to other drugs, medicaments and biological substances; Z79.899 Other long term (current) drug therapy; Z87.891 Personal history of nicotine dependence; Z20.822 Contact with and (suspected) exposure to COVID-19
CPT/HCPCS: 0241U; 36415; 73200; 80053; 82009; 82803; 82947; 83605; 84703; 85025; 86140; 87040; 87070; 87077; 87186; 96365; 96366; 96367; 96368; 96375; 99285; J1170; J1200; J1815; J2543; J3370; J3480; J7050

== ENCOUNTER 2022-04-16 17:38 | Emergency (ER) | payer MEDICAID ==
[2022-04-16] MEDS ORDERED: Amoxicillin/Clavulanate K 500-125 MG Tab PO ONE ×2 (17:39→20:15)
[2022-04-16 17:50] VITALS: BP 144/92; PULSE 97
[2022-04-16 18:36] LABS: CORONAVIRUS COVID-19 NAA NEGATIVE (NEGATIVE); RESPIRATORY SYNCYTIAL VIR NAA NEGATIVE (NEGATIVE)
[2022-04-16 18:38] LABS: ANION GAP 16.7 mEq/L (7-13); CHLORIDE,CL 105 mmol/L (98-107); SODIUM,NA 135 mmol/L (136-145)
[2022-04-16 18:55] LABS: AMPHETAMINES,URINE NEGATIVE (NEGATIVE); BARBITURATES,URINE NEGATIVE (NEGATIVE); BENZODIAZEPINE,URINE NEGATIVE (NEGATIVE); MDMA (ECSTASY), URINE NEGATIVE (NEGATIVE); METHADONE,URINE NEGATIVE (NEGATIVE); METHAMPHETAMINES,URINE NEGATIVE (NEGATIVE); OPIATES,URINE NEGATIVE (NEGATIVE); OXYCODONE,URINE NEGATIVE (NEGATIVE); PHENCYCLIDINE,URINE NEGATIVE (NEGATIVE); TCA,URINE NEGATIVE (NEGATIVE)
[2022-04-16] MEDS ORDERED: Acetaminophen 325 MG Tab PO ONE (20:15)
[2022-04-16] MEDS ORDERED: Amoxicillin/Clavulanate K 500-125 MG Tab ONE (20:20)
== END 2022-04-16 20:41 | disposition home or self-care (01) ==
LOC: DL.ED 17:38
DX: J06.9 Acute upper respiratory infection, unspecified (principal); G89.4 Chronic pain syndrome; J34.89 Other specified disorders of nose and nasal sinuses; J44.9 Chronic obstructive pulmonary disease, unspecified; I12.0 Hypertensive chronic kidney disease with stage 5 chronic kidney disease or end stage renal disease; E10.22 Type 1 diabetes mellitus with diabetic chronic kidney disease; N18.6 End stage renal disease; Z99.2 Dependence on renal dialysis; Z72.0 Tobacco use; Z20.822 Contact with and (suspected) exposure to COVID-19
CPT/HCPCS: 0241U; 36415; 71045; 80053; 80305; 80307; 81001; 83605; 83735; 83880; 84484; 84703; 85025; 85379; 86140; 93005; 99284; A9270

== ENCOUNTER 2022-05-13 14:07 | Emergency (ER) | payer MEDICAID ==
[2022-05-13 14:57] VITALS: BP 161/117; PULSE 87
[2022-05-13 15:11] LABS: ANION GAP 16.1 mEq/L (7-13); CHLORIDE,CL 106 mmol/L (98-107); SODIUM,NA 134 mmol/L (136-145)
[2022-05-13 15:18] LABS: ACETAMINOPHEN 0 ug/mL (10-30 (Therapeutic)); ESTIMATED GFR 20 mL/min (>=60)
== END 2022-05-13 15:59 | disposition home or self-care (01) ==
LOC: DL.ED 14:07
DX: S62.306G Unspecified fracture of fifth metacarpal bone, right hand, subsequent encounter for fracture with delayed healing (principal); S88.012A Complete traumatic amputation at knee level, left lower leg, initial encounter; S88.011A Complete traumatic amputation at knee level, right lower leg, initial encounter; E78.00 Pure hypercholesterolemia, unspecified; I10 Essential (primary) hypertension; E10.9 Type 1 diabetes mellitus without complications; Z88.0 Allergy status to penicillin; Z88.8 Allergy status to other drugs, medicaments and biological substances; Z79.4 Long term (current) use of insulin; Z79.899 Other long term (current) drug therapy; Z91.19 Patient's noncompliance with other medical treatment and regimen; W22.09XA Striking against other stationary object, initial encounter
CPT/HCPCS: 36415; 80053; 80143; 80179; 83605; 83735; 83880; 85025; 99283

== ENCOUNTER 2022-07-27 14:17 | Emergency (ER) | payer MEDICAID ==
[2022-07-27] MEDS ORDERED: Lidocaine 1% 10 ML MDV INJECT ONE (14:36)
[2022-07-27] MEDS ORDERED: Bacitracin Oint 1 GM U/D Packet TOP ONE (14:43)
[2022-07-27 15:01] VITALS: BP 139/111; PULSE 115
[2022-07-27] MEDS ORDERED: Lidocaine 1% 5 ML VIAL INJECT ONE ×2 (15:31→16:19)
[2022-07-27 15:37] LABS: CHLORIDE,CL 110 mmol/L (98-107); SODIUM,NA 140 mmol/L (136-145)
[2022-07-27 15:38] LABS: ESTIMATED GFR 17 mL/min (>=60)
[2022-07-27] MEDS ORDERED: Lidocaine 1% 5 ML VIAL ONE (15:39)
[2022-07-27 16:05] LABS: METHAMPHETAMINES,URINE POSITIVE (NEGATIVE)
[2022-07-27] MEDS ORDERED: LORazepam 1 MG Tab PO ONE ×2 (16:05→16:58)
[2022-07-27 16:06] LABS: AMPHETAMINES,URINE POSITIVE (NEGATIVE); BARBITURATES,URINE NEGATIVE (NEGATIVE); BENZODIAZEPINE,URINE NEGATIVE (NEGATIVE); MDMA (ECSTASY), URINE NEGATIVE (NEGATIVE); METHADONE,URINE NEGATIVE (NEGATIVE); OPIATES,URINE NEGATIVE (NEGATIVE); OXYCODONE,URINE NEGATIVE (NEGATIVE); PHENCYCLIDINE,URINE NEGATIVE (NEGATIVE); TCA,URINE NEGATIVE (NEGATIVE)
== END 2022-07-27 17:23 | disposition home or self-care (01) ==
LOC: DL.ED 14:17
DX: S61.512A Laceration without foreign body of left wrist, initial encounter (principal); S71.111A Laceration without foreign body, right thigh, initial encounter; F19.90 Other psychoactive substance use, unspecified, uncomplicated; E78.00 Pure hypercholesterolemia, unspecified; I10 Essential (primary) hypertension; E10.9 Type 1 diabetes mellitus without complications; Z88.0 Allergy status to penicillin; Z88.8 Allergy status to other drugs, medicaments and biological substances; Z79.899 Other long term (current) drug therapy; Z79.4 Long term (current) use of insulin; X83.8XXA Intentional self-harm by other specified means, initial encounter
CPT/HCPCS: 12004; 36415; 80053; 80305; 80307; 85025; 99283; A9270; 99284

== ENCOUNTER 2022-08-14 13:14 | Inpatient (IN) | payer MEDICAID ==
[2022-08-14] MEDS ORDERED: Lidocaine 1% 10 ML MDV INJECT ONE (13:55)
[2022-08-14] MEDS ORDERED: Bacitracin Oint 1 GM U/D Packet TOP ONE (14:06)
[2022-08-14 14:22] LABS: ANION GAP 15.5 mEq/L (7-13); CHLORIDE,CL 101 mmol/L (98-107); SODIUM,NA 130 mmol/L (136-145)
[2022-08-14 14:26] LABS: ESTIMATED GFR 18 mL/min (>=60)
[2022-08-14] MEDS ORDERED: Glucagon,Human Recombinant 1 MG Vial IM PRN ×3 (14:34→16:26)
[2022-08-14] MEDS ORDERED: 50% Dextrose in Water 50 ML Syringe IVPUSH PRN ×3 (14:34→16:26)
[2022-08-14] MEDS ORDERED: Insulin Regular, Human 100 Units/ML 3 ML Vial IV ONE (15:20)
[2022-08-14] MEDS ORDERED: Polyethylene Glycol 3350 Powder 17 GM Packet PO PRN (15:26)
[2022-08-14] MEDS ORDERED: Albuterol/Ipratropium 3.0-0.5 MG/3 ML Neb Soln NEB PRN (15:26)
[2022-08-14] MEDS ORDERED: Acetaminophen 325 MG Tab PO PRN (15:26)
[2022-08-14] MEDS ORDERED: Sodium Chloride 0.9% 10 ML Syringe FLUSH PRN (15:26)
[2022-08-14] MEDS ORDERED: Magnesium Hydroxide 400 MG/5 ML Susp 30 ML Cup PO PRN (15:26)
[2022-08-14] MEDS ORDERED: HYDROmorphone 0.5 MG/0.5 ML Syringe IVPUSH PRN (15:26)
[2022-08-14] MEDS ORDERED: Ondansetron 4 MG/2 ML SDV IVPUSH PRN (15:26)
[2022-08-14] MEDS ORDERED: VANCOMYCIN IV SCH (15:30)
[2022-08-14] MEDS ORDERED: SODIUM CHLORIDE 0.9% IV SCH (15:30)
[2022-08-14] MEDS ORDERED: Sodium Chloride 0.9% 1,000 ML IV SCH (15:45)
[2022-08-14] MEDS ORDERED: Insulin Regular, Human 100 Units/ML 3 ML Vial IV SCH (16:00)
[2022-08-14] MEDS ORDERED: Naproxen 250 MG Tab PO ONE (16:32)
[2022-08-14] MEDS ORDERED: cloNIDine 0.1 MG Tab PO ONE (17:04)
[2022-08-14] MEDS ORDERED: hydrALAZINE 20 MG/ML SDV IVPUSH PRN (17:04)
[2022-08-14] MEDS: Insulin Lispro 100 Units/ML 3 ML Vial SUBCUT SCH ×2 (17:15→17:57)
[2022-08-14] MEDS ORDERED: Meropenem 1 GM in Sodium Chloride 0.9% 100 ML IV SCH (18:00)
[2022-08-14] MEDS: Acetaminophen/HYDROcodone 325-5 MG Tab PO PRN (20:13)
[2022-08-14] MEDS: Saccharomyces Boulardii (Probiotic) 250 MG Cap PO SCH (20:13)
[2022-08-14] MEDS: Gabapentin 300 MG Cap PO SCH (20:14)
[2022-08-14] MEDS: Insulin Glarg,Human.Rec.Analog 100 Unit/ML SUBCUT SCH (20:15)
[2022-08-14] MEDS: Sodium Chloride 0.9% 10 ML Syringe FLUSH SCH (20:19)
[2022-08-14] MEDS ORDERED: Rosuvastatin 10 MG Tab PO SCH (21:00)
[2022-08-15] MEDS: Acetaminophen/HYDROcodone 325-5 MG Tab PO PRN ×2 (01:49→09:35)
[2022-08-15 06:43] LABS: CHLORIDE,CL 106 mmol/L (98-107); SODIUM,NA 136 mmol/L (136-145)
[2022-08-15 06:44] LABS: ESTIMATED GFR 18 mL/min (>=60)
[2022-08-15 08:05] VITALS: BP 144/87; PULSE 91
[2022-08-15] MEDS ORDERED: amLODIPine 5 MG Tab PO SCH (09:00)
[2022-08-15] MEDS ORDERED: cloNIDine 0.1 MG Tab PO SCH (09:00)
[2022-08-15] MEDS ORDERED: Naproxen 250 MG Tab PO SCH (09:00)
[2022-08-15] MEDS: Saccharomyces Boulardii (Probiotic) 250 MG Cap PO SCH (09:16)
[2022-08-15] MEDS: Gabapentin 300 MG Cap PO SCH (09:18)
[2022-08-15] MEDS: Insulin Glarg,Human.Rec.Analog 100 Unit/ML SUBCUT SCH (09:20)
[2022-08-15] MEDS: Sodium Chloride 0.9% 10 ML Syringe FLUSH SCH (09:24)
[2022-08-15] MEDS: Insulin Lispro 100 Units/ML 3 ML Vial SUBCUT SCH ×2 (09:24→09:26)
== END 2022-08-15 09:54 | disposition home or self-care (01) | DRG 555 ==
LOC: DL.ED 13:14 → DL.MS 15:11
PROVIDERS: ADMIT Internal Medicine; ATTEND Internal Medicine
PROC: 0H91XZZ Drainage of Face Skin, External Approach (ICD-10-PCS; principal; 2022-08-14)
DX: M79.81 Nontraumatic hematoma of soft tissue (principal); N18.6 End stage renal disease; E87.1 Hypo-osmolality and hyponatremia; E87.2 Acidosis; D50.9 Iron deficiency anemia, unspecified; D75.839 Thrombocytosis, unspecified; E10.65 Type 1 diabetes mellitus with hyperglycemia; Z20.822 Contact with and (suspected) exposure to COVID-19; H54.7 Unspecified visual loss; E78.00 Pure hypercholesterolemia, unspecified; R74.8 Abnormal levels of other serum enzymes; E88.09 Other disorders of plasma-protein metabolism, not elsewhere classified; E78.5 Hyperlipidemia, unspecified; E10.42 Type 1 diabetes mellitus with diabetic polyneuropathy; E10.22 Type 1 diabetes mellitus with diabetic chronic kidney disease; Z96.653 Presence of artificial knee joint, bilateral; G89.4 Chronic pain syndrome; H54.62 Unqualified visual loss, left eye, normal vision right eye; Z91.15 Patient's noncompliance with renal dialysis; Z89.022 Acquired absence of left finger(s); Z86.14 Personal history of Methicillin resistant Staphylococcus aureus infection; Z76.5 Malingerer [conscious simulation]; Z79.899 Other long term (current) drug therapy; Z87.440 Personal history of urinary (tract) infections; Z98.51 Tubal ligation status
CPT/HCPCS: 36415; 80048; 80053; 82009; 82947; 83605; 83735; 84100; 84145; 85025; 86140; 87070; 87077; 87081; 87186; 87205; 99222; 99238; A9270-GY; J1170; J1815-GY; J7030; U0002

== ENCOUNTER 2022-10-01 01:40 | Emergency (ER) | payer MEDICAID ==
[2022-10-01 02:11] VITALS: BP 122/80; PULSE 105
[2022-10-01 02:58] LABS: ANION GAP 18.4 mEq/L (7-13); CHLORIDE,CL 108 mmol/L (98-107); SODIUM,NA 138 mmol/L (136-145)
[2022-10-01 03:03] LABS: ESTIMATED GFR 12 mL/min (>=60)
[2022-10-01 03:08] LABS: AMPHETAMINES,URINE POSITIVE (NEGATIVE); BARBITURATES,URINE NEGATIVE (NEGATIVE); BENZODIAZEPINE,URINE NEGATIVE (NEGATIVE); MDMA (ECSTASY), URINE NEGATIVE (NEGATIVE); METHADONE,URINE NEGATIVE (NEGATIVE); METHAMPHETAMINES,URINE POSITIVE (NEGATIVE); OPIATES,URINE NEGATIVE (NEGATIVE); OXYCODONE,URINE NEGATIVE (NEGATIVE); PHENCYCLIDINE,URINE NEGATIVE (NEGATIVE); TCA,URINE NEGATIVE (NEGATIVE)
[2022-10-01] MEDS ORDERED: Piperacillin/Tazobactam 3.375 GM in Sodium Chloride 0.9% 100 ML IV ONE (03:14)
[2022-10-01] MEDS ORDERED: Sodium Chloride 0.9% 1,000 ML IV ONE (03:15)
[2022-10-01] MEDS ORDERED: LORazepam 2 MG/ML SDV IVPUSH ONE (03:17)
== END 2022-10-01 07:36 | disposition home or self-care (01) ==
LOC: DL.ED 01:40
DX: R10.9 Unspecified abdominal pain (principal); F15.10 Other stimulant abuse, uncomplicated; E78.00 Pure hypercholesterolemia, unspecified; I10 Essential (primary) hypertension; E10.9 Type 1 diabetes mellitus without complications; F17.210 Nicotine dependence, cigarettes, uncomplicated; Z88.8 Allergy status to other drugs, medicaments and biological substances; Z79.4 Long term (current) use of insulin; Z79.899 Other long term (current) drug therapy
CPT/HCPCS: 36415; 74018; 74176; 80053; 80305; 80307; 81001; 83605; 85025; 87040; 96361; 96365; 96375; 99285; J2060; J2543; J7030

== ENCOUNTER 2022-10-01 18:33 | Inpatient (IN) | payer MEDICAID ==
[2022-10-01] MEDS ORDERED: Promethazine 25 MG/ML SDV IM ONE (19:05)
[2022-10-01] MEDS ORDERED: Sodium Chloride 0.9% 1,000 ML IV ONE ×2 (19:06→21:44)
[2022-10-01 19:52] LABS: ANION GAP 18.2 mEq/L (7-13); CHLORIDE,CL 107 mmol/L (98-107); SODIUM,NA 136 mmol/L (136-145)
[2022-10-01 19:58] LABS: ESTIMATED GFR 12 mL/min (>=60)
[2022-10-01] MEDS ORDERED: Potassium Chloride 10 MEQ Tab.ER PO ONE ×2 (21:33→22:46)
[2022-10-01] MEDS ORDERED: Piperacillin/Tazobactam 2.25 GM in Sodium Chloride 0.9% 50 ML IV ONE (22:06)
[2022-10-01] MEDS ORDERED: Docusate Sodium 100 MG Cap PO PRN (22:39)
[2022-10-01] MEDS ORDERED: Acetaminophen 325 MG Tab PO PRN (22:39)
[2022-10-01] MEDS ORDERED: HYDROmorphone 0.5 MG/0.5 ML Syringe IVPUSH PRN (22:39)
[2022-10-01] MEDS ORDERED: Glucagon,Human Recombinant 1 MG Vial IM PRN (22:48)
[2022-10-01] MEDS ORDERED: 50% Dextrose in Water 50 ML Syringe IVPUSH PRN (22:48)
[2022-10-01] MEDS: Sodium Chloride 0.9% 1,000 ML IV SCH (23:42)
[2022-10-02] MEDS: Piperacillin/Tazobactam 2.25 GM in Sodium Chloride 0.9% 50 ML IV SCH ×4 (03:34→17:26)
[2022-10-02 07:21] LABS: CHLORIDE,CL 115 mmol/L (98-107); SODIUM,NA 142 mmol/L (136-145)
[2022-10-02 07:22] LABS: ESTIMATED GFR 12 mL/min (>=60)
[2022-10-02] MEDS: Acetaminophen/HYDROcodone 325-5 MG Tab PO PRN ×3 (08:59→19:19)
[2022-10-02] MEDS: Enoxaparin 30 MG/0.3 ML Syringe SUBCUT SCH (09:00)
[2022-10-02] MEDS ORDERED: Non-Formulary Medication 1 Each (Gabapentin 600 MG Tablet) PO SCH (09:00)
[2022-10-02] MEDS: Nicotine 14 MG/24 Hr Patch TRDERM SCH (09:00)
[2022-10-02] MEDS: Potassium Chloride 10 MEQ Tab.ER PO SCH ×2 (10:12→17:25)
[2022-10-02] MEDS: Sodium Chloride 0.9% 1,000 ML IV SCH (12:39)
[2022-10-02] MEDS: Insulin Glarg,Human.Rec.Analog 100 Unit/ML SUBCUT SCH (20:23)
[2022-10-03] MEDS: Piperacillin/Tazobactam 2.25 GM in Sodium Chloride 0.9% 50 ML IV SCH ×5 (00:31→23:37)
[2022-10-03] MEDS: Acetaminophen/HYDROcodone 325-5 MG Tab PO PRN ×3 (04:01→23:36)
[2022-10-03] MEDS: Sodium Chloride 0.9% 1,000 ML IV SCH ×2 (04:02→17:34)
[2022-10-03] MEDS: Enoxaparin 30 MG/0.3 ML Syringe SUBCUT SCH (09:15)
[2022-10-03] MEDS: Nicotine 14 MG/24 Hr Patch TRDERM SCH (09:16)
[2022-10-03] MEDS: Potassium Chloride 10 MEQ Tab.ER PO SCH (09:16)
[2022-10-03 10:03] LABS: ANION GAP 16.2 mEq/L (7-13); CHLORIDE,CL 115 mmol/L (98-107); SODIUM,NA 140 mmol/L (136-145)
[2022-10-03 10:06] LABS: ESTIMATED GFR 12 mL/min (>=60)
[2022-10-03] MEDS: amLODIPine 5 MG Tab PO SCH (11:50)
[2022-10-03] MEDS: Insulin Lispro 100 Units/ML 3 ML Vial SUBCUT SCH ×2 (13:02→16:36)
[2022-10-03] MEDS: Ondansetron 4 MG Tab.DIS PO PRN (17:30)
[2022-10-03] MEDS: Rosuvastatin 10 MG Tab PO SCH ×2 (20:48→20:49)
[2022-10-03] MEDS: Heparin Sodium 5,000 Units/ML Vial SUBCUT SCH (20:49)
[2022-10-03] MEDS: Insulin Glarg,Human.Rec.Analog 100 Unit/ML SUBCUT SCH (20:51)
[2022-10-04] MEDS: Piperacillin/Tazobactam 2.25 GM in Sodium Chloride 0.9% 50 ML IV SCH ×4 (05:38→23:05)
[2022-10-04 07:05] LABS: ANION GAP 21.4 mEq/L (7-13); CHLORIDE,CL 115 mmol/L (98-107); SODIUM,NA 141 mmol/L (136-145)
[2022-10-04 07:12] LABS: ESTIMATED GFR 12 mL/min (>=60)
[2022-10-04] MEDS: Insulin Lispro 100 Units/ML 3 ML Vial SUBCUT SCH ×3 (08:30→17:41)
[2022-10-04] MEDS: Nicotine 14 MG/24 Hr Patch TRDERM SCH ×2 (09:52→09:57)
[2022-10-04] MEDS: amLODIPine 5 MG Tab PO SCH (09:53)
[2022-10-04] MEDS: Heparin Sodium 5,000 Units/ML Vial SUBCUT SCH ×2 (09:53→21:06)
[2022-10-04] MEDS: Sodium Chloride 0.9% 1,000 ML IV SCH (09:55)
[2022-10-04] MEDS ORDERED: Sodium Bicarbonate 100 MEQ in Dextrose 5% in Water 1,000 ML IV ONE ×2 (10:24)
[2022-10-04] MEDS: Acetaminophen/HYDROcodone 325-5 MG Tab PO PRN ×3 (10:29→21:15)
[2022-10-04] MEDS: Ondansetron 4 MG Tab.DIS PO PRN (10:32)
[2022-10-04] MEDS: Gabapentin 100 MG Cap PO SCH ×2 (12:04→21:06)
[2022-10-04] MEDS: Sodium Bicarbonate 650 MG Tab PO SCH ×2 (15:57→21:06)
[2022-10-04] MEDS: Insulin Glarg,Human.Rec.Analog 100 Unit/ML SUBCUT SCH (21:06)
[2022-10-04] MEDS: Rosuvastatin 10 MG Tab PO SCH (21:06)
[2022-10-05] MEDS: Acetaminophen/HYDROcodone 325-5 MG Tab PO PRN (00:38)
[2022-10-05] MEDS: Piperacillin/Tazobactam 2.25 GM in Sodium Chloride 0.9% 50 ML IV SCH (05:40)
[2022-10-05 07:37] LABS: ANION GAP 16.5 mEq/L (7-13); CHLORIDE,CL 114 mmol/L (98-107); SODIUM,NA 141 mmol/L (136-145)
[2022-10-05 07:48] LABS: ESTIMATED GFR 11 mL/min (>=60)
[2022-10-05] MEDS: Insulin Lispro 100 Units/ML 3 ML Vial SUBCUT SCH (08:09)
[2022-10-05 08:32] VITALS: BP 137/78; PULSE 88
[2022-10-05] MEDS: Sodium Bicarbonate 650 MG Tab PO SCH (08:38)
[2022-10-05] MEDS: Gabapentin 100 MG Cap PO SCH (08:38)
[2022-10-05] MEDS: Nicotine 14 MG/24 Hr Patch TRDERM SCH (08:38)
[2022-10-05] MEDS: Heparin Sodium 5,000 Units/ML Vial SUBCUT SCH (08:39)
== END 2022-10-05 09:48 | disposition home or self-care (01) | DRG 871 ==
LOC: DL.ED 18:33 → DL.MS 22:09
PROVIDERS: ADMIT Internal Medicine; ATTEND Internal Medicine
DX: A41.9 Sepsis, unspecified organism (principal); J18.9 Pneumonia, unspecified organism; I12.0 Hypertensive chronic kidney disease with stage 5 chronic kidney disease or end stage renal disease; N17.9 Acute kidney failure, unspecified; N18.5 Chronic kidney disease, stage 5; N18.6 End stage renal disease; E87.6 Hypokalemia; F15.129 Other stimulant abuse with intoxication, unspecified; Z20.822 Contact with and (suspected) exposure to COVID-19; R59.0 Localized enlarged lymph nodes; F17.210 Nicotine dependence, cigarettes, uncomplicated; E10.22 Type 1 diabetes mellitus with diabetic chronic kidney disease; E78.5 Hyperlipidemia, unspecified; Z89.612 Acquired absence of left leg above knee; Z89.611 Acquired absence of right leg above knee; E10.42 Type 1 diabetes mellitus with diabetic polyneuropathy; E10.65 Type 1 diabetes mellitus with hyperglycemia; E78.00 Pure hypercholesterolemia, unspecified; Z89.512 Acquired absence of left leg below knee; Z91.14 Patient's other noncompliance with medication regimen; Z89.511 Acquired absence of right leg below knee; Z99.2 Dependence on renal dialysis; Z79.4 Long term (current) use of insulin; Z79.899 Other long term (current) drug therapy; Z89.022 Acquired absence of left finger(s)
CPT/HCPCS: 36415; 71250; 74176; 80053; 83605; 84145; 85025; 86140; 87635; A9270; J2550; J7030 ×2; 80048; 82947; 83735; 96360; 96372; 99285-25; J1644; J1650; J1815-GY; J2543; J7060; U0002

== ENCOUNTER 2022-11-08 20:10 | Emergency (ER) | payer SELFPAY ==
[2022-11-08 20:30] VITALS: BP 113/79; PULSE 119
[2022-11-08] MEDS ORDERED: Sodium Chloride 0.9% 1,000 ML IV ONE (20:46)
[2022-11-08] MEDS ORDERED: Butorphanol 2 MG/ML SDV IVPUSH ONE (21:32)
== END 2022-11-08 23:20 | disposition home or self-care (01) ==
LOC: DL.ED 20:10
DX: L03.317 Cellulitis of buttock (principal); E78.00 Pure hypercholesterolemia, unspecified; I10 Essential (primary) hypertension; Z72.0 Tobacco use; Z79.899 Other long term (current) drug therapy
CPT/HCPCS: 82947; 96365; 96375; 99284; J0595; J3370; J7030; J7050

== ENCOUNTER 2022-11-10 13:19 | Inpatient (IN) | payer SELFPAY ==
[2022-11-10 14:15] LABS: CHLORIDE,CL 100 mmol/L (98-107); SODIUM,NA 129 mmol/L (136-145)
[2022-11-10 14:16] LABS: ESTIMATED GFR 6 mL/min (>=60)
[2022-11-10 14:21] LABS: CORONAVIRUS COVID-19 NAA NEGATIVE (NEGATIVE)
[2022-11-10] MEDS ORDERED: Sodium Chloride 0.9% 1,000 ML IV ONE (14:32)
[2022-11-10 15:12] LABS: AMPHETAMINES,URINE POSITIVE (NEGATIVE); BARBITURATES,URINE NEGATIVE (NEGATIVE); BENZODIAZEPINE,URINE NEGATIVE (NEGATIVE); MDMA (ECSTASY), URINE NEGATIVE (NEGATIVE); METHADONE,URINE NEGATIVE (NEGATIVE); METHAMPHETAMINES,URINE POSITIVE (NEGATIVE); OPIATES,URINE NEGATIVE (NEGATIVE); OXYCODONE,URINE NEGATIVE (NEGATIVE); PHENCYCLIDINE,URINE NEGATIVE (NEGATIVE); TCA,URINE NEGATIVE (NEGATIVE)
[2022-11-10] MEDS ORDERED: ceFAZolin 1 GM in Sodium Chloride 0.9% 50 ML IV ONE (15:17)
[2022-11-10] MEDS ORDERED: Bisacodyl 5 MG Tab PO PRN ×2 (16:57→21:39)
[2022-11-10] MEDS ORDERED: HYDROmorphone 0.5 MG/0.5 ML Syringe IVPUSH PRN (16:57)
[2022-11-10] MEDS ORDERED: Albuterol/Ipratropium 3.0-0.5 MG/3 ML Neb Soln NEB PRN ×2 (16:57→21:38)
[2022-11-10] MEDS ORDERED: Magnesium Hydroxide 400 MG/5 ML Susp 30 ML Cup PO PRN ×2 (16:57→21:38)
[2022-11-10] MEDS ORDERED: Ondansetron 4 MG/2 ML SDV IVPUSH PRN ×2 (16:57→21:38)
[2022-11-10] MEDS ORDERED: Polyethylene Glycol 3350 Powder 17 GM Packet PO PRN ×2 (16:57→21:38)
[2022-11-10] MEDS ORDERED: Acetaminophen 325 MG Tab PO PRN (16:57)
[2022-11-10] MEDS ORDERED: Sodium Bicarbonate 100 MEQ in Dextrose 5% in Water 1,000 ML IV ONE ×2 (17:00)
[2022-11-10] MEDS ORDERED: cefTRIAXone 2 GM Vial IVPUSH SCH (17:00)
[2022-11-10] MEDS ORDERED: Glucagon,Human Recombinant 1 MG Vial IM PRN ×2 (17:07→21:41)
[2022-11-10] MEDS ORDERED: 50% Dextrose in Water 50 ML Syringe IVPUSH PRN ×2 (17:07→21:41)
[2022-11-10] MEDS ORDERED: Lactated Ringers 1,000 ML IV SCH (17:15)
[2022-11-10] MEDS ORDERED: Metoprolol Tartrate 5 MG/5 ML SDV IVPUSH PRN ×3 (17:22→22:46)
[2022-11-10] MEDS ORDERED: hydrALAZINE 20 MG/ML SDV IVPUSH PRN ×3 (17:22→22:46)
[2022-11-10] MEDS ORDERED: Piperacillin/Tazobactam 3.375 GM in Sodium Chloride 0.9% 100 ML IV SCH (18:00)
[2022-11-10] MEDS: Albumin Human 25 GM in Premix Bag 1 BAG IV SCH ×2 (19:14→23:00)
[2022-11-10] MEDS: Nicotine 21 MG/24 Hr Patch TRDERM SCH (19:27)
[2022-11-10] MEDS ORDERED: Haloperidol Lactate 5 MG/ML SDV IM PRN (19:55)
[2022-11-10] MEDS ORDERED: LORazepam 0.5 MG Tab PO PRN (19:55)
[2022-11-10] MEDS ORDERED: cloNIDine 0.1 MG Tab PO PRN ×2 (19:55→21:42)
[2022-11-10] MEDS ORDERED: LORazepam 2 MG/ML SDV IV PRN (19:55)
[2022-11-10] MEDS ORDERED: MVI, Adult with Vitamin K 10 ML, Folic Acid 1 MG, Thiamine 100 MG in Lactated Ringers 1... IV ONE ×4 (19:56)
[2022-11-10 20:41] LABS: HEMOGLOBIN A1C 7.1 % (<5.7)
[2022-11-10] MEDS ORDERED: HYDROmorphone 0.5 MG/0.5 ML Syringe ONE (20:43)
[2022-11-10] MEDS ORDERED: Saccharomyces Boulardii (Probiotic) 250 MG Cap PO SCH (21:00)
[2022-11-10] MEDS ORDERED: Non-Formulary Medication 1 Each (Sevelamer Carbonate [Renvela] 800 MG Tablet) PO SCH ×2 (21:00)
[2022-11-10] MEDS ORDERED: Sodium Bicarbonate 650 MG Tab PO SCH ×2 (21:00→21:45)
[2022-11-10] MEDS: Heparin Sodium 5,000 Units/ML Vial SUBCUT SCH (22:59)
[2022-11-10 23:39] LABS: ANION GAP 23.7 mEq/L (7-13); CHLORIDE,CL 101 mmol/L (98-107); SODIUM,NA 131 mmol/L (136-145)
[2022-11-10] MEDS ORDERED: Albumin Human 25 GM in Premix Bag 1 BAG IV SCH (23:45)
[2022-11-10 23:52] LABS: ESTIMATED GFR 6 mL/min (>=60)
[2022-11-10] MEDS ORDERED: Sodium Bicarbonate 8.4% 50 MEQ/50 ML Syringe IVPUSH ONE (23:56)
[2022-11-11] MEDS: Albumin Human 25 GM in Premix Bag 1 BAG IV SCH ×5 (00:17→22:35)
[2022-11-11] MEDS: Haloperidol Lactate 5 MG/ML SDV IM PRN ×2 (00:35→23:55)
[2022-11-11] MEDS: Piperacillin/Tazobactam 3.375 GM in Sodium Chloride 0.9% 100 ML IV SCH ×3 (00:48→14:23)
[2022-11-11] MEDS ORDERED: Sodium Bicarbonate 8.4% 50 MEQ/50 ML SDV ONE ×2 (04:51→21:19)
[2022-11-11] MEDS ORDERED: Sodium Bicarbonate 8.4% 50 MEQ/50 ML Syringe IVPUSH ONE ×2 (05:00→21:00)
[2022-11-11] MEDS: Pantoprazole 40 MG Tab.CR PO SCH ×2 (05:18→17:48)
[2022-11-11] MEDS: HYDROmorphone 0.5 MG/0.5 ML Syringe IVPUSH PRN ×7 (06:45→23:55)
[2022-11-11 07:16] LABS: ANION GAP 23.3 mEq/L (7-13); CHLORIDE,CL 101 mmol/L (98-107); ESTIMATED GFR 6 mL/min (>=60); SODIUM,NA 133 mmol/L (136-145)
[2022-11-11] MEDS ORDERED: Potassium Chloride 10 MEQ Tab.ER PO ONE (07:35)
[2022-11-11] MEDS ORDERED: Calcium Gluconate 2 GM in Sodium Chloride 0.9% 100 ML IV ONE ×2 (07:37→21:00)
[2022-11-11] MEDS ORDERED: Insulin Lispro 100 Units/ML 3 ML Vial SUBCUT SCH (08:00)
[2022-11-11] MEDS ORDERED: Multivitamin Tab PO SCH (09:00)
[2022-11-11] MEDS ORDERED: Folic Acid 1 MG Tab PO SCH (09:00)
[2022-11-11] MEDS ORDERED: Thiamine 100 MG Tab PO SCH (09:00)
[2022-11-11] MEDS ORDERED: Sodium Bicarbonate 650 MG Tab PO SCH ×3 (09:00)
[2022-11-11] MEDS: Insulin Lispro 100 Units/ML 3 ML Vial SUBCUT SCH ×3 (09:13→18:08)
[2022-11-11] MEDS: Folic Acid 1 MG Tab PO SCH (09:14)
[2022-11-11] MEDS: Heparin Sodium 5,000 Units/ML Vial SUBCUT SCH ×2 (09:15→21:56)
[2022-11-11] MEDS: Thiamine 100 MG Tab PO SCH (09:15)
[2022-11-11] MEDS: Saccharomyces Boulardii (Probiotic) 250 MG Cap PO SCH ×2 (09:15→21:55)
[2022-11-11] MEDS: Multivitamin Tab PO SCH (09:17)
[2022-11-11] MEDS: Sodium Bicarbonate 650 MG Tab PO SCH ×2 (09:18→21:55)
[2022-11-11] MEDS: Nicotine 21 MG/24 Hr Patch TRDERM SCH (10:23)
[2022-11-11] MEDS: Piperacillin/Tazobactam 2.25 GM in Sodium Chloride 0.9% 50 ML IV SCH ×3 (13:30→23:02)
[2022-11-11] MEDS ORDERED: cefTRIAXone 2 GM Vial IVPUSH SCH (18:00)
[2022-11-11 20:25] LABS: ANION GAP 20.2 mEq/L (7-13); CHLORIDE,CL 105 mmol/L (98-107); SODIUM,NA 136 mmol/L (136-145)
[2022-11-11 20:34] LABS: ESTIMATED GFR 6 mL/min (>=60)
[2022-11-11] MEDS: Acetaminophen 325 MG Tab PO PRN (21:55)
[2022-11-12] MEDS: HYDROmorphone 0.5 MG/0.5 ML Syringe IVPUSH PRN (04:00)
[2022-11-12] MEDS: Acetaminophen 325 MG Tab PO PRN (04:20)
[2022-11-12] MEDS: Albumin Human 25 GM in Premix Bag 1 BAG IV SCH (04:32)
[2022-11-12] MEDS ORDERED: Sodium Bicarbonate 8.4% 50 MEQ/50 ML Syringe IVPUSH ONE (05:00)
[2022-11-12] MEDS: Piperacillin/Tazobactam 2.25 GM in Sodium Chloride 0.9% 50 ML IV SCH ×2 (05:03→12:53)
[2022-11-12] MEDS: Pantoprazole 40 MG Tab.CR PO SCH (05:04)
[2022-11-12 07:21] LABS: ANION GAP 23.7 mEq/L (7-13); CHLORIDE,CL 105 mmol/L (98-107); SODIUM,NA 139 mmol/L (136-145)
[2022-11-12 07:25] LABS: ESTIMATED GFR 6 mL/min (>=60)
[2022-11-12] MEDS: Heparin Sodium 5,000 Units/ML Vial SUBCUT SCH (08:15)
[2022-11-12] MEDS: Sodium Bicarbonate 650 MG Tab PO SCH (08:16)
[2022-11-12] MEDS: Folic Acid 1 MG Tab PO SCH (08:16)
[2022-11-12] MEDS: Multivitamin Tab PO SCH (08:16)
[2022-11-12] MEDS: Saccharomyces Boulardii (Probiotic) 250 MG Cap PO SCH (08:16)
[2022-11-12] MEDS: Thiamine 100 MG Tab PO SCH (08:16)
[2022-11-12] MEDS: HYDROmorphone 1 MG/ML Syringe IVPUSH PRN ×2 (08:17→12:43)
[2022-11-12] MEDS: Nicotine 21 MG/24 Hr Patch TRDERM SCH (08:22)
[2022-11-12] MEDS ORDERED: metroNIDAZOLE 250 MG Tab PO ONE (09:13)
[2022-11-12] MEDS: Insulin Lispro 100 Units/ML 3 ML Vial SUBCUT SCH ×2 (09:53→13:00)
[2022-11-12 13:31] VITALS: BP 103/60; PULSE 96
== END 2022-11-12 14:38 | DRG 871 ==
LOC: DL.ED 13:19 → UNDOADMIN 15:43 → DL.MS 15:43
PROVIDERS: ADMIT Internal Medicine; ATTEND Internal Medicine
DX: A41.01 Sepsis due to Methicillin susceptible Staphylococcus aureus (principal); G93.41 Metabolic encephalopathy; N18.6 End stage renal disease; E87.1 Hypo-osmolality and hyponatremia; N39.0 Urinary tract infection, site not specified; M86.9 Osteomyelitis, unspecified; L02.416 Cutaneous abscess of left lower limb; E87.20 Acidosis, unspecified; I12.0 Hypertensive chronic kidney disease with stage 5 chronic kidney disease or end stage renal disease; N17.9 Acute kidney failure, unspecified; A59.03 Trichomonal cystitis and urethritis; E78.5 Hyperlipidemia, unspecified; E10.42 Type 1 diabetes mellitus with diabetic polyneuropathy; D63.8 Anemia in other chronic diseases classified elsewhere; E88.09 Other disorders of plasma-protein metabolism, not elsewhere classified; G89.4 Chronic pain syndrome; H54.62 Unqualified visual loss, left eye, normal vision right eye; D75.839 Thrombocytosis, unspecified; D69.6 Thrombocytopenia, unspecified; B19.20 Unspecified viral hepatitis C without hepatic coma; D72.829 Elevated white blood cell count, unspecified; D64.9 Anemia, unspecified; E10.65 Type 1 diabetes mellitus with hyperglycemia; E83.51 Hypocalcemia; R74.8 Abnormal levels of other serum enzymes; Z99.2 Dependence on renal dialysis; Z91.14 Patient's other noncompliance with medication regimen; Z86.14 Personal history of Methicillin resistant Staphylococcus aureus infection; Z91.15 Patient's noncompliance with renal dialysis; Z88.8 Allergy status to other drugs, medicaments and biological substances; H54.7 Unspecified visual loss; E78.00 Pure hypercholesterolemia, unspecified; Z98.51 Tubal ligation status; Z89.612 Acquired absence of left leg above knee; Z89.611 Acquired absence of right leg above knee
CPT/HCPCS: 0240U; 36415; 36430; 51702; 71045; 76770; 80048; 80053; 80305-QW; 80307; 81001; 82947; 83036; 83605; 83735; 84145; 84484; 84703; 85014; 85018; 85025; 85651; 86140; 86850; 86900; 86901; 86920; 86922; 87040; 87070; 87077; 87086; 87186; 93005; 96361; 96365; 99285-25; A9270-GY; J0610; J0690; J0696; J1170; J1630; J1644; J1815-GY; J2405; J2543; J7030; J7060; J7120; P9016; P9047

== ENCOUNTER 2022-11-22 16:58 | Emergency (ER) | payer OTHER ==
[2022-11-22] MEDS ORDERED: Acetaminophen 500 MG Tab PO ONE (17:36)
[2022-11-22] MEDS ORDERED: LORazepam 2 MG/ML SDV ONE (18:08)
[2022-11-22] MEDS ORDERED: levETIRAcetam in NaCl (iso-os) 100 ML ONE (18:09)
[2022-11-22] MEDS ORDERED: levETIRAcetam in NaCl (iso-os) 1,500 MG in Premix Bag 1 BAG IV ONE ×4 (18:14→18:16)
[2022-11-22] MEDS ORDERED: LORazepam 2 MG/ML SDV IV ONE (18:15)
[2022-11-22] MEDS ORDERED: LORazepam 2 MG/ML SDV IM ONE (18:15)
[2022-11-22] MEDS ORDERED: Piperacillin/Tazobactam 3.375 GM in Sodium Chloride 0.9% 100 ML IV ONE (18:44)
== END 2022-11-22 22:45 ==
LOC: DL.ED 16:58
DX: R56.9 Unspecified convulsions (principal); D72.829 Elevated white blood cell count, unspecified; E78.00 Pure hypercholesterolemia, unspecified; I10 Essential (primary) hypertension; E10.9 Type 1 diabetes mellitus without complications; Z91.199 Patient's noncompliance with other medical treatment and regimen due to unspecified reason; Z88.8 Allergy status to other drugs, medicaments and biological substances; Z79.899 Other long term (current) drug therapy; W05.0XXA Fall from non-moving wheelchair, initial encounter
CPT/HCPCS: 70450; 70486; 72125; 96365; 96375; 99285; J1953; J2060; J2543

== ENCOUNTER 2022-12-31 12:59 | Emergency (ER) | payer SELFPAY ==
[~2022-12-31 12:59] MED LIST changes: -Acetaminophen 325 MG Tab PO ONE; -Hydrocortisone/Neomycin/Polymyxin B Otic Susp 10 ML Bottle ONE; +Sodium Chloride 0.9% 1,000 ML IV ONE; +Sodium Chloride 0.9% 10 ML Syringe FLUSH PRN; -cefTRIAXone 1 GM, Lidocaine 1% 2.1 ML IM ONE
[2022-12-31 13:03] VITALS: BP 88/43; PULSE 97
[2022-12-31 13:37] LABS: ANION GAP 23.4 mEq/L (7-13); CHLORIDE,CL 109 mmol/L (98-107); SODIUM,NA 139 mmol/L (136-145)
[2022-12-31 13:39] LABS: ESTIMATED GFR 6 mL/min (>=60)
[2022-12-31] MEDS ORDERED: HYDROmorphone 0.5 MG/0.5 ML Syringe IVPUSH ONE (14:07)
[2022-12-31] MEDS ORDERED: Bacitracin Oint 1 GM U/D Packet TOP ONE (14:24)
[2022-12-31 14:55] LABS: AMPHETAMINES,URINE NEGATIVE (NEGATIVE); BARBITURATES,URINE NEGATIVE (NEGATIVE); BENZODIAZEPINE,URINE NEGATIVE (NEGATIVE); MDMA (ECSTASY), URINE NEGATIVE (NEGATIVE); METHADONE,URINE NEGATIVE (NEGATIVE); METHAMPHETAMINES,URINE NEGATIVE (NEGATIVE); OPIATES,URINE NEGATIVE (NEGATIVE); OXYCODONE,URINE NEGATIVE (NEGATIVE); PHENCYCLIDINE,URINE NEGATIVE (NEGATIVE); TCA,URINE NEGATIVE (NEGATIVE)
[2022-12-31] MEDS ORDERED: Acetaminophen/HYDROcodone 325-10 MG Tab ONE (16:19)
[2022-12-31] MEDS ORDERED: Clindamycin HCl 150 MG Cap ONE (16:19)
[2022-12-31] MEDS ORDERED: Mupirocin Oint 22 GM Tube ONE (16:20)
[2022-12-31] MEDS ORDERED: Doxycycline Monohydrate 100 MG Cap ONE (16:20)
== END 2022-12-31 16:31 | disposition home or self-care (01) ==
LOC: DL.ED 12:59
DX: L08.9 Local infection of the skin and subcutaneous tissue, unspecified (principal); E10.22 Type 1 diabetes mellitus with diabetic chronic kidney disease; E10.10 Type 1 diabetes mellitus with ketoacidosis without coma; N18.6 End stage renal disease; Z88.8 Allergy status to other drugs, medicaments and biological substances; Z79.899 Other long term (current) drug therapy
CPT/HCPCS: 36415; 80053; 80305-QW; 80307; 81001; 82009; 82947; 83605; 83735; 84100; 84703; 85025; 86140; 87040; 87086; 87088; 87186; 96365; 96375; 99283-25; 99285; A9270-GY; J1170; J3370; J3490; J7030; J7050

== ENCOUNTER 2023-01-02 07:52 | Observation (INO) | payer MEDICAID, OTHER ==
[2023-01-02] MEDS ORDERED: Morphine 2 MG/ML SYRINGE IVPUSH ONE ×2 (08:09→11:00)
[2023-01-02] MEDS ORDERED: Morphine 2 MG/ML SYRINGE ONE (10:51)
[2023-01-02] MEDS ORDERED: Albuterol/Ipratropium 3.0-0.5 MG/3 ML Neb Soln NEB PRN (11:16)
[2023-01-02] MEDS ORDERED: Ondansetron 4 MG/2 ML SDV IVPUSH PRN (11:16)
[2023-01-02] MEDS ORDERED: Scopolamine 1.5 MG Transdermal Patch TRDERM PRN (11:20)
[2023-01-02] MEDS ORDERED: Nicotine 14 MG/24 Hr Patch TRDERM SCH (11:30)
[2023-01-02] MEDS: Morphine 2 MG/ML SYRINGE IVPUSH PRN ×3 (12:55→21:53)
[2023-01-02] MEDS: LORazepam 2 MG/ML SDV IVPUSH PRN ×2 (12:55→19:47)
[2023-01-03] MEDS: LORazepam 2 MG/ML SDV IVPUSH PRN (02:15)
[2023-01-03] MEDS: Morphine 2 MG/ML SYRINGE IVPUSH PRN ×3 (02:15→19:46)
[2023-01-04] MEDS: Morphine 2 MG/ML SYRINGE IVPUSH PRN ×2 (00:01→08:12)
[2023-01-05] MEDS: Morphine 2 MG/ML SYRINGE IVPUSH PRN (10:49)
[2023-01-05 12:16] VITALS: BP 92/33; PULSE 93
== END 2023-01-05 11:30 | disposition hospice, home (50) ==
LOC: DL.ED 07:52 → DL.MS 08:34 → DL.ED 09:55
PROVIDERS: ADMIT Internal Medicine; ATTEND Internal Medicine
DX: N18.6 End stage renal disease (principal); E78.00 Pure hypercholesterolemia, unspecified; I12.9 Hypertensive chronic kidney disease with stage 1 through stage 4 chronic kidney disease, or unspecified chronic kidney disease; E10.22 Type 1 diabetes mellitus with diabetic chronic kidney disease; D63.1 Anemia in chronic kidney disease; Z89.612 Acquired absence of left leg above knee; Z89.611 Acquired absence of right leg above knee; Z79.899 Other long term (current) drug therapy; Z88.8 Allergy status to other drugs, medicaments and biological substances; Z79.4 Long term (current) use of insulin; Z98.890 Other specified postprocedural states
CPT/HCPCS: 96374; 96375; 96376; 99285; 99285-25; G0378; J2060; J2270